=== PATIENT | female | born 1945 | race Caucasian/White ===

== ENCOUNTER 2023-03-11 16:11 | Emergency (ER) | payer MEDICARE, SELFPAY ==
[2023-03-11] VITALS (8 sets, daily range): BP systolic 127–145; BP diastolic 70–81; PULSE 91–94; RESP 14–18; TEMP 36.2; O2SAT 95–100
--- NOTE | ~2023-03-11 | CT_ITS ---
EXAMINATION: CT abdomen pelvis w con DATE: 03/11/2023 19:16 INDICATION: constipation X6d, lower abd pain TECHNIQUE: Computed tomography (CT) of the abdomen and pelvis was performed with 100 mL Omnipaque-350 intravenous contrast. Automated exposure control and iterative reconstruction technique were employe d. The dose-length product was 332.65 mGy-cm. COMPARISON: None. FINDINGS: Lower thorax: Small focus of tree-in-bud opacities in the right middle lobe, at the superior margin o f the study. Aortic valve and coronary artery calcifications. Small hiatal hernia. Liver: Normal. Biliary/Gallbladder: Cholelithiasis. No inflammatory change. No bile duct dilation. Pancreas: No mass or duct dilation. Spleen: Normal. Adrenals:No mass. Kidneys: No suspicious mass, obstructing stone, or hydronephrosis. GI tract: Mild distal esophageal and gastric wall edema. Prior gastric surgery Multiple small bowel d iverticuli. Short segment wall thickening and surrounding inflammatory change involving a loop of mid abdominal small bowel, with inflammation of an adjacent diverticulum. No small or large bowel dilati on. Appendix not confidently visualized. Mesentery/Peritoneum: No ascites, mass, or free air. Retroperitoneum: No mass. Atherosclerotic abdominal aortic and/or arterial calcifications. Pelvis: Pelvic organs are within normal limits. Soft Tissues: Small uncomplicated bilateral fat-containing inguinal hernias. Subcutaneous stranding w ith minimal dermal thickening over the right upper quadrant. Bones: No acute osseous finding. IMPRESSION: Small focus of tree-in-bud opacities in the right middle lobe, may represent chronic/atypical infecti on. Mild esophagitis/gastritis. Mid abdominal small bowel diverticulitis. Skin thickening and subcutaneous stranding over the right upper quadrant, may represent contusion or a dermal vascular lesion. Reviewed, dictated and finalized at location [facility] IMPRESSION: Small focus of tree-in-bud opacities in the right middle lobe, may represent ch ronic/atypical infection. Mild esophagitis/gastritis. Mid abdominal small bowel diverticulitis. Skin thickening and subcutaneous stranding over the right upper quadrant, may r epresent contusion or a dermal vascular lesion.
--- NOTE | 2023-03-11 18:18 | ED.ABDPAIN ---
HPI - Abdominal Pain General Chief Complaint: Abdominal Pain <BETSEY Rust Last Filed: 03/11/23 18:25> Stated Complaint: sent by PCP for possible SBO <BETSYE Rust Last Filed: 03/11/23 18:25> Time Seen by Provider: 03/11/23 19:50 <BETSEY Rust Last Filed: 03/11/23 18:25> Source: patient <BETSEY Rust Last Filed: 03/11/23 18:25> Mode of arrival: ambulatory <BETSEY Rust Last Filed: 03/11/23 18:25> Limitations: no limitations <BETSEY Rust Last Filed: 03/11/23 18:25> History of Present Illness HPI narrative: Patient is a 77-year-old female, with past medical history of bariatric surgery 9 years ago, who presents to the ED with report of constipation. Patient reports she has not had a bowel movement in the last 6 days. She notes that she is not typically regular, typically has bowel movement every 3 days. She has tried several different suppositories and mag critrate yesterday but was only able to pass brown water. She has had some pain across her lower abdomen. She contacted her primary care doctor was referred to the ED for further evaluation. Patient denies previous history of bowel obstruction. Denies history of diverticulitis. Denies nausea, vomiting, dysuria, hematuria, fevers. <BETSEY Rust Last Filed: 03/11/23 18:25> Related Data Home Medications: Home Medications Medication Instructions Recorded Confirmed aspirin 81 mg tablet,delayed 81 mg PO DAILY 05/24/22 02/26/23 release (Adult Aspirin Regimen) cyanocobalamin (vitamin B-12) 1,000 mcg IM MONTHLY 05/24/22 02/26/23 1,000 mcg/mL injection solution ([employer]) zinc acetate 50 mg (zinc) capsule 50 mg PO DAILY 05/24/22 02/26/23 <BETSEY Rust Last Filed: 03/11/23 18:25> Allergies/Adverse Reactions: Allergies Allergy/AdvReac Type Severity Reaction Status Date / Time No Known Allergies Allergy Verified 03/11/23 16:12 <Bianca Fuller PA-C - Last Filed: 03/11/23 18:25> Review of Systems Review of Systems: CONSTITUTIONAL: Denies fever, chills, or sweats. GASTROINTESTINAL: See HPI. GENITOURINARY: Denies dysuria or hematuria. <Bianca Fuller PA-C - Last Filed: 03/11/23 18:25> All systems reviewed & are unremarkable except as noted in HPI and below <Bianca Fuller PA-C - Last Filed: 03/11/23 18:25> PMFSH Family History Family History: Family History Father Hypertension Heart disease Mother Diabetes mellitus Heart disease Depression Hypertension Thyroid disease Sibling Diabetes mellitus Grandparent Diabetes mellitus Hypertension Depression Heart disease Thyroid disease <Bianca Fuller PA-C - Last Filed: 03/11/23 18:25> Social History Social History: Social History Smoking status: Former smoker Substance use: never Substance use type: does not use Lack of Transportation: No Lack of Food: Never True Current Housing: I Have Housing Concerned About Future Housing: No Difficulty Paying Gas/Electric Bills: No Difficulty Paying for Meds: No Currently Unemployed: No Education: High School Diploma/GED Difficulty w/ Childcare or Family Care: No Living arrangements: with family Occupation/Education: retired Gender identity (if verbalized by the patient): Female Sexual Orientation (if Verbalized by the Patient): Straight or Heterosexual Agree to blood products: Yes <BETSEY Rust Last Filed: 03/11/23 18:25> Exam Narrative: GENERAL: Well appearing, well-nourished, non-toxic, in no acute distress. HEAD: Normocephalic, atraumatic. RESPIRATORY: Airway patent, respirations nonlabored. Clear to auscultation bilaterally, no rales, rhonchi, wheezing. CA
[2023-03-11 18:44] LABS: Basophils Percent Auto 0.3 % (0.2-1.2); Eosinophils Absolute Auto 0.1 K/mm3 (0-0.3); Eosinophils Percent Auto 1.1 % (0-4.4); Hematocrit 41.6 % (37.0-47.0); Immature Granulocyte Absolute 0.04 K/mm3 (0.00-0.031); Immature Granulocyte Percent A 0.4 % (0-0.5); Lymphocytes Absolute Auto 1.79 K/mm3 (0.9-3.2); Lymphocytes Percent Auto 17.8 % (18.3-44.2); Mean Corpuscular HGB Conc 33.7 g/dl (32-36); Mean Corpuscular Volume 92.2 fl (80-100); Mean Platelet Volume 10.1 fl (7.4-10.4); Monocytes Absolute Auto 0.8 K/mm3 (0.1-0.6); Neutrophils Absolute Auto 7.3 K/mm3 (1.3-6.7); Neutrophils Percent Auto 72.4 % (45.5-73.1); Platelet Count Result 344 k/mm3 (150-375); Red Blood Count 4.51 M/mm3 (4.2-5.4)
[2023-03-11 18:51] LABS: Alanine Aminotransferase 13 U/L (6-35); Alkaline Phosphatase 94 U/L (38-126); Anion Gap 9 mmol/L (8-16); Aspartate Amino Transferase 21 U/L (14-36); Bilirubin,Total 0.7 mg/dL (0.2-1.3); Blood Urea Nitrogen 18 mg/dL (7-17); Calcium 9.3 mg/dL (8.4-10.2); Carbon Dioxide 30 mmol/L (22-30); Chloride 97 mmol/L (98-107); Estimated CRCL calculation 60 ml/min; Estimated Glomerular Filt Rate > 60; Glucose 119 mg/dL (65-110); Potassium 3.8 mmol/L (3.4-5.0); Sodium 136 mmol/L (137-145)
[2023-03-11 19:43] LABS: Add Urine Microscopic? YES
[2023-03-11 19:44] LABS: Appearance Urine Cloudy (Clear); Color Urine Yellow (Yellow); pH Urine 5.5 (5.0-9.0)
[2023-03-11 19:45] LABS: Bilirubin Urine Negative (Negative); Blood Urine Negative (Negative); Glucose Urine UA 2+ mg/dL (Negative); Ketones Urine 1+ mg/dL (Negative); Leukocyte Esterase Ur Trace LEU/UL (Negative); Nitrate Urine Negative (Negative); Protein Urine Negative (Negative); RBC Urine 0-2 /hpf (0-2); Squamous Epithelial Cell Urine Moderate /hpf (Few); Urobilinogen Urine 0.2 mg/dL (<2.0); WBC Clumps Urine Present /hpf
[2023-03-11 19:46] LABS: Bacteria Urine Trace /hpf
[2023-03-11] MEDS: CIPROFLOXACIN 500 MG TAB PO (20:57)
[2023-03-11] MEDS: metroNIDAZOLE 500 MG TABLET PO (20:57)
== END 2023-03-11 21:46 | disposition home or self-care (01) ==
PROVIDERS: Physician Assistant; Emergency Provider Emergency Medicine; PCP Family Medicine
DX: K57.92 Diverticulitis of intestine, part unspecified, without perforation or abscess without bleeding (principal); N39.0 Urinary tract infection, site not specified; Z98.84 Bariatric surgery status
CPT/HCPCS: 36415; 74177; 80053; 81001; 85025; 87086; 87088; 99284; A9270; Q9967

== ENCOUNTER → 2023-05-02 11:06 | Outpatient (CLI) | payer MEDICARE, SELFPAY ==
--- NOTE | ~2023-05-02 | US_ITS ---
EXAMINATION: US thyroid DATE: 05/02/2023 11:20 INDICATION: Left thyroid nodule. TECHNIQUE: Multiple ultrasound images of the thyroid were obtained. COMPARISON: None. FINDINGS: The right thyroid lobe measures 3.2 x 1.3 x 1.5 cm. The left thyroid lobe measures 4.0 x 2.5 x 2.4 c m. The thyroid demonstrates heterogeneous echogenicity and increased vascularity. In the right thyro id lobe, there is a 13 mm solid, hypoechoic, wider than tall nodule with lobulated margin without ech ogenic foci (TI-RADS TR4). In the right thyroid lobe, there is a 10 mm solid, isoechoic, wider than t all nodule with ill-defined margin without echogenic foci (TR3). In the left thyroid lobe, there is a 2.7 cm solid, isoechoic, wider than tall nodule with smooth margin without echogenic foci (TR3). IMPRESSION: 1. Multinodular goiter. Ultrasound-guided aspiration of the 2.7 cm left thyroid nodule is recommended . 2. Heterogeneous, hypervascular thyroid, likely chronic lymphocytic (Ramandeep) thyroiditis. Reviewed, dictated and finalized at location A. LIFE ECOLOGIST IMPRESSION: 1. Multinodular goiter. Ultrasound-guided aspiration of the 2.7 cm left thyroid nodule is recommended. 2. Heterogeneous, hypervascular thyroid, likely chronic lymphocytic (Ramandeep) thyroiditis.
== END ==
PROVIDERS: PCP Family Medicine; Visit Provider Family Medicine
DX: E04.2 Nontoxic multinodular goiter (principal)
CPT/HCPCS: 76536

== ENCOUNTER 2024-04-13 12:05 | Emergency (ER) | payer MEDICARE, SELFPAY ==
[2024-04-13] VITALS (35 sets, daily range): BP systolic 111–179; BP diastolic 54–101; PULSE 85–102; RESP 12–22; TEMP 36.4; O2SAT 96–100
--- NOTE | ~2024-04-13 | CT_ITS ---
EXAMINATION: CT abdomen pelvis w con DATE: 04/13/2024 14:49 INDICATION: Abdominal pain. Jaundice. TECHNIQUE: Computed tomography (CT) of the abdomen and pelvis was performed with 100 mL Omnipaque 350 intravenous contrast. Automated exposure control and iterative reconstruction technique were employe d. The dose-length product was 239.82 mGy-cm. COMPARISON: CT abdomen and pelvis 03/11/23 FINDINGS: The visualized portions of lung bases demonstrate minimal atelectasis. No pleural effusion. The heart size is normal. No pericardial effusion. 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 Th ere is severe intrahepatic biliary duct dilatation. There is a stricture of the common duct. The panc reatic duct is dilated to 7 mm. There is a stricture of the pancreatic duct in the head of the pancre as. There is an ill-defined hypodense mass in the head of the pancreas measuring 1.9 cm. There are ga llstones in the gallbladder, which is normal in size. There is gas in the gallbladder lumen. The sple en, adrenal glands, and right kidney are normal. There is focal cortical volume loss of left kidney. The left periuterine and ovarian veins are enlarged, consistent with pelvic venous insufficiency. The re are no dilated loops of bowel. There are diverticula of the proximal duodenum. The appendix is not visualized. There is no free intraperitoneal fluid. There is a calcified fibroid in the uterus. Ther e is mild periportal lymphadenopathy. There are a few scattered benign bone islands. There is mild th oracic and lumbar spondylosis. IMPRESSION: 1. Mass in the head of the pancreas with strictures of the common duct and pancreatic duct, consisten t with primary adenocarcinoma. 2. Mild periportal lymphadenopathy, which is indeterminate for metastatic disease. Reviewed, dictated and finalized at location A. AND BEVERAGE LEAD IMPRESSION: 1. Mass in the head of the pancreas with strictures of the common duct and panc reatic duct, consistent with primary adenocarcinoma. 2. Mild periportal lymphadenopathy, which is indeterminate for metastatic disea se.
--- NOTE | 2024-04-13 12:30 | ECG_ITS ---
Test Date: 2024-04-13 12:48:31 Measurements Intervals [place] Rate: 91 P: 0 ND: 0 QRS: 41 QRSD: 89 T: 48 QT: 359 QTc: 444 Interpretive Statements SINUS RHYTHM ATRIAL COUPLET AND ATRIAL AND VENTRICULAR PREMATURE COMPLEXES ANTEROSEPTAL INFARCT, AGE INDETERMINATE BASELINE ARTIFACT- I, II, III, AVR, AVL, AVF, V1-V6 ABNORMAL ECG No previous ECG available for comparison Electronically Signed On 04-13-2024 12:53:34 SALES ESTIMATOR by Leonel Alberto D.O.
[2024-04-13 13:04] LABS: Basophils Absolute Auto 0.1 K/mm3 (0.0-0.1); Basophils Percent Auto 0.7 % (0.2-1.2); Eosinophils Absolute Auto 0.1 K/mm3 (0-0.3); Eosinophils Percent Auto 1.7 % (0-4.4); Hematocrit 40.3 % (37.0-47.0); Hemoglobin 13.6 g/dL (12.0-15.0); Immature Granulocyte Absolute 0.03 K/mm3 (0.00-0.031); Immature Granulocyte Percent A 0.4 % (0-0.5); Lymphocytes Absolute Auto 1.05 K/mm3 (0.9-3.2); Lymphocytes Percent Auto 14.8 % (18.3-44.2); Mean Corpuscular HGB Conc 33.7 g/dl (32-36); Mean Corpuscular Hemoglobin 30.5 pg (26-34); Mean Corpuscular Volume 90.4 fl (80-100); Mean Platelet Volume 11.2 fl (7.4-10.4); Monocytes Absolute Auto 0.5 K/mm3 (0.1-0.6); Monocytes Percent Auto 6.3 % (2.6-8.5); Neutrophils Absolute Auto 5.4 K/mm3 (1.3-6.7); Neutrophils Percent Auto 76.1 % (45.5-73.1); Platelet Count Result 339 k/mm3 (150-375); Red Blood Count 4.46 M/mm3 (4.2-5.4); Red Cell Distribution Width 15.6 % (11.5-14.5); White Blood Count 7.1 K/mm3 (4.5-10.0)
--- OUTSIDE RECORDS SUMMARY | 2024-04-13 13:10 | XMS_ITS | Referral Summary ---
Author Organization [facility] Address [facility] [place] [address] Care Team Providers Care Database Designer Name Role Phone Unavailable Primary Care Provider Unavailabl e Source Comments [facility],non-owned Affiliates and Associated Physician Practices is amultiple site organization consisting of ambulatory clinics and hospital sitesin [place], [place], [place] and [place]. This disclosure is being madepursuant to the Care Everywhere program and may not contain all information available regarding this patient. Last updated 17.[facility] Social History Tobacco Use Types Packs/Day Years Used Date Smoking Tobacco: Never Assessed Sex and Gender Information Value Date Recorded Sex Assigned at Not on file Gender Identity Not on file Sexual Orientation Not on file Plan of Treatment Not on file
--- OUTSIDE RECORDS SUMMARY | 2024-04-13 13:10 | XMS_ITS | Patient Health Summary ---
Author Organization [facility] Address [address] [place] [address] Care Team Providers Care Entry Level Marketing Representative Name Role Phone Unavailable Primary Care Provider Unavailabl e Note from [facility],non-owned Affiliates and Associated Physician Practices is amultiple site organization consisting of ambulatory clinics and hospital sitesin [place], [place], [place] and [place]. This disclosure is being madepursuant to the Care Everywhere program and may not contain all information available regarding this patient. Last updated 17.[facility] Social History Tobacco Use Types Packs/Day Years Used Date Smoking Tobacco: Never Assessed Sex and Gender Information Value Date Recorded Sex Assigned at Not on file Gender Identity Not on file Sexual Orientation Not on file Procedures * CULTURE EAR+GRAM STAIN(Performed 08/06/2017) Performed for Chronic otitis externa of left ear, unspecified type Results * (ABNORMAL) CULTURE EAR+GRAM STAIN (08/06/2017 11:00 AM CDT) Culture Heavy normal skin roverto ANA PAULA 08/12/2017 10:38 AM T [facility] Culture Light Staphylococcus aureus(A) ANA PAULA 08/12/2017 10:38 AM T [facility] Culture Heavy Abbey albicans(A) ANA PAULA 08/12/2017 10:38 AM T [facility] Gram Stain Light Gram-positive cocci 08/12/2017 10:38 AM CDT [facility] Gram Stain Rare Gram-variable bacilli 08/12/2017 10:38 AM CDT [facility] Gram Stain Rare Yeast 08/12/2017 10:38 AM T [facility] Microbiology EAR PART / Unknown Collection / Unknown 08/06/2017 11:00 AM CDT 08/06/2017 8:39 PM CDT Narrative Organism Antibiotic Method Susceptibility Staphylococcus aureus Ciprofloxacin ANA PAULA <=0.5 ug/mL: Susceptible Staphylococcus aureus Clindamycin ANA PAULA 0.25 ug/mL: Resistant Staphylococcus aureus Doxycycline ANA PAULA <=0.5 ug/mL: Susceptible Staphylococcus aureus Erythromycin ANA PAULA 1 ug/mL: Resistant Staphylococcus aureus Gentamicin ANA PAULA <=0.5 ug/mL: Susceptible Staphylococcus aureus Inducible Clindamy jose Resistance ANA PAULA POS ug/mL: Pos Staphylococcus aureus Levofloxacin ANA PAULA 0.25 ug/mL: Susceptible Staphylococcus aureus Linezolid ANA PAULA 2 ug/mL: Susceptible Staphylococcus aureus Oxacillin ANA PAULA 0.5 ug/mL: Susceptible Staphylococcus aureus Tetracycline ANA PAULA <=1 ug/mL: Susceptible Staphylococcus aureus Trimethoprim-sulfa methoxa zole ANA PAULA <=10 ug/mL: Susceptible Staphylococcus aureus Vancomycin ANA PAULA 2 ug/mL: Susceptible Comment: Methicillin-susceptible Staphylococci are susceptible to oxacillin, nafcillin, cloxacillin,dicloxacillin, beta lactam/betalactamase inhibitor combinations, cephalosporins including cefazolin and carbapenems. This isolate is presumed to be resistant to clindamycin on the basis of detection of inducible clindamycin resistance. Mar Silva MD LAB - MICROBIOLOGY O RDERABLES [facility] [address] [place], [place] [address], [facility] [phone]
--- OUTSIDE RECORDS SUMMARY | 2024-04-13 13:10 | XMS_ITS | Clinical Summary ---
Author Organization [facility] Address [address] [place] [id number] Care Team Providers Care Roll Tester Name Role Phone Unavailable Primary Care Provider Unavailabl e Social History Tobacco Use Types Packs/Day Years Used Date Smoking Tobacco: Never Assessed Comments Unknown Sex and Gender Information Value Date Recorded Sex Assigned at Not on file Legal Sex Female 7:32 AM CDT Gender Identity Not on file Sexual Orientation Not on file Plan of Treatment Health Maintenance Due Date Last Done Comments Hepatitis C 1963 DTaP, Tdap and Td Vaccines ( 1 - Tdap) 1965 Zoster Vaccines (1 of 2) 1996 Dexa Scan (General) 10/19/2011 Pneumococcal Vaccine: 65+ Ye ars (1 of 1 - PCV) 10/19/2011 RSV Immunization or 60+ Years (1 - 1-dose 75+ series) 2021 COVID-19 Vaccine (2023-2 5 season) 2023 Influenza Adult (#1) 2023 Meningococcal B Vaccine Aged Out No l onger eligible based on patient's age to complete this topic Meningococcal Vaccine Aged Out No adela nayeli eligible based on patient's age to complete this topic RSV Immunizations Under 20 Months Aged Out No longer eligible based on patient's age to complete this topic
--- OUTSIDE RECORDS SUMMARY | 2024-04-13 13:10 | XMS_ITS | Clinical Summary ---
Author Organization [facility] [employer] Address [address] [place] [address] Care Team Providers Care Wood Cutter Name Role Phone Unavailable Primary Care Provider Unavailabl e Source Comments [facility],non-owned Affiliates and Associated Physician Practices is amultiple site organization consisting of ambulatory clinics and hospital sitesin [place], [place], [place] and [place]. This disclosure is being madepursuant to the Care Everywhere program and may not contain all information available regarding this patient. Last updated 17.[facility] [employer] Social History Tobacco Use Types Packs/Day Years Used Date Smoking Tobacco: Never Assessed Sex and Gender Information Value Date Recorded Sex Assigned at Not on file Gender Identity Not on file Sexual Orientation Not on file Plan of Treatment Health Maintenance Due Date Last Done Comments BONE DENSITY TESTING 1945 HEPATITIS C SCREENING 10/13/1963 DTAP/TDAP/TD VACCINES (1 - Tdap) 1965 PNEUMOCOCCAL VACCINE 50+ (1 of 1 - PCV) 1996 ZOSTER VACCINE (1 of 2) 1996 Respiratory Syncytial Virus (RSV) Vaccine Pt: or over 60 yrs (1 - 1-dose 75+ series) 2021 COVID-19 VACCINE ( - 2023-2 5 season) 2023 INFLUENZA VACCINE (#1) 2023 DEPRESSION SCREENING 03/03/2024 MEDICARE AWV CALENDAR YEAR 2024 HEPATITIS B VACCINE Aged Out No longe r eligible based on patient's age to complete this topic HIB VACCINE Aged Out No longer eligi ble based on patient's age to complete this topic HPV VACCINE Aged Out No longer eligi ble based on patient's age to complete this topic MENINGOCOCCAL (Group B) VACCINE Aged Out No longer eligible based on patient's age to complete this topic MENINGOCOCCAL VACCINE Aged Out No adela nayeli eligible based on patient's age to complete this topic
[2024-04-13 13:17] LABS: Bacteria Urine None Seen /hpf; Mucus Urine Present /lpf; Squamous Epithelial Cell Urine Moderate /hpf (Few); WBC Urine 0-5 /hpf (0-3); White Blood Cell Casts Urine Present /lpf
[2024-04-13 13:20] LABS: Add Urine Microscopic? YES; Appearance Urine Cloudy (Clear); Bilirubin Urine 3+ (Negative); Blood Urine Negative (Negative); Color Urine Orange (Yellow); Glucose Urine UA Negative (Negative); INR 0.9; Ketones Urine Negative (Negative); Leukocyte Esterase Ur 2+ LEU/UL (Negative); Nitrate Urine Positive (Negative); Protein Urine 1+ mg/dL (Negative); Prothrombin Time 12.9 Seconds (11.1-14.7); Specific Grav Ur 1.037 (1.001-1.035); Urobilinogen Urine 0.2 mg/dL (<2.0)
[2024-04-13 13:21] LABS: Partial Thromboplastin Time 25.8 Seconds (22.3-36.8)
[2024-04-13 13:22] LABS: Lactic Acid Reflex 4.4 mmol/L (0.7-2.0)
[2024-04-13 13:27] LABS: Ammonia 49 umol/L (9-30)
--- NOTE | 2024-04-13 13:44 | ED_ITS ---
HPI - Abdominal Pain General Chief Complaint: Abdominal Pain Stated Complaint: jaundice Time Seen by Provider: 04/13/24 13:09 History of Present Illness HPI narrative: 78-year-old female with a past medical history including hypertension and diabetes. Today patient presents to the emergency depart with yellowing skin and eyes. For last week she has been having some intermittent abdominal pain cramping which has since resolved. She now notices that she is having clear colored stools, dark-colored urine and feeling yellowing around her eyes and hands, trunk. States the other and has progressed rapidly over the last day, noticed her abdominal pain this past week associated with some nausea and diarrhea which also resolved. Presently she is not having any pain or symptoms besides the yellow skin. Denies any history of hepatitis, no history of cancer in herself or her family, does report a 10 lb weight loss this past week. No chest pain, shortness a breath, fever, chills, back pain or abdominal pain present. No present nausea vomiting. Related Data Home Medications ?Medication ?Instructions ?Recorded ?Confirmed ?Last Taken ?Type aspirin 81 mg tablet,delayed 81 mg PO DAILY 05/24/22 03/10/24 Unknown History release (Adult Aspirin Regimen) zinc acetate 50 mg (zinc) capsule 50 mg PO DAILY 05/24/22 03/10/24 Unknown History ferrous sulfate 325 mg (65 mg 325 mg PO DAILY 03/19/23 03/10/24 Unknown History iron) tablet (Feosol) Allergies Allergy/AdvReac Type Severity Reaction Status Date / Time No Known Allergies Allergy Verified 04/13/24 12:13 Review of Systems 2 Review of Systems: As reviewed above in HPI [facility] [place] Family History Family History Father Hypertension Heart disease Mother Diabetes mellitus Heart disease Depression Hypertension Thyroid disease Sibling Diabetes mellitus Grandparent Diabetes mellitus Hypertension Depression Heart disease Thyroid disease Social History Social History Smoking status: Former smoker Substance use: never Substance use type: does not use Lack of Transportation: No Lack of Food: Never True Current Housing: I Have Housing Concerned About Future Housing: No Difficulty Paying Gas/Electric Bills: No Difficulty Paying for Meds: No Currently Unemployed: No Education: High School Diploma/GED Difficulty w/ Childcare or Family Care: No Living arrangements: with family Occupation/Education: retired Gender identity (if verbalized by the patient): Female Sexual Orientation (if Verbalized by the Patient): Straight or Heterosexual Agree to blood products: Yes Exam 2 Narrative: GENERAL: Jaundiced, not in any acute distress, answering all questions appropriate awake alert. HEAD: [Normocephalic, atraumatic.] EYES: Scleral icterus, pupils equal and reactive ENT: Nares clear, no rhinorrhea or epistaxis. Mucous membranes moist. NECK: Supple. CHEST: [Clear to auscultation. No respiratory distress.] HEART: [Regular rate and rhythm]. No murmur heard. [Normal peripheral pulses.] ABDOMEN: [Soft, nondistended], [nontender], [No rigidity or guarding] EXTREMITIES: Normal range of motion. [No edema.] SKIN: Diffuse jaundice in the upper, lower extremities, trunk and abdomen, facial features and eyes, warm and dry extremities otherwise. NEURO: [No focal deficits]. Alert and oriented [x3.] PSYCH: [Normal mood and affect.] Course Vital Signs Vital signs: Vital Signs Temperature 36.4 C L 04/13/24 12:07 Pulse Rate 100 04/13/24 12:07 Respiratory Rate 16 04/13/24 12:07 Blood Pressure 179/75 H 04/13/24 12:07 Pulse Oximetry 99 04/13/24 12:07 Oxygen Delivery Room Air 04/13/24 12:07 Temperature 36.4 C L 04/13/24 12:07 Pulse Rate 85 04/13/24 16:50 Respiratory Rate 20 04/13/24 16:50 Blood Pressure 143/97 H 04/13/24 16:50 Pulse Oximetry 100 04/13/24 16:50 Oxygen Delivery Room Air 04/13/24 12:07 MDM - Abdominal Pain MDM Narrative Medical decision making narrative: 78-year-old female presenting with new onset jaundice. This past week she has had some intermittent abdominal pain which is since resolved. She now has clear colored stools, discolored urine, profound jaundice and scleral icterus. Her vital signs show some stable hypertension but no tachycardia, fever, hypoxia. She is saturating well on room air. She has a soft nontender nondistended abdomen without any palpable masses. Reports a 10 lb unintentional weight loss this past week. No symptoms such as nausea vomiting diarrhea abdominal pain today. Considerations presently are hepatitis, pancreatic mass or lesion, obstructive process, blood disorders pain to over production and destruction of hemoglobin, cholangitis or other abdominal process. Laboratory studies were obtained including CBC, CMP, bilirubin direct and indirect, LFTs and lipase. CT of the abdomen pelvis with contrast obtained to rule out any intra-abdominal process or mass. EKG obtained. Workup reveals no leukocytosis or anemia. Normal platelet count. Normal coags. Electrolytes within normal limits, normal kidney function, glucose slightly elevated to 106. Lactic acid 4.4. Total bilirubin of 13.8, direct bilirubin of 7.2 indirect of 1.6 indicative of obstructive jaundice. Elevated ALT AST and alk-phos in the 8-900 range. Lipase elevated 433. Consistent with obstruction. He urinalysis shows some discoloration and bilirubin without signs of infection. Imaging studies show a mass in the pancreatic head with stricture of the common bile and pancreatic ducts consistent with primary adenocarcinoma as well as periportal lymphadenopathy concerning for metastatic disease. Discussed the case with Interventional Radiology (Dr. Evans), Gastroenterology (Dr. Morin) and Hematology Oncology (Dr. Mondragon) over the phone. Recommendations are to transfer to a higher level of care facility that can conduct ERCP and obtain biopsy. Patient has no preference on transfer. I contacted the [facility] transfer line and spoke to [facility] and patient was accepted as admission to the medical-surgical floor for pancreatic mass with obstructive jaundice under the hospitalist Dr. Srivastava with GI on consult. Patient comfortable with the plan of care and will remain in the emergency department until transfer can be completed in bed available. Patient remains hemodynamically stable, diet orders were placed as well as repeat laboratory studies. Medical Records Attestation: I reviewed the patient's medical records. Lab Data Attestation: I reviewed the patient's lab results. 04/13/24 12:45 04/13/24 12:45 Labs: Lab Results 04/13/24 04/13/24 04/13/24 Range/Units 12:45 14:32 17:00 WBC 7.1 (4.5-10.0) K/mm3 RBC 4.46 (4.2-5.4) M/mm3 Hgb 13.6 (12.0-15.0) g/dL Hct 40.3 (37.0-47.0) % MCV 90.4 (80-100) fl MCH 30.5 (26-34) pg MCHC 33.7 (32-36) g/dl RDW 15.6 H (11.5-14.5) % Plt Count 339 (150-375) k/mm3 MPV 11.2 H (7.4-10.4) fl Immature Gran % (Auto) 0.4 (0-0.5) % Neut % (Auto) 76.1 H (45.5-73.1) % Lymph % (Auto) 14.8 L (18.3-44.2) % [place] % (Auto) 6.3 (2.6-8.5) % Eos % (Auto) 1.7 (0-4.4) % Baso % (Auto) 0.7 (0.2-1.2) % Lymph # (Auto) 1.05 (0.9-3.2) K/mm3 [place] # (Auto) 0.5 (0.1-0.6) K/mm3 Eos # (Auto) 0.1 (0-0.3) K/mm3 Baso # (Auto) 0.1 (0.0-0.1) K/mm3 Abs Immat Gran (auto) 0.03 (0.00-0.031) K/mm3 Absolute Neuts (auto) 5.4 (1.3-6.7) K/mm3 Absolute Nucleated RBC 0.000 (0.0-0.012) K/mm3 Nucleated RBC % 0.0 (0.0-0.2) % PT 12.9 (11.1-14.7) Seconds INR 0.9 APTT 25.8 (22.3-36.8) Seconds Sodium 137 (137-145) mmol/L Potassium 3.9 (3.4-5.0) mmol/L Chloride 95 L (98-107) mmol/L Carbon Dioxide 26 (22-30) mmol/L Anion Gap 16 H (4-12) mmol/L BUN 13 D (7-17) mg/dL Creatinine 0.34 L (0.7-1.0) mg/dL Estim Creat Clear Calc 83 ml/min Estimated GFR > 60 (59 - ) Glucose 206 H (65-110) mg/dL Lactic Acid 4.4 H* Pending (0.7-2.0) mmol/L Calcium 10.1 (8.4-10.2) mg/dL Total Bilirubin 13.8 H (0.2-1.3) mg/dL Direct Bilirubin 7.7 H 7.2 H (0-0.3) mg/dL Indirect Bilirubin 1.7 H 1.6 H (0-1.1) mg/dL AST 906 H (14-36) U/L ALT 819 H (6-35) U/L Alkaline Phosphatase 978 H (38-126) U/L Ammonia 49 H (9-30) umol/L Total Protein 7.0 (6.3-8.2) g/dL Albumin 4.0 (3.5-5.1) g/dL Lipase 433 H (23-300) U/L Urine Color [place] H (Yellow) Urine Appearance Cloudy H (Clear) Urine pH 5.0 (5.0-9.0) Ur Specific [place] 1.037 H (1.001-1.035) Urine Protein 1+ H (Negative) mg/dL Urine Glucose (UA) Negative (Negative) mg/dL Urine Ketones Negative (Negative) mg/dL Ur Blood (Man) Negative (Negative) Urine Nitrate Positive H (Negative) Urine Bilirubin 3+ H (Negative) Urine Urobilinogen 0.2 (<2.0) mg/dL Leukocyte Esterase Rfl 2+ H (Negative) JACQUE/UL Urine RBC 11-20 H (0-2) /hpf Urine WBC 0-5 (0-3) /hpf Ur Squamous Epith Cells Moderate (Few) /hpf Urine Bacteria None seen /hpf Urine Casts 3-5 WBC Casts Present H (None) /lpf Urine Mucus Present /lpf Imaging Data Attestation: I personally reviewed and interpreted this imaging study as follows: My impression: Impressions Abdomen/Pelvis CT 04/13/24 14:57 IMPRESSION: 1. Mass in the head of the pancreas with strictures of the common duct and pancreatic duct, consistent with primary adenocarcinoma. 2. Mild periportal lymphadenopathy, which is indeterminate for metastatic disease. Radiologist's impression: ITS Impressions Abdomen/Pelvis CT 04/13/24 14:57 IMPRESSION: 1. Mass in the head of the pancreas with strictures of the common duct and pancreatic duct, consistent with primary adenocarcinoma. 2. Mild periportal lymphadenopathy, which is indeterminate for metastatic disease. Discharge Plan Discharge Clinical Impression: Malignant obstructive jaundice, Mass of head of pancreas, Elevated LFTs, Total bilirubin, elevated Patient Disposition: Acute Care Hospital Condition: Stable Instructions: Antibiotic Form Patient Language: Scottish Prescriptions: No Action aspirin [Adult Aspirin Regimen] 81 mg tablet,delayed release (DR/EC) 81 mg PO DAILY zinc acetate 50 mg (zinc) capsule 50 mg PO DAILY (DME) Dexcom G6 Human Resources Operations Coordinator Misc See Rx Instructions .Route Qty: 1 3RF Rx Instructions: As directed (DME) Dexcom G6 Sensor Device See Rx Instructions .Route Qty: 9 11RF Rx Instructions: As directed (DME) Dexcom G6 Transmitter Device See Rx Instructions .Route Qty: 1 3RF Rx Instructions: As directed ferrous sulfate [Feosol] 325 mg (65 mg iron) tablet 325 mg PO DAILY polyethylene glycol 3350 [Miralax] 17 gram/dose powder 17 g PO DAILY Qty: 238 3RF (DME) Monoject Safety Syringes 3 mL 25 gauge x 5/8 syringe See Rx Instructions .Route Qty: 500 0RF Rx Instructions: As directed nystatin 100,000 unit/gram cream 1 applic topical BID Qty: 30 1RF atorvastatin 20 mg tablet 20 mg PO QHS Qty: 90 1RF ergocalciferol (vitamin D2) 1,250 mcg (50,000 unit) capsule 1,250 mcg PO WEEKLY Qty: 12 1RF hydrochlorothiazide 25 mg tablet 25 mg PO DAILY Qty: 90 1RF cyanocobalamin (vitamin B-12) [Dodex] 1,000 mcg/mL solution 1,000 mcg IM MONTHLY Qty: 3 1RF enalapril maleate 10 mg tablet 10 mg PO DAILY Qty: 90 1RF duloxetine 60 mg capsule,delayed release(DR/EC) See Rx Instructions .ROUTE .COMPLEX Qty: 90 1RF Dose Instruction: TAKE 1 CAPSULE DAILY Rx Instructions: TAKE 1 CAPSULE DAILY Mounjaro 12.5 mg/0.5 mL pen injector 12.5 mg subcut WEEKLY Qty: 6 0RF (DME) OneTouch Verio test strips Strip See Rx Instructions .Route Qty: 100 1RF Rx Instructions: As directed (DME) lancets 33 gauge misc See Rx Instructions .Route Qty: 100 1RF Rx Instructions: As directed metformin 500 mg tablet extended release 24 hr 500 mg PO .COMPLEX Qty: 180 1RF Rx Instructions: Please take one tablet in the morning and two tablets in the evening. Follow-up/Referrals: Brittni Guardado DO [Primary Care Provider] - Time of Disposition: 17:20
--- OUTSIDE RECORDS SUMMARY | 2024-04-13 14:00 | XMS_ITS | Referral Summary ---
Author Organization [facility] Address [facility] [place] [address] Care Team Providers Care [place] Fishing Boat Crewman Name Role Phone Unavailable Primary Care Provider Unavailabl e Source Comments [facility],non-owned Affiliates and Associated Physician Practices is amultiple site organization consisting of ambulatory clinics and hospital sitesin [place], [place], [place] and [place]. This disclosure is being madepursuant to the Care Everywhere program and may not contain all information available regarding this patient. Last updated 17.[facility] Social History Tobacco Use Types Packs/Day Years Used Date Smoking Tobacco: Never Assessed Sex and Gender Information Value Date Recorded Sex Assigned at Not on file Gender Identity Not on file Sexual Orientation Not on file Plan of Treatment Not on file
--- OUTSIDE RECORDS SUMMARY | 2024-04-13 14:00 | XMS_ITS | Clinical Summary ---
Author Organization [facility] Address [address] [place] [id number] Care Team Providers Care Data Communications Software Consultant Name Role Phone Unavailable Primary Care Provider [...]
--- OUTSIDE RECORDS SUMMARY | 2024-04-13 14:00 | XMS_ITS | Clinical Summary ---
Author Organization [facility] [employer] Address [address] [place] [address] Care Team Providers Care City Designer Name Role Phone Unavailable Primary Care Provider Unavailabl e Source Comments [facility],non-owned Affiliates and Associated Physician Practices is amultiple site organization consisting of ambulatory clinics and hospital sitesin [place], [place], [place] and [place]. This disclosure is being madepursuant to the Care Everywhere program and may not contain all information available regarding this patient. Last updated 17.[facility] [employer] Social History Tobacco Use Types Packs/Day Years [...]
--- OUTSIDE RECORDS SUMMARY | 2024-04-13 14:00 | XMS_ITS | Patient Health Summary ---
Author Organization [facility] [employer] Address [address] [place] [address] Care Team Providers Care Transport Specialist Name Role Phone Unavailable Primary Care Provider Unavailabl e Note from [facility],non-owned Affiliates and Associated Physician Practices is amultiple site organization consisting of ambulatory clinics and hospital sitesin [place] and [place]. This disclosure is being madepursuant to the Care Everywhere program and may not contain all information available regarding this patient. Last updated 17.[facility] [employer] Social History Tobacco Use Types Packs/Day Years [...] roverto ANA PAULA 08/12/2017 10:38 AM T [facility] MICROBIOLOGY Culture Light Staphylococcus aureus(A) ANA PAULA 08/12/2017 10:38 AM T [facility]CRO[facility] Culture Heavy Abbey albicans(A) ANA PAULA 08/12/2017 10:38 AM T [facility]CRO[facility] Gram Stain Light Gram-positive cocci 08/12/2017 10:38 AM CDT [facility]CRO[facility] Gram Stain Rare Gram-variable bacilli 08/12/2017 10:38 AM CDT [facility]CRO[facility] Gram Stain Rare Yeast 08/12/2017 10:38 AM T [facility] MICROBIOLOGY Microbiology EAR PART / Unknown [...] Silva MD LAB - MICROBIOLOGY O RDERABLES [facility] [address] [place], [place] [address], [facility] [phone]
[2024-04-13 14:17] LABS: Alanine Aminotransferase 819 U/L (6-35); Aspartate Amino Transferase 906 U/L (14-36)
[2024-04-13 14:18] LABS: Alkaline Phosphatase 978 U/L (38-126); Anion Gap 16 mmol/L (4-12); Bilirubin Direct 7.7 mg/dL (0-0.3); Bilirubin Indirect 1.7 mg/dL (0-1.1); Bilirubin,Total 13.8 mg/dL (0.2-1.3); Blood Urea Nitrogen 13 mg/dL (7-17); Calcium 10.1 mg/dL (8.4-10.2); Carbon Dioxide 26 mmol/L (22-30); Chloride 95 mmol/L (98-107); Estimated CRCL calculation 83 ml/min; Estimated Glomerular Filt Rate > 60; Glucose 206 mg/dL (65-110); Lipase 433 U/L (23-300); Potassium 3.9 mmol/L (3.4-5.0); Sodium 137 mmol/L (137-145)
[2024-04-13 14:53] LABS: Bilirubin Direct 7.2 mg/dL (0-0.3); Bilirubin Indirect 1.6 mg/dL (0-1.1)
[2024-04-13 15:54] LABS: Reflex Lactic Acid Yes or No Add Lactic
[2024-04-13 17:22] LABS: Lactic Acid 2.2 mmol/L (0.7-2.0)
[2024-04-14] VITALS (37 sets, daily range): BP systolic 115–162; BP diastolic 64–93; PULSE 72–90; RESP 12–25; TEMP 36.8; O2SAT 94–100
[2024-04-14 04:57] LABS: Basophils Absolute Auto 0.1 K/mm3 (0.0-0.1); Eosinophils Absolute Auto 0.3 K/mm3 (0-0.3); Hematocrit 33.6 % (37.0-47.0); Hemoglobin 12.1 g/dL (12.0-15.0); Immature Granulocyte Absolute 0.01 K/mm3 (0.00-0.031); Immature Granulocyte Percent A 0.2 % (0-0.5); Lymphocytes Absolute Auto 1.17 K/mm3 (0.9-3.2); Lymphocytes Percent Auto 18.6 % (18.3-44.2); Mean Corpuscular Hemoglobin 31.4 pg (26-34); Mean Corpuscular Volume 87.3 fl (80-100); Mean Platelet Volume 10.8 fl (7.4-10.4); Monocytes Absolute Auto 0.6 K/mm3 (0.1-0.6); Neutrophils Absolute Auto 4.2 K/mm3 (1.3-6.7); Neutrophils Percent Auto 66.2 % (45.5-73.1); Platelet Count Result 296 k/mm3 (150-375); Red Blood Count 3.85 M/mm3 (4.2-5.4); Red Cell Distribution Width 15.2 % (11.5-14.5); White Blood Count 6.3 K/mm3 (4.5-10.0)
--- NOTE | 2024-04-14 05:01 | PC.NURSE ---
Patient was offered a hospital bed for comfort, but stated she was very comfortable in the bed she was already in.
[2024-04-14 05:39] LABS: Albumin Level 3.4 g/dL (3.5-5.1); Alkaline Phosphatase 877 U/L (38-126); Anion Gap 10 mmol/L (4-12); Bilirubin,Total 12.9 mg/dL (0.2-1.3); Blood Urea Nitrogen 9 mg/dL (7-17); Calcium 9.2 mg/dL (8.4-10.2); Carbon Dioxide 28 mmol/L (22-30); Chloride 99 mmol/L (98-107); Estimated CRCL calculation 95 ml/min; Estimated Glomerular Filt Rate > 60; Glucose 214 mg/dL (65-110); Potassium 3.2 mmol/L (3.4-5.0); Sodium 137 mmol/L (137-145)
[2024-04-14 05:40] LABS: Aspartate Amino Transferase 787 U/L (14-36)
[2024-04-14 05:43] LABS: Alanine Aminotransferase 735 U/L (6-35)
--- NOTE | 2024-04-14 09:33 | PC.NURSE ---
Breakfast tray ordered.
--- NOTE | 2024-04-14 12:22 | PC.NURSE ---
lunch tray ordered
--- NOTE | 2024-04-14 13:45 | PC.NURSE ---
UPDATE GIVEN TO [facility]. STILL AWAITING BED PLACEMENT. WILL CONTINUE TO MONITOR
--- NOTE | 2024-04-14 15:20 | PC.NURSE ---
NANCY FREEMAN FROM [facility] CALLED FOR INFO REGARDING PT
--- NOTE | 2024-04-14 19:51 | PC.NURSE ---
Spoke with Tigist WITT with [facility] with an updated set of vital signs at this time.
[2024-04-14 20:22] LABS: Glucose Point of Care 206 mg/dl (65-105)
--- NOTE | 2024-04-14 20:39 | PC.NURSE ---
[facility] arrives for patient
== END 2024-04-14 20:43 | disposition short-term general hospital (02) ==
PROVIDERS: Emergency Medicine; Emergency Provider Student in an Organized Health Care Education/Training Program; PCP Family Medicine
DX: K83.1 Obstruction of bile duct (principal); K86.9 Disease of pancreas, unspecified; R79.89 Other specified abnormal findings of blood chemistry; I10 Essential (primary) hypertension; E11.9 Type 2 diabetes mellitus without complications; R94.31 Abnormal electrocardiogram [ECG] [EKG]
CPT/HCPCS: 36415; 74177; 80053; 81001; 82140; 82248; 82948; 83605; 83690; 85025; 85610; 85730; 93005; 96374; 99285; Q9967

== ENCOUNTER 2024-07-14 17:08 | Emergency (ER) | payer MEDICARE, SELFPAY ==
--- OUTSIDE RECORDS SUMMARY | 2024-07-14 17:10 | XMS_ITS ---
Author Organization [facility] Address [address] [place] [address] Care Team Providers Care Refrigerating Oiler Name Role Phone Unknown, Notinfile Primary Care Provider Unavail able Mohan Heller MD Unavailable Kourtney Park Unavailable [phone] No, Physician Unavailable Abimael Radford MD Unavailable [phone] Active Problems Problem Noted Date Diagnosed Date Pancreatic adenocarcinoma 04/29/2024 Pancreatic mass 04/15/2024 Severe protein-calorie malnutrition 04/15/2024 Current Treatment and Therapy Plans Gemcitabine / Albumin-bound PACLItaxel (Abraxane) 28 Day Cycles - Pancreas* Plan Start Date:05/10/2024 Plan Provider:Abimael Radford MD Linked Problems Pancreatic adenocarcinoma (H CC) Treatment Medications Current Day (Day 1 , Cycle 1 - Planned for 05/11/2024) Next Day (Day 15, Cycle 1 - Planned for 05/25/2024) albumin-bound PACLItaxel (ABRAXANE)albumin-bound PACLItaxel (ABRAXANE) 5 mg/mLdexAMETHasone (DECADRON)gemcitabine (GEMZAR)gemcitabine (GEMZAR) IVPB in 250 mL (using 38 mg/mL gemCITabine) (J9201) albumin-bound PACLItaxel (ABRAXANE) 5 mg/mL IVPB in empty container 195 mgdexAMETHasone (DECADRON) preservative free solution 10 mggemcitabine (GEMZAR - J9201) 1,550 mg in sodium chloride 0.9% 250 mL IVPB albumin-bound PACLItaxel (ABRAXANE) 5 mg/mL IVPB in empty container 195 mgdexAMETHasone (DECADRON) preservative free solution 10 mggemcitabine (GEMZAR - J9201) 1,550 mg in sodium chloride 0.9% 250 mL IVPB Past Treatment and Therapy Plans No past plan information found. Lifetime Dose Tracking * Chemical Lifetime Dose Automatic Entry Manual Entr y Fluoro Time 4.5 minutes 4.5 minutes 0 minutes Air kerma at the reference point (Ka,r) 84 mGy 8 4 mGy 0 mGy
--- OUTSIDE RECORDS SUMMARY | 2024-07-14 17:10 | XMS_ITS | Encounter Summary ---
Author Organization [facility] Address [address] [place] [address] Care Team Providers Care Save All Operator Name Role Phone Unknown, Notinfile Primary Care Provider Unavail able Mohan Heller MD Unavailable Kourtney Park Unavailable [phone] No, Physician Unavailable Abimael Radford MD Unavailable [phone] Encounter Details Date Type Department Care Team (Late st Contact Info) Description 07/14/2024 Telephone [facility] [address] [place] [address] Liya Woody, RN Social History Tobacco Use Types Packs/Day Years Used Date Smoking Tobacco: Former Cigarettes Q uit: 1975 Smokeless Tobacco: Never AUDIT-C Answer Date Recorded Q1: How often do you have a drink containing alcohol? Never 04/16/2024 Q2: How many drinks containi ng alcohol do you have on a typical day when you are drinking? Patient does not drink Q3: How often do you have si x or more drinks on one occasion? Never 04/16/2024 Personal Safety Answer Date Recorded Have you ever been in or are you currently in a harmful physical or emotional relationship or is someone making you feel afraid or unsafe? Denies 04/15/2024 Comments Unknown Sex and Gender Information Value Date Recorded Sex Assigned at Not on file Legal Sex Female 9:44 PM DISPLAY TRIMMER Gender Identity Not on file Sexual Orientation Not on file documented as of this encounter Miscellaneous Notes * Telephone Encounter - Liya Woody RN - 07/14/2024 1:39 PM CDT Patient called and reports she has been having black, gooey stools for about 4-5 days. She deniesbeing dizzy or light headed. She states she is taking natural treatment for my cancer . Still taking ivermectin and fenbendazole per her retired MD friend. I recommended she reach out to her PCP or discuss with prescriber of medication for recommendations. If she starts to feel weak or dizzy - sheshould go to an emergency room. Zac voiced understanding. documented in this encounter Plan of Treatment Not on file documented as of this encounter Visit Diagnoses Not on filedocumented in this encounter Care Teams Save All Operator Relationship Specialty Start Date End Date Unknown, Notinfile PCP - General 04/16/24 Mohan Heller MD [address] [place] [address] Endocrinology Diabetes & Metabolism 04/21/24 Kourtney Park PA [id number] [place] [address] Physician Lead Retail Sales Associate Hepatobiliary Surgery 04/21/24 No, Physician 04/21/24 Abimael Radford MD [address] [facility] [place] [address] Consulting Physician Hematology 04/21/24 documented as of this encounter
--- OUTSIDE RECORDS SUMMARY | 2024-07-14 17:10 | XMS_ITS | Referral Summary ---
Author Organization 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 Surgery [address] [facility] [address] [place] [address] Ana Lilia Aguilera, MIRYAM 06/29/[address] [facility] Surgery [address] [facility] Floor 5 [place] [address] Misty Chaney MD Medical Question/Miscellaneous 05/20/2024 Telephone [facility] [place] [address] Liya Woody, RN 05/10/2024 Telephone [facility] Radiation Oncology [address] [place] [address] Advanced [place] [address] No, Physician 05/10/2024 Telephone [facility] Radiation Oncology [address] [facility] [place] [address] No, Physician 05/07/2024 Telephone [facility] Cancer Genetics Department [address] [place] [phone] Shahla Edmond 05/07/2024 Telephone [facility] Cancer Genetics Department [address] [place] [phone] Shahla Edmond 05/06/2024 8:47 AM CUTTER GRINDER OPERATOR - 05/06/2024 11:59 PM CUTTER GRINDER OPERATOR Hospital Encounter [facility] - Imaging [address] [place] [phone] [facility] Pet Pancreatic adenocarcinoma (HCC) Discharge Disposition: Discharge to home or self care 04/30/2024 Telephone [facility] Radiation Oncology [facility] [place] [address] Ray Billy MD PhD 04/30/2024 Orders Only [facility] Center [address] [place] [phone] Abimael Radford MD Pancreatic adenocarcinoma (HCC) (Primary Dx) 04/29/2024 1:30 PM CUTTER GRINDER OPERATOR Office Visit [facility] [address] [place] [phone] Abimael Radford MD Pancreatic adenocarcinoma (HCC) (Primary Dx) 04/22/2024 Orders Only [facility] Surgery [address] [place] [address] [address] [place] [phone] Kourtney Park PA Pancreatic adenocarcinoma (HCC) (Primary Dx) 04/22/2024 Orders Only [facility] Surgery [address] [place] [address] [address] [place] [address] Kourtney Park PA Pancreatic adenocarcinoma (HCC) (Primary Dx) 04/22/2024 Results Follow-Up [facility] Gastroenterolog y [address] [facility] Office [address], [address] [place] [address] Naima Knight RN 04/14/2024 9:41 PM CUTTER GRINDER OPERATOR - 04/21/2024 1:31 PM CUTTER GRINDER OPERATOR Hospital Encounter [address] [phone] Thao Mcdowell MD Shimotani, Keyon Gonzalez, Marquis Dias MD Baig, Sophia, MD Pancreatic mass (Primary Dx); Diagnosis unknown Discharge Disposition: Discharge to home or self care 04/16/2024 2:00 PM CUTTER GRINDER OPERATOR Anesthesia Event [facility] GI Center [address] [place] [phone] Brittni Sherwood MD Waldeck, Pauline Rose, CRNA 04/16/2024 2:30 PM CUTTER GRINDER OPERATOR - 04/16/2024 3:15 PM CUTTER GRINDER OPERATOR Surgery [facility] [address] [place] [phone] Chente Decker MD ESOPHAGOGASTRODUODENOSCOPY CONTROL BLEED from Last 3 Months Allergies No known active allergies Medications atorvastatin (LIPITOR) 20 mg tablet Take 1 tablet (20 mg total) by mouth nightly at bedtime. [address] (CYMBALTA) 60 mg capsule Take 1 capsule (60 mg total) by mouth daily 4 Active aspirin 81 mg enteric coated tablet Take 1 tablet (81 mg total) by mouth daily Active zinc acetate 25 mg (zinc) capsule Take 50 mg by mouth daily Active ferrous sulfate 325 mg (65 mg of elemental iron) tablet Take 1 tablet (65 mg of elemental iron total) by mouth 2 (two) times a day Active enalapriL-hydro chlorothiazide (VASERETIC) 10-25 mg per tablet Take 1 tablet by mouth daily Active cholecalciferol (VITAMIN D-3) 50,000 unit capsule Take 1 capsule (50,000 Units total) by mouth once a week Active insulin lispro (ADMELOG) 100 unit/mL pen for injection Inject 4 Units under the skin 3 (three) times a day with meals (plus blood glucose mg/dL 150-199: 1 unit, 200-249: 2 units, 250-299: 3 units, 300-349: 4 units, 350 or greater: 5 units. Notify provider for blood glucose greater than 299 mg/dL. Max daily dose ) Refer to After Visit Summary for Sliding Scale Insulin Instructions. 15 mL 1 5 Active pen needle, diabetic 32 gauge x 5/32 needle Use as directed 3 times a day. 100 each 5 Active glucagon 1 mg kit Inject 1 mg into the muscle once as directed by provider for low blood sugar. 1 kit 5 Active blood-glucose meter kit Use as directed. 1 kit 5 Active blood glucose diagnostic (glucose blood) strip Use as directed up to four times a day. 100 each 1 5 Active lancets misc Use as directed up to 4 times a day. 100 each 1 5 Active alcohol swabs (Alcohol Wipes) pads, medicated Use as directed. 100 each 5 Active insulin glargine (LANTUS) 100 unit/mL (3 mL) pen for injection Inject 10 Units under the skin daily 15 mL 1 5 Active pen needle, diabetic (Pen Needle) 32 gauge x 5/32 needle Use as directed once a day. 100 each 5 Active Active Problems Problem Noted Date Diagnosed Date Pancreatic adenocarcinoma 04/29/2024 Pancreatic mass 04/15/2024 Severe protein-calorie malnutrition 04/15/2024 Social History Tobacco Use Types Packs/Day Years Used Date Smoking Tobacco: Former Cigarettes Q uit: 1975 Smokeless Tobacco: Never Tobacco Cessation:Counseling Given: Not Answered AUDIT-C Answer Date Recorded Q1: How often [...] on file Legal Sex Female 9:44 PM CUTTER GRINDER OPERATOR Gender Identity Not on file Sexual Orientation Not on file Last Filed Vital Signs Vital Sign Reading Time Taken Comments Blood Pressure 124/72 04/29/2024 1:28 PM CUTTER GRINDER OPERATOR Pulse 74 04/29/2024 1:28 PM CUTTER GRINDER OPERATOR Temperature 36.6 C (97.9 F) 04/29/2024 1:28 PM CUTTER GRINDER OPERATOR Respiratory Rate 18 04/29/2024 1:28 PM CUTTER GRINDER OPERATOR Oxygen Saturation 100% 04/29/2024 1:28 PM CUTTER GRINDER OPERATOR Inhaled Oxygen Concentration - - Weight 55.6 kg (122 lb 9.6 oz) 04/29/2024 1:28 P M CUTTER GRINDER OPERATOR Height 155.5 cm (5' 1.22 ) 04/29/2024 1:28 PM CS T Body Mass Index 23 04/29/2024 1:28 PM CUTTER GRINDER OPERATOR Plan of Treatment Not on file Medical Devices Implanted Type Area Electric Detector Operator Device Identifier Shelf Expiration Date Model / Serial / Lot Conmed Holley Stent Biliary Rapid Exchange Self Expanding Viabil [id number] Nitinol [id number] - [id number] - [id number] Implanted:Qty: 1 on 04/15/2024 by Chente Decker MD at [facility] Stent N/A: Bile Duct Conmed Holley 07/21/2026 [id number] / [id number] / Procedures Procedure Name Priority Date/Time Associated Diagnosis Comments PET/CT FDG SKULL TO THIGH Schedule Routine, Read Routine (OP Routine) 05/06/2024 10:59 AM CUTTER GRINDER OPERATOR Pancreatic adenocarcinoma (HCC) POCT GLUCOSE DEVICE Routine 05/06/2024 9:21 AM CUTTER GRINDER OPERATOR POCT GLUCOSE DEVICE Routine 04/21/2024 11:25 AM CUTTER GRINDER OPERATOR POCT GLUCOSE DEVICE Routine 04/21/2024 7:24 AM CUTTER GRINDER OPERATOR POCT GLUCOSE DEVICE Routine 04/20/2024 8:14 PM CUTTER GRINDER OPERATOR POCT GLUCOSE DEVICE Routine 04/20/2024 4:30 PM CUTTER GRINDER OPERATOR POCT GLUCOSE DEVICE Routine 04/20/2024 11:41 AM CUTTER GRINDER OPERATOR POCT GLUCOSE DEVICE Routine 04/20/2024 7:18 AM CUTTER GRINDER OPERATOR POCT GLUCOSE DEVICE Routine 04/20/2024 5:13 AM CUTTER GRINDER OPERATOR EGFR Routine 04/20/2024 4:55 AM CUTTER GRINDER OPERATOR DIFFERENTIAL AUTO Routine 04/20/2024 4:55 AM CUTTER GRINDER OPERATOR PHOSPHORUS Routine 04/20/2024 4:55 AM CUTTER GRINDER OPERATOR MAGNESIUM Routine 04/20/2024 4:55 AM CUTTER GRINDER OPERATOR CBC WITH AUTO DIFFERENTIAL Routine 04/20 4:55 AM CUTTER GRINDER OPERATOR BASIC METABOLIC PANEL Routine 04/20/2024 4:55 AM CUTTER GRINDER OPERATOR POCT GLUCOSE DEVICE Routine 04/20/2024 12:10 AM CUTTER GRINDER OPERATOR POCT GLUCOSE DEVICE Routine 04/19/2024 8:04 PM CUTTER GRINDER OPERATOR POCT GLUCOSE DEVICE Routine 04/19/2024 5:52 PM CUTTER GRINDER OPERATOR MRI ABDOMEN MRCP W WO CONTRAST IP Routine 0 04/19/2024 5:07 PM CUTTER GRINDER OPERATOR POCT GLUCOSE DEVICE Routine 04/19/2024 11:37 AM CUTTER GRINDER OPERATOR ADD ON LAB TEST Add-On 04/19/2024 9:57 AM CUTTER GRINDER OPERATOR POCT GLUCOSE DEVICE Routine 04/19/2024 7:37 AM CUTTER GRINDER OPERATOR HEPATIC FUNCTION PANEL Routine 02/17/202 5 5:01 AM CUTTER GRINDER OPERATOR EGFR Routine 04/19/2024 5:01 AM CUTTER GRINDER OPERATOR DIFFERENTIAL AUTO Routine 04/19/2024 5:01 AM CUTTER GRINDER OPERATOR PHOSPHORUS Routine 04/19/2024 5:01 AM CUTTER GRINDER OPERATOR MAGNESIUM Routine 04/19/2024 5:01 AM CUTTER GRINDER OPERATOR CBC WITH AUTO DIFFERENTIAL Routine 04/19 5:01 AM CUTTER GRINDER OPERATOR BASIC METABOLIC PANEL Routine 04/19/2024 5:01 AM CUTTER GRINDER OPERATOR POCT GLUCOSE DEVICE Routine 04/19/2024 4:53 AM CUTTER GRINDER OPERATOR POCT GLUCOSE DEVICE Routine 04/18/2024 11:50 PM CUTTER GRINDER OPERATOR POCT GLUCOSE DEVICE Routine 04/18/2024 8:11 PM CUTTER GRINDER OPERATOR POCT GLUCOSE DEVICE Routine 04/18/2024 3:22 PM CUTTER GRINDER OPERATOR POCT GLUCOSE DEVICE Routine 04/18/2024 11:42 AM CUTTER GRINDER OPERATOR POCT GLUCOSE DEVICE Routine 04/18/2024 11:40 AM CUTTER GRINDER OPERATOR POCT GLUCOSE DEVICE Routine 04/18/2024 7:43 AM CUTTER GRINDER OPERATOR EGFR Routine 04/18/2024 6:54 AM CUTTER GRINDER OPERATOR DIFFERENTIAL AUTO Routine 04/18/2024 6:54 AM CUTTER GRINDER OPERATOR PHOSPHORUS Routine 04/18/2024 6:54 AM CUTTER GRINDER OPERATOR MAGNESIUM Routine 04/18/2024 6:54 AM CUTTER GRINDER OPERATOR CBC WITH AUTO DIFFERENTIAL Routine 04/18 6:54 AM CUTTER GRINDER OPERATOR BASIC METABOLIC PANEL Routine 04/18/2024 6:54 AM CUTTER GRINDER OPERATOR POCT GLUCOSE DEVICE Routine 04/18/2024 5:20 AM CUTTER GRINDER OPERATOR POCT GLUCOSE DEVICE Routine 04/17/2024 11:31 PM CUTTER GRINDER OPERATOR POCT GLUCOSE DEVICE Routine 04/17/2024 8:58 PM CUTTER GRINDER OPERATOR POCT GLUCOSE DEVICE Routine 04/17/2024 3:24 PM CUTTER GRINDER OPERATOR POCT GLUCOSE DEVICE Routine 04/17/2024 11:12 AM CUTTER GRINDER OPERATOR CT CHEST W CONTRAST IP Routine 04/17/2024 9:55 AM CUTTER GRINDER OPERATOR POCT GLUCOSE DEVICE Routine 04/17/2024 7:36 AM CUTTER GRINDER OPERATOR MANUAL DIFFERENTIAL Routine 04/17/2024 7:02 AM CUTTER GRINDER OPERATOR EGFR Routine 04/17/2024 7:02 AM CUTTER GRINDER OPERATOR PHOSPHORUS Routine 04/17/2024 7:02 AM CUTTER GRINDER OPERATOR MAGNESIUM Routine 04/17/2024 7:02 AM CUTTER GRINDER OPERATOR CBC WITH AUTO DIFFERENTIAL Routine 04/17 7:02 AM CUTTER GRINDER OPERATOR BASIC METABOLIC PANEL Routine 04/17/2024 7:02 AM CUTTER GRINDER OPERATOR HEPATIC FUNCTION PANEL Routine 7:02 AM CUTTER GRINDER OPERATOR POCT GLUCOSE DEVICE Routine 04/17/2024 3:52 AM CUTTER GRINDER OPERATOR POCT GLUCOSE DEVICE Routine 04/16/2024 11:45 PM CUTTER GRINDER OPERATOR POCT GLUCOSE DEVICE Routine 04/16/2024 8:28 PM CUTTER GRINDER OPERATOR POCT GLUCOSE DEVICE Routine 04/16/2024 4:40 PM CUTTER GRINDER OPERATOR TRANSFUSE RED BLOOD CELLS Timed 2024 3:30 PM CUTTER GRINDER OPERATOR POCT GLUCOSE DEVICE Routine 04/16/2024 3:18 PM CUTTER GRINDER OPERATOR POCT GLUCOSE DEVICE Routine 04/16/2024 3:12 PM CUTTER GRINDER OPERATOR ERCP IP Routine 04/16/2024 2:38 PM CUTTER GRINDER OPERATOR Pancreatic mass ERCP IP Routine 04/16/2024 2:31 PM CUTTER GRINDER OPERATOR RI AN PROCEDURE PLACEHOLDER Routine 04/03 2:15 PM CUTTER GRINDER OPERATOR RI AN ELECTIVE ENDOTRACHEAL AIRWAY Routine 04/16/2024 2:15 PM CUTTER GRINDER OPERATOR ESOPHAGOGASTRODUODENOSCOPY CONTROL BLEED 04/16/2024 2:00 PM CUTTER GRINDER OPERATOR Pancreatic mass ECG 12-LEAD Routine 04/16/2024 1:43 PM CUTTER GRINDER OPERATOR ERCP 04/16/2024 1:43 PM CUTTER GRINDER OPERATOR TRANSFUSE RED BLOOD CELLS Timed 2024 12:32 PM CUTTER GRINDER OPERATOR DIFFERENTIAL AUTO STAT 04/16/2024 11:22 AM CUTTER GRINDER OPERATOR CBC WITH AUTO DIFFERENTIAL STAT 04/16 11:22 AM CUTTER GRINDER OPERATOR TYPE AND SCREEN Routine 04/16/2024 11:10 AM CUTTER GRINDER OPERATOR PREPARE RBC STAT 04/16/2024 10:50 AM CUTTER GRINDER OPERATOR B CHECK SAMPLE STAT 04/16/2024 5:58 AM CUTTER GRINDER OPERATOR EGFR Routine 04/16/2024 5:58 AM CUTTER GRINDER OPERATOR DIFFERENTIAL AUTO Routine 04/16/2024 5:58 AM CUTTER GRINDER OPERATOR HEMOGLOBIN A1C Routine 04/16/2024 5:58 AM CUTTER GRINDER OPERATOR PHOSPHORUS Routine 04/16/2024 5:58 AM CUTTER GRINDER OPERATOR MAGNESIUM Routine 04/16/2024 5:58 AM CUTTER GRINDER OPERATOR CBC WITH AUTO DIFFERENTIAL Routine 04/16 5:58 AM CUTTER GRINDER OPERATOR COMPREHENSIVE METABOLIC PANEL Routine 5:58 AM CUTTER GRINDER OPERATOR CANCER ANTIGEN 19-9 Routine 04/16/2024 5:58 AM CUTTER GRINDER OPERATOR from Last 3 Months Results * PET/CT FDG Skull to Thigh (05/06/2024 10:59 AM CUTTER GRINDER OPERATOR) Anatomical Region Laterality Modality N/A Positron Emissio n Tomography (PET) 05/06/2024 2:56 PM CUTTER GRINDER OPERATOR Impressions 05/06/2024 4:58 PM CUTTER GRINDER OPERATOR 1. Faint uptake in the region of pancreatic head mass, corresponding to enhancing region better characterized on chest CT scan dated 04/17/2024, consistent with known adenocarcinoma. 2. No PET/CT evidence of hypermetabolic jose or distant metastases. 3. Unchanged extraluminal gas adjacent to the common bile duct stent. Dictated by: Sandra Rock M.D. The radiology attending physician has personally reviewed this study, and had reviewed and/or edited this written report and agrees with it. Electronically signed by: DO Jaimie Neal 05/06/2024 4:58 PM CUTTER GRINDER OPERATOR EXAMINATION: TUMOR FDG-PET/CT IMAGING DATE OF STUDY: 05/06/2024 SCANNER: [facility] RADIOPHARMACEUTICAL: 16.02 mCi F-18 Fluorodeoxyglucose (FDG) i.v. Injection site: Right antecubital vein HISTORY: 78-year-old woman with newly diagnosed pancreatic cancer via bile duct mass biopsy on 04/21/2024. The study is requested for initial staging. Initial treatment strategy. TECHNIQUE: The patient's fasting blood glucose level, measured by glucometer before injection of FDG, was 164 mg/dL. After intravenous administration of FDG, noncontrast CT images were obtained for attenuation correction and for fusion with emission PET images to allow for anatomical localization of PET findings. Emission PET images were then obtained. The study was interpreted on the [employer] workstation. The mean liver SUV (reported for quality coordinator purposes) is 2.2. The total scanned area was skull base to proximal thighs. Images of the body were obtained starting All reported SUVs are maximum SUVs, unless otherwise specified. COMPARISON: Abdominal MRCP on 04/19/2024, chest CT scan on 04/17/2024 DESCRIPTORS OF LESION FDG AVIDITY: Minimal: <= blood pool Mild: > blood pool and <= liver Moderate: > liver and <= 2x SUVmax liver Moderate to marked: >2x SUVmax liver and <= 3x SUVmax liver Marked: > 3x SUVmax liver FINDINGS: There is faint FDG uptake in the region of pancreatic head corresponding to hypoenhancing pancreatic head mass better characterized on chest CT scan dated 04/17/2024. There is expected activity along the common bile duct stent. There is mildly FDG avid anterior abdominal subcutaneous injection sites. No hypermetabolic lymph nodes above and below the diaphragm identified. Low-attenuation left thyroid nodule with faint FDG uptake, likely multinodular goiter. Healing fractures of left 5-[address] findings: Mild age-related brain parenchymal volume loss. Bilateral lens replacement. Calcified atheromatous plaque along nondilated aortic arch, descending/abdominal aorta and its branches. Mild coronary artery calcifications. Postsurgical changes of gastric sleeve surgery. Common bile duct stent. Unchanged upstream dilation of the pancreatic duct. Diffuse pneumobilia. Cholelithiasis without cholecystitis. Calcified uterine fibroid. Surgical clip in the cecum. Fat-containing periumbilical hernia. Duodenal diverticulum. Redemonstration of extraluminal gas on image #250. Left lung old granulomatous disease. Cori fissural lymph node along the right minor fissure on image #166. Few tree-in-bud nodules in the right middle lobe, unchanged compared to 04/17/2024. Bilateral dependent atelectasis. Multilevel spinal spondylosis Procedure Note Branden Hicks DO - 05/06/2024 EXAMINATION: TUMOR FDG-PET/CT IMAGING DATE OF STUDY: 05/06/2024 SCANNER: [facility] RADIOPHARMACEUTICAL: 16.02 mCi F-18 Fluorodeoxyglucose (FDG) i.v. Injection site: Right antecubital vein HISTORY: 78-year-old woman with newly diagnosed pancreatic cancer via bile duct mass biopsy on 04/21/2024. The study is requested for initial staging. Initial treatment strategy. TECHNIQUE: The patient's fasting blood glucose level, measured by glucometer before injection of FDG, was 164 mg/dL. After intravenous administration of FDG, noncontrast CT images were obtained for attenuation correction and for fusion with emission PET images to allow for anatomical localization of PET findings. Emission PET images were then obtained. The study was interpreted on the [employer] workstation. The mean liver SUV (reported for quality coordinator purposes) is 2.2. The total scanned area was skull base to proximal thighs. Images of the body were obtained starting All reported SUVs are maximum SUVs, unless otherwise specified. COMPARISON: Abdominal MRCP on 04/19/2024, chest CT scan on 04/17/2024 DESCRIPTORS OF LESION FDG AVIDITY: Minimal: <= blood pool Mild: > blood pool and <= liver Moderate: > liver and <= 2x SUVmax liver Moderate to marked: >2x SUVmax liver and <= 3x SUVmax liver Marked: > 3x SUVmax liver FINDINGS: There is faint FDG uptake in the region of pancreatic head corresponding to hypoenhancing pancreatic head mass better characterized on chest CT scan dated 04/17/2024. There is expected activity along the common bile duct stent. There is mildly FDG avid anterior abdominal subcutaneous injection sites. No hypermetabolic lymph nodes above and below the diaphragm identified. Low-attenuation left thyroid nodule with faint FDG uptake, likely multinodular goiter. Healing fractures of left 5-[address] findings: Mild age-related brain parenchymal volume loss. Bilateral lens replacement. Calcified atheromatous plaque along nondilated aortic arch, descending/abdominal aorta and its branches. Mild coronary artery calcifications. Postsurgical changes of gastric sleeve surgery. Common bile duct stent. Unchanged upstream dilation of the pancreatic duct. Diffuse pneumobilia. Cholelithiasis without cholecystitis. Calcified uterine fibroid. Surgical clip in the cecum. Fat-containing periumbilical hernia. Duodenal diverticulum. Redemonstration of extraluminal gas on image #250. Left lung old granulomatous disease. Cori fissural lymph node along the right minor fissure on image #166. Few tree-in-bud nodules in the right middle lobe, unchanged compared to 04/17/2024. Bilateral dependent atelectasis. Multilevel spinal spondylosis IMPRESSION: 1. Faint uptake in the region of pancreatic head mass, corresponding to enhancing region better characterized on chest CT scan dated 04/17/2024, consistent with known adenocarcinoma. 2. No PET/CT evidence of hypermetabolic jose or distant metastases. 3. Unchanged extraluminal gas adjacent to the common bile duct stent. Dictated by: Sandra Rock M.D. The radiology attending physician has personally reviewed this study, and had reviewed and/or edited this written report and agrees with it. Electronically signed by: Branden Hicks DO Result [facility] Abimael Radford MD IMG PET PROCEDURES Final Result * POCT glucose (05/06/2024 9:21 AM CUTTER GRINDER OPERATOR) Glucose, POC 164 70 - 199 mg/dL Comment: For Glucose values <35 mg/dl when Hematocrit is >60 mg/dl,the test may not accurately detect significant hypoglycemia,and testing in the Laboratory should be considered if clinically indicated. Blood 05/06/2024 9:21 AM CUTTER GRINDER OPERATOR 05/06/2024 9:21 AM CUTTER GRINDER OPERATOR Result [facility] Abimael Radford MD LAB POCT ORDERABLES - DEVICE Fi nal Result [facility] [address] Department of Laboratories [place], [place] [id number] * (ABNORMAL) POCT glucose (04/21/2024 11:25 AM CUTTER GRINDER OPERATOR) Glucose, POC 226(H) 70 - 199 mg/dL Comment: For Glucose values <35 mg/dl when Hematocrit is >60 mg/dl,the test may not accurately detect significant hypoglycemia,and testing in the Laboratory should be considered if clinically indicated. Blood 04/21/2024 11:2 5 AM CUTTER GRINDER OPERATOR 04/21/2024 11:25 AM CUTTER GRINDER OPERATOR Result [facility] Kristina Pro MD LAB POCT ORDERABLES - DEVICE Fin al Result Performing Organization Address [facility] de Phone Number [facility] [address] [facility] [place] [address] * POCT glucose (04/21/2024 7:24 AM CUTTER GRINDER OPERATOR) Glucose, POC 143 70 - 199 mg/dL Comment: For Glucose values <35 mg/dl when Hematocrit is >60 mg/dl,the test may not accurately detect significant hypoglycemia,and testing in the Laboratory should be considered if clinically indicated. Blood 04/21/2024 7:24 AM CUTTER GRINDER OPERATOR 04/21/2024 7:24 AM CUTTER GRINDER OPERATOR Kristina Pro MD LAB POCT ORDERABLES - DEVICE Fin al Result Performing Organization Address [facility] de Phone Number [facility] [address] [facility] [place] [address] * POCT glucose (04/20/2024 8:14 PM CUTTER GRINDER OPERATOR) Glucose, POC 100 70 - 199 mg/dL Comment: For Glucose values <35 mg/dl when Hematocrit is >60 mg/dl,the test may not accurately detect significant hypoglycemia,and testing in the Laboratory should be considered if clinically indicated. Blood 04/20/2024 8:14 PM CUTTER GRINDER OPERATOR 04/20/2024 8:14 PM CUTTER GRINDER OPERATOR Kristina Pro MD LAB POCT ORDERABLES - DEVICE Fin al Result Performing Organization Address [facility] de Phone Number [facility] [address] [facility] [place] [address] * (ABNORMAL) POCT glucose (04/20/2024 4:30 PM CUTTER GRINDER OPERATOR) Glucose, POC 210(H) 70 - 199 mg/dL Comment: For Glucose values <35 mg/dl when Hematocrit is >60 mg/dl,the test may not accurately detect significant hypoglycemia,and testing in the Laboratory should be considered if clinically indicated. Blood 04/20/2024 4:30 PM CUTTER GRINDER OPERATOR 04/20/2024 4:30 PM CUTTER GRINDER OPERATOR Result [facility] Kristina Pro MD LAB POCT ORDERABLES - DEVICE Fin al Result Performing Organization Address [facility] de Phone Number [facility] [address] Department [place] [address] * (ABNORMAL) POCT glucose (04/20/2024 11:41 AM CUTTER GRINDER OPERATOR) Glucose, POC 256(H) 70 - 199 mg/dL Comment: For Glucose values <35 mg/dl when Hematocrit is >60 mg/dl,the test may not accurately detect significant hypoglycemia,and testing in the Laboratory should be considered if clinically indicated. Blood 04/20/2024 11:4 1 AM CUTTER GRINDER OPERATOR 04/20/2024 11:41 AM CUTTER GRINDER OPERATOR Result [facility] Kristina Pro MD LAB POCT ORDERABLES - DEVICE Fin al Result Performing Organization Address [facility] de Phone Number [facility] [address] Department [place] [address] * POCT glucose (04/20/2024 7:18 AM CUTTER GRINDER OPERATOR) Glucose, POC 159 70 - 199 mg/dL Comment: For Glucose values <35 mg/dl when Hematocrit is >60 mg/dl,the test may not accurately detect significant hypoglycemia,and testing in the Laboratory should be considered if clinically indicated. Blood 04/20/2024 7:18 AM CUTTER GRINDER OPERATOR 04/20/2024 7:18 AM CUTTER GRINDER OPERATOR Result [facility] Kristina Pro MD LAB POCT ORDERABLES - DEVICE Fin al Result Performing Organization Address [facility] Co de Phone Number [facility] [address] [place] [address] * POCT glucose (04/20/2024 5:13 AM CUTTER GRINDER OPERATOR) Glucose, POC 136 70 - 199 mg/dL Comment: For Glucose values <35 mg/dl when Hematocrit is >60 mg/dl,the test may not accurately detect significant hypoglycemia,and testing in the Laboratory should be considered if clinically indicated. Blood 04/20/2024 5:13 AM CUTTER GRINDER OPERATOR 04/20/2024 5:13 AM CUTTER GRINDER OPERATOR us Marquis Orellana MD LAB POCT ORDERABLES - DEVICE Fin al Result [facility] [address] Department [place] [address] * eGFR (04/20/2024 4:55 AM CUTTER GRINDER OPERATOR) eGFR >90 >=60 mL/min/1. 73 m2 Comment: Interpretive Data Reference Interval Normal >/= 90 mL/min/1.73m2 Mildly decreased* 60 - 89 mL/min/1.73m2 Mildly to moderately decreased 45 - 59 mL/min/1.73m2 Moderately to severely decreased 30 - 44 mL/min/1.73m2 Severely decreased 15 - 29 mL/min/1.73m2 Kidney Failure < 15 mL/min/1.73m2 *Relative to young adult level Estimated glomerular filtration rate is determined by the 2020 CKD-EPI equation recommended by the National Kidney Foundation (A Unifying Approach to GFR Estimation: Recommendations of the NKF-ASK Task Force on Reassessing t [id number]|2024-07-14 17:10:00|2024-07-14 17:10:00|XMS_ITS|BKG DARUPALION|External Medical Summaries|[id number]|" Encounter Summary Created on: July 14, 2024 Zac Chambers : 1945 Sex: Female Author Organization [facility] Address [address] [place] [address] Phone Care Team Providers Care Water Plant Pump Operator Supervisor Name Role Phone Unknown, Notinfile Primary Care Provider Unavail able Mohan Heller MD Unavailable [phone] K[address] Park Unavailable No, Physician Unavailable Abimael Radford MD Unavailable [phone] Reason for Visit * Reason Onset Date Comments Medical Question/Miscellaneous 06/29/2024 Encounter Details Date Type Department Care Team (Late st Contact Info) Description 06/29/[address] 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 no Reason for call?: Patient is enquiring if they are on alternative medication, should they still come to their appt? (Read message back to caller and ask them if there is anything else they'd like to add to the message) Who is the caller: Zac Chambers What is the best number for them to contact for a call back: [phone] Last office visit: Visit date not found Date of Surgery: 04/16/2024 documented in this encounter Plan of Treatment Not on file documented as of this encounter Visit Diagnoses Not on filedocumented in this encounter Care Teams Water Plant Pump Operator Supervisor Relationship Specialty Start Date End Date Unknown, Notinfile PCP - General 04/16/24 Mohan Heller MD [address] [facility] [address] [place] [address] Endocrinology Diabetes & Metabolism 04/21/24 Kourtney Park PA [address] [facility] [address]05 [place] [address] Physician Customer Operations Specialist Hepatobiliary Surgery 04/21/24 No, Physician 04/21/24 Abimael Radford MD [address] [facility] [address] Consulting Physician Hematology 04/21/24 documented as of this encounter "
--- OUTSIDE RECORDS SUMMARY | 2024-07-14 17:11 | XMS_ITS | Clinical Summary ---
Author Organization [facility] Address [address] [place] [address] Care Team Providers Care Wax Pattern Coater Name Role Phone Unknown, Notinfile Primary Care Provider Unavail able Mohan Heller MD Unavailable Kourtney Park Unavailable No, Physician Unavailable Abimael Radford MD Unavailable [phone] Allergies No known active allergies Medications atorvastatin [...] Pancreatic mass 04/15/2024 Severe protein-calorie malnutrition 04/15/2024 Encounters Date Type Department Care Team Description 07/14/2024 Telephone [facility] [place] [address] Liya Woody RN 06/29/2024 Telephone [facility] Surgery [address] [facility] [address] [place] [address] Ana Lilia Aguilera, MIRYAM 06/29/2024 Telephone [facility] Surgery [facility] Floor 5 [place] [address] Misty Chaney MD Medical Question/Miscellaneous 05/20/2024 Telephone [facility] [address] [place] [phone] Liya Woody, RN 05/10/2024 Telephone [facility] Radiation Oncology [address] [facility] [place] [address] No, Physician 05/10/2024 Telephone [facility] Radiation Oncology [address] [facility] [place] [address] No, Physician 05/07/2024 Telephone [facility] Cancer Genetics Department [address] [place] [phone] Shahla Edmond 05/07/2024 Telephone [facility] Cancer Genetics Department [address] [place] [phone] Shahla Edmond 05/06/2024 8:47 AM HOP SORTER - 05/06/2024 11:59 PM HOP SORTER Hospital Encounter [facility] - Imaging [address] [place] [phone] [facility] Pet Pancreatic adenocarcinoma (HCC) Discharge Disposition: Discharge to home or self care 04/30/2024 Telephone [facility] Advanced Medicine Radiation Oncology [address] [place] [phone] Ray Billy MD PhD 04/30/2024 Orders Only [facility] [address] [place] [phone] Abimael Radford MD Pancreatic adenocarcinoma (HCC) (Primary Dx) 04/29/2024 1:30 PM HOP SORTER Office Visit [facility] [address] [place] [phone] Abimael Radford MD Pancreatic adenocarcinoma (HCC) (Primary Dx) 04/22/2024 Orders Only [facility] Surgery [address] [facility] [address] [place] [phone] Kourtney Park PA Pancreatic adenocarcinoma (HCC) (Primary Dx) 04/22/2024 Orders Only [facility] Surgery [address] [facility] [address] [place] [address] Kourtney Park PA Pancreatic adenocarcinoma (HCC) (Primary Dx) 04/22/2024 Results Follow-Up [facility] Gastroenterolog y [address] [facility] [address] [place] [address] Naima Knight RN 04/16/2024 2:30 PM HOP SORTER - 04/16/2024 3:15 PM HOP SORTER Surgery [facility] [address] [place] [phone] Chente Decker MD ESOPHAGOGASTRODUODENOSCOPY CONTROL BLEED 04/16/2024 2:00 PM HOP SORTER Anesthesia Event [facility] [address] [place] [phone] Brittni Sherwood MD [place], Pauline Rose, JENNIFER 04/14/2024 9:41 PM HOP SORTER - 04/21/2024 1:31 PM HOP SORTER Hospital Encounter [address] [address] Thao Mcdowell MD Shimotani, DO Reyna Mckeon Saad, MD Baig, Sophia, MD Pancreatic mass (Primary Dx); Diagnosis unknown Discharge Disposition: Discharge to home or self care from Last 3 Months Social History Tobacco Use Types Packs/Day Years [...] on file Legal Sex Female 9:44 PM HOP SORTER Gender Identity Not on file Sexual Orientation Not on file Obstetrics History Last Filed Vital Signs Vital Sign Reading Time Taken Comments Blood Pressure 124/72 04/29/2024 1:28 PM HOP SORTER Pulse 74 04/29/2024 1:28 PM HOP SORTER Temperature 36.6 C (97.9 F) 04/29/2024 1:28 PM HOP SORTER Respiratory Rate 18 04/29/2024 1:28 PM HOP SORTER Oxygen Saturation 100% 04/29/2024 1:28 PM HOP SORTER Inhaled Oxygen Concentration - - Weight 55.6 kg (122 lb 9.6 oz) 04/29/2024 1:28 P M HOP SORTER Height 155.5 cm (5' 1.22 ) 04/29/2024 1:28 PM CS T Body Mass Index 23 04/29/2024 1:28 PM HOP SORTER Plan of Treatment Health Maintenance Due Date Last Done Comments Depression Screening 1945 Hepatitis C Screening 1945 Osteoporosis Screening-Bone Density Scan 1945 Hepatitis B Screening 1963 Well Visit 65+ 10/19/2011 Pneumococcal vaccine 65+ (2 of 2 - PCV) 10/22/2014 10/22/2013, 12/20/2012 DTaP/Tdap/Td Vaccine (2 - Tdap) 03/19/2020 1 Influenza Vaccine (Season Ended) 2024 12/18/2018, 11/16/2017, 12/11/2016, Additional history exists Fall Risk Assessment 04/21/2025 04/21/2024 Zoster Vaccine Completed 12/17/2018, 0810/2018, 02/02/2013, Additional history exists Medical Devices Implanted Type Area Duty Manager Device Identifier Shelf Expiration Date Model / Serial / Lot Monitor Backlinks Holley Stent Biliary Rapid Exchange Self Expanding Viabil [id number] Nitinol [id number] - [id number] - [id number] Implanted:Qty: 1 on 04/15/2024 by Chente Decker MD at [facility] Stent N/A: Bile Duct Conmed Holley 07/21/2026 [id number] / [id number] / Procedures Procedure Name Priority Date/Time Associated Diagnosis Comments PET/CT FDG SKULL TO THIGH Schedule Routine, Read Routine (OP Routine) 05/06/2024 10:59 AM HOP SORTER Pancreatic adenocarcinoma (HCC) POCT GLUCOSE DEVICE Routine 05/06/2024 9:21 AM HOP SORTER POCT GLUCOSE DEVICE Routine 04/21/2024 11:25 AM HOP SORTER POCT GLUCOSE DEVICE Routine 04/21/2024 7:24 AM HOP SORTER POCT GLUCOSE DEVICE Routine 04/20/2024 8:14 PM HOP SORTER POCT GLUCOSE DEVICE Routine 04/20/2024 4:30 PM HOP SORTER POCT GLUCOSE DEVICE Routine 04/20/2024 11:41 AM HOP SORTER POCT GLUCOSE DEVICE Routine 04/20/2024 7:18 AM HOP SORTER POCT GLUCOSE DEVICE Routine 04/20/2024 5:13 AM HOP SORTER EGFR Routine 04/20/2024 4:55 AM HOP SORTER DIFFERENTIAL AUTO Routine 04/20/2024 4:55 AM HOP SORTER PHOSPHORUS Routine 04/20/2024 4:55 AM HOP SORTER MAGNESIUM Routine 04/20/2024 4:55 AM HOP SORTER CBC WITH AUTO DIFFERENTIAL Routine 04/20 4:55 AM HOP SORTER BASIC METABOLIC PANEL Routine 04/20/2024 4:55 AM HOP SORTER POCT GLUCOSE DEVICE Routine 04/20/2024 12:10 AM HOP SORTER POCT GLUCOSE DEVICE Routine 04/19/2024 8:04 PM HOP SORTER POCT GLUCOSE DEVICE Routine 04/19/2024 5:52 PM HOP SORTER MRI ABDOMEN MRCP W WO CONTRAST IP Routine 0 04/19/2024 5:07 PM HOP SORTER POCT GLUCOSE DEVICE Routine 04/19/2024 11:37 AM HOP SORTER ADD ON LAB TEST Add-On 04/19/2024 9:57 AM HOP SORTER POCT GLUCOSE DEVICE Routine 04/19/2024 7:37 AM HOP SORTER HEPATIC FUNCTION PANEL Routine 5:01 AM HOP SORTER EGFR Routine 04/19/2024 5:01 AM HOP SORTER DIFFERENTIAL AUTO Routine 04/19/2024 5:01 AM HOP SORTER PHOSPHORUS Routine 04/19/2024 5:01 AM HOP SORTER MAGNESIUM Routine 04/19/2024 5:01 AM HOP SORTER CBC WITH AUTO DIFFERENTIAL Routine 04/19 5:01 AM HOP SORTER BASIC METABOLIC PANEL Routine 04/19/2024 5:01 AM HOP SORTER POCT GLUCOSE DEVICE Routine 04/19/2024 4:53 AM HOP SORTER POCT GLUCOSE DEVICE Routine 04/18/2024 11:50 PM HOP SORTER POCT GLUCOSE DEVICE Routine 04/18/2024 8:11 PM HOP SORTER POCT GLUCOSE DEVICE Routine 04/18/2024 3:22 PM HOP SORTER POCT GLUCOSE DEVICE Routine 04/18/2024 11:42 AM HOP SORTER POCT GLUCOSE DEVICE Routine 04/18/2024 11:40 AM HOP SORTER POCT GLUCOSE DEVICE Routine 04/18/2024 7:43 AM HOP SORTER EGFR Routine 04/18/2024 6:54 AM HOP SORTER DIFFERENTIAL AUTO Routine 04/18/2024 6:54 AM HOP SORTER PHOSPHORUS Routine 04/18/2024 6:54 AM HOP SORTER MAGNESIUM Routine 04/18/2024 6:54 AM HOP SORTER CBC WITH AUTO DIFFERENTIAL Routine 04/18 6:54 AM HOP SORTER BASIC METABOLIC PANEL Routine 04/18/2024 6:54 AM HOP SORTER POCT GLUCOSE DEVICE Routine 04/18/2024 5:20 AM HOP SORTER POCT GLUCOSE DEVICE Routine 04/17/2024 11:31 PM HOP SORTER POCT GLUCOSE DEVICE Routine 04/17/2024 8:58 PM HOP SORTER POCT GLUCOSE DEVICE Routine 04/17/2024 3:24 PM HOP SORTER POCT GLUCOSE DEVICE Routine 04/17/2024 11:[address] CHEST W CONTRAST IP Routine 04/17/2024 9:55 AM HOP SORTER POCT GLUCOSE DEVICE Routine 04/17/2024 7:36 AM HOP SORTER MANUAL DIFFERENTIAL Routine 04/17/2024 7:02 AM HOP SORTER EGFR Routine 04/17/2024 7:02 AM HOP SORTER PHOSPHORUS Routine 04/17/2024 7:02 AM HOP SORTER MAGNESIUM Routine 04/17/2024 7:02 AM HOP SORTER CBC WITH AUTO DIFFERENTIAL Routine 04/17 7:02 AM HOP SORTER BASIC METABOLIC PANEL Routine 04/17/2024 7:02 AM HOP SORTER HEPATIC FUNCTION PANEL Routine 7:02 AM HOP SORTER POCT GLUCOSE DEVICE Routine 04/17/2024 3:52 AM HOP SORTER POCT GLUCOSE DEVICE Routine 04/16/2024 11:45 PM HOP SORTER POCT GLUCOSE DEVICE Routine 04/16/2024 8:28 PM HOP SORTER POCT GLUCOSE DEVICE Routine 04/16/2024 4:40 PM HOP SORTER TRANSFUSE RED BLOOD CELLS Timed 2024 3:30 PM HOP SORTER POCT GLUCOSE DEVICE Routine 04/16/2024 3:18 PM HOP SORTER POCT GLUCOSE DEVICE Routine 04/16/2024 3:12 PM HOP SORTER ERCP IP Routine 04/16/2024 2:38 PM HOP SORTER Pancreatic mass ERCP IP Routine 04/16/2024 2:31 PM HOP SORTER AR AN PROCEDURE PLACEHOLDER Routine 04/03 2:15 PM HOP SORTER AR AN ELECTIVE ENDOTRACHEAL AIRWAY Routine 04/16/2024 2:15 PM HOP SORTER ESOPHAGOGASTRODUODENOSCOPY CONTROL BLEED 04/16/2024 2:00 PM HOP SORTER Pancreatic mass ECG 12-LEAD Routine 04/16/2024 1:43 PM HOP SORTER ERCP 04/16/2024 1:43 PM HOP SORTER TRANSFUSE RED BLOOD CELLS Timed 2024 12:32 PM HOP SORTER DIFFERENTIAL AUTO STAT 04/16/2024 11:22 AM HOP SORTER CBC WITH AUTO DIFFERENTIAL STAT 04/16 11:22 AM HOP SORTER TYPE AND SCREEN Routine 04/16/2024 11:10 AM HOP SORTER PREPARE RBC STAT 04/16/2024 10:50 AM HOP SORTER B CHECK SAMPLE STAT 04/16/2024 5:58 AM HOP SORTER EGFR Routine 04/16/2024 5:58 AM HOP SORTER DIFFERENTIAL AUTO Routine 04/16/2024 5:58 AM HOP SORTER HEMOGLOBIN A1C Routine 04/16/2024 5:58 AM HOP SORTER PHOSPHORUS Routine 04/16/2024 5:58 AM HOP SORTER MAGNESIUM Routine 04/16/2024 5:58 AM HOP SORTER CBC WITH AUTO DIFFERENTIAL Routine 04/16 5:58 AM HOP SORTER COMPREHENSIVE METABOLIC PANEL Routine 5:58 AM HOP SORTER CANCER ANTIGEN 19-9 Routine 04/16/2024 5:58 AM HOP SORTER from Last 3 Months Results * PET/CT FDG Skull to Thigh (05/06/2024 10:59 AM HOP SORTER) Anatomical Region Laterality Modality N/A Positron Emissio n Tomography (PET) 05/06/2024 2:56 PM HOP SORTER Impressions 05/06/2024 4:58 PM HOP SORTER 1. Faint uptake in the region of [...] by: DO Jaimie Neal 05/06/2024 4:58 PM HOP SORTER EXAMINATION: TUMOR FDG-PET/CT IMAGING DATE OF STUDY: 05/06/2024 SCANNER: [facility] RADIOPHARMACEUTICAL: 16.02 mCi F-18 Fluorodeoxyglucose (FDG) i.v. [...] obtained. The study was interpreted on the [employer] workstation. The mean liver SUV (reported for quality improvement manager purposes) is 2.2. The total scanned area [...] FDG-PET/CT IMAGING DATE OF STUDY: 05/06/2024 SCANNER: [facility] RADIOPHARMACEUTICAL: 16.02 mCi F-18 Fluorodeoxyglucose (FDG) i.v. [...] obtained. The study was interpreted on the [employer] workstation. The mean liver SUV (reported for quality improvement manager purposes) is 2.2. The total scanned area [...] it. Electronically signed by: Branden Hicks DO Abimael Radford MD IMG PET PROCEDURES Final Result * POCT glucose (05/06/2024 9:21 AM HOP SORTER) Glucose, POC 164 70 - 199 mg/dL Comment: For Glucose values <35 mg/dl when Hematocrit is >60 mg/dl,the test may not accurately detect significant hypoglycemia,and testing in the Laboratory should be considered if clinically indicated. Blood 05/06/2024 9:21 AM HOP SORTER 05/06/2024 9:21 AM HOP SORTER Abimael Radford MD LAB POCT ORDERABLES - DEVICE Fi nal Result [facility] [address] [place] [address] * (ABNORMAL) POCT glucose (04/21/2024 11:25 AM HOP SORTER) Glucose, POC 226(H) 70 - 199 mg/dL Comment: For Glucose values <35 mg/dl when Hematocrit is >60 mg/dl,the test may not accurately detect significant hypoglycemia,and testing in the Laboratory should be considered if clinically indicated. Blood 04/21/2024 11:2 5 AM HOP SORTER 04/21/2024 11:25 AM HOP SORTER Kristina Pro MD LAB POCT ORDERABLES - DEVICE Fin al Result Performing Organization Address [facility] Co de Phone Number [facility] [address] [facility] [place] [address] * POCT glucose (04/21/2024 7:24 AM HOP SORTER) Glucose, POC 143 70 - 199 mg/dL Comment: For Glucose values <35 mg/dl when Hematocrit is >60 mg/dl,the test may not accurately detect significant hypoglycemia,and testing in the Laboratory should be considered if clinically indicated. Blood 04/21/2024 7:24 AM HOP SORTER 04/21/2024 7:24 AM HOP SORTER Kristina Pro MD LAB POCT ORDERABLES - DEVICE Fin al Result Performing Organization Address [facility] Co de Phone Number [facility] [address] [place] [address] * POCT glucose (04/20/2024 8:14 PM HOP SORTER) Glucose, POC 100 70 - 199 mg/dL Comment: For Glucose values <35 mg/dl when Hematocrit is >60 mg/dl,the test may not accurately detect significant hypoglycemia,and testing in the Laboratory should be considered if clinically indicated. Blood 04/20/2024 8:14 PM HOP SORTER 04/20/2024 8:14 PM HOP SORTER Kristina Pro MD LAB POCT ORDERABLES - DEVICE Fin al Result Performing Organization Address [facility] Co de Phone Number [facility] [address] [place] [address] * (ABNORMAL) POCT glucose (04/20/2024 4:30 PM HOP SORTER) Glucose, POC 210(H) 70 - 199 mg/dL Comment: For Glucose values <35 mg/dl when Hematocrit is >60 mg/dl,the test may not accurately detect significant hypoglycemia,and testing in the Laboratory should be considered if clinically indicated. Blood 04/20/2024 4:30 PM HOP SORTER 04/20/2024 4:30 PM HOP SORTER Kristina Pro MD LAB POCT ORDERABLES - DEVICE Fin al Result Performing Organization Address [facility] de Phone Number [facility] [address] [facility] [place] [address] * (ABNORMAL) POCT glucose (04/20/2024 11:41 AM HOP SORTER) Glucose, POC 256(H) 70 - 199 mg/dL Comment: For Glucose values <35 mg/dl when Hematocrit is >60 mg/dl,the test may not accurately detect significant hypoglycemia,and testing in the Laboratory should be considered if clinically indicated. Blood 04/20/2024 11:4 1 AM HOP SORTER 04/20/2024 11:41 AM HOP SORTER Kristina Pro MD LAB POCT ORDERABLES - DEVICE Fin al Result Performing Organization Address [facility] Co de Phone Number [facility] [address] [facility] [place] [address] * POCT glucose (04/20/2024 7:18 AM HOP SORTER) Glucose, POC 159 70 - 199 mg/dL Comment: For Glucose values <35 mg/dl when Hematocrit is >60 mg/dl,the test may not accurately detect significant hypoglycemia,and testing in the Laboratory should be considered if clinically indicated. Blood 04/20/2024 7:18 AM HOP SORTER 04/20/2024 7:18 AM HOP SORTER us Kristina Pro MD LAB POCT ORDERABLES - DEVICE Fin al Result Performing Organization Address [facility] Co de Phone Number [facility] [address] Department [place] [address] * POCT glucose (04/20/2024 5:13 AM HOP SORTER) Glucose, POC 136 70 - 199 mg/dL Comment: For Glucose values <35 mg/dl when Hematocrit is >60 mg/dl,the test may not accurately detect significant hypoglycemia,and testing in the Laboratory should be considered if clinically indicated. Blood 04/20/2024 5:13 AM HOP SORTER 04/20/2024 5:13 AM HOP SORTER us Marquis Orellana MD LAB POCT ORDERABLES - DEVICE Fin al Result Performing Organization Address [facility] Co de Phone Number [facility] [address] Department [place] [address] * eGFR (04/20/2024 4:55 AM HOP SORTER) eGFR >90 >=60 [id number]|2024-07-14 17:11:00|2024-07-14 17:10:00|XMS_ITS|BKG DAEMON|External Medical Summaries|[id number]|" Clinical Summary Created on: July 14, 2024 Zac Chambers : 1945 Sex: Female Author Organization [facility] Address [address] [place] [address] Care Team Providers Care Wax Pattern Coater Name Role Phone Unavailable Primary Care Provider [...] Td Vaccines ( 1 - Tdap) 1965 Pneumococcal Vaccine: 50+ Ye ars (1 of 1 - PCV) 1996 Zoster Vaccines (1 of 2) 1996 Dexa Scan (General) 10/19/2011 RSV Immunization or 60+ Years (1 - 1-dose 75+ series) 2021 COVID-19 Vaccine (2023-2 5 season) 2023 Meningococcal B Vaccine Aged Out No l onger eligible based on patient's age to complete this topic Meningococcal Vaccine Aged Out No adela nayeli eligible based on patient's age to complete this topic RSV Immunizations Under 20 Months Aged Out No longer eligible based on patient's age to complete this topic "
--- OUTSIDE RECORDS SUMMARY | 2024-07-14 17:11 | XMS_ITS | Clinical Summary ---
Author Organization [facility] Address [address] [place] [address] Care Team Providers Care Mining Speculator Name Role Phone Unavailable Primary Care Provider Unavailabl e Source Comments [facility],non-owned Affiliates and Associated Physician Practices is amultiple site organization consisting of ambulatory clinics and hospital sitesin [place], [place], [place] and [place]. This disclosure is being madepursuant to the Care Everywhere program and may not contain all information available regarding this patient. Last updated 17.[facility] Active Problems Problem Noted Date Diagnosed Date Obstructive jaundice 04/13/2024 Pancreatic mass 04/13/2024 Social History Tobacco Use Types Packs/Day Years Used Date Smoking Tobacco: Never Assessed Comments Unknown Sex and Gender Information Value Date Recorded Sex Assigned at Not on file Legal Sex Female 7:30 PM CDT Gender Identity Not on file Sexual [...] VACCINE ( - 2023-2 5 season) 2023 DEPRESSION SCREENING 03/03/2024 MEDICARE AWV CALENDAR YEAR 2024 INFLUENZA VACCINE (Season Ended) 2024 HEPATITIS B VACCINE Aged Out No longe r eligible based on patient's age to complete this topic HIB VACCINE Aged Out No longer eligi ble based on patient's age to complete this topic HPV VACCINE Aged Out No longer eligi ble based on patient's age to complete this topic MENINGOCOCCAL (Group B) VACC INE SHARED DECISION-MAKING Aged Out No longer eligibl e based on patient's age to complete this topic MENINGOCOCCAL GROUPS A/C/Y/W VACCINE Aged Out No longer eligible b ased on patient's age to complete this topic Insurance MANAGED MEDICARE ADV
[2024-07-14 17:19] VITALS: BP 133/101; PULSE 91; RESP 20; TEMP 36.6; O2SAT 99
--- NOTE | 2024-07-14 17:49 | ED_ITS ---
HPI - GI Bleed General Chief complaint: GI Bleed Stated complaint: blood in stool, pancreatic hx Time Seen by Provider: 07/14/24 17:25 History of Present Illness HPI Narrative: Pt presetns with dark stools. Pt has pancreatic cancer and had stent placed. Pt said they nicked something and she had bleeding which stabilized. Pt was told if she got chemo it might give her and extra 2 months so she elected to do alternative treatments and is on several unusual supplements and cbd oil. Pt says here jaundice resolved and she is gaining weight. Pt just wants to make sure it's not a GI bleed. Related Data Home Medications Medication Instructions Recorded Confirmed Last Taken Type aspirin 81 mg tablet,delayed 81 mg PO DAILY 05/24/22 05/04/24 04/12/24 History release (Adult Aspirin Regimen) zinc acetate 50 mg (zinc) capsule 50 mg PO DAILY 05/24/22 05/04/24 04/14/24 History ferrous sulfate 325 mg (65 mg 325 mg PO DAILY 03/19/23 05/04/24 04/14/24 History iron) tablet (Feosol) insulin glargine 100 unit/mL (3 10 unit subcut DAILY 05/04/24 05/04/24 Unknown History mL) subcutaneous pen (Lantus Solostar U-100 Insulin) insulin lispro 100 unit/mL 1 sliding scale dose subcut 05/04/24 05/04/24 Unknown History subcutaneous cartridge (Humalog USEASDIRECTD U-100 Insulin) Allergies Allergy/AdvReac Type Severity Reaction Status Date / Time No Known Allergies Allergy Verified 07/14/24 17:09 Review of Systems 2 Review of Systems: All systems reviewed & are unremarkable except as noted in HPI and below PMFSH Past Medical History Medical History (Updated 07/14/24 @ 18:29 by Mahamed Aldrich III, DO) Pancreatic cancer (~05/2024) Family History Family History Father Hypertension Heart disease Mother Diabetes mellitus Heart disease Depression Hypertension Thyroid disease Sibling Diabetes mellitus Grandparent Diabetes mellitus Hypertension Depression Heart disease Thyroid disease Social History Social History Smoking status: Former smoker Substance use: never Substance use type: does not use Lack of Transportation: No Lack of Food: Never True Current Housing: I Have Housing Concerned About Future Housing: No Difficulty Paying Gas/Electric Bills: No Difficulty Paying for Meds: No Currently Unemployed: No Education: High School Diploma/GED Difficulty w/ Childcare or Family Care: No Living arrangements: with family Occupation/Education: retired Gender identity (if verbalized by the patient): Female Sexual Orientation (if Verbalized by the Patient): Straight or Heterosexual Agree to blood products: Yes Exam 2 Const: General: no acute distress Nutritional Appearance: well nourished Orientation/consciousness: patient oriented x3 Limitations: no limitations Eyes: Conjunctivae: conjunctivae normal EOM: EOMs intact bilaterally Resp: Effort & Inspection: normal respiratory effort Auscultation: clear to auscultation bilaterally Cardio: Rate: regular rate Rhythm: regular rhythm GI: GI Palp: Yes Soft to palpation and Yes Tenderness to palpation present (GI) (epigastric region) Auscultation: normal bowel sounds Rectal Exam: n ormal sphincter tone and Abnormal stool present Other: heme neg dark stool Skin: General skin exam: normal color Rashes: no rashes Wounds: no wounds Neuro: General: patient oriented x3, moves all extremities, no meningeal signs, no focal motor deficits and CN's II-XI intact bilaterally Cranial nerves: Yes Nystagmus not present Speech: normal speech Extrem: General: normal to inspection Psych: Mental Status: mental status grossly normal Affect: normal affect Attitude: cooperative Course Vital Signs Vital signs: Vital Signs Temperature 97.9 F 07/14/24 17:19 Pulse Rate 91 07/14/24 17:19 Respiratory Rate 07/14/24 17:19 Blood Pressure 133/101 H 07/14/24 17:19 Pulse Oximetry 99 07/14/24 17:19 Oxygen Delivery Room Air 07/14/24 17:19 Temperature 97.9 F 07/14/24 17:19 Pulse Rate 91 07/14/24 17:19 Respiratory Rate 20 07/14/24 17:19 Blood Pressure 133/101 H 07/14/24 17:19 Pulse Oximetry 99 07/14/24 17:19 Oxygen Delivery Room Air 07/14/24 17:19 MDM - GI Bleed MDM Narrative Medical decision making narrative: Pt has pancreatic cancer electing to not due chemo and taking alternative treatments, noted dark stool and was concerned for GI bleed. stool dark but heme neg so not GI bleed. will check labs to assess how she is doing as far as the cancer goes. labs look very good. pt heme neg. ok to go home and continue what she is doing. Lab Data 07/14/24 17:57 07/14/24 17:57 Labs: Lab Results 07/14/24 Range/Units 17:57 WBC 5.5 (4.5-10.0) K/mm3 RBC 3.84 L (4.2-5.4) M/mm3 Hgb 11.3 L (12.0-15.0) g/dL Hct 35.9 L (37.0-47.0) % MCV 93.5 (80-100) fl MCH 29.4 (26-34) pg MCHC 31.5 L (32-36) g/dl RDW 13.0 (11.5-14.5) % Plt Count 145 L D (150-375) k/mm3 MPV 10.6 H (7.4-10.4) fl Immature Gran % (Auto) 0.2 (0-0.5) % Neut % (Auto) 72.4 (45.5-73.1) % Lymph % (Auto) 17.7 L (18.3-44.2) % [place] % (Auto) 7.3 (2.6-8.5) % Eos % (Auto) 2.0 (0-4.4) % Baso % (Auto) 0.4 (0.2-1.2) % Lymph # (Auto) 0.97 (0.9-3.2) K/mm3 [place] # (Auto) 0.4 (0.1-0.6) K/mm3 Eos # (Auto) 0.1 (0-0.3) K/mm3 Baso # (Auto) 0.0 (0.0-0.1) K/mm3 Abs Immat Gran (auto) 0.01 (0.00-0.031) K/mm3 Absolute Neuts (auto) 4.0 (1.3-6.7) K/mm3 Absolute Nucleated RBC 0.000 (0.0-0.012) K/mm3 Nucleated RBC % 0.0 (0.0-0.2) % PT 13.5 (11.1-14.7) Seconds INR 1.0 APTT 23.1 (22.3-36.8) Seconds Sodium 138 (137-145) mmol/L Potassium 3.6 (3.4-5.0) mmol/L Chloride 104 (98-107) mmol/L Carbon Dioxide 27 (22-30) mmol/L Anion Gap 7 (4-12) mmol/L BUN 14 D (7-17) mg/dL Creatinine 0.47 L (0.7-1.0) mg/dL Estim Creat Clear Calc 72 ml/min Estimated GFR > 60 (59 - ) Glucose 216 H (65-110) mg/dL Calcium 9.1 (8.4-10.2) mg/dL Magnesium 2.1 (1.6-2.3) mg/dL Total Bilirubin 0.5 (0.2-1.3) mg/dL AST 33 (14-36) U/L ALT 24 (6-35) U/L Alkaline Phosphatase 121 (38-126) U/L Total Protein 7.0 (6.3-8.2) g/dL Albumin 3.7 (3.5-5.1) g/dL Lipase 238 (23-300) U/L Blood Type Pending Antibody Screen Pending Discharge Plan Discharge Clinical Impression: Pancreatic cancer Patient Disposition: Home Condition: Stable Instructions: Antibiotic Form, Gastrointestinal Bleeding (ED), Pancreatic Cancer (DC) Patient Language: [place] Citizen Prescriptions: No Action aspirin [Adult Aspirin Regimen] 81 mg tablet,delayed release (DR/EC) 81 mg PO DAILY zinc acetate 50 mg (zinc) capsule 50 mg PO DAILY (DME) Dexcom G6 Palliative Care Nurse Practitioner Misc See Rx Instructions .Route Qty: 1 3RF Rx Instructions: As directed (DME) Dexcom G6 Sensor Device See Rx Instructions .Route Qty: 9 11RF Rx Instructions: As directed (DME) Dexcom G6 Transmitter Device See Rx Instructions .Route Qty: 1 3RF Rx Instructions: As directed ferrous sulfate [Feosol] 325 mg (65 mg iron) tablet 325 mg PO DAILY polyethylene glycol 3350 [Miralax] 17 gram/dose powder 17 g PO DAILY Qty: 238 3RF insulin glargine [Lantus Solostar U-100 Insulin] 100 unit/mL (3 mL) insulin pen 10 unit subcut DAILY Humalog U-100 Insulin 100 unit/mL cartridge 1 sliding scale dose subcut USEASDIRECTD Patient Comments: Take 4 units with each meal (only if you are eating breakfast, lunch, and dinner) Sliding scale: to correct high blood sugar: Below 150: take 0 units 150-199: take 1 unit 200-249: take 2 units 250-299: take 3 units 300-349: take 4 units Over 350: take 5 units and call the doctor (DME) Monoject Safety Syringes 3 mL 25 gauge x 5/8 syringe See Rx Instructions .Route Qty: 500 0RF Rx Instructions: As directed nystatin 100,000 unit/gram cream 1 applic topical BID Qty: 30 1RF hydrochlorothiazide 25 mg tablet 25 mg PO DAILY Qty: 90 1RF cyanocobalamin (vitamin B-12) [Dodex] 1,000 mcg/mL solution 1,000 mcg IM MONTHLY Qty: 3 1RF enalapril maleate 10 mg tablet 10 mg PO DAILY Qty: 90 1RF duloxetine 60 mg capsule,delayed release(DR/EC) See Rx Instructions .ROUTE .COMPLEX Qty: 90 1RF Dose Instruction: TAKE 1 CAPSULE DAILY Rx Instructions: TAKE 1 CAPSULE DAILY (DME) OneTouch Verio test strips Strip See Rx Instructions .Route Qty: 100 1RF Rx Instructions: As directed (DME) lancets 33 gauge misc See Rx Instructions .Route Qty: 100 1RF Rx Instructions: As directed atorvastatin 20 mg tablet 20 mg PO QHS Qty: 90 1RF ergocalciferol (vitamin D2) 1,250 mcg (50,000 unit) capsule See Rx Instructions .ROUTE .COMPLEX Qty: 12 1RF Dose Instruction: TAKE 1 CAPSULE BY MOUTH WEEKLY Rx Instructions: TAKE 1 CAPSULE BY MOUTH WEEKLY Follow-up/Referrals: Brittni Guardado DO [Primary Care Provider] -
--- OUTSIDE RECORDS SUMMARY | 2024-07-14 17:58 | XMS_ITS | Encounter Summary ---
Author Organization [facility] Healthcare Address [address] [place] [address] Care Team Providers Care Metalworking Specialist Name Role Phone Unknown, Notinfile Primary Care Provider Unavail able Mohan Heller MD Unavailable [phone] [place] Unavailable [phone] No, Physician Unavailable Abimael Radford MD Unavailable [phone] Encounter Details Date Type Department Care Team (Late st Contact Info) Description 07/14/2024 Telephone [facility] [address] [place] [address] Liya Woody, RN Social History [...] on file 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 [place] [address] Endocrinology Diabetes & Metabolism 04/21/24 Kourtney Park PA [id number] [place] [address] Physician Inspector Welded Parts Hepatobiliary Surgery 04/21/24 No, Physician 04/21/24 Abimael Radford MD [address] [place] [address] Consulting Physician Hematology 04/21/24 documented as of this encounter
--- OUTSIDE RECORDS SUMMARY | 2024-07-14 17:58 | XMS_ITS | Referral Summary ---
Author Organization [facility] Address [address] [place] [address] Care Team Providers Care Sales Activity Manager Name Role Phone Unknown, Notinfile Primary Care Provider Unavail able Mohan Heller MD Unavailable [phone] [place] Unavailable No, Physician Unavailable Abimael Radford MD Unavailable [phone] Encounters Date Type Department Care Team Description 07/14/[address] [facility] [place] [address] Liya Woody, RN 06/29/2024 Telephone [facility] [address] [facility] [address] [place] [address] Ana Lilia Aguilera, MIRYAM 06/29/2024 Telephone [facility] [address] [facility] [facility] Floor 5 [place] [address] Misty Chaney MD Medical Question/Miscellaneous 05/20/[address] [facility] [place] [address] Liya Woody, RN 05/10/2024 Telephone [facility] Radiation Oncology [address] [place] [address] [place] [address] No, Physician 05/10/2024 Telephone [facility] Radiation Oncology [address] [facility] [place] [address] No, Physician 05/07/[address] [facility] Cancer Genetics Department [address] [place] [phone] Shahla Edmond 05/07/[address] [facility] Genetics Department [address] [place] [phone] Shahla Edmond 05/06/2024 8:47 AM CRIMINOLOGY PROFESSOR - 05/06/2024 11:59 PM CRIMINOLOGY PROFESSOR Hospital Encounter [facility] [address] [place] [phone] [facility] Pancreatic adenocarcinoma (HCC) Discharge Disposition: Discharge to home or self care 04/30/2024 Telephone [facility] Radiation Oncology [facility] [place] [address] Ray Billy MD PhD 04/30/[address] [facility] [address] [place] [phone] Abimael Radford MD Pancreatic adenocarcinoma (HCC) (Primary Dx) 04/29/2024 1:30 PM CRIMINOLOGY PROFESSOR Office Visit [facility] [address] [place] [phone] Abimael Radford MD Pancreatic adenocarcinoma (HCC) (Primary Dx) 04/22/2024 Orders Only [facility] [address] [place] [address] [address] [place] [phone] Kourtney Park PA Pancreatic adenocarcinoma (HCC) (Primary Dx) 04/22/2024 Orders Only [facility] [address] [place] [address] [address] [place] [address] Kourtney Park PA Pancreatic adenocarcinoma (HCC) (Primary Dx) 04/22/2024 Results Follow-Up [facility] Gastroenterolog y [address] [facility] Medical Office Building [address], [address] [place] [address] Naima Knight RN 04/14/2024 9:41 PM CRIMINOLOGY PROFESSOR - 04/21/2024 1:31 PM CRIMINOLOGY PROFESSOR Hospital Encounter [address] [phone] Thao Mcdowell MD Shimotani, Keyon Gonzalez, Marquis Dias MD Baig, Sophia, MD Pancreatic mass (Primary Dx); Diagnosis unknown Discharge Disposition: Discharge to home or self care 04/16/2024 2:00 PM CRIMINOLOGY PROFESSOR Anesthesia Event [facility] [address] [place] [phone] Brittni Sherwood MD Waldeck, Pauline Rose, CRNA 04/16/2024 2:30 PM CRIMINOLOGY PROFESSOR - 04/16/2024 3:15 PM CRIMINOLOGY PROFESSOR Surgery [facility] [address] [place] [phone] Chente Decker MD ESOPHAGOGASTRODUODENOSCOPY CONTROL BLEED [...] on file Legal Sex Female 9:44 PM CRIMINOLOGY PROFESSOR Gender Identity Not on file Sexual Orientation Not on file Last Filed Vital Signs Vital Sign Reading Time Taken Comments Blood Pressure 124/72 04/29/2024 1:28 PM CRIMINOLOGY PROFESSOR Pulse 74 04/29/2024 1:28 PM CRIMINOLOGY PROFESSOR Temperature 36.6 C (97.9 F) 04/29/2024 1:28 PM CRIMINOLOGY PROFESSOR Respiratory Rate 18 04/29/2024 1:28 PM CRIMINOLOGY PROFESSOR Oxygen Saturation 100% 04/29/2024 1:28 PM CRIMINOLOGY PROFESSOR Inhaled Oxygen Concentration - - Weight 55.6 kg (122 lb 9.6 oz) 04/29/2024 1:28 P M CRIMINOLOGY PROFESSOR Height 155.5 cm (5' 1.22 ) 04/29/2024 1:28 PM CS T Body Mass Index 23 04/29/2024 1:28 PM CRIMINOLOGY PROFESSOR Plan of Treatment Not on file Medical Devices Implanted Type Area Grain Cleaner And Transfer Operator Device Identifier Shelf Expiration Date Model / Serial / Lot Conmed Holley Stent Biliary Rapid Exchange Self Expanding Viabil [id number] Nitinol [id number] - [id number] - [id number] Implanted:Qty: 1 on 04/15/2024 by Chente Decker MD at [facility] Stent N/A: Bile Duct Conmed Holley 07/21/2026 [id number] / [id number] / Procedures Procedure Name Priority Date/Time Associated Diagnosis Comments PET/CT FDG SKULL TO THIGH Schedule Routine, Read Routine (OP Routine) 05/06/2024 10:59 AM CRIMINOLOGY PROFESSOR Pancreatic adenocarcinoma (HCC) POCT GLUCOSE DEVICE Routine 05/06/2024 9:21 AM CRIMINOLOGY PROFESSOR POCT GLUCOSE DEVICE Routine 04/21/2024 11:25 AM CRIMINOLOGY PROFESSOR POCT GLUCOSE DEVICE Routine 04/21/2024 7:24 AM CRIMINOLOGY PROFESSOR POCT GLUCOSE DEVICE Routine 04/20/2024 8:14 PM CRIMINOLOGY PROFESSOR POCT GLUCOSE DEVICE Routine 04/20/2024 4:30 PM CRIMINOLOGY PROFESSOR POCT GLUCOSE DEVICE Routine 04/20/2024 11:41 AM CRIMINOLOGY PROFESSOR POCT GLUCOSE DEVICE Routine 04/20/2024 7:18 AM CRIMINOLOGY PROFESSOR POCT GLUCOSE DEVICE Routine 04/20/2024 5:13 AM CRIMINOLOGY PROFESSOR EGFR Routine 04/20/2024 4:55 AM CRIMINOLOGY PROFESSOR DIFFERENTIAL AUTO Routine 04/20/2024 4:55 AM CRIMINOLOGY PROFESSOR PHOSPHORUS Routine 04/20/2024 4:55 AM CRIMINOLOGY PROFESSOR MAGNESIUM Routine 04/20/2024 4:55 AM CRIMINOLOGY PROFESSOR CBC WITH AUTO DIFFERENTIAL Routine 04/20 4:55 AM CRIMINOLOGY PROFESSOR BASIC METABOLIC PANEL Routine 04/20/2024 4:55 AM CRIMINOLOGY PROFESSOR POCT GLUCOSE DEVICE Routine 04/20/2024 12:10 AM CRIMINOLOGY PROFESSOR POCT GLUCOSE DEVICE Routine 04/19/2024 8:04 PM CRIMINOLOGY PROFESSOR POCT GLUCOSE DEVICE Routine 04/19/2024 5:52 PM CRIMINOLOGY PROFESSOR MRI ABDOMEN MRCP W WO CONTRAST IP Routine 0 04/19/2024 5:07 PM CRIMINOLOGY PROFESSOR POCT GLUCOSE DEVICE Routine 04/19/2024 11:37 AM CRIMINOLOGY PROFESSOR ADD ON LAB TEST Add-On 04/19/2024 9:57 AM CRIMINOLOGY PROFESSOR POCT GLUCOSE DEVICE Routine 04/19/2024 7:37 AM CRIMINOLOGY PROFESSOR HEPATIC FUNCTION PANEL Routine 02/17/202 5 5:01 AM CRIMINOLOGY PROFESSOR EGFR Routine 04/19/2024 5:01 AM CRIMINOLOGY PROFESSOR DIFFERENTIAL AUTO Routine 04/19/2024 5:01 AM CRIMINOLOGY PROFESSOR PHOSPHORUS Routine 04/19/2024 5:01 AM CRIMINOLOGY PROFESSOR MAGNESIUM Routine 04/19/2024 5:01 AM CRIMINOLOGY PROFESSOR CBC WITH AUTO DIFFERENTIAL Routine 04/19 5:01 AM CRIMINOLOGY PROFESSOR BASIC METABOLIC PANEL Routine 04/19/2024 5:01 AM CRIMINOLOGY PROFESSOR POCT GLUCOSE DEVICE Routine 04/19/2024 4:53 AM CRIMINOLOGY PROFESSOR POCT GLUCOSE DEVICE Routine 04/18/2024 11:50 PM CRIMINOLOGY PROFESSOR POCT GLUCOSE DEVICE Routine 04/18/2024 8:11 PM CRIMINOLOGY PROFESSOR POCT GLUCOSE DEVICE Routine 04/18/2024 3:22 PM CRIMINOLOGY PROFESSOR POCT GLUCOSE DEVICE Routine 04/18/2024 11:42 AM CRIMINOLOGY PROFESSOR POCT GLUCOSE DEVICE Routine 04/18/2024 11:40 AM CRIMINOLOGY PROFESSOR POCT GLUCOSE DEVICE Routine 04/18/2024 7:43 AM CRIMINOLOGY PROFESSOR EGFR Routine 04/18/2024 6:54 AM CRIMINOLOGY PROFESSOR DIFFERENTIAL AUTO Routine 04/18/2024 6:54 AM CRIMINOLOGY PROFESSOR PHOSPHORUS Routine 04/18/2024 6:54 AM CRIMINOLOGY PROFESSOR MAGNESIUM Routine 04/18/2024 6:54 AM CRIMINOLOGY PROFESSOR CBC WITH AUTO DIFFERENTIAL Routine 04/18 6:54 AM CRIMINOLOGY PROFESSOR BASIC METABOLIC PANEL Routine 04/18/2024 6:54 AM CRIMINOLOGY PROFESSOR POCT GLUCOSE DEVICE Routine 04/18/2024 5:20 AM CRIMINOLOGY PROFESSOR POCT GLUCOSE DEVICE Routine 04/17/2024 11:31 PM CRIMINOLOGY PROFESSOR POCT GLUCOSE DEVICE Routine 04/17/2024 8:58 PM CRIMINOLOGY PROFESSOR POCT GLUCOSE DEVICE Routine 04/17/2024 3:24 PM CRIMINOLOGY PROFESSOR POCT GLUCOSE DEVICE Routine 04/17/2024 11:[address] CHEST W CONTRAST IP Routine 04/17/2024 9:55 AM CRIMINOLOGY PROFESSOR POCT GLUCOSE DEVICE Routine 04/17/2024 7:36 AM CRIMINOLOGY PROFESSOR MANUAL DIFFERENTIAL Routine 04/17/2024 7:02 AM CRIMINOLOGY PROFESSOR EGFR Routine 04/17/2024 7:02 AM CRIMINOLOGY PROFESSOR PHOSPHORUS Routine 04/17/2024 7:02 AM CRIMINOLOGY PROFESSOR MAGNESIUM Routine 04/17/2024 7:02 AM CRIMINOLOGY PROFESSOR CBC WITH AUTO DIFFERENTIAL Routine 04/17 7:02 AM CRIMINOLOGY PROFESSOR BASIC METABOLIC PANEL Routine 04/17/2024 7:02 AM CRIMINOLOGY PROFESSOR HEPATIC FUNCTION PANEL Routine 7:02 AM CRIMINOLOGY PROFESSOR POCT GLUCOSE DEVICE Routine 04/17/2024 3:52 AM CRIMINOLOGY PROFESSOR POCT GLUCOSE DEVICE Routine 04/16/2024 11:45 PM CRIMINOLOGY PROFESSOR POCT GLUCOSE DEVICE Routine 04/16/2024 8:28 PM CRIMINOLOGY PROFESSOR POCT GLUCOSE DEVICE Routine 04/16/2024 4:40 PM CRIMINOLOGY PROFESSOR TRANSFUSE RED BLOOD CELLS Timed 2024 3:30 PM CRIMINOLOGY PROFESSOR POCT GLUCOSE DEVICE Routine 04/16/2024 3:18 PM CRIMINOLOGY PROFESSOR POCT GLUCOSE DEVICE Routine 04/16/2024 3:12 PM CRIMINOLOGY PROFESSOR ERCP IP Routine 04/16/2024 2:38 PM CRIMINOLOGY PROFESSOR Pancreatic mass ERCP IP Routine 04/16/2024 2:31 PM CRIMINOLOGY PROFESSOR ME AN PROCEDURE PLACEHOLDER Routine 04/03 2:15 PM CRIMINOLOGY PROFESSOR ME AN ELECTIVE ENDOTRACHEAL AIRWAY Routine 04/16/2024 2:15 PM CRIMINOLOGY PROFESSOR ESOPHAGOGASTRODUODENOSCOPY CONTROL BLEED 04/16/2024 2:00 PM CRIMINOLOGY PROFESSOR Pancreatic mass ECG 12-LEAD Routine 04/16/2024 1:43 PM CRIMINOLOGY PROFESSOR ERCP 04/16/2024 1:43 PM CRIMINOLOGY PROFESSOR TRANSFUSE RED BLOOD CELLS Timed 2024 12:32 PM CRIMINOLOGY PROFESSOR DIFFERENTIAL AUTO STAT 04/16/2024 11:22 AM CRIMINOLOGY PROFESSOR CBC WITH AUTO DIFFERENTIAL STAT 04/16 11:22 AM CRIMINOLOGY PROFESSOR TYPE AND SCREEN Routine 04/16/2024 11:10 AM CRIMINOLOGY PROFESSOR PREPARE RBC STAT 04/16/2024 10:50 AM CRIMINOLOGY PROFESSOR B CHECK SAMPLE STAT 04/16/2024 5:58 AM CRIMINOLOGY PROFESSOR EGFR Routine 04/16/2024 5:58 AM CRIMINOLOGY PROFESSOR DIFFERENTIAL AUTO Routine 04/16/2024 5:58 AM CRIMINOLOGY PROFESSOR HEMOGLOBIN A1C Routine 04/16/2024 5:58 AM CRIMINOLOGY PROFESSOR PHOSPHORUS Routine 04/16/2024 5:58 AM CRIMINOLOGY PROFESSOR MAGNESIUM Routine 04/16/2024 5:58 AM CRIMINOLOGY PROFESSOR CBC WITH AUTO DIFFERENTIAL Routine 04/16 5:58 AM CRIMINOLOGY PROFESSOR COMPREHENSIVE METABOLIC PANEL Routine 5:58 AM CRIMINOLOGY PROFESSOR CANCER ANTIGEN 19-9 Routine 04/16/2024 5:58 AM CRIMINOLOGY PROFESSOR from Last 3 Months Results * PET/CT FDG Skull to Thigh (05/06/2024 10:59 AM CRIMINOLOGY PROFESSOR) Anatomical Region Laterality Modality N/A Positron Emissio n Tomography (PET) 05/06/2024 2:56 PM CRIMINOLOGY PROFESSOR Impressions 05/06/2024 4:58 PM CRIMINOLOGY PROFESSOR 1. Faint uptake in the region of [...] by: DO Jaimie Neal 05/06/2024 4:58 PM CRIMINOLOGY PROFESSOR EXAMINATION: TUMOR FDG-PET/CT IMAGING DATE OF STUDY: 05/06/2024 SCANNER: [facility] RADIOPHARMACEUTICAL: 16.02 mCi F-18 Fluorodeoxyglucose (FDG) [...] obtained. The study was interpreted on the [employer] workstation. The mean liver SUV (reported for quality assurance monitor chassis purposes) is 2.2. The total scanned area [...] FDG-PET/CT IMAGING DATE OF STUDY: 05/06/2024 SCANNER: [facility] RADIOPHARMACEUTICAL: 16.02 mCi F-18 Fluorodeoxyglucose (FDG) [...] obtained. The study was interpreted on the [employer] workstation. The mean liver SUV (reported for quality assurance monitor chassis purposes) is 2.2. The total scanned area [...] Electronically signed by: Branden Hicks DO Result [facility] Abimael Radford MD IMG PET PROCEDURES Final Result * POCT glucose (05/06/2024 9:21 AM CRIMINOLOGY PROFESSOR) Glucose, POC 164 70 - 199 mg/dL Comment: For Glucose values <35 mg/dl when Hematocrit is >60 mg/dl,the test may not accurately detect significant hypoglycemia,and testing in the Laboratory should be considered if clinically indicated. Blood 05/06/2024 9:21 AM CRIMINOLOGY PROFESSOR 05/06/2024 9:21 AM CRIMINOLOGY PROFESSOR Result [facility] Abimael Radford MD LAB POCT ORDERABLES - DEVICE Fi nal Result [facility] [address] Department of Laboratories [place], [place] [id number] * (ABNORMAL) POCT glucose (04/21/2024 11:25 AM CRIMINOLOGY PROFESSOR) Glucose, POC 226(H) 70 - 199 mg/dL Comment: For Glucose values <35 mg/dl when Hematocrit is >60 mg/dl,the test may not accurately detect significant hypoglycemia,and testing in the Laboratory should be considered if clinically indicated. Blood 04/21/2024 11:2 5 AM CRIMINOLOGY PROFESSOR 04/21/2024 11:25 AM CRIMINOLOGY PROFESSOR Result [facility] Kristina Pro MD LAB POCT ORDERABLES - DEVICE Fin al Result Performing Organization Address [facility] de Phone Number [facility] [address] [facility] [place] [address] * POCT glucose (04/21/2024 7:24 AM CRIMINOLOGY PROFESSOR) Glucose, POC 143 70 - 199 mg/dL Comment: For Glucose values <35 mg/dl when Hematocrit is >60 mg/dl,the test may not accurately detect significant hypoglycemia,and testing in the Laboratory should be considered if clinically indicated. Blood 04/21/2024 7:24 AM CRIMINOLOGY PROFESSOR 04/21/2024 7:24 AM CRIMINOLOGY PROFESSOR Kristnia Pro MD LAB POCT ORDERABLES - DEVICE Fin al Result Performing Organization Address [facility] de Phone Number [facility] [address] [facility] [place] [address] * POCT glucose (04/20/2024 8:14 PM CRIMINOLOGY PROFESSOR) Glucose, POC 100 70 - 199 mg/dL Comment: For Glucose values <35 mg/dl when Hematocrit is >60 mg/dl,the test may not accurately detect significant hypoglycemia,and testing in the Laboratory should be considered if clinically indicated. Blood 04/20/2024 8:14 PM CRIMINOLOGY PROFESSOR 04/20/2024 8:14 PM CRIMINOLOGY PROFESSOR Kristina Pro MD LAB POCT ORDERABLES - DEVICE Fin al Result Performing Organization Address [facility] de Phone Number [facility] [address] [facility] [place] [address] * (ABNORMAL) POCT glucose (04/20/2024 4:30 PM CRIMINOLOGY PROFESSOR) Glucose, POC 210(H) 70 - 199 mg/dL Comment: For Glucose values <35 mg/dl when Hematocrit is >60 mg/dl,the test may not accurately detect significant hypoglycemia,and testing in the Laboratory should be considered if clinically indicated. Blood 04/20/2024 4:30 PM CRIMINOLOGY PROFESSOR 04/20/2024 4:30 PM CRIMINOLOGY PROFESSOR Result [facility] Kristina Pro MD LAB POCT ORDERABLES - DEVICE Fin al Result Performing Organization Address [facility] de Phone Number [facility] [address] [place] [address] * (ABNORMAL) POCT glucose (04/20/2024 11:41 AM CRIMINOLOGY PROFESSOR) Glucose, POC 256(H) 70 - 199 mg/dL Comment: For Glucose values <35 mg/dl when Hematocrit is >60 mg/dl,the test may not accurately detect significant hypoglycemia,and testing in the Laboratory should be considered if clinically indicated. Blood 04/20/2024 11:4 1 AM CRIMINOLOGY PROFESSOR 04/20/2024 11:41 AM CRIMINOLOGY PROFESSOR Result [facility] Kristina Pro MD LAB POCT ORDERABLES - DEVICE Fin al Result Performing Organization Address [facility] de Phone Number [facility] [address] [place] [address] * POCT glucose (04/20/2024 7:18 AM CRIMINOLOGY PROFESSOR) Glucose, POC 159 70 - 199 mg/dL Comment: For Glucose values <35 mg/dl when Hematocrit is >60 mg/dl,the test may not accurately detect significant hypoglycemia,and testing in the Laboratory should be considered if clinically indicated. Blood 04/20/2024 7:18 AM CRIMINOLOGY PROFESSOR 04/20/2024 7:18 AM CRIMINOLOGY PROFESSOR Result [facility] Kristina Pro MD LAB POCT ORDERABLES - DEVICE Fin al Result Performing Organization Address [facility] de Phone Number [facility] [address] [place] [address] * POCT glucose (04/20/2024 5:13 AM CRIMINOLOGY PROFESSOR) Glucose, POC 136 70 - 199 mg/dL Comment: For Glucose values <35 mg/dl when Hematocrit is >60 mg/dl,the test may not accurately detect significant hypoglycemia,and testing in the Laboratory should be considered if clinically indicated. Blood 04/20/2024 5:13 AM CRIMINOLOGY PROFESSOR 04/20/2024 5:13 AM CRIMINOLOGY PROFESSOR us Marquis Orellana MD LAB POCT ORDERABLES - DEVICE Fin al Result [facility] [address] Department [place] [address] * eGFR (04/20/2024 4:55 AM CRIMINOLOGY PROFESSOR) eGFR >90 >=60 mL/min/1. 73 m2 Comment: [...] the [employer]-ASK Task Force on Reassessing t [id number]|2024-07-14 17:58:00|2024-07-14 17:58:00|XMS_ITS|BKG DAEMON|External Medical Summaries|[id number]|" Encounter Summary Created on: July 14, 2024 Zac Chambers : 1945 Sex: Female Author Organization [facility] Address [address] [place] [address] Phone Care Team Providers Care Sales Activity Manager Name Role Phone Unknown, Notinfile Primary Care Provider Unavail able Mohan Heller MD Unavailable [place] Unavailable No, Physician Unavailable Abimael Radford MD Unavailable [phone] Reason for Visit * Reason Onset Date Comments Medical Question/Miscellaneous 06/29/2024 Encounter Details Date Type Department Care Team (Late st Contact Info) Description 06/29/2024 Telephone [facility] [address] [facility] [address] [place] [address] Misty Chaney MD [address] [facility] [address] [place] [address] Medical Question/Miscellaneous Social History Tobacco Use Types [...] on file Legal Sex Female 9:44 PM CRIMINOLOGY PROFESSOR Gender Identity Not on file Sexual Orientation [...] them to contact for a call back: [phone] Last office visit: Visit date not found Date of Surgery: 04/16/2024 documented in this encounter Plan of Treatment Not on file documented as of this encounter Visit Diagnoses Not on filedocumented in this encounter Care Teams Sales Activity Manager Relationship Specialty Start Date End Date Unknown, Notinfile PCP - General 04/16/24 Mohan Heller MD [address] [facility] [address] [place] [address] Endocrinology Diabetes & Metabolism 04/21/24 Kourtney Park PA [address] [facility] [address] [place] [address] Physician Morgue Technician Hepatobiliary Surgery 04/21/24 No, Physician 04/21/24 Abimael Radford MD [address] [place] [address] Consulting Physician Hematology 04/21/24 documented as of this encounter "
--- OUTSIDE RECORDS SUMMARY | 2024-07-14 17:58 | XMS_ITS | Clinical Summary ---
Author Organization [facility] Address [address] [place] [address] Care Team Providers Care Rack Maker Name Role Phone Unknown, Notinfile Primary Care Provider Unavail able Mohan Heller MD Unavailable [phone] Kourtney Park Unavailable [phone] No, Physician Unavailable Abimael Radford MD Unavailable [phone] Allergies No known active allergies Medications [...] Type Department Care Team Description 07/14/2024 Telephone [facility] [place] [address] Liya Woody RN 06/29/2024 Telephone [facility] Surgery [address] [facility] [address] [place] [address] Ana Lilia Aguilera, MIRYAM 06/29/2024 Telephone [facility] Surgery [facility] Floor 5 [place] [address] Misty Chaney MD Medical Question/Miscellaneous 05/20/2024 Telephone [facility] [address] [place] [phone] Liya Woody, RN 05/10/2024 Telephone [facility] Radiation Oncology [address] [facility] [place] [address] No, Physician 05/10/2024 Telephone [facility] Radiation Oncology [address] [facility] [place] [address] No, Physician 05/07/2024 Telephone [facility] Genetics Department [address] [place] [phone] Shahla Edmond 05/07/2024 Telephone [facility] Genetics Department [address] [place] [phone] Shahla Edmond 05/06/2024 8:47 AM STEAMFITTER APPRENTICE - 05/06/2024 11:59 PM STEAMFITTER APPRENTICE Hospital Encounter [facility] - Imaging [address] [place] [phone] [facility] Pet Pancreatic adenocarcinoma (HCC) Discharge Disposition: Discharge to home or self care 04/30/2024 Telephone [facility] Radiation Oncology [address] [place] [phone] Ray Billy MD PhD 04/30/2024 Orders Only [facility] [address] [place] [phone] Abimael Radford MD Pancreatic adenocarcinoma (HCC) (Primary Dx) 04/29/2024 1:30 PM STEAMFITTER APPRENTICE Office Visit [facility] [address] [place] [phone] Abimael Radford MD Pancreatic adenocarcinoma (HCC) (Primary Dx) 04/22/2024 Orders Only [facility] Surgery [address] [facility] [address] [place] [phone] Kourtney Park PA Pancreatic adenocarcinoma (HCC) (Primary Dx) 04/22/2024 Orders Only [facility] Surgery [address] [facility] [address] [place] [address] Kourtney Park PA Pancreatic adenocarcinoma (HCC) (Primary Dx) 04/22/2024 Results Follow-Up [facility] Gastroenterolog y [address] [facility] [address], [address] [place] [address] Naima Knight RN 04/16/2024 2:30 PM STEAMFITTER APPRENTICE - 04/16/2024 3:15 PM STEAMFITTER APPRENTICE Surgery [facility] [address] [place] [phone] Chente Decker MD ESOPHAGOGASTRODUODENOSCOPY CONTROL BLEED 04/16/2024 2:00 PM STEAMFITTER APPRENTICE Anesthesia Event [facility] [address] [place] [phone] Brittni Sherwood MD [place]deck, Pauline Rose, JENNIFER 04/14/2024 9:41 PM STEAMFITTER APPRENTICE - 04/21/2024 1:31 PM STEAMFITTER APPRENTICE Hospital Encounter [address] [phone] Thao Mcdowell MD Shimotani, DO [...] on file Legal Sex Female 9:44 PM STEAMFITTER APPRENTICE Gender Identity Not on file Sexual Orientation Not on file Obstetrics History Last Filed Vital Signs Vital Sign Reading Time Taken Comments Blood Pressure 124/72 04/29/2024 1:28 PM STEAMFITTER APPRENTICE Pulse 74 04/29/2024 1:28 PM STEAMFITTER APPRENTICE Temperature 36.6 C (97.9 F) 04/29/2024 1:28 PM STEAMFITTER APPRENTICE Respiratory Rate 18 04/29/2024 1:28 PM STEAMFITTER APPRENTICE Oxygen Saturation 100% 04/29/2024 1:28 PM STEAMFITTER APPRENTICE Inhaled Oxygen Concentration - - Weight 55.6 kg (122 lb 9.6 oz) 04/29/2024 1:28 P M STEAMFITTER APPRENTICE Height 155.5 cm (5' 1.22 ) 04/29/2024 1:28 PM CS T Body Mass Index 23 04/29/2024 1:28 PM STEAMFITTER APPRENTICE Plan of Treatment Health Maintenance Due Date [...] history exists Medical Devices Implanted Type Area Automation Controls Expert Device Identifier Shelf Expiration Date Model / Serial / Lot Firetide Holley Stent Biliary Rapid Exchange Self Expanding Viabil [id number] Nitinol [id number] - [id number] - [id number] Implanted:Qty: 1 on 04/15/2024 by Chente Decker MD at [facility] Stent N/A: Bile Duct Conmed Holley 07/21/2026 [id number] / [id number] / Procedures Procedure Name Priority Date/Time Associated Diagnosis Comments PET/CT FDG SKULL TO THIGH Schedule Routine, Read Routine (OP Routine) 05/06/2024 10:59 AM STEAMFITTER APPRENTICE Pancreatic adenocarcinoma (HCC) POCT GLUCOSE DEVICE Routine 05/06/2024 9:21 AM STEAMFITTER APPRENTICE POCT GLUCOSE DEVICE Routine 04/21/2024 11:25 AM STEAMFITTER APPRENTICE POCT GLUCOSE DEVICE Routine 04/21/2024 7:24 AM STEAMFITTER APPRENTICE POCT GLUCOSE DEVICE Routine 04/20/2024 8:14 PM STEAMFITTER APPRENTICE POCT GLUCOSE DEVICE Routine 04/20/2024 4:30 PM STEAMFITTER APPRENTICE POCT GLUCOSE DEVICE Routine 04/20/2024 11:41 AM STEAMFITTER APPRENTICE POCT GLUCOSE DEVICE Routine 04/20/2024 7:18 AM STEAMFITTER APPRENTICE POCT GLUCOSE DEVICE Routine 04/20/2024 5:13 AM STEAMFITTER APPRENTICE EGFR Routine 04/20/2024 4:55 AM STEAMFITTER APPRENTICE DIFFERENTIAL AUTO Routine 04/20/2024 4:55 AM STEAMFITTER APPRENTICE PHOSPHORUS Routine 04/20/2024 4:55 AM STEAMFITTER APPRENTICE MAGNESIUM Routine 04/20/2024 4:55 AM STEAMFITTER APPRENTICE CBC WITH AUTO DIFFERENTIAL Routine 04/20 4:55 AM STEAMFITTER APPRENTICE BASIC METABOLIC PANEL Routine 04/20/2024 4:55 AM STEAMFITTER APPRENTICE POCT GLUCOSE DEVICE Routine 04/20/2024 12:10 AM STEAMFITTER APPRENTICE POCT GLUCOSE DEVICE Routine 04/19/2024 8:04 PM STEAMFITTER APPRENTICE POCT GLUCOSE DEVICE Routine 04/19/2024 5:52 PM STEAMFITTER APPRENTICE MRI ABDOMEN MRCP W WO CONTRAST IP Routine 0 04/19/2024 5:07 PM STEAMFITTER APPRENTICE POCT GLUCOSE DEVICE Routine 04/19/2024 11:37 AM STEAMFITTER APPRENTICE ADD ON LAB TEST Add-On 04/19/2024 9:57 AM STEAMFITTER APPRENTICE POCT GLUCOSE DEVICE Routine 04/19/2024 7:37 AM STEAMFITTER APPRENTICE HEPATIC FUNCTION PANEL Routine 5:01 AM STEAMFITTER APPRENTICE EGFR Routine 04/19/2024 5:01 AM STEAMFITTER APPRENTICE DIFFERENTIAL AUTO Routine 04/19/2024 5:01 AM STEAMFITTER APPRENTICE PHOSPHORUS Routine 04/19/2024 5:01 AM STEAMFITTER APPRENTICE MAGNESIUM Routine 04/19/2024 5:01 AM STEAMFITTER APPRENTICE CBC WITH AUTO DIFFERENTIAL Routine 04/19 5:01 AM STEAMFITTER APPRENTICE BASIC METABOLIC PANEL Routine 04/19/2024 5:01 AM STEAMFITTER APPRENTICE POCT GLUCOSE DEVICE Routine 04/19/2024 4:53 AM STEAMFITTER APPRENTICE POCT GLUCOSE DEVICE Routine 04/18/2024 11:50 PM STEAMFITTER APPRENTICE POCT GLUCOSE DEVICE Routine 04/18/2024 8:11 PM STEAMFITTER APPRENTICE POCT GLUCOSE DEVICE Routine 04/18/2024 3:22 PM STEAMFITTER APPRENTICE POCT GLUCOSE DEVICE Routine 04/18/2024 11:42 AM STEAMFITTER APPRENTICE POCT GLUCOSE DEVICE Routine 04/18/2024 11:40 AM STEAMFITTER APPRENTICE POCT GLUCOSE DEVICE Routine 04/18/2024 7:43 AM STEAMFITTER APPRENTICE EGFR Routine 04/18/2024 6:54 AM STEAMFITTER APPRENTICE DIFFERENTIAL AUTO Routine 04/18/2024 6:54 AM STEAMFITTER APPRENTICE PHOSPHORUS Routine 04/18/2024 6:54 AM STEAMFITTER APPRENTICE MAGNESIUM Routine 04/18/2024 6:54 AM STEAMFITTER APPRENTICE CBC WITH AUTO DIFFERENTIAL Routine 04/18 6:54 AM STEAMFITTER APPRENTICE BASIC METABOLIC PANEL Routine 04/18/2024 6:54 AM STEAMFITTER APPRENTICE POCT GLUCOSE DEVICE Routine 04/18/2024 5:20 AM STEAMFITTER APPRENTICE POCT GLUCOSE DEVICE Routine 04/17/2024 11:31 PM STEAMFITTER APPRENTICE POCT GLUCOSE DEVICE Routine 04/17/2024 8:58 PM STEAMFITTER APPRENTICE POCT GLUCOSE DEVICE Routine 04/17/2024 3:24 PM STEAMFITTER APPRENTICE POCT GLUCOSE DEVICE Routine 04/17/2024 11:[address] CHEST W CONTRAST IP Routine 04/17/2024 9:55 AM STEAMFITTER APPRENTICE POCT GLUCOSE DEVICE Routine 04/17/2024 7:36 AM STEAMFITTER APPRENTICE MANUAL DIFFERENTIAL Routine 04/17/2024 7:02 AM STEAMFITTER APPRENTICE EGFR Routine 04/17/2024 7:02 AM STEAMFITTER APPRENTICE PHOSPHORUS Routine 04/17/2024 7:02 AM STEAMFITTER APPRENTICE MAGNESIUM Routine 04/17/2024 7:02 AM STEAMFITTER APPRENTICE CBC WITH AUTO DIFFERENTIAL Routine 04/17 7:02 AM STEAMFITTER APPRENTICE BASIC METABOLIC PANEL Routine 04/17/2024 7:02 AM STEAMFITTER APPRENTICE HEPATIC FUNCTION PANEL Routine 7:02 AM STEAMFITTER APPRENTICE POCT GLUCOSE DEVICE Routine 04/17/2024 3:52 AM STEAMFITTER APPRENTICE POCT GLUCOSE DEVICE Routine 04/16/2024 11:45 PM STEAMFITTER APPRENTICE POCT GLUCOSE DEVICE Routine 04/16/2024 8:28 PM STEAMFITTER APPRENTICE POCT GLUCOSE DEVICE Routine 04/16/2024 4:40 PM STEAMFITTER APPRENTICE TRANSFUSE RED BLOOD CELLS Timed 2024 3:30 PM STEAMFITTER APPRENTICE POCT GLUCOSE DEVICE Routine 04/16/2024 3:18 PM STEAMFITTER APPRENTICE POCT GLUCOSE DEVICE Routine 04/16/2024 3:12 PM STEAMFITTER APPRENTICE ERCP IP Routine 04/16/2024 2:38 PM STEAMFITTER APPRENTICE Pancreatic mass ERCP IP Routine 04/16/2024 2:31 PM STEAMFITTER APPRENTICE OR AN PROCEDURE PLACEHOLDER Routine 04/03 2:15 PM STEAMFITTER APPRENTICE OR AN ELECTIVE ENDOTRACHEAL AIRWAY Routine 04/16/2024 2:15 PM STEAMFITTER APPRENTICE ESOPHAGOGASTRODUODENOSCOPY CONTROL BLEED 04/16/2024 2:00 PM STEAMFITTER APPRENTICE Pancreatic mass ECG 12-LEAD Routine 04/16/2024 1:43 PM STEAMFITTER APPRENTICE ERCP 04/16/2024 1:43 PM STEAMFITTER APPRENTICE TRANSFUSE RED BLOOD CELLS Timed 2024 12:32 PM STEAMFITTER APPRENTICE DIFFERENTIAL AUTO STAT 04/16/2024 11:22 AM STEAMFITTER APPRENTICE CBC WITH AUTO DIFFERENTIAL STAT 04/16 11:22 AM STEAMFITTER APPRENTICE TYPE AND SCREEN Routine 04/16/2024 11:10 AM STEAMFITTER APPRENTICE PREPARE RBC STAT 04/16/2024 10:50 AM STEAMFITTER APPRENTICE B CHECK SAMPLE STAT 04/16/2024 5:58 AM STEAMFITTER APPRENTICE EGFR Routine 04/16/2024 5:58 AM STEAMFITTER APPRENTICE DIFFERENTIAL AUTO Routine 04/16/2024 5:58 AM STEAMFITTER APPRENTICE HEMOGLOBIN A1C Routine 04/16/2024 5:58 AM STEAMFITTER APPRENTICE PHOSPHORUS Routine 04/16/2024 5:58 AM STEAMFITTER APPRENTICE MAGNESIUM Routine 04/16/2024 5:58 AM STEAMFITTER APPRENTICE CBC WITH AUTO DIFFERENTIAL Routine 04/16 5:58 AM STEAMFITTER APPRENTICE COMPREHENSIVE METABOLIC PANEL Routine 5:58 AM STEAMFITTER APPRENTICE CANCER ANTIGEN 19-9 Routine 04/16/2024 5:58 AM STEAMFITTER APPRENTICE from Last 3 Months Results * PET/CT FDG Skull to Thigh (05/06/2024 10:59 AM STEAMFITTER APPRENTICE) Anatomical Region Laterality Modality N/A Positron Emissio n Tomography (PET) 05/06/2024 2:56 PM STEAMFITTER APPRENTICE Impressions 05/06/2024 4:58 PM STEAMFITTER APPRENTICE 1. Faint uptake in the region of [...] by: DO Jaimie Neal 05/06/2024 4:58 PM STEAMFITTER APPRENTICE EXAMINATION: TUMOR FDG-PET/CT IMAGING DATE OF STUDY: 05/06/2024 SCANNER: [facility] RADIOPHARMACEUTICAL: 16.02 mCi F-18 Fluorodeoxyglucose (FDG) [...] obtained. The study was interpreted on the [employer] workstation. The mean liver SUV (reported for business quality assurance analyst purposes) is 2.2. The total scanned area [...] FDG-PET/CT IMAGING DATE OF STUDY: 05/06/2024 SCANNER: [facility] RADIOPHARMACEUTICAL: 16.02 mCi F-18 Fluorodeoxyglucose (FDG) [...] obtained. The study was interpreted on the [employer] workstation. The mean liver SUV (reported for business quality assurance analyst purposes) is 2.2. The total scanned area [...] Result * POCT glucose (05/06/2024 9:21 AM STEAMFITTER APPRENTICE) Glucose, POC 164 70 - 199 mg/dL Comment: For Glucose values <35 mg/dl when Hematocrit is >60 mg/dl,the test may not accurately detect significant hypoglycemia,and testing in the Laboratory should be considered if clinically indicated. Blood 05/06/2024 9:21 AM STEAMFITTER APPRENTICE 05/06/2024 9:21 AM STEAMFITTER APPRENTICE Abimael Radford MD LAB POCT ORDERABLES - DEVICE Fi nal Result [facility] [address] [place] [address] * (ABNORMAL) POCT glucose (04/21/2024 11:25 AM STEAMFITTER APPRENTICE) Glucose, POC 226(H) 70 - 199 mg/dL Comment: For Glucose values <35 mg/dl when Hematocrit is >60 mg/dl,the test may not accurately detect significant hypoglycemia,and testing in the Laboratory should be considered if clinically indicated. Blood 04/21/2024 11:2 5 AM STEAMFITTER APPRENTICE 04/21/2024 11:25 AM STEAMFITTER APPRENTICE Kristina Pro MD LAB POCT ORDERABLES - DEVICE Fin al Result Performing Organization Address [facility] Co de Phone Number [facility] [address] [facility] [place] [address] * POCT glucose (04/21/2024 7:24 AM STEAMFITTER APPRENTICE) Glucose, POC 143 70 - 199 mg/dL Comment: For Glucose values <35 mg/dl when Hematocrit is >60 mg/dl,the test may not accurately detect significant hypoglycemia,and testing in the Laboratory should be considered if clinically indicated. Blood 04/21/2024 7:24 AM STEAMFITTER APPRENTICE 04/21/2024 7:24 AM STEAMFITTER APPRENTICE Kristina Pro MD LAB POCT ORDERABLES - DEVICE Fin al Result Performing Organization Address [facility] Co de Phone Number [facility] [address] [place] [address] * POCT glucose (04/20/2024 8:14 PM STEAMFITTER APPRENTICE) Glucose, POC 100 70 - 199 mg/dL Comment: For Glucose values <35 mg/dl when Hematocrit is >60 mg/dl,the test may not accurately detect significant hypoglycemia,and testing in the Laboratory should be considered if clinically indicated. Blood 04/20/2024 8:14 PM STEAMFITTER APPRENTICE 04/20/2024 8:14 PM STEAMFITTER APPRENTICE Kristina Pro MD LAB POCT ORDERABLES - DEVICE Fin al Result Performing Organization Address [facility] Co de Phone Number [facility] [address] [place] [address] * (ABNORMAL) POCT glucose (04/20/2024 4:30 PM STEAMFITTER APPRENTICE) Glucose, POC 210(H) 70 - 199 mg/dL Comment: For Glucose values <35 mg/dl when Hematocrit is >60 mg/dl,the test may not accurately detect significant hypoglycemia,and testing in the Laboratory should be considered if clinically indicated. Blood 04/20/2024 4:30 PM STEAMFITTER APPRENTICE 04/20/2024 4:30 PM STEAMFITTER APPRENTICE Kristina Pro MD LAB POCT ORDERABLES - DEVICE Fin al Result Performing Organization Address [facility] de Phone Number [facility] [address] [facility] [place] [address] * (ABNORMAL) POCT glucose (04/20/2024 11:41 AM STEAMFITTER APPRENTICE) Glucose, POC 256(H) 70 - 199 mg/dL Comment: For Glucose values <35 mg/dl when Hematocrit is >60 mg/dl,the test may not accurately detect significant hypoglycemia,and testing in the Laboratory should be considered if clinically indicated. Blood 04/20/2024 11:4 1 AM STEAMFITTER APPRENTICE 04/20/2024 11:41 AM STEAMFITTER APPRENTICE Kristina Pro MD LAB POCT ORDERABLES - DEVICE Fin al Result Performing Organization Address [facility] Co de Phone Number [facility] [address] [facility] [place] [address] * POCT glucose (04/20/2024 7:18 AM STEAMFITTER APPRENTICE) Glucose, POC 159 70 - 199 mg/dL Comment: For Glucose values <35 mg/dl when Hematocrit is >60 mg/dl,the test may not accurately detect significant hypoglycemia,and testing in the Laboratory should be considered if clinically indicated. Blood 04/20/2024 7:18 AM STEAMFITTER APPRENTICE 04/20/2024 7:18 AM STEAMFITTER APPRENTICE us Kristina Pro MD LAB POCT ORDERABLES - DEVICE Fin al Result Performing Organization Address [facility] Co de Phone Number [facility] [address] [place] [address] * POCT glucose (04/20/2024 5:13 AM STEAMFITTER APPRENTICE) Glucose, POC 136 70 - 199 mg/dL Comment: For Glucose values <35 mg/dl when Hematocrit is >60 mg/dl,the test may not accurately detect significant hypoglycemia,and testing in the Laboratory should be considered if clinically indicated. Blood 04/20/2024 5:13 AM STEAMFITTER APPRENTICE 04/20/2024 5:13 AM STEAMFITTER APPRENTICE us Marquis Orellana MD LAB POCT ORDERABLES - DEVICE Fin al Result Performing Organization Address [facility] Co de Phone Number [facility] [address] [place] [address] * eGFR (04/20/2024 4:55 AM STEAMFITTER APPRENTICE) eGFR >90 >=60 [id number]|2024-07-14 17:58:00|2024-07-14 17:58:00|XMS_ITS|BKG DAEMON|External Medical Summaries|[id number]|" Clinical Summary Created on: July 14, 2024 Zac Chambers : 1945 Sex: Female Author Organization [facility] Address [address] [place] [address] Care Team Providers Care Rack Maker Name Role Phone Unavailable Primary Care Provider [...]
--- OUTSIDE RECORDS SUMMARY | 2024-07-14 17:58 | XMS_ITS ---
Author Organization [facility] Address [address] [place] [address] Care Team Providers Care Tree Fruit And Nut Farming Supervisor Name Role Phone Unknown, Notinfile Primary Care Provider Unavail able Mohan Heller MD Unavailable Kourtney Park Unavailable No, Physician Unavailable Abimael Radford MD Unavailable [phone] Active Problems Problem Noted Date Diagnosed [...]
--- OUTSIDE RECORDS SUMMARY | 2024-07-14 17:58 | XMS_ITS | Clinical Summary ---
Author Organization [facility] [employer] Address [address] [place] [address] Care Team Providers Care Intellectual Property Counsel Name Role Phone Unavailable Primary Care Provider Unavailabl e Source Comments [facility],non-owned Affiliates and Associated Physician Practices is amultiple site organization consisting of ambulatory clinics and hospital sitesin [place], [place], [place] and [place]. This disclosure is being madepursuant to the Care Everywhere program and may not contain all information available regarding this patient. Last updated 17.[facility] [employer] Active Problems Problem Noted Date Diagnosed Date [...]
[2024-07-14 18:04] LABS: Basophils Percent Auto 0.4 % (0.2-1.2); Eosinophils Absolute Auto 0.1 K/mm3 (0-0.3); Hematocrit 35.9 % (37.0-47.0); Hemoglobin 11.3 g/dL (12.0-15.0); Immature Granulocyte Absolute 0.01 K/mm3 (0.00-0.031); Immature Granulocyte Percent A 0.2 % (0-0.5); Lymphocytes Absolute Auto 0.97 K/mm3 (0.9-3.2); Lymphocytes Percent Auto 17.7 % (18.3-44.2); Mean Corpuscular HGB Conc 31.5 g/dl (32-36); Mean Corpuscular Hemoglobin 29.4 pg (26-34); Mean Corpuscular Volume 93.5 fl (80-100); Mean Platelet Volume 10.6 fl (7.4-10.4); Monocytes Absolute Auto 0.4 K/mm3 (0.1-0.6); Monocytes Percent Auto 7.3 % (2.6-8.5); Neutrophils Percent Auto 72.4 % (45.5-73.1); Platelet Count Result 145 k/mm3 (150-375); Red Blood Count 3.84 M/mm3 (4.2-5.4); White Blood Count 5.5 K/mm3 (4.5-10.0)
[2024-07-14 18:17] LABS: Alanine Aminotransferase 24 U/L (6-35); Albumin Level 3.7 g/dL (3.5-5.1); Alkaline Phosphatase 121 U/L (38-126); Anion Gap 7 mmol/L (4-12); Aspartate Amino Transferase 33 U/L (14-36); Bilirubin,Total 0.5 mg/dL (0.2-1.3); Blood Urea Nitrogen 14 mg/dL (7-17); Calcium 9.1 mg/dL (8.4-10.2); Carbon Dioxide 27 mmol/L (22-30); Chloride 104 mmol/L (98-107); Estimated CRCL calculation 72 ml/min; Estimated Glomerular Filt Rate > 60; Glucose 216 mg/dL (65-110); Lipase 238 U/L (23-300); Magnesium 2.1 mg/dL (1.6-2.3); Potassium 3.6 mmol/L (3.4-5.0); Sodium 138 mmol/L (137-145)
[2024-07-14 18:22] LABS: Partial Thromboplastin Time 23.1 Seconds (22.3-36.8); Prothrombin Time 13.5 Seconds (11.1-14.7)
[2024-07-14 18:28] LABS: Glucose Point of Care 233 mg/dl (65-105)
[2024-07-14 18:31] VITALS: BP 121/68; PULSE 87; RESP 20; O2SAT 97
== END 2024-07-14 18:39 | disposition home or self-care (01) ==
PROVIDERS: Emergency Provider Emergency Medicine; PCP Family Medicine
DX: C25.9 Malignant neoplasm of pancreas, unspecified (principal); Z87.891 Personal history of nicotine dependence; Z79.4 Long term (current) use of insulin; Z79.82 Long term (current) use of aspirin; Z79.899 Other long term (current) drug therapy
CPT/HCPCS: 36415; 80053; 82948; 83690; 83735; 85025; 85610; 85730; 86850; 86900; 86901; 99283

== ENCOUNTER 2024-07-22 14:41 | Emergency (ER) | payer MEDICARE, SELFPAY ==
[2024-07-22] VITALS (32 sets, daily range): BP systolic 90–154; BP diastolic 57–95; PULSE 73–99; RESP 14–29; TEMP 36.6–37.7; O2SAT 94–100
--- NOTE | ~2024-07-22 | CT_ITS ---
CLINICAL INDICATION: 78-year-old woman with a personal history of pancreatic cancer with a common osmin e duct stent presents with transaminitis and confusion, with abnormal right upper quadrant ultrasound . COMPARISON: 04/13/2024. Reference is also made to an ultrasound examination performed less than one ho ur earlier TECHNIQUE: Multiple contiguous axial images of the abdomen and pelvis were performed following the ad ministration of with 100 mL Omnipaque-350 intravenous contrast The dose-length product (DLP) was 333.12 mGy-cm. Automated exposure control and iterative reconstruction technique were employed. FINDINGS/OBSERVATIONS: Visualized lower thorax: The bilateral lung bases are clear. The heart is of normal size, without pericardial effusion. Liver: Redemonstration of significant intrahepatic biliary ductal dilatation is identified consistent with goldie arriola's recent ultrasound examination, as well as CT examination dated 04/13/2024. Small caliber stent identified within the common bile duct. Gallbladder and biliary system: The gallbladder demonstrates multiple stones and pericholecystic fluid, likely secondary to outflow o bstruction. Pancreas: Redemonstration of patient's known mass within the head of the pancreas, with significant pancreatic ductal dilatation (now measuring 9 mm compared to 7 mm on the previous study) and infiltration of the surrounding tissue planes, now encircling both the celiac axis and superior mesenteric artery. The portal vein is markedly attenuated at its confluence with the superior mesenteric vein. The mass within the head of the pancreas now measures 3.9cm compared to 1.8 cm in maximal dimension o n previous study. Spleen: The spleen enhances homogeneously and is not enlarged. Kidneys: The bilateral kidneys enhance symmetrically without hydronephrosis or renal calculi. Adrenal glands: Unremarkable. Gastrointestinal tract: Fecal stasis within the distal colon. Appendix: The appendix is not definitively visualized. However, no pericecal inflammatory change is identified suggest the presence of acute appendicitis. Vasculature: The mass in the head of the pancreas demonstrates infiltration of the surrounding tissue planes, now encircling both the celiac axis and superior mesenteric artery. The portal vein is markedly attenuated at its confluence with the superior mesenteric vein with dilat ation and patency of the intrahepatic portal vein. Lymph nodes: No pathologically enlarged or morphologically suspicious lymph nodes within the retroperitoneum or at the root of the mesentery. Pelvic structures: The bladder is decompressed, limiting its evaluation. The uterus is anteverted and anteflexed, appropriately atrophic for a patient of this age and contain ing multiple calcifications suggesting prior fibroid disease. Body wall and musculoskeletal: Bilateral fat-containing inguinal hernias Age-appropriate degenerative disease within the lower thoracic and lumbosacral spines. IMPRESSION: Interval progression of patient's known pancreatic cancer, nearly doubling in size and causing intrah epatic biliary ductal dilatation, for which the small caliber common bile duct stent is suspected to be occluded. Reviewed, dictated and finalized at location A. IMPRESSION: Interval progression of patient's known pancreatic cancer, nearly doubling in s ize and causing intrahepatic biliary ductal dilatation, for which the small pedro iber common bile duct stent is suspected to be occluded.
--- NOTE | ~2024-07-22 | XR_ITS ---
XR chest 2V Ordering provider: Bianca Fuller History: 78 years Female with . sepsis w/u, WEAKNESS . Comparison: None. FINDINGS: MEDIASTINUM: The cardiac silhouette is not enlarged. LUNGS: No infiltrates, effusions or pneumothorax. OTHER: No free air under the diaphragm. Degenerative changes of the spine. IMPRESSION: No acute cardiopulmonary pathology. Reviewed, dictated and finalized at location A.
--- NOTE | ~2024-07-22 | US_ITS ---
EXAM: ABDOMEN ULTRASOUND HISTORY: transaminitis including hyperbili; COMPARISON: Reference is made to a CT examination of the abdomen and pelvis dated 04/13/2024 FINDINGS: LIVER: Intrahepatic biliary ductal dilatation is identified. The portal vein is patent, demonstrating hepatopedal flow. GALLBLADDER: The gallbladder is contracted, limiting its evaluation. BILE DUCTS: Common bile duct stent is identified. PANCREAS: Limited evaluation of the pancreas secondary to overlying bowel gas IMPRESSION: Diffuse intrahepatic biliary ductal dilatation. Reviewed, dictated and finalized at location A.
--- NOTE | ~2024-07-22 | CT_ITS ---
CT brain wo con Ordering provider: Bianca Fuller PA-C History: 78 years Female with . ams . Comparison: None. Technique: CT of the head without contrast. Radiation reduction technique utilized. The dose-length p roduct was 605.33 mGy-cm. FINDINGS: BRAIN PARENCHYMA AND CSF SPACES: Mild leukoaraiosis and diffuse cortical atrophy. Mild atheromatous d isease. No midline shift, mass effect or hemorrhage. The brain parenchyma and CSF spaces are otherwi se normal. VISUALIZED PARANASAL SINUSES: Left sphenoid sinus disease. Well aerated. MASTOIDS: Well aerated. BONES: The bones appear intact. SOFT TISSUES: Visualized nasopharynx is normal. Superficial soft tissues are normal. IMPRESSION: No acute intracranial findings. Reviewed, dictated and finalized at location A.
--- OUTSIDE RECORDS SUMMARY | 2024-07-22 14:45 | XMS_ITS | Encounter Summary ---
Author Organization [facility] Address [address] [facility] [address] [place] [address] Phone Care Team Providers Care General Farm Manager Name Role Phone Unknown, Notinfile Primary Care Provider Unavail able Mohan Heller MD Unavailable Kourtney Park Unavailable No, Physician Unavailable Abimael Radford MD Unavailable [phone] Reason for Visit * Reason Onset Date Comments Medical Question/Miscellaneous 06/29/2024 Encounter Details Date Type Department Care Team (Late st Contact Info) Description 06/29/2024 Telephone [facility] Surgery [address] [place] [address] Misty Chaney MD [address] [facility] [address]07[address]05 [place] [address] Medical Question/Miscellaneous Social History Tobacco Use Types [...] on file Legal Sex Female 9:44 PM RESIDENTIAL BUILDER Gender Identity Not on file Sexual Orientation Not on file documented as of this encounter Miscellaneous Notes * Telephone Encounter - Asha Schuster - 06/29/2024 9:42 AM CDT Patient Query: Was [...] them to contact for a call back: [phone] Last office visit: Visit date not found Date of Surgery: 04/16/2024 documented in this encounter Plan of Treatment Not on file documented as of this encounter Visit Diagnoses Not on filedocumented in this encounter Care Teams General Farm Manager Relationship Specialty Start Date End Date Unknown, Notinfile PCP - General 04/16/24 Mohan Heller MD [address] [place] [address] Endocrinology Diabetes & Metabolism 04/21/24 Kourtney Park PA [address] [facility] 8108-07-05 [place] [address] Physician Accident Examiner Hepatobiliary Surgery 04/21/24 No, Physician 04/21/24 Abimael Radford MD [address] [facility] [place] [address] Consulting Physician Hematology 04/21/24 documented as of this encounter
--- OUTSIDE RECORDS SUMMARY | 2024-07-22 14:45 | XMS_ITS | Referral Summary ---
Author Organization [facility] Address [address] [place] [address] Care Team Providers Care Career Representative Name Role Phone Unknown, Notinfile Primary Care Provider Unavail able Mohan Heller MD Unavailable Kourtney Park Unavailable No, Physician Unavailable Abimael Radford MD Unavailable [phone] Encounters Date Type Department Care Team Description 07/14/2024 Telephone [facility] [place] [address] Liya Woody, RN 06/29/2024 Telephone [facility] Surgery [address] [facility] [address] [place] [address] Ana Lilia Aguilera, MIRYAM 06/29/2024 Telephone [facility] Surgery [address] [facility] Floor 5 [place] [address] Misty Chaney MD Medical Question/Miscellaneou s 05/20/2024 Telephone [facility] [place] [address] Liya Woody, RN 05/10/2024 Telephone [facility] Radiation Oncology [address] [place] [address] Advanced [place] [address] [phone] No, Physician 05/10/2024 Telephone [facility] Radiation Oncology [address] [facility] [place] [address] No, Physician 05/07/2024 Telephone [facility] Cancer Genetics Department [address] [place] [phone] Shahla Edmond 05/07/2024 Telephone [facility] Cancer Genetics Department [address] [place] [phone] Shahla Edmond 05/06/2024 8:47 AM MERCHANDISE APPRAISER - 05/06/2024 11:59 PM MERCHANDISE APPRAISER Hospital Encounter [facility] - Imaging [address] [place] [phone] Formerly [facility] Pet Pancreatic adenocarcinoma (HCC) Discharge Disposition: Discharge to home or self care 04/30/2024 Telephone [facility] Radiation Oncology [facility] [place] [address] Ray Billy MD PhD 04/30/2024 Orders Only [facility] [address] [place] [phone] Abimael Radford MD Pancreatic adenocarcinoma (HCC) (Primary Dx) 04/29/2024 1:30 PM MERCHANDISE APPRAISER Office Visit [facility] [address] [place] [phone] Abimael Radford MD Pancreatic adenocarcinoma (HCC) (Primary Dx) from Last 3 Months Allergies No known [...] Date Smoking Tobacco: Former Cigarettes Q uit: 1974 Smokeless Tobacco: Never Tobacco Cessation:Counseling Given: Not [...] on file Legal Sex Female 9:44 PM MERCHANDISE APPRAISER Gender Identity Not on file Sexual Orientation Not on file Last Filed Vital Signs Vital Sign Reading Time Taken Comments Blood Pressure 124/72 04/29/2024 1:28 PM MERCHANDISE APPRAISER Pulse 74 04/29/2024 1:28 PM MERCHANDISE APPRAISER Temperature 36.6 C (97.9 F) 04/29/2024 1:28 PM MERCHANDISE APPRAISER Respiratory Rate 18 04/29/2024 1:28 PM MERCHANDISE APPRAISER Oxygen Saturation 100% 04/29/2024 1:28 PM MERCHANDISE APPRAISER Inhaled Oxygen Concentration - - Weight 55.6 kg (122 lb 9.6 oz) 04/29/2024 1:28 P M MERCHANDISE APPRAISER Height 155.5 cm (5' 1.22 ) 04/29/2024 1:28 PM CS T Body Mass Index 23 04/29/2024 1:28 PM MERCHANDISE APPRAISER Plan of Treatment Not on file Medical Devices Implanted Type Area Washhouse Hand Device Identifier Shelf Expiration Date Model / Serial / Lot Conmed Holley Stent Biliary Rapid Exchange Self Expanding Viabil [id number] Nitinol [id number] - [id number] - [id number] Implanted:Qty: 1 on 04/15/2024 by Chente Decker MD at [facility] Stent N/A: Bile Duct Conmed Holley 07/21/2026 [id number] / [id number] / Procedures Procedure Name Priority Date/Time Associated Diagnosis Comments PET/CT FDG SKULL TO THIGH Schedule Routine, Read Routine (OP Routine) 05/06/2024 10:59 AM MERCHANDISE APPRAISER Pancreatic adenocarcinoma (HCC) POCT GLUCOSE DEVICE Routine 05/06/2024 9:21 AM MERCHANDISE APPRAISER from Last 3 Months Results * PET/CT FDG Skull to Thigh (05/06/2024 10:59 AM MERCHANDISE APPRAISER) Anatomical Region Laterality Modality N/A Positron Emissio n Tomography (PET) 05/06/2024 2:56 PM MERCHANDISE APPRAISER Impressions 05/06/2024 4:58 PM MERCHANDISE APPRAISER 1. Faint uptake in the region of [...] by: DO Jaimie Neal 05/06/2024 4:58 PM MERCHANDISE APPRAISER EXAMINATION: TUMOR FDG-PET/CT IMAGING DATE OF STUDY: 05/06/2024 SCANNER: [facility] RADIOPHARMACEUTICAL: 16.02 mCi F-18 Fluorodeoxyglucose (FDG) [...] obtained. The study was interpreted on the [employer] workstation. The mean liver SUV (reported for senior supplier quality engineer purposes) is 2.2. The total scanned area [...] FDG-PET/CT IMAGING DATE OF STUDY: 05/06/2024 SCANNER: [facility] RADIOPHARMACEUTICAL: 16.02 mCi F-18 Fluorodeoxyglucose (FDG) [...] obtained. The study was interpreted on the [employer] workstation. The mean liver SUV (reported for senior supplier quality engineer purposes) is 2.2. The total scanned area [...] Result * POCT glucose (05/06/2024 9:21 AM MERCHANDISE APPRAISER) Glucose, POC 164 70 - 199 mg/dL Comment: For Glucose values <35 mg/dl when Hematocrit is >60 mg/dl,the test may not accurately detect significant hypoglycemia,and testing in the Laboratory should be considered if clinically indicated. Blood 05/06/2024 9:21 AM MERCHANDISE APPRAISER 05/06/2024 9:21 AM MERCHANDISE APPRAISER Abimael Radford MD LAB POCT ORDERABLES - DEVICE Fi nal Result Performing Organization Address City/State/[facility] Co de Phone Number [facility] [address] Department [place] [address] from Last 3 Months Insurance T MEDICARE [employer] MEDICARE Advance Directives For more information, please contact: [phone] * Full Code (Latest Code Status on File) Date Activated Date Inactivated Comments 04/14/2024 9:44 PM 04/21/2024 5:36 PM Care Teams Career Representative Relationship Specialty Start Date End Date Unknown, Notinfile PCP - General 04/16/24 Mohan Heller MD [address] [place] [address] Endocrinology Diabetes & Metabolism 04/21/24 Kourtney Park PA [address] [place] [address] Physician Commissions Manager Hepatobiliary Surgery 04/21/24 No, Physician 04/21/24 Abimael Radford MD [address] [facility] [place] [address] Consulting Physician Hematology 04/21/24
--- OUTSIDE RECORDS SUMMARY | 2024-07-22 14:45 | XMS_ITS | Clinical Summary ---
Author Organization [facility] Address [address] [place] [address] Care Team Providers Care Web Portal Developer Name Role Phone Unavailable Primary Care Provider Unavailabl e Source Comments [facility],non-owned Affiliates and Associated Physician Practices is amultiple site organization consisting of ambulatory clinics and hospital sitesin [place], [place], [place] and [place]. This disclosure is being madepursuant to the Care Everywhere program and may not contain all information available regarding this patient. Last updated 17.[facility] Active Problems Problem Noted Date Diagnosed Date [...]
--- OUTSIDE RECORDS SUMMARY | 2024-07-22 14:45 | XMS_ITS | Clinical Summary ---
Author Organization [facility] Address [address] [place] [address] Care Team Providers Care Office Employee Name Role Phone Unknown, Notinfile Primary Care Provider Unavail able Mohan Heller MD Unavailable Kourtney Park Unavailable No, Physician Unavailable Abimael Radford MD Unavailable [phone] Allergies No known active allergies Medications [...] Type Department Care Team Description 07/14/2024 Telephone [facility] [address] [place] [address] Liya Woody RN 06/29/2024 Telephone [facility] Surgery [address] [facility] [address] [place] [address] Ana Lilia Aguilera, MIRYAM 06/29/2024 Telephone [facility] Surgery [address] [facility] Floor 5 [place] [address] Misty Chaney MD Medical Question/Miscellaneou s 05/20/2024 Telephone [facility] [address] [place] [phone] Liya Woody RN 05/10/2024 Telephone [facility] Radiation Oncology [facility] [place] [address] No, Physician 05/10/2024 Telephone [facility] Radiation Oncology [address] [facility] [place] [address] No, Physician 05/07/2024 Telephone [facility] Cancer Genetics Department [address] [place] [phone] Shahla Edmond 05/07/2024 Telephone [facility] Cancer Genetics Department [address] [place] [phone] Shahla Edmond 05/06/2024 8:47 AM DAIRY SPECIALIST - 05/06/2024 11:59 PM DAIRY SPECIALIST Hospital Encounter [facility] [address] [place] [phone] [facility]ly [facility] Pet Pancreatic adenocarcinoma (HCC) Discharge Disposition: Discharge to home or self care 04/30/2024 Telephone [facility] Advanced Medicine Radiation Oncology [address] [place] [address] Ray Billy MD PhD 04/30/2024 Orders Only [facility] [address] [place] [phone] Abimael Radford MD Pancreatic adenocarcinoma (HCC) (Primary Dx) 04/29/2024 1:30 PM DAIRY SPECIALIST Office Visit [facility] [address] [place] [phone] Abimael Radford MD Pancreatic adenocarcinoma (HCC) (Primary Dx) from Last 3 Months Social History Tobacco [...] on file Legal Sex Female 9:44 PM DAIRY SPECIALIST Gender Identity Not on file Sexual Orientation Not on file Obstetrics History Last Filed Vital Signs Vital Sign Reading Time Taken Comments Blood Pressure 124/72 04/29/2024 1:28 PM DAIRY SPECIALIST Pulse 74 04/29/2024 1:28 PM DAIRY SPECIALIST Temperature 36.6 C (97.9 F) 04/29/2024 1:28 PM DAIRY SPECIALIST Respiratory Rate 18 04/29/2024 1:28 PM DAIRY SPECIALIST Oxygen Saturation 100% 04/29/2024 1:28 PM DAIRY SPECIALIST Inhaled Oxygen Concentration - - Weight 55.6 kg (122 lb 9.6 oz) 04/29/2024 1:28 P M DAIRY SPECIALIST Height 155.5 cm (5' 1.22 ) 04/29/2024 1:28 PM CS T Body Mass Index 23 04/29/2024 1:28 PM DAIRY SPECIALIST Plan of Treatment Health Maintenance Due Date [...] Assessment 04/21/2025 04/21/2024 Zoster Vaccine Completed 12/17/2018, 10/2018, 02/02/2013, Additional history exists Medical Devices Implanted Type Area Vulnerability Assessment Analyst Device Identifier Shelf Expiration Date Model / Serial / Lot Conmed Holley Stent Biliary Rapid Exchange Self Expanding Viabil [id number] Nitinol [id number] - [id number] - [id number] Implanted:Qty: 1 on 04/15/2024 by Chente Decker MD at [facility] Stent N/A: Bile Duct Conmed Holley 07/21/2026 [id number] / [id number] / Procedures Procedure Name Priority Date/Time Associated Diagnosis Comments PET/CT FDG SKULL TO THIGH Schedule Routine, Read Routine (OP Routine) 05/06/2024 10:59 AM DAIRY SPECIALIST Pancreatic adenocarcinoma (HCC) POCT GLUCOSE DEVICE Routine 05/06/2024 9:21 AM DAIRY SPECIALIST from Last 3 Months Results * PET/CT FDG Skull to Thigh (05/06/2024 10:59 AM DAIRY SPECIALIST) Anatomical Region Laterality Modality N/A Positron Emissio n Tomography (PET) 05/06/2024 2:56 PM DAIRY SPECIALIST Impressions 05/06/2024 4:58 PM DAIRY SPECIALIST 1. Faint uptake in the region of [...] by: DO Jaimie Neal 05/06/2024 4:58 PM DAIRY SPECIALIST EXAMINATION: TUMOR FDG-PET/CT IMAGING DATE OF STUDY: 05/06/2024 SCANNER: [facility] RADIOPHARMACEUTICAL: 16.02 mCi F-18 Fluorodeoxyglucose [...] obtained. The study was interpreted on the [employer] workstation. The mean liver SUV (reported for quality control tech raw materials purposes) is 2.2. The total scanned area [...] dependent atelectasis. Multilevel spinal spondylosis Procedure Note Swingle, Christopher Franklyn, DO - 05/06/2024 EXAMINATION: TUMOR FDG-PET/CT IMAGING DATE OF STUDY: 05/06/2024 SCANNER: [facility] RADIOPHARMACEUTICAL: 16.02 mCi F-18 Fluorodeoxyglucose [...] obtained. The study was interpreted on the [employer] workstation. The mean liver SUV (reported for quality control tech raw materials purposes) is 2.2. The total scanned area [...] Result * POCT glucose (05/06/2024 9:21 AM DAIRY SPECIALIST) [facility] Signature Glucose, POC 164 70 - 199 mg/dL Comment: For Glucose values <35 mg/dl when Hematocrit is >60 mg/dl,the test may not accurately detect significant hypoglycemia,and testing in the Laboratory should be considered if clinically indicated. Blood 05/06/2024 9:21 AM DAIRY SPECIALIST 05/06/2024 9:21 AM DAIRY SPECIALIST Abimael Radford MD LAB POCT ORDERABLES - DEVICE Fi nal Result [facility] [address] [place] [address] from Last 3 Months Insurance [employer] MEDICARE FOR[facility]LY [facility], 1928–1983 MEDICARE Advance Directives For more information, please contact: [phone] * Full Code (Latest Code Status on File) Date Activated Date Inactivated Comments 04/14/2024 9:44 PM 04/21/2024 5:36 PM Care Teams Office Employee Relationship Specialty Start Date End Date Unknown, Notinfile PCP - General 04/16/24 Mohan Heller MD [address] [facility] [address] [place] [address] Endocrinology Diabetes & Metabolism 04/21/24 Kourtney Park PA [address] [facility] [address] [place] [address] Physician Hand Compositor Hepatobiliary Surgery 04/21/24 No, Physician 04/21/24 Abimael Radford MD [address] [facility] [place] [address] Consulting Physician Hematology 04/21/24
--- OUTSIDE RECORDS SUMMARY | 2024-07-22 14:45 | XMS_ITS ---
Author Organization [facility] Address [address] [place] [address] Care Team Providers Care Psychiatry Teacher Name Role Phone Unknown, Notinfile Primary Care Provider Unavail able Mohan Heller MD Unavailable [phone] Kourtney Park Unavailable No, Physician Unavailable Abimael Radford MD Unavailable [phone] Active Problems Problem Noted Date Diagnosed [...]
--- NOTE | 2024-07-22 16:18 | ED.AMS ---
HPI - Altered Mental Status General Chief Complaint: Altered Mental Status <BETSEY Rust Last Filed: 07/22/24 16:36> Stated Complaint: Confusion, dizzy, BGL 242, poss UTI <BETSEY Rust Last Filed: 07/22/24 16:36> Time Seen by Provider: 07/22/24 16:18 <BETSEY Rust Last Filed: 07/22/24 16:36> Focused HPI: Patient is a 78 y/o female, with PMH of IDDM, who presents to the ED via EMS with c/o AMS. Friend at bedside business services assistant providing information. Patient was reportedly very shaky last night and today. Was complaining of lower abdominal pain. Was confused last night, was found in her 's car and she stated she was trying to go to [facility] to get blood work done. BG was also reportedly low into the 60s last night. Family is concerned for a UTI. Family did note a small amount of hematuria in her depends today. Patient has Hx of pancreatitis CA. She is not currently undergoing chemotherapy tx for this. Receives care through her friend who is a physician. Patient is undergoing alternative treatment with fenbendazole and ivermectin. GENERAL: Elderly, thin, mildly ill appearing, and in no acute distress. HEAD: Normocephalic, atraumatic. CHEST: Clear to auscultation. ?No respiratory distress. HEART: Regular rate and irregular rhythm.? ABD: No appreciable tenderness. NEURO: ?Alert and oriented x3. No focal deficits. Strength 5 of 5 in upper and lower extremities bilaterally. Equal contracts law professor strength. Patient screened in triage and initial orders placed.? ?Additional care and disposition to be based upon?diagnostic testing and treatment. <BETSEY Rust Last Filed: 07/22/24 16:36> Source: patient and family <BETSEY Rust Filed: 07/22/24 16:36> Mode of arrival: ambulatory <BETSEY Rust Last Filed: 07/22/24 16:36> Limitations: no limitations <BETSEY Rust Filed: 07/22/24 16:36> History of Present Illness HPI narrative: Concur with the above with the following additions/corrections: For notes her blood glucose was initially 69 but she drank some juice and has been better throughout the day. Friend was less confused about the dizziness and more so for the confusion which she states has been lingering. Patient lives with her also has dementia. Patient denies history of cholecystectomy. <Radha Sweet MD - Last Filed: 07/23/24 17:07> Related Data Home Medications: Home Medications ?Medication ?Instructions ?Recorded ?Confirmed ?Last Taken ?Type aspirin 81 mg tablet,delayed 81 mg PO DAILY 05/24/22 05/04/24 04/12/24 History release (Adult Aspirin Regimen) zinc acetate 50 mg (zinc) capsule 50 mg PO DAILY 05/24/22 05/04/24 04/14/24 History ferrous sulfate 325 mg (65 mg 325 mg PO DAILY 03/19/23 05/04/24 04/14/24 History iron) tablet (Feosol) insulin glargine 100 unit/mL (3 10 unit subcut DAILY 05/04/24 05/04/24 Unknown History mL) subcutaneous pen (Lantus Solostar U-100 Insulin) insulin lispro 100 unit/mL 1 sliding scale dose subcut 05/04/24 05/04/24 Unknown History subcutaneous cartridge (Humalog USEASDIRECTD U-100 Insulin) <Bianca Fuller PA-C - Last Filed: 07/22/24 16:36> Allergies/Adverse Reactions: Allergies Allergy/AdvReac Type Severity Reaction Status Date / Time No Known Allergies Allergy Verified 07/14/24 17:09 <Bianca Fuller PA-C - Last Filed: 07/22/24 16:36> [facility] Past Medical History Medical History: Medical History (Updated 07/23/24 @ 00:52 by Radha Sweet MD) T2DM (type 2 diabetes mellitus) Pancreatic cancer (~05/2024) <Bianca Fuller PA-C - Last Filed: 07/22/24 16:36> Family History Family History: Family History Father Hypertension Heart disease Mother Diabetes mellitus Heart disease Depression Hypertension Thyroid disease Sibling Diabetes mellitus Grandparent Diabetes mellitus Hypertension Depression Heart disease Thyroid disease <Bianca Fuller PA-C - Last Filed: 07/22/24 16:36> Social History Social History: Social History Social History: , has dementia Smoking status: Former smoker Substance use: never Substance use type: does not use Lack of Transportation: No Lack of Food: Never True Current Housing: I Have Housing Concerned About Future Housing: No Difficulty Paying Gas/Electric Bills: No Difficulty Paying for Meds: No Currently Unemployed: No Education: High School Diploma/GED Difficulty w/ Childcare or Family Care: No Living arrangements: with family Occupation/Education: retired Gender identity (if verbalized by the patient): Female Sexual Orientation (if Verbalized by the Patient): Straight or Heterosexual Agree to blood products: Yes <Bianca Fuller PA-C - Last Filed: 07/22/24 16:36> Exam Narrative: GENERAL: well-nourished, and in no acute distress. HEAD: Normocephalic, atraumatic. EYES: Non injected, but icteric ENT: Nares clear, no rhinorrhea or epistaxis. Gross auditory acuity intact. NECK: Supple. No meningismus. CHEST: Speaking in full sentences. No respiratory distress. HEART: Regular rate and rhythm. ABDOMEN: Soft, nondistended. No rigidity or guarding. Not peritoneal. EXTREMITIES: Normal range of motion. No lower extremity edema. SKIN: Warm, dry, no rash. NEURO: No focal deficits. Answering questions though unclear if correct answers; Intermittently confused per friend. Following commands. Normal speech without aphasia or dysarthria. PSYCH: Normal mood and affect. <Radha Sweet MD - Last Filed: 07/23/24 17:07> Course Vital Signs Vital signs: Vital Signs Temperature 99.8 F H 07/22/24 14:45 Pulse Rate 99 07/22/24 14:45 Respiratory Rate 16 07/22/24 14:45 Blood Pressure 154/63 H 07/22/24 14:45 Pulse Oximetry 100 07/22/24 14:45 Temperature 98.6 F 07/23/24 03:31 Pulse Rate 91 07/23/24 03:31 Respiratory Rate 16 07/23/24 03:31 Blood Pressure 121/61 07/23/24 03:31 Pulse Oximetry 99 07/23/24 03:31 Oxygen Delivery Room Air 07/22/24 18:42 <Bianca Fuller PA-C - Last Filed: 07/22/24 16:36> Vital Signs Temperature 99.8 F H 07/22/24 14:45 Pulse Rate 99 07/22/24 14:45 Respiratory Rate 16 07/22/24 14:45 Blood Pressure 154/63 H 07/22/24 14:45 Pulse Oximetry 100 07/22/24 14:45 Temperature 98.6 F 07/23/24 03:31 Pulse Rate 91 07/23/24 03:31 Respiratory Rate 16 07/23/24 03:31 Blood Pressure 121/61 07/23/24 03:31 Pulse Oximetry 99 07/23/24 03:31 Oxygen Delivery Room Air 07/22/24 18:42 <Radha Sweet MD - Last Filed: 07/23/24 17:07> MDM - Altered Mental Status MDM Narrative Medical decision making narrative: MSE by KRISTI in triage. <Bianca Fuller PA-C - Last Filed: 07/22/24 16:36> MSE by KRISIT in triage. Patient presents with confusion. She has a history of type 2 diabetes mellitus as well as pancreatic cancer. In the emergency department she is afebrile with acceptable vital signs, mild hypertension. Patient has transaminitis. She has had elevations like this before but then with resolutions in the interim. Mild hypokalemia. Oral repletion ordered and magnesium lab. Hyperglycemia with no anion gap acidosis. Hyponatremia mildly corrects in the setting of hyperglycemia although not completely. Normocytic anemia and mild thrombocytopenia, both stable from previous. Lactic acid normal. No leukocytosis. Patient denies a history of rony. This is likely compressive and related to her history of pancreatic cancer however will obtain right upper quadrant ultrasound in addition to CT abdomen. Urine does not appear infected. Ultrasound shows intraductal dilation but there is a stent in place. This stent appears occluded per CT. Patient and sister informed of this as well as the doubling of size of cancer as that was their inquiry. Discussed with [facility] transfer center at approximately 22:22 Spoke with [facility] hospitalist Dr Richter at 00:50 who accepts patient to oncology floor, pending bed. Bed assigned overnight and transportation arranged. Patient stable throughout. Blankets provided. <Radha Sweet MD - Last Filed: 07/23/24 17:07> Differential Diagnosis Differential diagnosis: Likely altered mental status, delirium, hypoglycemia, hyponatremia, subarachnoid hemorrhage, sepsis and other (Infection such as urinary tract infection, pneumonia. Mets. Spectrum of biliary pathology. ) <Radha Sweet MD - Last Filed: 07/23/24 17:07> Lab Data Attestation: I reviewed the patient's lab results. <Radha Sweet MD - Last Filed: 07/23/24 17:07> Result diagrams: 07/22/24 17:28 07/22/24 17:28 <Bianca Fuller PA-C - Last Filed: 07/22/24 16:36> Labs: Lab Results 07/22/24 07/22/24 07/22/24 Range/Units 17:28 18:52 19:31 WBC 8.1 (4.5-10.0) K/mm3 RBC 4.02 L (4.2-5.4) M/mm3 Hgb 11.8 L (12.0-15.0) g/dL Hct 36.1 L (37.0-47.0) % MCV 89.8 (80-100) fl MCH 29.4 (26-34) pg MCHC 32.7 (32-36) g/dl RDW 13.9 (11.5-14.5) % Plt Count 141 L (150-375) k/mm3 MPV 10.8 H (7.4-10.4) fl Immature Gran % (Auto) 0.5 (0-0.5) % Neut % (Auto) 88.5 H (45.5-73.1) % Lymph % (Auto) 4.6 L (18.3-44.2) % [place] % (Auto) 6.2 (2.6-8.5) % Eos % (Auto) 0.0 (0-4.4) % Baso % (Auto) 0.2 (0.2-1.2) % Lymph # (Auto) 0.37 L (0.9-3.2) K/mm3 Edmunds # (Auto) 0.5 (0.1-0.6) K/mm3 Eos # (Auto) 0.0 (0-0.3) K/mm3 Baso # (Auto) 0.0 (0.0-0.1) K/mm3 Abs Immat Gran (auto) 0.04 H (0.00-0.031) K/mm3 Absolute Neuts (auto) 7.2 H (1.3-6.7) K/mm3 Absolute Nucleated RBC 0.000 (0.0-0.012) K/mm3 Nucleated RBC % 0.0 (0.0-0.2) % % Immature Plt Fraction 4.2 (0.9-11.2) % PT 16.3 H (11.1-14.7) Seconds INR 1.3 APTT 27.6 (22.3-36.8) Seconds Sodium 132 L (137-145) mmol/L Potassium 3.3 L (3.4-5.0) mmol/L Chloride 101 (98-107) mmol/L Carbon Dioxide 24 (22-30) mmol/L Anion Gap 7 (4-12) mmol/L BUN 12 (7-17) mg/dL Creatinine 0.52 L (0.7-1.0) mg/dL Estim Creat Clear Calc 57 ml/min Estimated GFR > 60 (59 - ) Glucose 178 H (65-110) mg/dL Lactic Acid 1.1 (0.7-2.0) mmol/L Calcium 8.6 (8.4-10.2) mg/dL Magnesium 1.9 (1.6-2.3) mg/dL Total Bilirubin 6.2 H (0.2-1.3) mg/dL Direct Bilirubin 3.0 H (0-0.3) mg/dL Indirect Bilirubin 1.7 H (0-1.1) mg/dL AST 451 H (14-36) U/L ALT 345 H (6-35) U/L Alkaline Phosphatase 319 H (38-126) U/L Total Protein 7.0 (6.3-8.2) g/dL Albumin 3.6 (3.5-5.1) g/dL Urine Color Dark yellow (Yellow) Urine Appearance Clear (Clear) Urine pH 5.5 (5.0-9.0) Ur Specific [place] 1.020 (1.001-1.035) Urine Protein Trace (Negative) mg/dL Urine Glucose (UA) Negative (Negative) mg/dL Urine Ketones Trace H (Negative) mg/dL Ur Blood (Man) 1+ H (Negative) Urine Nitrate Negative (Negative) Urine Bilirubin 3+ H (Negative) Urine Urobilinogen 1.0 (<2.0) mg/dL Leukocyte Esterase Rfl Trace H (Negative) JACQUE/UL Urine RBC 3-5 H (0-2) /hpf Urine WBC 0-5 (0-3) /hpf Ur Squamous Epith Cells None seen (Few) /hpf Urine Bacteria None seen /hpf Urine Casts 0-2 Influenza A (RT-PCR) Negative (Negative) Influenza B (RT-PCR) Negative (Negative) RSV (RT-PCR) Negative (Negative) SARS-CoV-2 RNA (RT-PCR) Negative (Negative) <Bianca Fuller PA-C - Last Filed: 07/22/24 16:36> Lab Results 07/22/24 07/22/24 07/22/24 Range/Units 17:28 18:52 19:31 WBC 8.1 (4.5-10.0) K/mm3 RBC 4.02 L (4.2-5.4) M/mm3 Hgb 11.8 L (12.0-15.0) g/dL Hct 36.1 L (37.0-47.0) % MCV 89.8 (80-100) fl MCH 29.4 (26-34) pg MCHC 32.7 (32-36) g/dl RDW 13.9 (11.5-14.5) % Plt Count 141 L (150-375) k/mm3 MPV 10.8 H (7.4-10.4) fl Immature Gran % (Auto) 0.5 (0-0.5) % Neut % (Auto) 88.5 H (45.5-73.1) % Lymph % (Auto) 4.6 L (18.3-44.2) % Edmunds % (Auto) 6.2 (2.6-8.5) % Eos % (Auto) 0.0 (0-4.4) % Baso % (Auto) 0.2 (0.2-1.2) % Lymph # (Auto) 0.37 L (0.9-3.2) K/mm3 Edmunds # (Auto) 0.5 (0.1-0.6) K/mm3 Eos # (Auto) 0.0 (0-0.3) K/mm3 Baso # (Auto) 0.0 (0.0-0.1) K/mm3 Abs Immat Gran (auto) 0.04 H (0.00-0.031) K/mm3 Absolute Neuts (auto) 7.2 H (1.3-6.7) K/mm3 Absolute Nucleated RBC 0.000 (0.0-0.012) K/mm3 Nucleated RBC % 0.0 (0.0-0.2) % % Immature Plt Fraction 4.2 (0.9-11.2) % PT 16.3 H (11.1-14.7) Seconds INR 1.3 APTT 27.6 (22.3-36.8) Seconds Sodium 132 L (137-145) mmol/L Potassium 3.3 L (3.4-5.0) mmol/L Chloride 101 (98-107) mmol/L Carbon Dioxide 24 (22-30) mmol/L Anion Gap 7 (4-12) mmol/L BUN 12 (7-17) mg/dL Creatinine 0.52 L (0.7-1.0) mg/dL Estim Creat Clear Calc 57 ml/min Estimated GFR > 60 (59 - ) Glucose 178 H (65-110) mg/dL Lactic Acid 1.1 (0.7-2.0) mmol/L Calcium 8.6 (8.4-10.2) mg/dL Magnesium 1.9 (1.6-2.3) mg/dL Total Bilirubin 6.2 H (0.2-1.3) mg/dL Direct Bilirubin 3.0 H (0-0.3) mg/dL Indirect Bilirubin 1.7 H (0-1.1) mg/dL AST 451 H (14-36) U/L ALT 345 H (6-35) U/L Alkaline Phosphatase 319 H (38-126) U/L Total Protein 7.0 (6.3-8.2) g/dL Albumin 3.6 (3.5-5.1) g/dL Urine Color Dark yellow (Yellow) Urine Appearance Clear (Clear) Urine pH 5.5 (5.0-9.0) Ur Specific [place] 1.020 (1.001-1.035) Urine Protein Trace (Negative) mg/dL Urine Glucose (UA) Negative (Negative) mg/dL Urine Ketones Trace H (Negative) mg/dL Ur Blood (Man) 1+ H (Negative) Urine Nitrate Negative (Negative) Urine Bilirubin 3+ H (Negative) Urine Urobilinogen 1.0 (<2.0) mg/dL Leukocyte Esterase Rfl Trace H (Negative) JACQUE/UL Urine RBC 3-5 H (0-2) /hpf Urine WBC 0-5 (0-3) /hpf Ur Squamous Epith Cells None seen (Few) /hpf Urine Bacteria None seen /hpf Urine Casts 0-2 Influenza A (RT-PCR) Negative (Negative) Influenza B (RT-PCR) Negative (Negative) RSV (RT-PCR) Negative (Negative) SARS-CoV-2 RNA (RT-PCR) Negative (Negative) <Radha Sweet MD - Last Filed: 07/23/24 17:07> Imaging Data Radiologist's impression: Impressions Head CT 07/22/24 16:54 IMPRESSION: No acute intracranial findings. Chest X-Ray 07/22/24 17:07 IMPRESSION: No acute cardiopulmonary pathology. Abdomen Ultrasound 07/22/24 20:32 IMPRESSION: Diffuse intrahepatic biliary ductal dilatation. Abdomen/Pelvis CT 07/22/24 20:59 IMPRESSION: Interval progression of patient's known pancreatic cancer, nearly doubling in size and causing intrahepatic biliary ductal dilatation, for which the small caliber common bile duct stent is suspected to be occluded. <Radha Sweet MD - Last Filed: 07/23/24 17:07> ECG Data EKG #1: Attestation: I personally reviewed and interpreted this ECG as follows: <Radha Sweet MD - Last Filed: 07/23/24 17:07> ECG completion date: 07/22/24 <Radha Sweet MD - Last Filed: 07/23/24 17:07> ECG completion time: 17:34 <Radha Sweet MD - Last Filed: 07/23/24 17:07> Interpretation: Normal sinus rhythm at a rate of 93 beats per minute. There occasional premature complex. MA interval 152. QRS 98. QT/QTC 302/353. Good R-wave progression across the precordial leads. No T-wave inversions. <Radha Sweet MD - Last Filed: 07/23/24 17:07> Discharge Plan Discharge Clinical Impression: Confusion, Transaminitis, Hypokalemia, Hyperglycemia due to diabetes mellitus, Hyponatremia, Normocytic anemia, Thrombocytopenia, Intrahepatic bile duct dilation Pancreatic cancer Qualifiers: Pancreatic malignancy location: unspecified Qualified Code(s): C25.9 - Malignant neoplasm of pancreas, unspecified <Bianca Fuller PA-C - Last Filed: 07/22/24 16:36> Patient Disposition: Acute Care Hospital <Bianca Fuller PA-C - Last Filed: 07/22/24 16:36> Condition: Stable <Bianca Fuller PA-C - Last Filed: 07/22/24 16:36> Patient Language: Luxembourger <Bianca Fuller PA-C - Last Filed: 07/22/24 16:36> Prescriptions: No Action aspirin [Adult Aspirin Regimen] 81 mg tablet,delayed release (DR/EC) 81 mg PO DAILY zinc acetate 50 mg (zinc) capsule 50 mg PO DAILY (DME) Dexcom G6 Boiler Fitter Misc See Rx Instructions .Route Qty: 1 3RF Rx Instructions: As directed (DME) Dexcom G6 Sensor Device See Rx Instructions .Route Qty: 9 11RF Rx Instructions: As directed (DME) Dexcom G6 Transmitter Device See Rx Instructions .Route Qty: 1 3RF Rx Instructions: As directed ferrous sulfate [Feosol] 325 mg (65 mg iron) tablet 325 mg PO DAILY polyethylene glycol 3350 [Miralax] 17 gram/dose powder 17 g PO DAILY Qty: 238 3RF insulin glargine [Lantus Solostar U-100 Insulin] 100 unit/mL (3 mL) insulin pen 10 unit subcut DAILY Humalog U-100 Insulin 100 unit/mL cartridge 1 sliding scale dose subcut USEASDIRECTD Patient Comments: Take 4 units with each meal (only if you are eating breakfast, lunch, and dinner) Sliding scale: to correct high blood sugar: Below 150: take 0 units 150-199: take 1 unit 200-249: take 2 units 250-299: take 3 units 300-349: take 4 units Over 350: take 5 units and call the doctor (DME) Monoject Safety Syringes 3 mL 25 gauge x 5/8 syringe See Rx Instructions .Route Qty: 500 0RF Rx Instructions: As directed nystatin 100,000 unit/gram cream 1 applic topical BID Qty: 30 1RF hydrochlorothiazide 25 mg tablet 25 mg PO DAILY Qty: 90 1RF cyanocobalamin (vitamin B-12) [Dodex] 1,000 mcg/mL solution 1,000 mcg IM MONTHLY Qty: 3 1RF enalapril maleate 10 mg tablet 10 mg PO DAILY Qty: 90 1RF (DME) OneTouch Verio test strips Strip See Rx Instructions .Route Qty: 100 1RF Rx Instructions: As directed (DME) lancets 33 gauge misc See Rx Instructions .Route Qty: 100 1RF Rx Instructions: As directed atorvastatin 20 mg tablet 20 mg PO QHS Qty: 90 1RF ergocalciferol (vitamin D2) 1,250 mcg (50,000 unit) capsule See Rx Instructions .ROUTE .COMPLEX Qty: 12 1RF Dose Instruction: TAKE 1 CAPSULE BY MOUTH WEEKLY Rx Instructions: TAKE 1 CAPSULE BY MOUTH WEEKLY duloxetine 60 mg capsule,delayed release(DR/EC) See Rx Instructions .ROUTE .COMPLEX Qty: 90 1RF Dose Instruction: TAKE 1 CAPSULE DAILY Rx Instructions: TAKE 1 CAPSULE DAILY <Bianca Fuller PA-C - Last Filed: 07/22/24 16:36> Follow-up/Referrals: Brittni Guardado DO [Primary Care Provider] - <Bianca Fuller PA-C - Last Filed: 07/22/24 16:36> Time of Disposition: 00:52 <Bianca Fuller PA-C - Last Filed: 07/22/24 16:36> 00:52 <Radha Sweet MD - Last Filed: 07/23/24 17:07>
--- NOTE | 2024-07-22 16:23 | ECG_ITS ---
Test Date: 2024-07-22 17:34:59 Measurements Intervals [place] Rate: 93 P: 87 TN: 152 QRS: 4 QRSD: 98 T: 37 QT: 302 QTc: 376 Interpretive Statements SINUS RHYTHM WITH FREQUENT SUPRAVENTRICULAR PREMATURE COMPLEXES LOW QRS VOLTAGE IN PRECORDIAL LEADS [QRS DEFLECTION < 1.0 mV IN CHEST LEADS] SEPTAL MYOCARDIAL INFARCTION , PROBABLY OLD [40+ ms Q WAVE IN V1/V2] Compared to ECG 04/13/2024 12:48:31 Low QRS voltage now present NO SIGNIFICANT CHANGES Electronically Signed On 07-23-2024 12:39:39 CDT by Med Christina M.D.
[2024-07-22] MEDS: ACETAMINOPHEN 500 MG TABLET 1000 MG PO (17:32)
[2024-07-22 17:42] LABS: Basophils Percent Auto 0.2 % (0.2-1.2); Hematocrit 36.1 % (37.0-47.0); Hemoglobin 11.8 g/dL (12.0-15.0); Immature Granulocyte Absolute 0.04 K/mm3 (0.00-0.031); Immature Granulocyte Percent A 0.5 % (0-0.5); Immature Platelet Fraction Pct 4.2 % (0.9-11.2); Lymphocytes Absolute Auto 0.37 K/mm3 (0.9-3.2); Lymphocytes Percent Auto 4.6 % (18.3-44.2); Mean Corpuscular HGB Conc 32.7 g/dl (32-36); Mean Corpuscular Hemoglobin 29.4 pg (26-34); Mean Corpuscular Volume 89.8 fl (80-100); Mean Platelet Volume 10.8 fl (7.4-10.4); Monocytes Absolute Auto 0.5 K/mm3 (0.1-0.6); Monocytes Percent Auto 6.2 % (2.6-8.5); Neutrophils Absolute Auto 7.2 K/mm3 (1.3-6.7); Neutrophils Percent Auto 88.5 % (45.5-73.1); Platelet Count Result 141 k/mm3 (150-375); Red Blood Count 4.02 M/mm3 (4.2-5.4); Red Cell Distribution Width 13.9 % (11.5-14.5); White Blood Count 8.1 K/mm3 (4.5-10.0)
[2024-07-22 17:49] LABS: Lactic Acid Reflex 1.1 mmol/L (0.7-2.0)
[2024-07-22 17:50] LABS: Alanine Aminotransferase 345 U/L (6-35); Albumin Level 3.6 g/dL (3.5-5.1); Alkaline Phosphatase 319 U/L (38-126); Anion Gap 7 mmol/L (4-12); Aspartate Amino Transferase 451 U/L (14-36); Bilirubin,Total 6.2 mg/dL (0.2-1.3); Blood Urea Nitrogen 12 mg/dL (7-17); Calcium 8.6 mg/dL (8.4-10.2); Carbon Dioxide 24 mmol/L (22-30); Chloride 101 mmol/L (98-107); Estimated CRCL calculation 57 ml/min; Estimated Glomerular Filt Rate > 60; Glucose 178 mg/dL (65-110); Potassium 3.3 mmol/L (3.4-5.0); Sodium 132 mmol/L (137-145)
[2024-07-22 17:54] LABS: INR 1.3; Partial Thromboplastin Time 27.6 Seconds (22.3-36.8); Prothrombin Time 16.3 Seconds (11.1-14.7)
[2024-07-22 19:06] LABS: Add Urine Microscopic? YES; Appearance Urine Clear (Clear); Bacteria Urine None Seen /hpf; Bilirubin Urine 3+ (Negative); Blood Urine 1+ (Negative); Color Urine Dark Yellow (Yellow); Glucose Urine UA Negative (Negative); Ketones Urine Trace mg/dL (Negative); Leukocyte Esterase Ur Trace LEU/UL (Negative); Nitrate Urine Negative (Negative); Non Pathogenic Casts 0-2; Protein Urine Trace mg/dL (Negative); Squamous Epithelial Cell Urine None Seen /hpf (Few); WBC Urine 0-5 /hpf (0-3); pH Urine 5.5 (5.0-9.0)
--- OUTSIDE RECORDS SUMMARY | 2024-07-22 19:23 | XMS_ITS ---
Author Organization [facility] Address [address] [place] [address] Care Team Providers Care Insurance Claims Examiner Name Role Phone Unknown, Notinfile Primary Care Provider Unavail able Mohan Heller MD Unavailable Kourtney Park Unavailable No, Physician Unavailable Abimael Radford MD Unavailable [phone] Active Problems Problem Noted Date Diagnosed [...]
--- OUTSIDE RECORDS SUMMARY | 2024-07-22 19:23 | XMS_ITS | Encounter Summary ---
Author Organization [facility] Address [address] [facility] [address] [place] [address] Phone Care Team Providers Care Reject Opener Name Role Phone Unknown, Notinfile Primary Care Provider Unavail able Mohan Heller MD Unavailable Kourtney Park Unavailable No, Physician Unavailable Abimael Radford MD Unavailable [phone] Reason for Visit * Reason Onset Date Comments Medical Question/Miscellaneous 06/29/2024 Encounter Details Date Type Department Care Team (Late st Contact Info) Description 06/29/2024 Telephone [facility] Surgery [address] [facility] [address] [place] [address] Misty Chaney MD [address] [facility] [id number] [place] [address] Medical Question/Miscellaneous Social History Tobacco Use Types [...] on file Legal 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 Gender Identity Not on file Sexual [...] them to contact for a call back: [phone] Last office visit: Visit date not found Date of Surgery: 04/16/2024 documented in this encounter Plan of Treatment Not on file documented as of this encounter Visit Diagnoses Not on filedocumented in this encounter Care Teams Reject Opener Relationship Specialty Start Date End Date Unknown, Notinfile PCP - General 04/16/24 Mohan Heller MD [address] [place] [address] Endocrinology Diabetes & Metabolism 04/21/24 Kourtney Park PA [address] [facility] [id number] [place] [address] Physician Digital Circuit Designer Hepatobiliary Surgery 04/21/24 No, Physician 04/21/24 Abimael Radford MD [address] [facility] [place] [address] Consulting Physician Hematology 04/21/24 documented as of this encounter
--- OUTSIDE RECORDS SUMMARY | 2024-07-22 19:23 | XMS_ITS | Clinical Summary ---
Author Organization [facility] Address [address] [place] [address] Care Team Providers Care Asbestos Cloth Inspector Name Role Phone Unknown, Notinfile Primary Care Provider Unavail able Mohan Heller MD Unavailable Kourtney Park Unavailable [phone] No, Physician Unavailable Abimael Radford MD Unavailable [phone] Allergies No known active allergies Medications [...] Type Department Care Team Description 07/14/2024 Telephone [facility] [address] [place] [address] Liya Woody RN 06/29/2024 Telephone [facility] Surgery [address] [facility] [address] [place] [address] Ana Lilia Aguilera, MIRYAM 06/29/2024 Telephone [facility] Surgery [address] [facility] Floor 5 [place] [address] Misty Chaney MD Medical Question/Miscellaneou s 05/20/2024 Telephone [facility] [address] [place] [phone] Liya Woody RN 05/10/[address] [facility] Radiation Oncology [facility] [place] [address] No, Physician 05/10/[address] [facility] Radiation Oncology [address] [facility] [place] [address] No, Physician 05/07/2024 Telephone [facility] Cancer Genetics Department [address] [place] [phone] Shahla Edmond 05/07/2024 Telephone [facility] Cancer Genetics Department [address] [place] [phone] Shahla Edmond 05/06/2024 8:47 AM SALES AND SERVICE TECHNICIAN - 05/06/2024 11:59 PM SALES AND SERVICE TECHNICIAN Hospital Encounter [facility] - Imaging [address] [place] [phone] [facility] Pet Pancreatic adenocarcinoma (HCC) Discharge Disposition: Discharge to home or self care 04/30/2024 Telephone [facility] Radiation Oncology [address] [place] [address] Ray Billy MD PhD 04/30/2024 Orders Only [facility] [address] [place] [phone] Abimael Radford MD Pancreatic adenocarcinoma (HCC) (Primary Dx) 04/29/2024 1:30 PM SALES AND SERVICE TECHNICIAN Office Visit [facility] [address] [place] [phone] Abimael Radford MD Pancreatic adenocarcinoma (HCC) (Primary [...] on file Legal Sex Female 9:44 PM SALES AND SERVICE TECHNICIAN Gender Identity Not on file Sexual Orientation Not on file Obstetrics History Last Filed Vital Signs Vital Sign Reading Time Taken Comments Blood Pressure 124/72 04/29/2024 1:28 PM SALES AND SERVICE TECHNICIAN Pulse 74 04/29/2024 1:28 PM SALES AND SERVICE TECHNICIAN Temperature 36.6 C (97.9 F) 04/29/2024 1:28 PM SALES AND SERVICE TECHNICIAN Respiratory Rate 18 04/29/2024 1:28 PM SALES AND SERVICE TECHNICIAN Oxygen Saturation 100% 04/29/2024 1:28 PM SALES AND SERVICE TECHNICIAN Inhaled Oxygen Concentration - - Weight 55.6 kg (122 lb 9.6 oz) 04/29/2024 1:28 P M SALES AND SERVICE TECHNICIAN Height 155.5 cm (5' 1.22 ) 04/29/2024 1:28 PM CS T Body Mass Index 23 04/29/2024 1:28 PM SALES AND SERVICE TECHNICIAN Plan of Treatment Health Maintenance Due Date [...] history exists Medical Devices Implanted Type Area Electronics Technology Department Chair Device Identifier Shelf Expiration Date Model / Serial / Lot Conmed Holley Stent Biliary Rapid Exchange Self Expanding Viabil [id number] Nitinol [id number] - [id number] - [id number] Implanted:Qty: 1 on 04/15/2024 by Chente Decker MD at [facility] Stent N/A: Bile Duct Conmed Holley 07/21/2026 [id number] / [id number] / Procedures Procedure Name Priority Date/Time Associated Diagnosis Comments PET/CT FDG SKULL TO THIGH Schedule Routine, Read Routine (OP Routine) 05/06/2024 10:59 AM SALES AND SERVICE TECHNICIAN Pancreatic adenocarcinoma (HCC) POCT GLUCOSE DEVICE Routine 05/06/2024 9:21 AM SALES AND SERVICE TECHNICIAN from Last 3 Months Results * PET/CT FDG Skull to Thigh (05/06/2024 10:59 AM SALES AND SERVICE TECHNICIAN) Anatomical Region Laterality Modality N/A Positron Emissio n Tomography (PET) 05/06/2024 2:56 PM SALES AND SERVICE TECHNICIAN Impressions 05/06/2024 4:58 PM SALES AND SERVICE TECHNICIAN 1. Faint uptake in the region of [...] by: DO Jaimie Neal 05/06/2024 4:58 PM SALES AND SERVICE TECHNICIAN EXAMINATION: TUMOR FDG-PET/CT IMAGING DATE OF STUDY: 05/06/2024 SCANNER: [facility] RADIOPHARMACEUTICAL: 16.02 mCi F-18 [...] obtained. The study was interpreted on the [employer] workstation. The mean liver SUV (reported for quality improvement coordinator purposes) is 2.2. The total scanned [...] FDG-PET/CT IMAGING DATE OF STUDY: 05/06/2024 SCANNER: [facility] RADIOPHARMACEUTICAL: 16.02 mCi F-18 [...] obtained. The study was interpreted on the [employer] workstation. The mean liver SUV (reported for quality improvement coordinator purposes) is 2.2. The total scanned [...] Result * POCT glucose (05/06/2024 9:21 AM SALES AND SERVICE TECHNICIAN) [facility] Signature Glucose, POC 164 70 - 199 mg/dL Comment: For Glucose values <35 mg/dl when Hematocrit is >60 mg/dl,the test may not accurately detect significant hypoglycemia,and testing in the Laboratory should be considered if clinically indicated. Blood 05/06/2024 9:21 AM SALES AND SERVICE TECHNICIAN 05/06/2024 9:21 AM SALES AND SERVICE TECHNICIAN Abimael Radford MD LAB POCT ORDERABLES - DEVICE Fi nal Result [facility] [address] Department [place] [address] from Last 3 Months Insurance [employer] MEDICARE [facility] MEDICARE Advance Directives For more information, please contact: [phone] * Full Code (Latest Code Status on File) Date Activated Date Inactivated Comments 04/14/2024 9:44 PM 04/21/2024 5:36 PM Care Teams Asbestos Cloth Inspector Relationship Specialty Start Date End Date Unknown, Notinfile PCP - General 04/16/24 Mohan Heller MD [address] [facility] [address] [place] [address] Endocrinology Diabetes & Metabolism 04/21/24 Kourtney Park PA [address] [facility] [address] [place] [address] Physician Pancake Professional Hepatobiliary Surgery 04/21/24 No, Physician 04/21/24 Abimael Radford MD [address] [facility] [place] [address] Consulting Physician Hematology 04/21/24
--- OUTSIDE RECORDS SUMMARY | 2024-07-22 19:23 | XMS_ITS | Clinical Summary ---
Author Organization [facility] Address [address] [place] [address] Care Team Providers Care Portfolio Strategist Name Role Phone Unavailable Primary Care Provider Unavailabl e Source Comments [facility],non-owned Affiliates and Associated Physician Practices is amultiple site organization consisting of ambulatory clinics and hospital sitesin [place], [place], [place] and [place]. This disclosure is being madepursuant to the Care Everywhere program and may not contain all information available regarding this patient. Last updated 17.[facility] Active Problems Problem Noted Date Diagnosed Date [...] complete this topic Insurance [place] [id number]
--- OUTSIDE RECORDS SUMMARY | 2024-07-22 19:23 | XMS_ITS | Referral Summary ---
Author Organization [facility] Address [address] [place] [address] Care Team Providers Care Horse Trader Name Role Phone Unknown, Notinfile Primary Care Provider Unavail able Mohan Heller MD Unavailable Kourtney Park Unavailable [phone] No, Physician Unavailable Abimael Radford MD Unavailable [phone] Encounters Date Type Department Care Team Description 07/14/2024 Telephone [facility] [place] [address] Liya Woody, RN 06/29/2024 Telephone [facility] Surgery [address] [facility] [address] [place] [address] Ana Lilia Aguilera, MIRYAM 06/29/2024 Telephone [facility] Surgery [address] [facility] Floor 5 [place] [address] Misty Chaney MD Medical Question/Miscellaneou s 05/20/2024 Telephone [facility] Center [facility] [place] [address] Liya Woody, RN 05/10/2024 Telephone [facility] Radiation Oncology [address] [place] [address] Advanced [place] [address] [phone] No, Physician 05/10/2024 Telephone [facility] Radiation Oncology [address] [facility] [place] [address] No, Physician 05/07/2024 Telephone [facility] Cancer Genetics Department [address] [place] [phone] Shahla Edmond 05/07/2024 Telephone [facility] Cancer Genetics Department [address] [place] [phone] Shahla Edmond 05/06/2024 8:[address] ENGINEERING TEACHER - 05/06/2024 11:[address] ENGINEERING TEACHER Hospital Encounter [facility] - Imaging [address] [place] [phone] [facility] Pet Pancreatic adenocarcinoma (HCC) Discharge Disposition: Discharge to home or self care 04/30/2024 Telephone [facility] Radiation Oncology [facility] [place] [address] Ray Billy MD PhD 04/30/2024 Orders Only [facility] [address] [place] [phone] Abimael Radford MD Pancreatic adenocarcinoma (HCC) (Primary Dx) 04/29/2024 1:[address] ENGINEERING TEACHER Office Visit [facility] [address] [place] [phone] Abimael Radford MD Pancreatic adenocarcinoma (HCC) (Primary [...] on file Legal Sex Female 9:[address] ENGINEERING TEACHER Gender Identity Not on file Sexual Orientation Not on file Last Filed Vital Signs Vital Sign Reading Time Taken Comments Blood Pressure 124/72 04/29/2024 1:[address] ENGINEERING TEACHER Pulse 74 04/29/2024 1:[address] ENGINEERING TEACHER Temperature 36.6 C (97.9 F) 04/29/2024 1:[address] ENGINEERING TEACHER Respiratory Rate 18 04/29/2024 1:[address] ENGINEERING TEACHER Oxygen Saturation 100% 04/29/2024 1:[address] ENGINEERING TEACHER Inhaled Oxygen Concentration - - Weight 55.6 kg (122 lb 9.6 oz) 04/29/2024 1:[address] ENGINEERING TEACHER Height 155.5 cm (5' 1.22 ) 04/29/2024 1:28 PM CS T Body Mass Index 23 04/29/2024 1:[address] ENGINEERING TEACHER Plan of Treatment Not on file Medical Devices Implanted Type Area Immunologist Device Identifier Shelf Expiration Date Model / Serial / Lot Conmed Holley Stent Biliary Rapid Exchange Self Expanding Viabil [id number] Nitinol [id number] - [id number] - [id number] Implanted:Qty: 1 on 04/15/2024 by Chente Decker MD at [facility] Stent N/A: Bile Duct Conmed Holley 07/21/2026 [id number] / [id number] / Procedures Procedure Name Priority Date/Time Associated Diagnosis Comments PET/CT FDG SKULL TO THIGH Schedule Routine, Read Routine (OP Routine) 05/06/2024 10:[address] ENGINEERING TEACHER Pancreatic adenocarcinoma (HCC) POCT GLUCOSE DEVICE Routine 05/06/2024 9:[address] ENGINEERING TEACHER from Last 3 Months Results * PET/CT FDG Skull to Thigh (05/06/2024 10:[address] ENGINEERING TEACHER) Anatomical Region Laterality Modality N/A Positron Emissio n Tomography (PET) 05/06/2024 2:[address] ENGINEERING TEACHER Impressions 05/06/2024 4:[address] ENGINEERING TEACHER 1. Faint uptake in the region of [...] by: DO Jaimie Neal 05/06/2024 4:[address] ENGINEERING TEACHER EXAMINATION: TUMOR FDG-PET/CT IMAGING DATE OF STUDY: 05/06/2024 SCANNER: [facility] RADIOPHARMACEUTICAL: 16.02 mCi F-18 Fluorodeoxyglucose (FDG) [...] obtained. The study was interpreted on the [employer] workstation. The mean liver SUV (reported for quality control industrial engineer purposes) is 2.2. The total scanned [...] FDG-PET/CT IMAGING DATE OF STUDY: 05/06/2024 SCANNER: [facility] RADIOPHARMACEUTICAL: 16.02 mCi F-18 Fluorodeoxyglucose (FDG) [...] obtained. The study was interpreted on the [employer] Search workstation. The mean liver SUV (reported for quality control industrial engineer purposes) is 2.2. The total scanned [...] Result * POCT glucose (05/06/2024 9:[address] ENGINEERING TEACHER) Glucose, POC 164 70 - 199 mg/dL Comment: For Glucose values <35 mg/dl when Hematocrit is >60 mg/dl,the test may not accurately detect significant hypoglycemia,and testing in the Laboratory should be considered if clinically indicated. Blood 05/06/2024 9:[address] ENGINEERING TEACHER 05/06/2024 9:[address] ENGINEERING TEACHER Abimael Radford MD LAB POCT ORDERABLES - DEVICE Fi nal Result Performing Organization Address City/State/[facility] Co de Phone Number [facility] [address] Department [place] [address] from Last 3 Months Insurance T MEDICARE [employer] MEDICARE Advance Directives For more information, please contact: [phone] * Full Code (Latest Code Status on File) Date Activated Date Inactivated Comments 04/14/2024 9:44 PM 04/21/2024 5:36 PM Care Teams Horse Trader Relationship Specialty Start Date End Date Unknown, Notinfile PCP - General 04/16/24 Mohan Heller MD [address] [facility] [address] [place] [address] Endocrinology Diabetes & Metabolism 04/21/24 Kourtney Park PA [address] [facility] [address] [place] [address] Physician Nuclear Criticality Safety Engineer Hepatobiliary Surgery 04/21/24 No, Physician 04/21/24 Abimael Radford MD [address] [facility] [address] Consulting Physician Hematology 04/21/24
[2024-07-22] MEDS: POTASSIUM BICARBONATE 25 MEQ TABEF PO (19:33)
--- NOTE | 2024-07-22 19:34 | PC.NURSE ---
Received report from MIRYAM Diggs for cont. of care. Pt lying on stretcher respirations even and unlabored. Pt updated on plan of care, appears in NAD. Refer to MAR for medication administration.
[2024-07-22 19:36] LABS: Magnesium 1.9 mg/dL (1.6-2.3)
[2024-07-22 20:12] LABS: Influenza A QL RT-PCR Negative (Negative); Influenza B QL RT-PCR Negative (Negative); RSV RNA, RT-PCR Negative (Negative); SARS-CoV-2 RNA PCR Negative (Negative)
[2024-07-22 20:35] LABS: Bilirubin Indirect 1.7 mg/dL (0-1.1)
[2024-07-22] MEDS: SODIUM CHLORIDE 0.9% IV 1,000 ML 999 ML IV CONT (22:22)
[2024-07-23] VITALS (22 sets, daily range): BP systolic 115–146; BP diastolic 61–82; PULSE 82–99; RESP 16–27; TEMP 36.7–37; O2SAT 98–100
== END 2024-07-23 03:40 | disposition short-term general hospital (02) ==
PROVIDERS: Physician Assistant; Emergency Provider Student in an Organized Health Care Education/Training Program; PCP Family Medicine
DX: C25.9 Malignant neoplasm of pancreas, unspecified (principal); E11.65 Type 2 diabetes mellitus with hyperglycemia; D64.9 Anemia, unspecified; E87.1 Hypo-osmolality and hyponatremia; D69.6 Thrombocytopenia, unspecified; E87.6 Hypokalemia; R74.01 Elevation of levels of liver transaminase levels; R41.0 Disorientation, unspecified; Z20.822 Contact with and (suspected) exposure to COVID-19; Z87.891 Personal history of nicotine dependence; Z79.82 Long term (current) use of aspirin; Z79.4 Long term (current) use of insulin; Z79.85 Long-term (current) use of injectable non-insulin antidiabetic drugs; Z79.899 Other long term (current) drug therapy; I49.1 Atrial premature depolarization; R94.31 Abnormal electrocardiogram [ECG] [EKG]
CPT/HCPCS: 36415; 70450; 71046; 74177; 76705; 80053; 81001; 82248; 83605; 83735; 85025; 85055; 85610; 85730; 87040; 87637; 93005; 96360; 99285; A9270; J7030; Q9967

== ENCOUNTER 2024-07-28 10:28 | Outpatient (CLI) | payer MEDICARE, SELFPAY ==
--- OUTSIDE RECORDS SUMMARY | 2024-07-28 10:35 | XMS_ITS | Encounter Summary ---
Author Organization [facility] Address [address] [facility] [address] [place] [address] Phone Care Team Providers Care Service Director Name Role Phone Unknown, Notinfile Primary Care Provider Unavail able Mohan Heller MD Unavailable [phone] Kourtney Park Unavailable No, Physician Unavailable Abimael Radford MD Unavailable [phone] Brittni Guardado DO Primary Care Provider [phone] Reason for Visit * Reason Onset Date Comments Medical Question/Miscellaneous 06/29/2024 Encounter Details Date Type Department Care Team (Late st Contact Info) Description 06/29/2024 Telephone [facility] Surgery [facility] Floor 5 [place] [address] Misty Chaney MD [address] [facility] [address]07[address]05 [place] [address] Medical Question/Miscellaneous Social History Tobacco Use Types Packs/Day Years Used Date Smoking Tobacco: Former Cigarettes Q uit: 1974 Smokeless Tobacco: Never AUDIT-C Answer Date Recorded [...] on file Legal Sex Female 9:44 PM ELECTRON BEAM WELDER Gender Identity Not on file Sexual Orientation [...] them to contact for a call back: [phone] Last office visit: Visit date not found Date of Surgery: 04/16/2024 documented in this encounter Plan of Treatment Not on file documented as of this encounter Visit Diagnoses Not on filedocumented in this encounter Additional Health Concerns Infection Onset Date Last Indicated Resolved Time MDR gram neg/ESBL 07/23/2024 07/23/2024 documented as of this encounter Care Teams Service Director Relationship Specialty Start Date End Date Unknown, Notinfile PCP - General 04/16/24 07/22/24 Brittni Guardado DO [facility] [facility] [address] [place] [address] PCP - General Family Medicine 07/23/24 Mohan Heller MD [address] [facility] [address] [place] [address] Endocrinology Diabetes & Metabolism 04/21/24 Kourtney Park PA [address] [facility] [address] [place] [address] Physician Projector Booth Operator Hepatobiliary Surgery 04/21/24 No, Physician 04/21/24 Abimael Radford MD [address] [facility] [place] [address] Consulting Physician Hematology 04/21/24 documented as of this encounter
--- OUTSIDE RECORDS SUMMARY | 2024-07-28 10:35 | XMS_ITS ---
Author Organization [facility] Address [address] [place] [address] Care Team Providers Care Remote Sensing Specialist Name Role Phone Mohan Heller MD Unavailable [phone] Kourtney Park Unavailable [phone] No, Physician Unavailable Abimael Radford MD Unavailable [phone] Brittni Guardado DO Primary Care Provider [phone] Active Problems Problem Noted Date Diagnosed Date Pancreatic cancer 07/23/2024 Type 2 diabetes mellitus wit hout complication, with long-term current use of insulin 07/23/2024 Sepsis with encephalopathy without septic shock 07/23/2024 Metabolic encephalopathy 07/23/2024 Cholangitis 07/23/2024 Pancreatic adenocarcinoma 04/29/2024 Pancreatic mass 04/15/2024 Moderate protein-calorie malnutrition 04/15/2024 Current Treatment and Therapy [...] Automatic Entry Manual Entr y Fluoro Time 19.3 minutes 19.3 minutes 0 minutes Air kerma at the reference point (Ka,r) 433 mGy 4 33 mGy 0 mGy
--- OUTSIDE RECORDS SUMMARY | 2024-07-28 10:35 | XMS_ITS | Encounter Summary ---
Author Organization [facility] Healthcare Address [address] [place] [address] Care Team Providers Care Mercantile Agent Name Role Phone Mohan Heller MD Unavailable Kourtney Park Unavailable No, Physician Unavailable Abimael Radford MD Unavailable [phone] Brittni Guardado DO Primary Care Provider [phone] Reason for Visit * Auth/Cert Specialty Diagnoses / Procedures Referred By Da t Referred To Contact Diagnoses Pancreatic cancer (HCC) AMS PANCREATIC CA Procedures n Referral ID Status Reason Start Date Expiration Date Visits Re quested Visits Authorized [id number] 1 1 Encounter Details Date Type Department Care Team (Latest Contact Info) Description 07/23/2024 4:39 AM CDT - 07/27/2024 4:22 PM CDT Hospital Encounter [id number] [place] [id number] Yoana Tatum MD [address] [place], [place] [id number] Emmanuel Martinez DO [address] [facility] [place] [address] Wojciech Carrasco MD [address] [facility] [facility] [place] [address] Cholangitis (HCC) (Primary Dx); Malignant neoplasm of head of pancreas (HCC) Discharge Disposition: Discharge to home or self care Social History Tobacco Use Types Packs/Day Years Used Date Smoking Tobacco: Former Cigarettes Q uit: 1974 Smokeless Tobacco: Never [facility] Utilities Answer Date Recorded In the past 12 months has e electric, gas, oil, or water company threatened to shut off services in your home? No 07/23/2024 Social Connection and Isolat ion Panel [NHANES] Answer Date Recorded In a typical week, how many times do you talk on the phone with family, friends, or neighbors? More than three times a week 07/23/2024 How often do you get togethe r with friends or relatives? More than three times a week 07/23/2024 How often do you attend chur ch or roman catholic services? More than 4 times per year 07/23/2024 Do you belong to any clubs o r organizations such as jew groups, unions, fraternal or athletic groups, or school groups? No 07/23/2024 How often do you attend meet ings of the clubs or organizations you belong to? Never 07/23/2024 Are you , , di vorced, , never , or living with a partner? 07/23/2024 AUDIT-C Answer Date Recorded Q1: How often do you have a drink containing alcohol? Never 07/23/2024 Q2: How many drinks containi ng alcohol do you have on a typical day when you are drinking? Patient does not drink Q3: How often do you have si x or more drinks on one occasion? Never 07/23/2024 Overall Financial Resource Strain (CARDIA) Answe r Date Recorded How hard is it for you to pa y for the very basics like food, housing, medical care, and heating? Not very hard 07/23/2024 Hunger Vital Sign Answer Date Recorded Within the past 12 months, y ou worried that your food would run out before you got the money to buy more. Never true 07/24/19 25 Within the past 12 months, t he food you bought just didn't last and you didn't have money to get more. Never true 07/23/2024 PRAPARE - Transportation Answer Date Re corded In the past 12 months, has l ack of transportation kept you from medical appointments or from getting medications? No 07/02 In the past 12 months, has l ack of transportation kept you from meetings, work, or from getting things needed for daily living? No 07/23/2024 Housing Stability Vital Sign Answer Marcel e Recorded In the last 12 months, was t here a time when you were not able to pay the mortgage or rent on time? No 07/23/2024 In the past 12 months, how m any times have you moved where you were living? 0 07/23/2024 At any time in the past 12 m [facility], were you homeless or living in a fpc (including now)? No 07/23/2024 Personal Safety Answer Date Recorded Have you ever been in or are you currently in a harmful physical or emotional relationship or is someone making you feel afraid or unsafe? Denies 07/23/2024 Comments Unknown Sex and Gender Information Value Date Recorded Sex Assigned at Not on file Legal Sex Female 9:44 PM [employer] Gender Identity Not on file Sexual Orientation Not on file documented as of this encounter Last Filed Vital Signs Vital Sign Reading Time Taken Comments Blood Pressure 124/61 07/27/2024 11:40 AM CDT Pulse 74 07/27/2024 11:40 AM CDT Temperature 36.8 C (98.2 F) 07/27/2024 11:40 AM CDT Respiratory Rate 20 07/27/2024 11:40 AM CDT Oxygen Saturation 99% 07/27/2024 11:40 AM CDT Inhaled Oxygen Concentration - - Weight 59 kg (130 lb) 07/23/2024 3:27 PM CDT Height 154.9 cm (5' 1) 07/23/2024 3:27 PM CDT Body Mass Index 24.56 07/23/2024 3:27 PM CDT documented in this encounter Functional Status * Audit-C Score Answer Date of Assessment Author 0 07/23/2024 3:25 PM CDT Carey Coates RN * Question Answer Date of Assessment Author Q1: How often do you have a drink containing alcohol? Never 07/23/2024 3:25 PM CDT Ignacia Coates RN Q2: How many drinks containing alcohol do you have on a typical day when you are drinking? Patient does not drink 07/23/2024 3:25 PM CDT Ignacia Coates RN Q3: How often do you have six or more drinks on one occasion? Never 07/23/2024 3:25 PM CDT Ignacia Coates RN documented as of this encounter Discharge Summaries * Wojciech Carrasco MD - 07/27/2024 9:21 AM CDT Inpatient Discharge Summary Patient Name - Zac Olsen Patient Age - 78 yrs Patient - [id number] [facility] - [id number] Document Creation Date: 07/27/2024 Admitting Provider, : Emmanuel Martinez DO Discharge Provider, MD: Wojciech Carrasco MD Primary Care Physician at Discharge: Brittni Guardado DO [phone] Admission Date: 07/23/2024 Discharge Date/time: 07/27/2024 Admission Location: [facility] LOS - LOS: 4 days DETAILS OF HOSPITAL STAY Hospital Problems/Diagnoses Principal Problem: Pancreatic adenocarcinoma (HCC) Active Problems: Moderate protein-calorie malnutrition Pancreatic cancer (HCC) Type 2 diabetes mellitus without complication, with long-term current use of insulin (HCC) Sepsis with encephalopathy without septic shock (HCC) Metabolic encephalopathy Cholangitis (HCC) Reason for Hospitalization: Sepsis from cholangitis Pancreatic adenocarcinoma Hospital Course: Pt is a 78 yo CF with hx including pancreatic adenoCA. She had prior EUS/ERCP in Apr showing bile duct strictures and stents placed. She had seen Dr. Radford and eatobiliary Surgery, but did not want to pursue chemo, radiation, or surgery. Instead, she has been taking ivermectin and fenbendazole (anti-worm medications) obtained from veterinary sources in [place]. She also neglected to follow with Biliary for stent exchange. Around 07/20 she developed shaking chills and confusion. She went to [facility], where labs showed hypoglycemia, Tbili 6.2, AST/ALT 451/345. RUQ US showed hepatic ductal dilation, and CT showed progression of pancreatic mass. She was then transferred to [facility]. After arrival she was seen by Biliary and underwent ERCP with stent exchange on 07/23. Blood cultures showed klebsiella sensitive to fluoroquinolones. She had received vanc/cefipime/Flagyl and can finish treatment with 3 more days of PO Cipro BID (which she was willing to take). From my conversation with her, she still seems uninterested in chemo, radiation, or standard treatments for cancer. Nevertheless, she already has appointment with Dr. Radford on 07/29 and can keep this appoint to discuss further, if she chooses. She had no other problems and is planned for discharge home on 07/27. Discharge Details Physical Exam at Discharge: Discharge Condition: good Pulse: 84 Resp: 18 BP: 131/60 Temp: 36.8 ??C (98.3 ??F) Weight: 59 kg (130 lb) Pertinent Exam Findings at Discharge: General Appearance: Comfortable, cooperative Head: Normocephalic, atraumatic Eyes: EOMI, sclera clear Nose: Normal appearance Throat: Normal oropharynx Neck: Supple, symmetrical Lungs: Normal respiratory effort Cardiovascular: Regular rate Abdomen: Soft, nontender Extremities: No edema in legs Otherwise normal appearance Skin: No obvious rashes, lesions or bruising Neurologic: Alert, oriented Cranial nerves grossly intact, face symmetric Psychosocial: Normal affect and mood Discharge Disposition: Discharge to home or self care Code Status at Discharge: Full Code Active Issues & Recommended Plan for Follow-up: With Dr. Radford as scheduled if interested in cancer treatment. With Biliary in 6-8 weeks for stent exchange or removal. Allergies: Patient has no known allergies. Discharge Medications: Your medication list START taking these medications Instructions Last Dose Given Next Dose Due ciprofloxacin 500 mg tablet Commonly known as: CIPRO 500 mg, oral, 2 times daily CONTINUE taking these medications Instructions Last Dose Given Next Dose Due aspirin 81 mg enteric coated tablet 81 mg, Daily atorvastatin 20 mg tablet Commonly known as: LIPITOR 20 mg, oral, Nightly, at bedtime. DULoxetine DR 60 mg capsule Commonly known as: CYMBALTA 60 mg, Daily enalapril 10 mg tablet Commonly known as: VASOTEC 10 mg, oral, Daily ergocalciferol 50,000 unit capsule Commonly known as: VITAMIN D 50,000 Units, oral, Weekly, Friday eszopiclone 1 mg tablet Commonly known as: LUNESTA 1 mg, oral, Nightly, Take immediately before bedtime ferrous sulfate 325 mg (65 mg of elemental iron) tablet 65 mg of elemental iron, 2 times daily glucagon 1 mg injection Generic drug: glucagon Inject 1 mg into the muscle once as directed by provider for low blood sugar. hydroCHLOROthiazide 12.5 mg capsule Commonly known as: MICROZIDE 12.5 mg, oral, Daily insulin glargine 100 unit/mL vial for injection Commonly known as: LANTUS, SEMGLEE 12-22 Units, subcutaneous, 2 times daily, BS Less than or equal to 150 takes 12 units BS 151-200 takes 14 units BS 201-250 takes 16 units BS 251-300 takes 18 units BS 301-350 takes 20 units BS 351 orhigher takes 22 units and call provider insulin lispro 100 unit/mL vial for injection Commonly known as: HumaLOG, ADMELOG subcutaneous, 3 times daily before meals, 4 Units, subcutaneous, 3 times daily with meals, (plus blood glucose mg/dL 150-199: 1 unit, 200-249: 2 units, 250- 299: 3 units, 300-349: 4 units, 350 or greater: 5 units. Notify provider for blood glucose greater than 299 mg/dL. Max daily dose ) Refer to After Visit Summary for Sliding Scale Insulin Instructions. zinc acetate 25 mg (zinc) capsule 50 mg, Daily Where to Get Your Medications These medications were sent to [facility] - [address] [address] ciprofloxacin 500 mg tablet Time Spent in Discharge Process: I have spent 35 minutes on discharge planning activities. Time spent was on Coordination of care and Counselling with patient/family Test Results Pending at Discharge (If Blank, None Found): Pending Labs Order Current Status CRP (acute phase) In process Procalcitonin In process Blood culture Blood Preliminary result Blood culture Blood Preliminary result Operative Procedures Performed (If Blank, None Found): Procedure(s): ENDO ENDOSCOPIC RETROGRADE CHOLANGIOPANCREATOGRAPHY WITH STENT PLACEMENT ENDO ADD ON ENDOSCOPIC RETROGRADE CHOLANGIOPANCREATOGRAPHY REMOVAL STONES ENDO ADD ON ENDOSCOPIC RETROGRADE CHOLANGIOPANCREATOGRAPHY / BALLOON DILATION Outpatient Follow-Up: Future Appointments Date Time Provider Department Center 07/27/2024 10:30 AM [facility] [place] [facility] Main 07/29/2024 10:15 AM [facility] CANCER CENTER LAB [facility] CCLab [facility] Main 07/29/2024 10:30 AM Abimael Radford MD [facility] [place] PHY [facility] Main Please schedule an appointment with the following provider(s): No follow-up provider specified. ANCILLARY INFORMATION Other Procedures & Diagnostic Tests: FL ERCP Biliary Duct Result Date: 07/23/2024 The images from this study are not interpreted by Radiology. Please refer to the physician's procedure / OR operative note. Recent Labs: Recent Labs Lab Units 07/27/24 0709 07/26/24 0601 07/25/24 0707 WBC K/cumm 4.12 3.65* 3.51* HEMOGLOBIN g/dL 8.9* 9.7* 10.3* HEMATOCRIT % 27.5* 29.3* 30.5* PLATELETS K/cumm 121* 118* 111* Recent Labs Lab Units 07/27/24 0709 07/26/24 0601 07/25/24 0707 WBC K/cumm 4.12 3.65* 3.51* HEMOGLOBIN g/dL 8.9* 9.7* 10.3* HEMATOCRIT % 27.5* 29.3* 30.5* PLATELETS K/cumm 121* 118* 111* NEUTROS PCT % 60.3 62.3 69.2 LYMPHS PCT % 23.3 21.9 15.7 MONOS PCT % 10.4 10.1 9.4 EOS PCT % 5.1 4.9 4.8 Recent Labs Lab Units 07/27/24 0718 07/27/24 0709 07/26/24 0724 07/26/24 0601 07/25/24 0752 07/25/24 0707 07/23/24 0757 07/23/24 0612 SODIUM mmol/L -- 143 -- 142 -- 142 < > 135 POTASSIUM PLASMA mmol/L -- 3.0* -- 3.2* -- 3.2* < > 3.8 CHLORIDE mmol/L -- 121* -- 106 -- 108 < > 101 CO2 mmol/L -- 21* -- 21* -- 20* < > 20* BUN SERUM mg/dL -- 5* -- 6 -- 7 < > 10 CREATININE mg/dL -- 0.30* -- 0.34* -- 0.38* < > 0.44* [id number] mL/min/1.73 m2 -- >90 -- >90 -- >90 < > >90 GLUCOSE mg/dL -- 132 -- 198 -- 213* < > 226* POC GLUCOSE MONITOR mg/dL 144 -- < > -- < > -- < > -- CALCIUM mg/dL -- 7.4* -- 8.6 -- 8.6 < > 8.9 ALBUMIN g/dL -- 2.3* -- 2.8* -- 2.7* < > 3.1* PHOSPHORUS PLASMA mg/dL -- -- -- -- -- -- -- 2.0* < > = values in this interval not displayed. Recent Labs Lab Units 07/27/24 0707/27/2470807/26/24213207/26/2472307/26/24 0607/25/2475107/25/24 0707 SODIUM mmol/L -- 143 -- -- 142 -- 142 POTASSIUM PLASMA mmol/L -- 3.0* -- -- 3.2* -- 3.2* CHLORIDE mmol/L -- 121* -- -- 106 -- 108 CO2 mmol/L -- 21* -- -- 21* -- 20* ANIONGAP mmol/L -- 1* -- -- 15 -- 14 GLUCOSE mg/dL -- 132 -- -- 198 -- 213* POC GLUCOSE MONITOR mg/dL 144 -- 204* < > -- < > -- BUN SERUM mg/dL -- 5* -- -- 6 -- 7 CREATININE mg/dL -- 0.30* -- -- 0.34* -- 0.38* CALCIUM mg/dL -- 7.4* -- -- 8.6 -- 8.6 ALBUMIN g/dL -- 2.3* -- -- 2.8* -- 2.7* ALK PHOS Units/L -- 177* -- -- 232* -- 253* ALT Units/L -- 59* -- -- 86* -- 112* AST Units/L -- 26 -- -- 29 -- 45 BILIRUBIN TOTAL mg/dL -- 1.3* -- -- 2.1* -- 2.7* < > = values in this interval not displayed. Recent Labs Lab Units 07/27/2470807/26/24 0601 07/25/24 0707 ALK PHOS Units/L 177* 232* 253* BILIRUBIN TOTAL mg/dL 1.3* 2.1* 2.7* TOTAL PROTEIN g/dL 5.5* 5.6* 5.7* ALT Units/L 59* 86* 112* AST Units/L 26 29 45 Recent Labs Lab Units 07/23/24 0612 MAGNESIUM mg/dL 1.8 Lab Results Component Value Date GLUCOSE 144 07/27/2024 GLUCOSE 132 07/27/2024 GLUCOSE 204 (H) 07/26/2024 Implant: Implants Stent Conmed Evan Stent Biliary Rapid Exchange Self Expanding Viabil [id number] Nitinol [id number] - [id number] - [id number] - Implanted Bile Duct Inventory item: CONMED EVAN Stent Biliary Rapid Exchange Self Expanding Viabil [id number] Nitinol [id number] Model/Cat number: [id number] Serial number: [id number] Pivot End Polisher: Conmed Evan As of 04/15/2024 Status: Implanted Type Not Specified [employer] [place] [employer] Evan 10cm 3.3mm Double Pigtail Stent [id number] - [id number] - Implanted Bile Duct Inventory item: [employer] EVAN 10CM 3.3MM DOUBLE PIGTAIL STENT [id number] Model/Cat number: [id number] Pivot End Polisher: [place] [employer] Evan Lot number: [id number] As of 07/23/2024 Status: Implanted General Precautions (If Blank, None Found): Isolation Status: Contact Nutritional Status and in-house recommendations: Dietary Orders (From admission, onward) Start Ordered 07/25/24 2100 Bedtime snack At bedtime Comments: If bedtime BG is less than 100mg/dl, give patient a 15 gram carbohydrate snack. 07/24/24 2158 07/24/24 1023 Adult Diet Restricted; Consistent Carbohydrate, 60 G/Meal Diet effective now Question Answer Comment ([facility]) Diet type Restricted Diabetic: Consistent Carbohydrate, 60 G/Meal 07/24/24 1022 07/23/24 1054 Oral Nutrition Supplements ([facility]) Select Supplement: Ensure Enlive - Chocolate All Meals Question: ([facility]) Select Supplement: Answer: Ensure Enlive - Chocolate 07/23/24 1053 Anticoagulation Indication: INR: No results found for requested labs within last 30 days. Warfarin Administrations (last 168 hours) None Oxygen Status: O2 Therapy for the past 12 hrs: O2 Therapy 07/27/24 0805 None (Room air) 07/27/24 0507 None (Room air) Wound Care Instructions Other Instructions Special Instructions Take ciprofloxacin for 3 days to complete treatment of bile duct infection. Follow with GI for stent exchange in 6-8 weeks, and with Dr. Radford on 07/29 if interested in cancer treatment. Resume your other home medications without changes. Active LDAs (If Blank, None Found): Peripheral IV 07/24/24 20 G Posterior;Right Forearm (Active) Placement Date/Time: 07/24/24 1304 Size (Gauge): 20 G Location Orientation: Posterior;Right Location: Forearm Patient Emergency Contact: Primary Emergency Contact: nayeli olsen Immunization Status at Discharge There is no immunization history on file for this patient. Wojciech Carrasco MD documented in this encounter Medications at Time of Discharge aspirin 81 mg enteric coated tablet Take 1 tablet (81 mg total) by mouth daily atorvastatin (LIPITOR) 20 mg tablet Take 1 tablet (20 mg total) by mouth nightly at bedtime. 02/17/2024 ciprofloxacin (CIPRO) 500 mg tabletIndication s:Abdominal/Pelv ic Infection Take 1 tablet (500 mg total) by mouth 2 (two) times a day for 6 doses 6 tablet 07/27/[address] (CYMBALTA) 60 mg capsule Take 1 capsule (60 mg total) by mouth daily 01/31/2024 enalapril (VASOTEC) 10 mg tablet Take 1 tablet (10 mg total) by mouth daily ergocalciferol (VITAMIN D) 50,000 unit capsule Take 1 capsule (50,000 Units total) by mouth once a week Friday eszopiclone (LUNESTA) 1 mg tabletIndication s:Insomnia Take 1 tablet (1 mg total) by mouth nightly Take immediately before bedtime ferrous sulfate 325 mg (65 mg of elemental iron) tablet Take 1 tablet (65 mg of elemental iron total) by mouth 2 (two) times a day glucagon 1 mg kit Inject 1 mg into the muscle once as directed by provider for low blood sugar. 1 kit 04/21/2024 hydroCHLOROthiaz magaly (MICROZIDE) 12.5 mg capsule Take 1 capsule (12.5 mg total) by mouth daily insulin glargine 100 unit/mL vial for injection Inject 12-22 Units under the skin 2 (two) times a day BS Less than or equal to 150 takes 12 units BS 151-200 takes 14 units BS 201-250 takes 16 units BS 251-300 takes 18 units BS 301-350 takes 20 units BS 351 or higher takes 22 units and call provider insulin lispro (HumaLOG, ADMELOG) 100 unit/mL vial for injection Inject under the skin 3 (three) times a day before meals 4 Units, subcutaneous, 3 times daily with meals, (plus blood glucose mg/dL 150-199: 1 unit, 200-249: 2 units, 250-299: 3 units, 300-349: 4 units, 350 or greater: 5 units. Notify provider for blood glucose greater than 299 mg/dL. Max daily dose ) Refer to After Visit Summary for Sliding Scale Insulin Instructions. zinc acetate 25 mg (zinc) capsule Take 50 mg by mouth daily documented as of this encounter Ordered Prescriptions Prescription Sig Dispense Quantity Refills Last Filled Start Date End Date ciprofloxacin (CIPRO) 500 mg tabletIndications: Abdominal/Pelvic Infection Take 1 tablet (500 mg total) by mouth 2 (two) times a day for 6 doses 6 tablet 07/27/2024 07/30/2024 documented in this encounter Discharge Disposition Disposition Code Departure Means Destination Comment s Discharge to home or self care documented in this encounter Progress Notes * Lorie Leal PA - 07/27/2024 7:32 AM CDT Gastroenterology Daily Progress SUBJECTIVE Chief complaint: confusion Interval History: 07/23 ERCP Describes food having a metal taste from her cancer. No abd pain, n/v, dysphagia OBJECTIVE Vitals: Most Recent : Vitals: 07/27/24 0507 BP: 142/78 Pulse: 75 Resp: 20 Temp: 36.7 ??C (98.1 ??F) SpO2: 97% Physical Exam: General: a/a Abdomen: soft, NTND, +BS Lab/Radiology/Diagnostic Review: Recent Labs Lab Units 07/26/24 0601 07/25/24 0707 07/24/24 1506 WBC K/cumm 3.65* 3.51* 4.94 HEMOGLOBIN g/dL 9.7* 10.3* 10.0* HEMATOCRIT % 29.3* 30.5* 30.4* PLATELETS K/cumm 118* 111* 119* Recent Labs Lab Units 07/27/24 0718 07/26/24 2133 07/26/24 1623 07/26/24 0724 07/26/24 0601 07/25/24 0752 07/25/24 0707 07/24/24 1644 07/24/24 1506 SODIUM mmol/L -- -- -- -- 142 -- 142 -- 137 POTASSIUM PLASMA mmol/L -- -- -- -- 3.2* -- 3.2* -- 3.2* CHLORIDE mmol/L -- -- -- -- 106 -- 108 -- 105 CO2 mmol/L -- -- -- -- 21* -- 20* -- 18* ANIONGAP mmol/L -- -- -- -- 15 -- 14 -- 14 GLUCOSE mg/dL -- -- -- -- 198 -- 213* -- 196 POC GLUCOSE MONITOR mg/dL 144 204* 250* < > -- < > -- < > -- BUN SERUM mg/dL -- -- -- -- 6 -- 7 -- 12 CREATININE mg/dL -- -- -- -- 0.34* -- 0.38* -- 0.41* CALCIUM mg/dL -- -- -- -- 8.6 -- 8.6 -- 8.4* ALBUMIN g/dL -- -- -- -- 2.8* -- 2.7* -- 2.8* ALK PHOS Units/L -- -- -- -- 232* -- 253* -- 264* ALT Units/L -- -- -- -- 86* -- 112* -- 141* AST Units/L -- -- -- -- 29 -- 45 -- 68* BILIRUBIN TOTAL mg/dL -- -- -- -- 2.1* -- 2.7* -- 3.3* < > = values in this interval not displayed. Lab Results Component Value Date LIPASE 07/23/2024 DIAGNOSTIC STUDIES: 07/23 ERCP - Technically very challenging ERCP due to severe, malignant appearing stricture noted in the duodenal bulb that could not be readily traversed initially with a duodenoscope. - Succcessful dilation of the duodenal stricture from 12mm to 15mm over a wire with endoscopic/fluoroscopic guidance. - Unsuccessful attempts at ERCP with therapeutic gastroscope. Ultimately, successful passage of the duodenoscope through the strictured duodenum as noted. - Completely occluded, previously placed fully covered metal biliary stent. - Limited cholangiography was performed due to active, severe cholangitis. Limited cholangiogram after clearance of the biliary stent, demonstrate no obvious tissue/tumor ingrowth and moderate intrahepatic dilation of the visualized R anterior and L hepatic ducts. - Successful clearance of occluded biliary stent of sludge, stone debris, and large volume of pus. - Successful placement of a 10Fr x 10cm plastic double pigtail stent, coaxially through the indwelling biliary stent into the L intrahepatic duct. ASSESSMENT/PLAN: 1. Confusion Known pancreatic adenoca, declined oncology tx, taking Ivermectin/fenbendazole Elevated LFTs OSH imaging--biliary dilatation ?occluded stent, increased tumor burden, ?cholangitis 07/23 ERCP--severe duodenal stricture, occluded stent/cholangitis, cleared/new stent placed into existing stent -LFTs today pending--improving yesterday -CBC today pending, afebrile -07/23 BC x 2 Klebsiella, 07/24 BC x 2 NG -tolerating diet, watch for dev of GOO -remains on Vanc/flagyl/cefepime -recommend d/c ivermectin/fenbendazole -hospice following -repeat ERCP prn GI/biliary will sign off, please call for questions/concerns LEYDI Anderson 07/27/2024 Cosigned by Debora Verduzco MD at 07/27/2024 8:11 AM CDT * Emmanuel Martinez DO - 07/26/2024 10:15 AM CDT Internal Medicine Daily Progress Note Zac Olsen is a 78 y.o. woman who was recently diagnosed with pancreatic adenocarcinoma in April of this year. She underwent EUS/ERCP on 04/15 revealing extrahepatic bile duct strictures that were stented. She was evaluated by oncology (Dr. Radford) and by hepatobiliary surgery, but she did not wish to pursue surgical options, and she canceled her appointment with Dr. Radford. She did not want to pursue chemotherapy or radiation. Instead, she has been taking Ivermectin and Fenbendazole (a veterinary antihelminthic not approved for use in humans) at the recommendation of a friend who is aretired physician. He apparently obtained these veterinary medications from [place]. Three days ago, she began feeling shaky and confused. She presented to [facility] ED, where she was found to be hypoglycemic. Significant lab findings included T Bili 6.2, Alk Phos 319, AST 451, and ALT 345. On US, her stent appeared in place but there was intraductal dilation. On CT, the stent was occluded and her pancreatic mass had doubled in size. She was transferred to [facility] for further management. Shortly after she arrived on the floor, an VEGETABLE VENDOR was called due to rigors and altered mental status. She was A&Ox2. She was started on Vancomycin and Cefepime for presumed sepsis. On 07/23, she underwent ERCP with significant procedural difficulty but with successful stent exchange and sweep of significant purulent material. She has since improved significantly and remains A&Ox4. 07/26/24: Multiple family members are visiting today. We discussed possible discharge home tomorrow once Klebsiella sensitivities return. I checked with microbiology and they anticipate results tomorrow. Objective Vitals: 24hr Min/Max: Temp Min: 36.4 ??C (97.5 ??F) Max: 36.8 ??C (98.2 ??F) Pulse Min: 73 Max: 79 BP Min: 114/57 Max: 141/65 Resp Min: 17 Max: 20 SpO2 Min: 97 % Max: 100 % Most Recent : Vitals: 07/26/24 0835 BP: 124/56 Pulse: 79 Resp: 18 Temp: 36.6 ??C (97.9 ??F) SpO2: 98% I/O last 2 completed shifts: In: - Out: 100 [Urine:100] I/O this shift: In: 500 [P.O.:500] Out: 500 [Urine:500] Physical Exam: General: Patient in no acute distress, alert and oriented x 3 HEENT: Normocephalic, atraumatic, sclera non-icteric Lungs: Normal respiratory effort Abd: soft, non-tender, non-distended Skin: No rash Extremities: No edema Neuro: No focal motor sensory deficits Lab/Radiology/Diagnostic Review: Recent Labs Lab Units 07/26/24 0724 07/25/24 2249 07/25/24 1701 07/25/24 0752 07/25/24 0707 07/24/24 1644 07/24/24 1506 07/23/24 0757 07/23/24 0612 SODIUM mmol/L -- -- -- -- 142 -- 137 -- 135 POTASSIUM PLASMA mmol/L -- -- -- -- 3.2* -- 3.2* -- 3.8 CHLORIDE mmol/L -- -- -- -- 108 -- 105 -- 101 CO2 mmol/L -- -- -- -- 20* -- 18* -- 20* ANIONGAP mmol/L -- -- -- -- 14 -- 14 -- 14 GLUCOSE mg/dL -- -- -- -- 213* -- 196 -- 226* POC GLUCOSE MONITOR mg/dL 204* 170 245* < > -- < > -- < > -- BUN SERUM mg/dL -- -- -- -- 7 -- 12 -- 10 CREATININE mg/dL -- -- -- -- 0.38* -- 0.41* -- 0.44* CALCIUM mg/dL -- -- -- -- 8.6 -- 8.4* -- 8.9 ALBUMIN g/dL -- -- -- -- 2.7* -- 2.8* -- 3.1* ALK PHOS Units/L -- -- -- -- 253* -- 264* -- 301* ALT Units/L -- -- -- -- 112* -- 141* -- 248* AST Units/L -- -- -- -- 45 -- 68* -- 221* BILIRUBIN TOTAL mg/dL -- -- -- -- 2.7* -- 3.3* -- 7.0* < > = values in this interval not displayed. Recent Labs Lab Units 07/26/24 0601 07/25/24 0707 07/24/24 1506 WBC K/cumm 3.65* 3.51* 4.94 HEMOGLOBIN g/dL 9.7* 10.3* 10.0* HEMATOCRIT % 29.3* 30.5* 30.4* PLATELETS K/cumm 118* 111* 119* Assessment: Principal Problem: Pancreatic adenocarcinoma (HCC) Active Problems: Moderate protein-calorie malnutrition Pancreatic cancer (HCC) Type 2 diabetes mellitus without complication, with long-term current use of insulin (HCC) Sepsis with encephalopathy without septic shock (HCC) Metabolic encephalopathy Cholangitis (HCC) Plan: Pancreatic Adenocarcinoma Painless Jaundice Biliary Obstruction Established with Dr. Radford in April but lost to follow up when she declined chemotherapy and radiation Evaluated by hepatobiliary surgery but declined intervention Underwent ERCP with metal stent 04/15- Pancreatic mass has doubled in size per OSH CT report ERCP 07/23 with difficult but successful stent exchange Consulted and discussed with hospice but would hold off until is available Acute Metabolic Encephalopathy Resolved with treatment of underlying sepsis Sepsis 2/2 Cholangitis ESBL Klebsiella Bacteremia Continue Vancomycin, Cefepime, and Flagyl until sensitivities return Blood culture 07/23 (+) for ESBL Klebsiella Blood culture 07/24 negative Daily CMP added to monitor for both nephro- and hepatotoxicity I am told sensitivities will be available tomorrow DM2 HbA1c 6.7 Continue SSI Anxiety Depression Cymbalta 60mg daily Lunesta QHS HTN HCTZ 12.5mg daily Enalapri 10mg daily HLD Hold Atorvastatin 2/2 elevated LFTs VTE PPx: Heparin Code Status: Full Code MDM: Moderate Disposition: Possible discharge home tomorrow on PO antibiotic Emmanuel Martinez DO, MS, FACP, FACOI For patients or family members viewing this note through [employer] access: This note was written as a communication tool between healthcare providers and may contain technical language, terminology, and abbreviations that are difficult to interpret without advanced medical training. If you have questions or concerns regarding what is written in this note, please contact our office at . * Marita Kam [facility] - 07/26/2024 9:53 AM CDT Pharmacy Vancomycin Monitoring: Day 4 Current Regimen: 1000 mg every 24 hours Estimated Creatinine Clearance: 44.4 mL/min (A) (by C-G 65 yr and older- minimum SCr 0.8 based on SCr of 0.38 mg/dL (L)). Plan: Patient only received 2 doses of vanomycin - first dose on 07/23/24 was stopped due to loss ofperipheral access per MAR. Level back today is subtherapeutic at less than 4. Will increase patient to 750 mg every 12 hours to start now - discussed with patient's RN as she has not hung today's dose yet. Will plan to check level before the 4th dose and monitor closely. Pharmacy will continue to follow the patient???s regimen and clinical progress daily. * Emmanuel Martinez DO - 07/25/2024 7:37 AM CDT Internal Medicine Daily Progress Note Zac Olsen is a 78 y.o. woman who was recently diagnosed with pancreatic adenocarcinoma in April of this year. She underwent EUS/ERCP on 04/15 revealing extrahepatic bile duct strictures that were stented. She was evaluated by oncology (Dr. Radford) and by hepatobiliary surgery, but she did not wish to pursue surgical options, and she canceled her appointment with Dr. Radford. She did not want to pursue chemotherapy or radiation. Instead, she has been taking Ivermectin and Fenbendazole (a veterinary antihelminthic not approved for use in humans) at the recommendation of a friend who is aretired physician. He apparently obtained these veterinary medications from [place]. Three days ago, she began feeling shaky and confused. She presented to [facility] ED, where she was found to be hypoglycemic. Significant lab findings included T Bili 6.2, Alk Phos 319, AST 451, and ALT 345. On US, her stent appeared in place but there was intraductal dilation. On CT, the stent was occluded and her pancreatic mass had doubled in size. She was transferred to [facility] for further management. Shortly after she arrived on the floor, an VEGETABLE VENDOR was called due to rigors and altered mental status. She was A&Ox2. She was started on Vancomycin and Cefepime for presumed sepsis. On my exam this morning, she is alert and oriented x3 but repeatedly falls asleep mid-sentence and notes significant fatigue. 07/24/24: Zac underwent ERCP yesterday with significant procedural difficulty but with successful stent exchange and sweep of significant purulent material. This morning she is A&Ox4 and much more alert. Her , unfortunately, broke his back and will be unable to visit again until Friday. 07/25/24: Zac is doing well this morning. She remains A&Ox4. She is scheduled for outpatient CT and labswith Dr. Radford later this week. We talked about likely delaying those diagnostics, as she essentially got them done here. Objective Vitals: 24hr Min/Max: Temp Min: 36.6 ??C (97.8 ??F) Max: 36.8 ??C (98.2 ??F) Pulse Min: 72 Max: 89 BP Min: 91/67 Max: 121/80 Resp Min: 16 Max: 18 SpO2 Min: 95 % Max: 100 % Most Recent : Vitals: 07/25/24 0400 BP: 118/62 Pulse: 74 Resp: 18 Temp: 36.7 ??C (98.1 ??F) SpO2: 95% I/O last 2 completed shifts: In: 240 [P.O.:240] Out: 1100 [Urine:1100] No intake/output data recorded. Physical Exam: General: Patient in no acute distress, alert and oriented x 3 HEENT: Normocephalic, atraumatic, sclera non-icteric Lungs: Normal respiratory effort Abd: soft, non-tender, non-distended Skin: No rash Extremities: No edema Neuro: No focal motor sensory deficits Lab/Radiology/Diagnostic Review: Recent Labs Lab Units 07/25/24 0642 07/24/24 2149 07/24/24 1644 07/24/24 1506 07/23/24 0757 07/23/24 0612 SODIUM mmol/L -- -- -- 137 -- 135 POTASSIUM PLASMA mmol/L -- -- -- 3.2* -- 3.8 CHLORIDE mmol/L -- -- -- 105 -- 101 CO2 mmol/L -- -- -- 18* -- 20* ANIONGAP mmol/L -- -- -- 14 -- 14 GLUCOSE mg/dL -- -- -- 196 -- 226* POC GLUCOSE MONITOR mg/dL 215* 242* 196 -- < > -- BUN SERUM mg/dL -- -- -- 12 -- 10 CREATININE mg/dL -- -- -- 0.41* -- 0.44* CALCIUM mg/dL -- -- -- 8.4* -- 8.9 ALBUMIN g/dL -- -- -- 2.8* -- 3.1* ALK PHOS Units/L -- -- -- 264* -- 301* ALT Units/L -- -- -- 141* -- 248* AST Units/L -- -- -- 68* -- 221* BILIRUBIN TOTAL mg/dL -- -- -- 3.3* -- 7.0* < > = values in this interval not displayed. Recent Labs Lab Units 07/24/24 1506 07/23/24 0635 WBC K/cumm 4.94 4.72 HEMOGLOBIN g/dL 10.0* 11.1* HEMATOCRIT % 30.4* 33.0* PLATELETS K/cumm 119* 115* Assessment: Principal Problem: Pancreatic adenocarcinoma (HCC) Active Problems: Moderate protein-calorie malnutrition Pancreatic cancer (HCC) Type 2 diabetes mellitus without complication, with long-term current use of insulin (HCC) Sepsis with encephalopathy without septic shock (HCC) Metabolic encephalopathy Cholangitis (HCC) Plan: Pancreatic Adenocarcinoma Painless Jaundice Biliary Obstruction Established with Dr. Radford in April but lost to follow up when she declined chemotherapy and radiation Evaluated by hepatobiliary surgery but declined intervention Underwent ERCP with metal stent 04/15- Pancreatic mass has doubled in size per OSH CT report ERCP 07/23 with difficult but successful stent exchange Consulted and discussed with hospice but would hold off until is available Acute Metabolic Encephalopathy Much improved today Discontinue Ivermectin and Fenbendazole and never restart Treat underlying sepsis Mental status will likely take days to improve Sepsis 2/2 Cholangitis ESBL Klebsiella Bacteremia Continue Vancomycin, Cefepime, and Flagyl until sensitivities return Blood culture 07/23 (+) for ESBL Klebsiella Blood culture 07/24 negative thus far Daily CMP added to monitor for both nephro- and hepatotoxicity Black/Dark stools 07/10-07/15 Reports normal colored BMs more recently On Iron PO tablets Continue to monitor Trend Hgb DM2 HbA1c 6.7 Continue SSI Anxiety Depression Cymbalta 60mg daily Lunesta QHS HTN HCTZ 12.5mg daily Enalapri 10mg daily HLD Hold Atorvastatin 2/2 elevated LFTs VTE PPx: Heparin Code Status: Full Code MDM: Moderate Disposition: Inpatient several more days awaiting final cultures Emmanuel Martinez DO, MS, FACP, FACOI For patients or family members viewing this note through [employer] access: This note was written as a communication tool between healthcare providers and may contain technical language, terminology, and abbreviations that are difficult to interpret without advanced medical training. If you have questions or concerns regarding what is written in this note, please contact our office at . * Emmanuel Martinez DO - 07/24/2024 11:46 AM CDT Internal Medicine Daily Progress Note Zac Olsen is a 78 y.o. woman who was recently diagnosed with pancreatic adenocarcinoma in April of this year. She underwent EUS/ERCP on 04/15 revealing extrahepatic bile duct strictures that were stented. She was evaluated by oncology (Dr. Radford) and by hepatobiliary surgery, but she did not wish to pursue surgical options, and she canceled her appointment with Dr. Radford. She did not want to pursue chemotherapy or radiation. Instead, she has been taking Ivermectin and Fenbendazole (a veterinary antihelminthic not approved for use in humans) at the recommendation of a friend who is aretired physician. He apparently obtained these veterinary medications from [place]. Three days ago, she began feeling shaky and confused. She presented to [facility] ED, where she was found to be hypoglycemic. Significant lab findings included T Bili 6.2, Alk Phos 319, AST 451, and ALT 345. On US, her stent appeared in place but there was intraductal dilation. On CT, the stent was occluded and her pancreatic mass had doubled in size. She was transferred to [facility] for further management. Shortly after she arrived on the floor, an VEGETABLE VENDOR was called due to rigors and altered mental status. She was A&Ox2. She was started on Vancomycin and Cefepime for presumed sepsis. On my exam this morning, she is alert and oriented x3 but repeatedly falls asleep mid-sentence and notes significant fatigue. 07/24/24: Zac underwent ERCP yesterday with significant procedural difficulty but with successful stent exchange and sweep of significant purulent material. This morning she is A&Ox4 and much more alert. Her , unfortunately, broke his back and will be unable to visit again until Friday. Objective Vitals: 24hr Min/Max: Temp Min: 36.4 ??C (97.5 ??F) Max: 36.7 ??C (98.1 ??F) Pulse Min: 71 Max: 87 BP Min: 110/57 Max: 141/78 Resp Min: 12 Max: 22 SpO2 Min: 99 % Max: 100 % Most Recent : Vitals: 07/24/24 0900 BP: 115/66 Pulse: 87 Resp: 16 Temp: SpO2: 100% I/O last 2 completed shifts: In: 500 [I.V.:500] Out: 300 [Urine:300] I/O this shift: In: 240 [P.O.:240] Out: - Physical Exam: General: Patient in no acute distress, alert and oriented x 3 HEENT: Normocephalic, atraumatic, sclera non-icteric Lungs: Normal respiratory effort Abd: soft, non-tender, non-distended Skin: No rash Extremities: No edema Neuro: No focal motor sensory deficits Lab/Radiology/Diagnostic Review: Recent Labs Lab Units 07/24/24 0900 07/24/24 0858 07/24/24 0628 07/23/24 0757 07/23/24 0612 SODIUM mmol/L -- -- -- -- 135 POTASSIUM PLASMA mmol/L -- -- -- -- 3.8 CHLORIDE mmol/L -- -- -- -- 101 CO2 mmol/L -- -- -- -- 20* ANIONGAP mmol/L -- -- -- -- 14 GLUCOSE mg/dL -- -- -- -- 226* POC GLUCOSE MONITOR mg/dL 355* 334* 147 < > -- BUN SERUM mg/dL -- -- -- -- 10 CREATININE mg/dL -- -- -- -- 0.44* CALCIUM mg/dL -- -- -- -- 8.9 ALBUMIN g/dL -- -- -- -- 3.1* ALK PHOS Units/L -- -- -- -- 301* ALT Units/L -- -- -- -- 248* AST Units/L -- -- -- -- 221* BILIRUBIN TOTAL mg/dL -- -- -- -- 7.0* < > = values in this interval not displayed. Recent Labs Lab Units 07/23/24 0635 WBC K/cumm 4.72 HEMOGLOBIN g/dL 11.1* HEMATOCRIT % 33.0* PLATELETS K/cumm 115* Assessment: Principal Problem: Pancreatic adenocarcinoma (HCC) Active Problems: Moderate protein-calorie malnutrition Pancreatic cancer (HCC) Type 2 diabetes mellitus without complication, with long-term current use of insulin (HCC) Sepsis with encephalopathy without septic shock (HCC) Metabolic encephalopathy Cholangitis (HCC) Plan: Pancreatic Adenocarcinoma Painless Jaundice Biliary Obstruction Established with Dr. Radford in April but lost to follow up when she declined chemotherapy and radiation Evaluated by hepatobiliary surgery but declined intervention Underwent ERCP with metal stent 04/15- Pancreatic mass has doubled in size per OSH CT report ERCP 07/23 with difficult but successful stent exchange Consulted and discussed with hospice but would hold off until is available Acute Metabolic Encephalopathy Much improved today Discontinue Ivermectin and Fenbendazole and never restart Treat underlying sepsis Mental status will likely take days to improve Sepsis 2/2 Cholangitis Continue Vancomycin, Cefepime, and Flagyl Blood culture 07/23 (+) for ESBL Klebsiella Obtain repeat blood cultures today Daily CMP added to monitor for both nephro- and hepatotoxicity Black/Dark stools 07/10-07/15 Reports normal colored BMs more recently On Iron PO tablets Continue to monitor Trend Hgb DM2 HbA1c 6.7 Continue SSI Anxiety Depression Cymbalta 60mg daily Lunesta QHS HTN HCTZ 12.5mg daily Enalapri 10mg daily HLD Hold Atorvastatin 2/2 elevated LFTs VTE PPx: Heparin Code Status: Full Code MDM: High Disposition: Inpatient at least several more days Emmanuel Martinez, DO, MS, FACP, FACOI For patients or family members viewing this note through [employer] access: This note was written as a communication tool between healthcare providers and may contain technical language, terminology, and abbreviations that are difficult to interpret without advanced medical training. If you have questions or concerns regarding what is written in this note, please contact our office at . * Angeles Guevara, MIRYAM - 07/24/2024 10:06 AM CDT Consult to [facility] received, thank you. Zac Olsen 1945 78 y.o. [id number] Code Status: Full [facility] Insurance Customer Service Specialist spoke with Dr. Martinez acknowledging hospice consult. Dr. Martinez would like for hospice to hold off until is able to partake in conversation with patient. Please contact [facility] with any questions or needs for support at: Angeles CARMICHAEL, RN [facility] Insurance Customer Service Specialist [facility] Office [phone] [facility] 24 Hour Triage Support * Prabha Danielle NP - 07/24/2024 9:14 AM CDT Gastroenterology Daily Progress SUBJECTIVE Chief complaint: 78 year old female with chief complaint of confusion and feeling shaky. Reason for consult: Elevated LFT's and concern for obstructed bile duct stent Interval History: 07/23 ERCP stent exchange. Patient sitting up in bed, awake and alert, getting ready to shower. No complaints of pain, nausea or vomiting. +flatus/BM OBJECTIVE Vitals: Most Recent : Vitals: 07/24/24 0900 BP: 115/66 Pulse: 87 Resp: 16 Temp: SpO2: 100% Physical Exam: General: awake and alert Abdomen: soft, NDNT, +BS Lab/Radiology/Diagnostic Review: Recent Labs Lab Units 07/23/24 0635 WBC K/cumm 4.72 HEMOGLOBIN g/dL 11.1* HEMATOCRIT % 33.0* PLATELETS K/cumm 115* Recent Labs Lab Units 07/24/24 0900 07/24/24 0858 07/24/24 0628 07/23/24 0757 07/23/24 0612 SODIUM mmol/L -- -- -- -- 135 POTASSIUM PLASMA mmol/L -- -- -- -- 3.8 CHLORIDE mmol/L -- -- -- -- 101 CO2 mmol/L -- -- -- -- 20* ANIONGAP mmol/L -- -- -- -- 14 GLUCOSE mg/dL -- -- -- -- 226* POC GLUCOSE MONITOR mg/dL 355* 334* 147 < > -- BUN SERUM mg/dL -- -- -- -- 10 CREATININE mg/dL -- -- -- -- 0.44* CALCIUM mg/dL -- -- -- -- 8.9 ALBUMIN g/dL -- -- -- -- 3.1* ALK PHOS Units/L -- -- -- -- 301* ALT Units/L -- -- -- -- 248* AST Units/L -- -- -- -- 221* BILIRUBIN TOTAL mg/dL -- -- -- -- 7.0* < > = values in this interval not displayed. Lab Results Component Value Date LIPASE 26 07/23/2024 DIAGNOSTIC STUDIES: 07/23 ERCP - Technically very challenging ERCP due to severe, malignant appearing stricture noted in the duodenal bulb that could not be readily traversed initially with a duodenoscope. - Succcessful dilation of the duodenal stricture from 12mm to 15mm over a wire with endoscopic/fluoroscopic guidance. - Unsuccessful attempts at ERCP with therapeutic gastroscope. Ultimately, successful passage of theduodenoscope through the strictured duodenum as noted. - Completely occluded, previously placed fully covered metal biliary stent. - Limited cholangiography was performed due to active, severe cholangitis. Limited cholangiogram after clearance of the biliary stent, demonstrate no obvious tissue/tumor ingrowth and moderate intrahepatic dilation of the visualized R anterior and L hepatic ducts. - Successful clearance of occluded biliary stent of sludge, stone debris, and large volume of pus. - Successful placement of a 10Fr x 10cm plastic double pigtail stent, coaxially through the indwelling biliary stent into the L intrahepatic duct. ASSESSMENT/PLAN: 1. Elevated LFT's, concern for cholangitis 2. Known pancreatic CA 78 year old female dx with pancreatic CA in Apr 2024, presented to OSH with hypoglycemia. Upon workup, patient has elevated LFT's, OSH imaging with intraductal dilatation and possibly occluded stentdue to increased tumor burden concerning for cholangitis. (Imaging disk to radiology and being uploaded per RN) -labs pending today -Lipase normal on admission -initial lactate 3.6, repeat 1.1 -BC x 2 , 1/2 GNB, 2/2 NGTD, ID consult if appropriate -on cefepime, flagyl, and vancomycin -supportive care including IVF's, antiemetics/analgesics prn -diet as tolerated, carefully monitor for development of gastric outlet obstruction -recommended to patient to d/c ivermectin and fenbendazole -recommend palliative care/hospice consult -repeat ERCP as need Prabha Danielle NP 07/24/2024 Cosigned by Alexus Harper MD at 07/25/2024 8:56 AM CDT * Lisa Mccullough, RD - 07/23/2024 11:52 AM CDT NUTRITION ASSESSMENT Nutrition Status: Patient meets criteria for moderate chronic malnutrition, reference AAIM (ASPEN) guidelines. Present on Admission: Yes REASON FOR ASSESSMENT: Screened at Nutrition Risk - Malnutrition Admission dx Encounter Date: 07/23/24 1:48 PM Admission Date: 07/23/2024 LOS: 0 days HPI: Patient is a 78 y.o. 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 Patient arrived at [facility] on 07/22 presented for hypoglycemia and concerning image find ings. Reports no chest pain, shortness of breath, and abdominal pain. Reports recent dark/black stools and limited PO intake. Admits to preferring natural treatments over chemotherapy/surgery, opting for treatment with ivermectin and fenbendazole. Objective No past medical history on file. No past surgical history on file. Social History Tobacco Use Smoking status: Former Current packs/day: 0.00 Types: Cigarettes Quit date: 1974 Years since quittin.4 Smokeless tobacco: Never Substance and Sexual Activity Drug use: Not on file Sexual activity: Not on file Alcohol Use: Not At Risk (04/16/2024) AUDIT-C Frequency of Alcohol Consumption: Never Average Number of Drinks: Patient does not drink Frequency of Binge Drinking: Never MEDICATION/LAB REVIEW: Scheduled Meds: cefepime, 2,000 mg, intravenous, Q12H heparin, 5,000 Units, subcutaneous, Q8H NILAY insulin lispro, 0-10 Units, subcutaneous, Q4H NILAY metroNIDAZOLE, 500 mg, oral, TID pantoprazole, 40 mg, intravenous, Daily sodium chloride 0.9%, 0.5-20 mL, intra-catheter, Q8H NILAY (ALT) [START ON 07/24/2024] vancomycin, 15 mg/kg, intravenous, Q24H Continuous Infusions: PRN Meds: acetaminophen bisacodyl EC OR bisacodyL sodium chloride 0.9% dextrose OR dextrose glucagon morphine ondansetron polyethylene glycol prochlorperazine sodium chloride 0.9% Recent Labs Lab Units 07/23/24 0612 SODIUM mmol/L 135 POTASSIUM PLASMA mmol/L 3.8 CHLORIDE mmol/L 101 CO2 mmol/L 20* BUN SERUM mg/dL 10 CREATININE mg/dL 0.44* [id number] mL/min/1.73 m2 >90 CALCIUM mg/dL 8.9 ALBUMIN g/dL 3.1* PHOSPHORUS PLASMA mg/dL 2.0* MAGNESIUM mg/dL 1.8 Recent Labs Lab Units 07/23/24 1209 07/23/24 0757 07/23/24 0612 07/23/24 0555 07/23/24 0501 GLUCOSE mg/dL -- -- 226* -- -- POC GLUCOSE MONITOR mg/dL 193 238* -- 245* 231* ALT Date Value Ref Range Status 07/23/2024 248 (H) 7 - 45 Units/L Final AST Date Value Ref Range Status 07/23/2024 221 (H) 10 - 45 Units/L Final Alk phos Date Value Ref Range Status 07/23/2024 301 (H) 40 - 130 Units/L Final Lipase Date Value Ref Range Status 07/23/2024 26 10 - 99 Units/L Final Lab Results Component Value Date HGBA1C 6.7 (H) 04/16/2024 NURSING ASSESSMENT: Last BM Date: 07/21/24 (Pt stated 2 days) Bowel Sounds (All Quadrants): Active Demetri Scale Score: 19 Skin Integrity: Blanchable redness Vital Signs BP: 136/55 Temp: 36.4 ??C (97.6 ??F) Pulse: 103 Resp: 18 SpO2: 98 % No intake or output data in the 24 hours ending 07/23/24 1348 Adult Malnutrition Scoring Tool (MST) What diet do you follow at home?: Regular Have You Recently Lost Weight Without Trying?: No Have you been eating poorly because of a decreased appetite?: Yes Malnutrition Screening Tool (MST) Score: 1 Anthropometrics Weight: 63.1 kg (139 lb 3.2 oz) Admission Weight : 63.1 kg Weight Change: 7.52 kg (16.60 lbs) IBW/kg (Calculated) : 47.6 kg Height: 154.9 cm (5' 1) Weight in (lb) to have BMI = 25: 132 BMI (Calculated): 26.3 Wt Readings from Last 10 Encounters: 07/23/24 63.1 kg (139 lb 3.2 oz) 04/29/24 55.6 kg (122 lb 9.6 oz) 04/15/24 52.2 kg (115 lb) ESTIMATED NEEDS: Total Kcal/kg Estimated Needs : 1767.95 Kcal/k. Type of Weight Used for Estimated Kcals: Admission Total Protein Estimated Needs (gm): 94.71 Protein Needs Based on g/k.5 Type of Weight Used for Estimated Protein : Admission Dietary Orders (From admission, onward) Start Ordered 07/23/24 2100 Bedtime snack At bedtime Comments: If bedtime BG is less than 100mg/dl, give patient a 15 gram carbohydrate snack. 07/23/24 0701 07/23/24 1054 Oral Nutrition Supplements ([facility]) Select Supplement: Ensure Enlive - Chocolate All Meals Question: ([facility]) Select Supplement: Answer: Ensure Enlive - Chocolate 07/23/24 1053 07/23/24 0441 NPO Diet Diet effective now 07/23/24 0440 Allergies: Reviewed. IMPRESSION: 07/23: Pt was falling asleep during visit and very difficult to get information from. No family present. Noted VEGETABLE VENDOR last night for AMS. Unable to get history of intake but suspect its inadequate. Her weight is trending up - suspect it is fluid related though no mention of that found in chart. She agreed to NFPE which showed moderate fat and muscle loss. Unsure if or what ONS she uses at home but said she likes chocolate. AAIM ([facility]) MALNUTRITION ASSESSMENT: Date of completion: 07/23/24 ASPEN/AND Malnutrition Screening: Chronic illness or injury mild/moderate Subcutaneous Fat Loss Severity: Mild/Moderate Muscle Mass Loss Severity: Mild/Moderate Patient Meets Criteria for Moderate Malnutrition: Yes NUTRITION FOCUSED PHYSICAL EXAM: Completed, physical findings below. Subcutaneous Fat Loss Orbital Region - Surrounding the Eye: Somewhat hollow look Cheek Region - Buccal Fat: Somewhat sunken appearance Upper Arm Region - Triceps/Biceps: Some depth pinch but not ample Muscle Loss Mandaeism Region - Temporalis Muscle: Slight depression Clavicle Bone Region - Pectoralis Major, Deltoid, Trapezius Muscles: Protruding, prominent bone Clavicle and Acromion Bone Region - Deltoid Muscle: Acromion process may slightly protrude Dorsal Hand - Interosseous Muscle: Depressed area between thumb/forefinger Anterior Thigh and Patellar Region - Quadricep Muscle: Slight depression along thigh Posterior Calf Region - Gastrocnemius Muscle: Not well developed NUTRITION DIAGNOSIS: Nutrition Diagnosis 1: Protein-Calorie Malnutrition - Moderate Related to: Chronic illness/injury, Increased needs Evidenced by: Patient interview, Subcutaneous fat loss, Muscle loss INTERVENTION(S): Summary: Initial assessment, Medical food supplement Chocolate Ensure Enlive when diet advances Follow up to complete assessment and provide nutrition intervention GOAL(S): Oral intake to meet 75% estimated nutritional needs by next assessment MONITORING/EVALUATION: Appetite, Labs, Plan of care, PO intake, Diet advancement * Jackie Cordero [facility] - 07/23/2024 8:03 AM CDT Pharmacokinetic Consult - Vancomycin Dosing Day 1 Zac Olsen is a 78 y.o. female who has been consulted for vancomycin dosing for sepsis. Relevant clinical data and objective history reviewed: Creatinine Date Value Ref Range Status 07/23/2024 0.44 (L) 0.60 - 1.10 mg/dL Final 04/20/2024 0.25 (L) 0.60 - 1.10 mg/dL Final 04/19/2024 0.25 (L) 0.60 - 1.10 mg/dL Final BUN Date Value Ref Range Status 07/23/2024 10 6 - 25 mg/dL Final 04/20/2024 6 6 - 25 mg/dL Final 04/19/2024 6 6 - 25 mg/dL Final Estimated Creatinine Clearance: 44.4 mL/min (A) (by C-G 65 yr and older- minimum SCr 0.8 based on SCr of 0.44 mg/dL (L)). No intake/output data recorded. Lab Results Component Value Date/Time WBC 4.72 07/23/2024 06:35 AM HGB 11.1 (L) 07/23/2024 06:35 AM HCT 33.0 (L) 07/23/2024 06:35 AM MCV 90.7 07/23/2024 06:35 AM LABPLAT 115 (L) 07/23/2024 06:35 AM Temp Readings from Last 3 Encounters: 07/23/24 (!) 40.1 ??C (104.1 ??F) (Axillary) 04/29/24 36.6 ??C (97.9 ??F) (Tympanic) 04/21/24 36.4 ??C (97.5 ??F) (Oral) Baseline culture/source/susceptibility: . Wt Readings from Last 1 Encounters: 07/23/24 63.1 kg (139 lb 3.2 oz) Assessment/Plan The patient will be started on vancomycin utilizing scheduled dosing based on actual body weight. Baseline risks associated with therapy include: pre-existing renal impairment. Will initiate dose at 1000 mg IV every 24 hours. Pharmacy will also follow closely for s/sx of nephrotoxicity. Serum creatinine will be ordered per policy. Plan for trough as patient approaches steady state, prior to the 4th dose. Due to infection severity, will target a trough of 15-20 ug/mL. Pharmacy will continue to follow the patient???s culture results and clinical progress daily. Vancomycin will be dose adjusted based on the following pharmacy dosing guidelines: Vancomycin Dose: Total Body weight Dose < 40 kg 500 mg 41 - 49 kg 750 mg 50 - 74 kg 1000 mg 75 - 89 kg 1250 mg 90 - 109 kg 1500 mg 110 - 119 kg 1750 mg > 120 kg 2000 mg Initial regimen not to exceed 4000 mg/day Vancomycin Interval: CrCl (mL/min) Dosing Interval > 60 Every 12 hours 30 - 59 Every 24 hours 20 - 29 Every 48 hours < 20 Intermittent dosing Hemodialysis Intermittent dosing Peritoneal Dialysis Intermittent dosing CVVHD Every 24 hours Every 8 hour dosing may be considered for patients with CrCl > 90 mL/min Consider periodic trough levels (every 4-7 days) in patients receiving longer courses of therapy (greater than 5 days) to ensure adequate but not excessive concentrations: target between 10-20 mcg/mL Obtaining a SCr at least once weekly is recommended (more often with concomitant nephrotoxins). More frequent monitoring may be warranted. Hemodialysis patients should have serum drug concentrations measured every 3-7 days to determine time of next dose. Daily random drug levels are not warranted. Doses may be adjusted based on laboratory results and the pharmacokinetic and pharmacodynamic principles of the medication and the patient to attain target concentrations. *Consider initiating treatment in intermittent and every 48-hour patients with doses on Day 1 and Day 2. Patients on ECMO: Dose based on renal function. Jackie Cordero RPh 07/23/24 8:00 AM documented in this encounter H&P Notes * Emmanuel Martinez, - 07/23/2024 8:18 AM CDT History and Physical Division of Hospital Medicine Name: Zac Olsen Today's Date: July 23, 2024 Admit Date: 07/23/2024 Bed: [id number] LOS: 0 days Subjective HPI Zac Olsen is a 78 y.o. woman who was recently diagnosed with pancreatic adenocarcinoma in April of this year. She underwent EUS/ERCP on 04/15 revealing extrahepatic bile duct strictures that were stented. She was evaluated by oncology (Dr. Radford) and by hepatobiliary surgery, but she did not wish to pursue surgical options, and she canceled her appointment with Dr. Radford. She did not want to pursue chemotherapy or radiation. Instead, she has been taking Ivermectin and Fenbendazole (a veterinary antihelminthic not approved for use in humans) at the recommendation of a friend who is aretired physician. He apparently obtained these veterinary medications from [facility]. Three days ago, she began feeling shaky and confused. She presented to [facility] ED, where she was found to be hypoglycemic. Significant lab findings included T Bili 6.2, Alk Phos 319, AST 451, and ALT 345. On US, her stent appeared in place but there was intraductal dilation. On CT, the stent was occluded and her pancreatic mass had doubled in size. She was transferred to [facility] for further management. Shortly after she arrived on the floor, an VEGETABLE VENDOR was called due to rigors and altered mental status. She was A&Ox2. She was started on Vancomycin and Cefepime for presumed sepsis. On my exam this morning, she is alert and oriented x3 but repeatedly falls asleep mid-sentence and notes significant fatigue. Objective Past Medical History No past medical history on file. No past surgical history on file. Current Facility-Administered Medications Medication Dose Route Frequency Provider Last Rate Last Admin acetaminophen (TYLENOL) tablet 650 mg 650 mg oral Q6H PRN Ernesto Conrad PA 650 mg at 07/23/24 0601 bisacodyl EC (DULCOLAX EC) tablet 10 mg 10 mg oral Daily PRN Yoana Tatum MD Or bisacodyL (DULCOLAX) suppository 10 mg 10 mg rectal Daily PRN Yoana Tatum MD Carrier Fluids for Secondary Infusion - 0.9% Sodium Chloride 30 mL intravenous PRN Yoana Tatum MD cefepime (MAXIPIME) 2,000 mg in sodium chloride 0.9% 100 mL IVPB 2,000 mg intravenous Q12H Yoana Tatum MD dextrose (GLUTOSE) 40 % gel 15 g 15 g oral Q15 Min PRN Ernesto Conrad PA Or dextrose (D10W) 10% bolus 250 mL 250 mL intravenous Q15 Min PRN Ernesto Conrad PA glucagon injection 1 mg 1 mg intramuscular Q30 Min PRN Ernesto Conrad PA heparin 5,000 unit/mL injection 5,000 Units 5,000 Units subcutaneous Q8H [facility] Yoana Tatum MD 5,000 Units at 07/23/24 0608 insulin lispro (HumaLOG, ADMELOG) 100 unit/mL injection 0-10 Units 0-10 Units subcutaneous Q4H [facility] Ernesto Conrad PA morphine injection 2 mg 2 mg intravenous Q3H PRN Yoana Tatum MD ondansetron (ZOFRAN) injection 4 mg 4 mg intravenous Q6H PRN Yoana Tatum MD pantoprazole (PROTONIX) 40 mg in sodium chloride 0.9% 10 mL IV Syringe 40 mg intravenous Daily Yoana Tatum MD polyethylene glycol (MIRALAX) packet 17 g 17 g oral Daily PRN Yoana Tatum MD prochlorperazine (COMPAZINE) injection 5 mg 5 mg intravenous Q6H PRN Yoana Tatum MD sodium chloride 0.9% flush 0.5-20 mL 0.5-20 mL intra-catheter Q8H [facility] (ALT) Yoana Tatum MD sodium chloride 0.9% flush 0.5-20 mL 0.5-20 mL intra-catheter PRN Yoana Tatum MD [START ON 07/24/2024] vancomycin 1,000 mg/200 mL in dextrose 5% (premix) 1,000 mg 15 mg/kg intravenous Q24H Yoana Tatum MD No Known Allergies Social and Family History Social History Tobacco Use Smoking status: Former Current packs/day: 0.00 Types: Cigarettes Quit date: 1974 Years since quittin.4 Smokeless tobacco: Never Substance and Sexual Activity Drug use: Not on file Sexual activity: Not on file Alcohol Use: Not At Risk (04/16/2024) AUDIT-C Frequency of Alcohol Consumption: Never Average Number of Drinks: Patient does not drink Frequency of Binge Drinking: Never No family history on file. Vitals Most Recent Vitals: T 36.7 ??C (98.1 ??F), HR 103, BP 136/55, RR 18, SpO2 98 %. 24hr Min/Max: Temp Min: 36.7 ??C (98.1 ??F) Max: 40.1 ??C (104.1 ??F) Pulse Min: 87 Max: 107 BP Min: 124/57 Max: 145/59 Resp Min: 14 Max: 18 SpO2 Min: 94 % Max: 100 % No intake or output data in the 24 hours ending 07/23/24 0818 Physical Exam General: Patient in no acute distress, alert and oriented x 3, lethargic HEENT: Normocephalic, atraumatic, sclera non-icteric Lungs: Normal respiratory effort Abd: soft, non-tender, non-distended Skin: No rash Extremities: No edema Lines, Drains, Airways Peripheral IV 04/16/24 20 G Anterior;Distal;Right Forearm (Active) Peripheral IV 07/23/24 18 G Anterior;Left;Proximal Forearm (Active) Peripheral IV 07/22/24 Anterior;Right Forearm (Active) Labs/Diagnostic Review Na 135 Cl 101 BUN 10 K 3.8 CO2 20 Cr 0.44 Mg 1.8, G AST 221 ALT 248 Alk Phos 301 Ca 8.9 TP - Alb 3.1 Total Bili: 7.0 Direct Bili: - \ Hgb 11.1 / WBC 4.72 -------- Plt 115 / MCV 90.7 \ INR - (Labs above are the most recent result obtained in the last 24 hours. For additional labs/trends, see Epic.) I have reviewed the laboratory results. Imaging Review No results found. Assessment/Plan Pancreatic Adenocarcinoma Painless Jaundice Biliary Obstruction Admit to inpatient medicine with oncology and biliary GI consults Established with Dr. Radford in April but lost to follow up when she declined chemotherapy and radiation Evaluated by hepatobiliary surgery but declined intervention Underwent ERCP with metal stent 04/15- Pancreatic mass has doubled in size per OSH CT report ERCP planned this afternoon Acute Metabolic Encephalopathy Unclear etiology: sepsis due to cholangitis vs neurotoxicity from Ivermectin Discontinue Ivermectin and Fenbendazole and never restart Treat underlying sepsis Mental status will likely take days to improve Sepsis 2/2 Cholangitis (+) rigors, chills, tachycardia, fevers, AMS Continue Vancomycin and Cefepime started in VEGETABLE VENDOR Add Flagyl given intra-abdominal source Blood cultures obtained Black/Dark stools 07/10-07/15 Reports normal colored BMs more recently On Iron PO tablets Continue to monitor Trend Hgb DM2 HbA1c 6.7 Continue SSI Anxiety Depression Cymbalta 60mg daily Lunesta QHS HTN HCTZ 12.5mg daily Enalapri 10mg daily HLD Hold Atorvastatin 2/2 elevated LFTs These fluid and electrolyte abnormalities are being treated, evaluated or monitored: Hypophosphatemia--replace and monitor Quality Clinical Documentation: Thrombocytopenia. Monitor platelet count and assess for bleeding. Hypoalbuminemia. Treat underlying etiology. DVT prophylaxis: given. Code status : Full Code Diet : NPO Diet Supplementary Attestation My total encounter time on this service date was 88 minutes which was spent performing a [id number] encounter and personally completing the provider-level activities documented in the note. This includes time spent prior to the visit and after the visit in direct care of the patient. This time does not include time spent in any separately reportable services. 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 Patient has opted for alternative medical therapy and now presents with rapid disease progression on imaging and florid cholangitis/sepsis/shock. Providers: Torey Jiménez M.D. Referring MD: Emmanuel Knight M.D., Abimael Radford M.D. Medicines: Monitored Anesthesia Care; Patient on IV broad spectrum antibiotics. Complications: No immediate complications. Estimated Blood Loss: Estimated blood loss: none. Procedure: Pre-Anesthesia Assessment: - The risks and benefits of the procedure and the sedation options and risks were discussed with the patient. All questions were answered and informed consent was obtained. - Immediately prior to administration of medications, the patient was re-assessed for adequacy to receive sedatives. - The anesthesia plan was to use monitored anesthesia care (MAC). The benefits, risks, and alternatives to the procedure and sedation were discussed and informed consent was obtained. The TJF-Q380 was introduced through the mouth, and used to inject contrast into and used to inject contrast into the bile duct. The Endoscope was introduced through the mouth, and used to inject contrast into and used to locate the major papilla. The Endoscope was introduced through the mouth, and used to inject contrast into and used to cannulate the bile duct. The ERCP was accomplished without difficulty. The patient tolerated the procedure well. Findings: A biliary stent was visible on the retail greeter film. The esophagus was successfully intubated under direct vision. There was a severe, malignant appearing stricture noted in the duodenal bulb that could not be readily traversed initially with a duodenoscope. A GIF gastroscope was advanced to the level of the stricture and was able to traverse the area into third portion of the duodenum. A wire was advanced into the proximal jejunum and under endoscopic and fluoroscopic guidance, over the wire, the duodenal stricture was dilated from 12mm to 15mm with partial response and no evidence of perforation. The gastroscope was removed and the TJF duodenoscope was again attempted to be passed with the patient prone and L lateral without success. The duodenscope was removed and replaced with a 1T therapeutic gastroscope which could traverse the stricture. Attempts were made to do the ERCP with the gastroscope which was challenging due to the intradiverticular position of the papillla/prior stent. A 0.025angled visiglide wire was successfully advanced through the indwelling stent, however it appeared to be completely occluded and the wire could not be deeply advanced into the biliary tree. The 1T gastroscope was removed and the TJF duodenoscope was re-tried and successfully advanced to the ampulla. The previously placed biliary stent was completely occluded with sludge/debris. A 0.025 inch x 450 cm angled Visiglide wire was passed into the biliary tree through the indwelling biliary stent. The 8.5 mm balloon was passed over the guidewire and the bile duct was then deeply cannulated. Contrast was injected. I personally interpreted the bile duct images. There was brisk flow of contrast through the ducts. Image quality was excellent. Contrast extended to the main bile duct. Contrast extended to the hepatic ducts. Limited cholangiography was performed due to active, severe cholangitis. Limited cholangiogram after clearance of the biliary stent, demonstrate no obvious tissue/tumor ingrowth and moderate intrahepatic dilation of the visualized R anterior and L hepatic ducts. To discover objects, the biliary tree was swept with an 8.5 mm balloon starting at the bifurcation. Extensive sludge, stone debris, and pus was swept from the duct. A 10 Fr by 10 cm plastic stent with a full external pigtail and a full internal pigtail was placed coaxially through the indwelling covered biliary stent into the L hepatic duct with drainage of contrast, bile, and pus. The scope was removed from the patient. Impression: - Technically very challenging ERCP due to severe, malignant appearing stricture noted in the duodenal bulb that could not be readily traversed initially with a duodenoscope. - Succcessful dilation of the duodenal stricture from 12mm to 15mm over a wire with endoscopic/fluoroscopic guidance. - Unsuccessful attempts at ERCP with therapeutic gastroscope. Ultimately, successful passage of the duodenoscope through the strictured duodenum as noted. - Completely occluded, previously placed fully covered metal biliary stent. - Limited cholangiography was performed due to active, severe cholangitis. Limited cholangiogram after clearance of the biliary stent, demonstrate no obvious tissue/tumor ingrowth and moderate intrahepatic dilation of the visualized R anterior and L hepatic ducts. - Successful clearance of occluded biliary stent of sludge, stone debris, and large volume of pus. - Successful placement of a 10Fr x 10cm plastic double pigtail stent, coaxially through the indwelling biliary stent into the L intrahepatic duct. Recommendation: - Observe patient's clinical course following today's ERCP with therapeutic intervention. - Watch for pancreatitis, bleeding, perforation, and cholangitis. - Await blood cultures from this morning and consult ID as appropriate if positive. Continue broad antibiotic coverage pending culture and speciation. - Monitor LFTs after todays repeat ERCP. - Monitor closely for potential development of gastric outlet obstruction. Currently there is no dilation of the stomach on CT and no significant symptoms attributable to the stricture on imaging. - Given the patient/family desire to avoid cancer directed therapy (chemo, radiation, surgery) would recommend a palliative care/hospice consultation to provide a framework for the continued disease progression seen on this admission. - Would repeat ERCP on an as needed basis given the significant technical challenges to performing the procedure today/risks associated and patient's overall health care goals. - Return patient to [facility] for ongoing care. - NPO for 2 hours, then advance to clear liquid diet if patient stable and ok with primary team. - Aggressive IV hydration for next 6 hours. - Further recommendations per inpatient GI Consult Service. Attending Participation: I personally performed the entire procedure. Electronically Signed By: Torey Jiménez M.D. Torey Jiménez M.D. 07/23/2024 5:45:28 PM This document was signed electronically. Number of Addenda: 0 Note Initiated On: 07/23/2024 4:05 PM Scope In: Scope Out: * Ernesto Conrad PA - 07/23/2024 6:39 AM CDT Procedures Peripheral IV insertion: RN unable to place IV x2. US guidance was used to place 18G peripheral IV in the L forearm with + draw and flush. Pt tolerated procedure well. documented in this encounter Consult Notes * Prabha Danielle NP - 07/23/2024 9:02 AM CDTAssociated Order(s): IP CONSULT TO GASTROENTEROLOGY Gastroenterology Consult SUBJECTIVE Chief complaint: 78 year old female with chief complaint of confusion and feeling shaky. Reason for consult: Elevated LFT's and concern for obstructed bile duct stent HPI: The patient is a 78 year old female with medical history including HLD, HTN, Diverticulitis, DM, Depression and pancreatic adenocarcinoma dx in April of this year after EUS/ERCP. She had had ERCP on 04/15 that found extrahepatic bile duct strictures which were stented. She had repeat ERCP the following day, 04/16, for post-sphincterotomy bleed that was clipped, stent was patent and expanding well at that time. She was discharged on 04/21 and had follow up with Oncology, Dr. Radford, on 04/29 with recommendation to follow up in 2 weeks to begin chemo. The patient did not feel comfortable with chemo or radiation and cancelled her appointment. She was also seen by [facility] surgery and did not wish to consider surgical options. Per recommendation of a friend who is a retired MD, she started taking ivermectin and fenbendazole in May. Per the patient, her friend has obtained the medications for her from [facility]. About three days ago, she began feeling shaky and began feeling confused. She presented to [facility] ED yesterday because of her ongoing symptoms. She was found to be hypog lycemic. During her ED work up, initial labs included WBC 8.1, Tbili 6.2, Alk phos 319, AST 451 andALT 345. Per ED notes, US showed intraductal dilatation but stent in place. Stent appeared occludedon CT. Per transfer communication, CT also showed panc mass has doubled in size. She was transferred to [facility] for further evaluation and management. She is resting in bed, sleepy but alert and oriented. With prompting, she was able to stay awake during our conversation. She denies abdominal pain up until this morning when she has had some mild intermittent pain. She denies nausea and vomiting but does not some mild abdominal distention. She does have sclera icterus. She has temp of 104 overnight. She reports a15lb weight gain since her last admission in Apr. No Known Allergies Medications Prior to Admission Medication Sig Dispense Refill Last Dose/Taking aspirin 81 mg enteric coated tablet Take 1 tablet (81 mg total) by mouth daily atorvastatin (LIPITOR) 20 mg tablet Take 1 tablet (20 mg total) by mouth nightly at bedtime. DULoxetine DR (CYMBALTA) 60 mg capsule Take 1 capsule (60 mg total) by mouth daily enalapril (VASOTEC) 10 mg tablet Take 1 tablet (10 mg total) by mouth daily ergocalciferol (VITAMIN D) 50,000 unit capsule Take 1 capsule (50,000 Units total) by mouth once a week Friday eszopiclone (LUNESTA) 1 mg tablet Take 1 tablet (1 mg total) by mouth nightly Take immediately before bedtime ferrous sulfate 325 mg (65 mg of elemental iron) tablet Take 1 tablet (65 mg of elemental iron total) by mouth 2 (two) times a day glucagon 1 mg kit Inject 1 mg into the muscle once as directed by provider for low blood sugar. 1 kit 0 hydroCHLOROthiazide (MICROZIDE) 12.5 mg capsule Take 1 capsule (12.5 mg total) by mouth daily insulin glargine 100 unit/mL vial for injection Inject 12-22 Units under the skin 2 (two) times a day BS Less than or equal to 150 takes 12 units BS 151-200 takes 14 units BS 201-250 takes 16 units BS 251-300 takes 18 units BS 301-350 takes 20 units BS 351 or higher takes 22 units and call provider insulin lispro (HumaLOG, ADMELOG) 100 unit/mL vial for injection Inject under the skin 3 (three) times a day before meals 4 Units, subcutaneous, 3 times daily with meals, (plus blood glucose mg/dL 150-199: 1 unit, 200-249: 2 units, 250- 299: 3 units, 300-349: 4 units, 350 or greater: 5 units. Notifyprovider for blood glucose greater than 299 mg/dL. Max daily dose ) Refer to After Visit Summary for Sliding Scale Insulin Instructions. zinc acetate 25 mg (zinc) capsule Take 50 mg by mouth daily PMH: HLD, HTN, Diverticulitis, DM, Depression PSH: gastric sleeve 2014, left IF mass excision Social History: Tobacco: none Etoh: none Family History: Son - pancreatitis, Niece - Liver dx Review of Systems: Constitutional: 15lb weight gain in past 3 months ENT: + icterus, no vision change Skin: no rash, jaundice, or pruritis Cv: no sob, cp, palpitations Pulm: no cough, wheezing, hemoptysis Endo: + DM, no thyroid disease Neuro: no headache, dizziness, syncope, sz MS: no muscle/joint pain, no back pain, no LE edema : no dysuria, frequency, urgency, hematuria Heme: no h/o bleeding or clotting disorders, no blood thinners GI: as noted in HPI OBJECTIVE Vitals: Most Recent : Vitals: 07/23/24 0801 BP: Pulse: Resp: Temp: 36.7 ??C (98.1 ??F) SpO2: Physical Exam: General: awake and alert, sleepy HEENT: face symmetric, +icterus, no noted jaundice Lungs: CTA, bilaterally Cv: RRR, S1 S2 noted Abd: soft, slightly distended, non-tender Extr: no BLE edema Lab/Radiology/Diagnostic Review: Recent Results (from the past 24 hours) POCT glucose Collection Time: 07/23/24 5:01 AM Result Value Ref Range Glucose, POC 231 (H) 70 - 199 mg/dL POC Performer [id number] Sepsis Lactate w/ Reflex Collection Time: 07/23/24 5:54 AM Result Value Ref Range Sepsis Lactate 3.6 (H) 0.7 - 2.0 mmol/L POCT glucose Collection Time: 07/23/24 5:55 AM Result Value Ref Range Glucose, POC 245 (H) 70 - 199 mg/dL POC Performer [id number] Magnesium Collection Time: 07/23/24 6:12 AM Result Value Ref Range Magnesium 1.8 1.4 - 2.5 mg/dL Phosphorus Collection Time: 07/23/24 6:12 AM Result Value Ref Range Phosphorus, pl 2.0 (L) 2.3 - 4.5 mg/dL Lipase Collection Time: 07/23/24 6:12 AM Result Value Ref Range Lipase 26 10 - 99 Units/L Comprehensive metabolic panel Collection Time: 07/23/24 6:12 AM Result Value Ref Range Sodium 135 135 - 145 mmol/L Potassium, pl 3.8 3.3 - 4.9 mmol/L Chloride 101 97 - 110 mmol/L CO2 20 (L) 22 - 32 mmol/L Anion gap 14 2 - 15 mmol/L BUN 10 6 - 25 mg/dL Creatinine 0.44 (L) 0.60 - 1.10 mg/dL Glucose 226 (H) 70 - 199 mg/dL Calcium 8.9 8.5 - 10.3 mg/dL Bilirubin, total 7.0 (H) 0.1 - 1.2 mg/dL Protein, pl 6.2 (L) 6.5 - 8.5 g/dL Albumin 3.1 (L) 3.5 - 5.0 g/dL Alk phos 301 (H) 40 - 130 Units/L ALT 248 (H) 7 - 45 Units/L AST 221 (H) 10 - 45 Units/L eGFR Collection Time: 07/23/24 6:12 AM Result Value Ref Range eGFR >90 >=60 mL/min/1.73 m2 CRP (acute phase) Collection Time: 07/23/24 6:12 AM Result Value Ref Range CRP 92.9 (H) <=10.0 mg/L CBC with auto differential Collection Time: 07/23/24 6:35 AM Result Value Ref Range WBC 4.72 3.80 - 9.90 K/cumm Hgb 11.1 (L) 11.9 - 15.5 g/dL Hct 33.0 (L) 35.6 - 45.5 % Plt 115 (L) 150 - 400 K/cumm MPV 11.1 9.1 - 12.3 fL RBC 3.64 (L) 3.90 - 5.20 M/cumm MCV 90.7 81.3 - 96.4 fL MCH 30.5 27.1 - 33.3 pg MCHC 33.6 32.3 - 35.7 g/dL RDW CV 13.9 11.1 - 14.9 % RDW SD 46.2 35.7 - 48.1 fL NRBC abs 0.00 0.00 - 0.01 K/cumm Differential, auto Collection Time: 07/23/24 6:35 AM Result Value Ref Range Neutrophil abs 4.46 1.50 - 6.50 K/cumm Imm gran abs 0.02 0.00 - 0.10 K/cumm Lymphocyte abs 0.13 (L) 0.80 - 3.30 K/cumm Monocyte abs 0.07 (L) 0.20 - 0.80 K/cumm Eosinophil abs 0.03 0.00 - 0.50 K/cumm Basophil abs 0.01 0.00 - 0.10 K/cumm Neutrophil pct 94.5 % Imm gran pct 0.4 % Lymphocyte pct 2.8 % Monocyte pct 1.5 % Eosinophil pct 0.6 % Basophil pct 0.2 % Procalcitonin - Add on lab test Collection Time: 07/23/24 7:22 AM Result Value Ref Range Acceptable Yes POCT glucose Collection Time: 07/23/24 7:57 AM Result Value Ref Range Glucose, POC 238 (H) 70 - 199 mg/dL POC Performer [id number] Sepsis Lactate w/ Reflex Collection Time: 07/23/24 8:56 AM Result Value Ref Range Sepsis Lactate 1.1 0.7 - 2.0 mmol/L ASSESSMENT/PLAN 1. Elevated LFT's, concern for cholangitis 2. Known pancreatic CA 78 year old female dx with pancreatic CA in Apr 2024, presented to OSH with hypoglycemia. Upon workup, patient has elevated LFT's, OSH imaging with intraductal dilatation and possibly occluded stentdue to increased tumor burden concerning for cholangitis. (Imaging disk to radiology and being uploaded per RN) -WBC normal, Tmax 104.1 -Tbili 7, Alk phos 301, AST 221, ALT 248 -Lipase normal -initial lactate 3.6, repeat 1.1 -BC x 2 pending from 07/23 -on cefepime, flagyl, and vancomycin -supportive care including IVF's, antiemetics/analgesics prn -NPO -recommended to patient to d/c ivermectin and fenbendazole -plan for ERCP for stent exchange today. Reviewed procedure and stent management with patient, answered all questions. Patient agreeable. -recommend palliative care/hospice consult Prabha Danielle NP 07/23/2024 Cosigned by Torey Jiménez MD at 07/23/2024 6:10 PM CDT Associated attestation - Torey Jiménez MD - 07/23/2024 6:10 PM CDT I have seen and examined the patient on 07/23/24 in conjunction with the non- physician provider. History: 78yo F with PMH HL, HTN, Diverticulitis, DM, Depression, Locally advanced pancreatic cancer c/b biliary obstructiona nd biliary stent placement in 04/2024. Patient has opted for CAM care as opposed to chemo/radiation. Presents with choalngitis/sepsis/shock with altered mental status and fever. CT with significant disease progression. Plan for urgent ERCP for management of biliary obstruction Physical Exam: Jaundiced, icteric. Abomen soft. AAOx 4. Lab/Radiology/Diagnostics Review: Reviewed as ntoeda beth with obvious disease progression. No pneumobilia noted despite stent placement. Assessment/Plan Urgent ERCP. Pending this would recommend goals ofc are discussion. documented in this encounter Miscellaneous Notes * Provider Query - Wojciech Carrasco MD - 07/27/2024 4:22 PM CDT THIS IS A VALIDATION QUERY - ADDITIONAL CLINICAL INFORMATION NEEDED Based on the [facility] approved criteria for Encephalopathy (see below), verify if this documented diagnosis is still accurate. ___ Metabolic Encephalopathy ruled out ___ Metabolic Encephalopathy present and treated, document additional clinical indicators in provider response _X__ Other, specify below Additional Provider Response: Septic (not metabolic) encephalopathy Clinical Indicators/Treatments: 78 year old female admitted with sepsis secondary to cholangitis with occluded biliary stent and pancreatic adenocarcinoma 07/23 Rapid Response Team Event Note: - Subjective: VEGETABLE VENDOR was called 2/2 Rigors and AMS. RN reports patient was awake, alert, and speaking clearly. Then after some time, the patient became more confused and started shaking violently. Upon my arrival, patient found lying in hospital bed. Alert and oriented x2. - Physical Exam: Neurological: Mental Status: She is alert. She is confused. Assessment/Plan: Metabolic Encephalopathy - Suspect 2/2 sepsis - Avoid sedating medications - Encourage good day-night routine - Avoid overnight interruptions 07/23 Plan of Care Note: - Pt was initially A&O 4 and fully alert. Shortly after beginning admission process Pt began shaking and began spiking a fever and steadily became more lethargic. notified- see orders entered.Pt continued to become even more lethargic, VEGETABLE VENDOR called. Normal saline bolus and IV abx given per MAY. Temperature was noted to have risen to 104 F during VEGETABLE VENDOR, tylenol given and ice packs placed. Pt returned to being awake and alert and was able to complete admission questions. Treatment: IV fluid bolus, continuous IV fluids, IV antibiotic therapy, observation and exams References: From the ICD-10-CM Official Guidelines for Coding and Reporting, use of terms such as likely, suspected, possible, or probable (associated with a specific diagnosis that is being evaluated, monitored, or treated as if it exists) are acceptable and can be coded in the inpatient setting when documented at the time of discharge. Encephalopathy Encephalopathy The National Mims of Neurologic Disorders and Stroke (NINDS) of the NIH describes encephalopathy as ???any diffuse disease of the brain that alters brain function or structure?? . Encephalopathy may be acute (diffuse alteration in brain function due to systemic underlying cause,reversible and resolves when underlying cause is corrected, and without structural changes) or chronic (with structural changes, irreversible due to permanent brain damage, and may be generalized or focal) It is always regarded as the result of another disease or systemic illness Encephalopathy should only be documented in patients with global cerebral dysfunction. Simple confusion, lethargy, or somnolence is not encephalopathy Types: Metabolic: fever, dehydration, electrolyte imbalance, hypoglycemia, hypoxemia, infection, tumor, cerebral infarction, cerebral ischemia, mitochondrial dysfunction Toxic: due to drugs, poisonings, chemical imbalances, intoxication Toxic-Metabolic: combination of toxic and metabolic factors Septic: manifestation of severe sepsis Hepatic: neurologic impairment in patients with severe end-stage liver disease. Document acuity andpresence or absence of coma Hypoxic or anoxic: permanent chronic brain damage due to sustained hypoxia Hypoxic ischemic: applies to neonates only Hypertensive Traumatic: chronic traumatic encephalopathy Brain tumor, increased intracranial pressure Paraneoplastic Sleep or sensory deprivation Poor nutrition (including vitamin deficiencies such as Wernicke???s encephalopathy) The diagnosis of encephalopathy should warrant treatment of the underlying condition If etiology is not identified or if the patient???s mental status does not improve during hospitalization, encephalopathy is unlikely. If provider believes patient has encephalopathy in the absence of above clinical indicators, pleasedocument rationale and clinical impression in detail Encephalopathy References National Mims of Neurologic Disorders and Stroke. NINDS Encephalopathy Information Guide to Clinical Validation, Documentation and Coding, 2019 Edition, [employer] 360 Neurocritical Care Society Practice Update 2013: Metabolic Encephalopathies and Delirium Steven Keenan MD, FACP, CCS and Lawanda Maria, CCS 2017 CDI Pocket, Guide pages 84-86. Gavin Keenan., & iT Maria (2016). 2017 CDI Pocket Guide 2012 [place], [place]., [address], [address], [place] [address]. [phone]. [employer]. ???Acute Inpatient PPS.?? Centers for Medicare and Medicaid Services. Accessed 04/19/17. https://www.cms.gov/Medicare/Medicare-Fee-for-Service- Payment/AcuteInpatientPPS/index.html <https://www.cms.gov/Medicare/Medicare-Fee-for- Service-Payment/AcuteInpatientPPS/index.html> [employer] [place] [employer]. Diagnostic and statistical manual of mental disorders (5th ed.). [place], [place]: [employer], 2013. ???Details for title: 2017 Final Rule and Correction Notice Tables.?? Centers for Medicare and Medicaid Services Accessed 04/19/17. https://www.cms.gov/Medicare/Medicare-Fee-for-Service- Payment/AcuteInpatientPPS/QO2885-QVUZ-Gbbtg-Xvgo-Zmcm-Ryhf-Aylil/RL3926-FHKF-Xjk al- Rule-Tables.html <https://www.cms.gov/Medicare/Medicare-Fee-for-Service- Payment/AcuteInpatientPPS/JU9191-JSWM-Vzyxs-By> . ???Encephalopathy Information Page.?? National Mims of Neurologic Disorders and Stroke. Accessed on 04/19/17. https://www.ninds.nih.gov/Disorders/All-Disorders/Encephalopathy- Information-Page <https://www.ninds.nih.gov/Disorders/All-Disorders/Encephalopathy- Information-Page> . The ICD-10 Classification of Mental and Behavioural Disorders: Clinical Descriptions and Diagnostic Guidelines. [place]: World Health Organization, 1991. http://apps.who.int/iris/handle/65981/75178. http://apps.who.int/iris/handle/40315/45851. This documentation will become part of the patient's medical record. Sincerely, Lilian Laura RN Clinical Bending Press Operator [email or web address] Plan of Care - Michaela Paulino RN - 07/27/2024 2:11 PM CDT Problem: Lack of Knowledge Goal: Ability to develop a pain control plan will improve Outcome: Adequate for Discharge Problem: Medication Goal: Satisfaction with pain management medication regimen will improve Outcome: Adequate for Discharge Problem: Sensory Goal: Ability to identify factors that increase pain levels will improve while working to decrease the patient's pain levels Outcome: Adequate for Discharge Problem: Coping Goal: Ability to cope will improve Outcome: Adequate for Discharge Problem: Health Behavior Goal: Identification of resources available to assist in meeting health care needs will improve Outcome: Adequate for Discharge Problem: Discharge Planning Goal: Understanding discharge needs will improve Outcome: Adequate for Discharge Problem: Neurosensory Goal: Achieves stable or improved neurological status Outcome: Adequate for Discharge Goal: Achieves maximal functionality and self care Outcome: Adequate for Discharge Problem: Respiratory Goal: Achieves optimal ventilation and oxygenation Outcome: Adequate for Discharge Problem: Cardiovascular Goal: Maintains optimal cardiac output and hemodynamic stability Outcome: Adequate for Discharge Goal: Absence of cardiac dysrhythmias or at baseline Outcome: Adequate for Discharge Problem: Skin/Tissue Integrity Goal: Skin integrity remains intact Outcome: Adequate for Discharge Problem: Musculoskeletal Goal: Return mobility to safest level of function Outcome: Adequate for Discharge Goal: Ability to perform activities at highest level will improve Outcome: Adequate for Discharge Goal: Mobility, ROM and muscle strength will improve Outcome: Adequate for Discharge Problem: Gastrointestinal Goal: Minimal or absence of nausea and vomiting Outcome: Adequate for Discharge Goal: Maintains or returns to baseline bowel function Outcome: Adequate for Discharge Goal: Maintains adequate nutritional intake Outcome: Adequate for Discharge Problem: Genitourinary Goal: Absence of urinary retention Outcome: Adequate for Discharge Problem: Infection Goal: Absence of infection during hospitalization Outcome: Adequate for Discharge Problem: Metabolic/Fluid and Electrolytes Goal: Electrolytes maintained within normal limits Outcome: Adequate for Discharge Goal: Hemodynamic stability and optimal renal function maintained Outcome: Adequate for Discharge Goal: Glucose maintained within prescribed range Outcome: Adequate for Discharge Problem: Hematologic Goal: Maintains hematologic stability Outcome: Adequate for Discharge Problem: Isolation Lack of Knowledge Goal: Knowledge of risk factors and measures for prevention of condition will improve Outcome: Adequate for Discharge Problem: Isolation Physical Regulation Goal: Isolation- Spread of further infection will be prevented Outcome: Adequate for Discharge Goal: Isolation- Complications related to the disease process, condition, or treatment will be avoided or minimized. Outcome: Adequate for Discharge Goals: Clinical Goals for the Shift: Vss, abx, fall precautions, promote rest & safety, bed alarm on [employer] Patient Centered Goal for Treatment: \ Nursing to Nursing Communication DIRK: Expected Discharge Date Expected Discharge Date July 27, 2024 DC Transport barriers: No PT/OT orders: No CM anticipated level of care: Anticipated discharge level of care: Private residence Mobility Barriers (i.e patient refusal, surgical restrictions, safety concerns, etc.): Lines/Drains: Last BM: Last BM Date: 07/26/24 Medical Barriers: Incomplete Orders/Imaging/Consults: Significant events over the last shift: VSS. Denies pain or discomfort. Patient seen by Dr. Carrasco ad approved to d/c. IV d/c. [facility] in the patient's room. Discuss discharge paper work with patient and patient verbalizes understanding. Copy of discharge paper work given to patient. Patient's sister and will take patient home. * Plan of Care - Juan Cevallos, MIRYAM - 07/27/2024 10:45 AM CDT 07/27/24 1045 Discharge Summary Discharge Disposition Private residence Recommended Discharge Level of Care Private residence Actual Discharge Level of Care Private residence Does Actual Level of Care Match Care Team Recommendation? Yes Post Acute Care Plan Post Acute Care Needs Identified No Discharge Additional Assistance Does the patient need discharge transport arranged? No (family) Home with family, family transport. * Plan of Care - Marita Bojorquez RN - 07/27/2024 5:37 AM CDT Problem: Lack of Knowledge Goal: Ability to develop a pain control plan will improve Outcome: Ongoing Problem: Sensory Goal: Ability to identify factors that increase pain levels will improve while working to decrease the patient's pain levels Outcome: Ongoing Problem: Health Behavior Goal: Identification of resources available to assist in meeting health care needs will improve Outcome: Ongoing Problem: Neurosensory Goal: Achieves stable or improved neurological status 07/27/2024535 by Marita Bojorquez RN Outcome: Ongoing 07/27/2024534 by Marita Bojorquez RN Outcome: Progressing Goal: Achieves maximal functionality and self care 07/27/2024535 by Marita Bojorquez RN Outcome: Ongoing 07/27/2024534 by Marita Bojorquez RN Outcome: Progressing Problem: Respiratory Goal: Achieves optimal ventilation and oxygenation Outcome: Ongoing Problem: Cardiovascular Goal: Maintains optimal cardiac output and hemodynamic stability Outcome: Ongoing Goal: Absence of cardiac dysrhythmias or at baseline Outcome: Ongoing Problem: Musculoskeletal Goal: Ability to perform activities at highest level will improve 07/27/2024535 by Marita Bojorquez RN Outcome: Ongoing 07/27/2024534 by Marita Bojorquez RN Outcome: Progressing Goal: Mobility, ROM and muscle strength will improve 07/27/2024535 by Marita Bojorquez RN Outcome: Ongoing 07/27/2024534 by Marita Bojorquez RN Outcome: Progressing Problem: Gastrointestinal Goal: Minimal or absence of nausea and vomiting Outcome: Ongoing Goal: Maintains or returns to baseline bowel function Outcome: Ongoing Goal: Maintains adequate nutritional intake Outcome: Ongoing Problem: Genitourinary Goal: Absence of urinary retention Outcome: Ongoing Problem: Infection Goal: Absence of infection during hospitalization Outcome: Ongoing Problem: Metabolic/Fluid and Electrolytes Goal: Electrolytes maintained within normal limits Outcome: Ongoing Goal: Hemodynamic stability and optimal renal function maintained Outcome: Ongoing Goal: Glucose maintained within prescribed range Outcome: Ongoing Problem: Hematologic Goal: Maintains hematologic stability Outcome: Ongoing Problem: Isolation Lack of Knowledge Goal: Knowledge of risk factors and measures for prevention of condition will improve Outcome: Ongoing Problem: Isolation Physical Regulation Goal: Isolation- Spread of further infection will be prevented Outcome: Ongoing Goal: Isolation- Complications related to the disease process, condition, or treatment will be avoided or minimized. Outcome: Ongoing Problem: Medication Goal: Satisfaction with pain management medication regimen will improve Outcome: Progressing Problem: Coping Goal: Ability to cope will improve 07/27/2024535 by Marita Bojorquez RN Outcome: Progressing 07/27/2024534 by Marita Bojorquez RN Outcome: Progressing Problem: Discharge Planning Goal: Understanding discharge needs will improve Outcome: Progressing Problem: Skin/Tissue Integrity Goal: Skin integrity remains intact 07/27/2024535 by Marita Bojorquez RN Outcome: Progressing 07/27/2024534 by Marita Bojorquez RN Outcome: Progressing Problem: Musculoskeletal Goal: Return mobility to safest level of function 07/27/2024535 by Marita Bojorquez RN Outcome: Progressing 07/27/2024534 by Marita Bojorquez RN Outcome: Progressing Goals: Clinical Goals for the Shift: Vss, abx, fall precautions, promote rest & safety, bed alarm on Custodial Patient Centered Goal for Treatment: \ Summary: Nursing to Nursing Communication DIRK: Expected Discharge Date Expected Discharge Date July 26, 2024 DC Transport barriers: No PT/OT orders: No CM anticipated level of care: Anticipated discharge level of care: Private residence Mobility Barriers (i.e patient refusal, surgical restrictions, safety concerns, etc.): no Lines/Drains: Peripheral IV 07/24/24 20 G Posterior;Right Forearm (Active) Last BM: Last BM Date: 07/26/24 Medical Barriers: IV medications Incomplete Orders/Imaging/Consults: awaiting final results of blood cultures Significant events over the last shift: no * Plan of Care - Michaela Paulino RN - 07/26/2024 3:11 PM CDT Problem: Lack of Knowledge Goal: Ability to develop a pain control plan will improve Outcome: Ongoing Problem: Medication Goal: Satisfaction with pain management medication regimen will improve Outcome: Ongoing Problem: Sensory Goal: Ability to identify factors that increase pain levels will improve while working to decrease the patient's pain levels Outcome: Ongoing Problem: Coping Goal: Ability to cope will improve Outcome: Ongoing Problem: Health Behavior Goal: Identification of resources available to assist in meeting health care needs will improve Outcome: Ongoing Problem: Discharge Planning Goal: Understanding discharge needs will improve Outcome: Ongoing Problem: Respiratory Goal: Achieves optimal ventilation and oxygenation Outcome: Ongoing Problem: Cardiovascular Goal: Maintains optimal cardiac output and hemodynamic stability Outcome: Ongoing Goal: Absence of cardiac dysrhythmias or at baseline Outcome: Ongoing Problem: Skin/Tissue Integrity Goal: Skin integrity remains intact Outcome: Ongoing Problem: Musculoskeletal Goal: Return mobility to safest level of function Outcome: Ongoing Goal: Ability to perform activities at highest level will improve Outcome: Ongoing Goal: Mobility, ROM and muscle strength will improve Outcome: Ongoing Problem: Gastrointestinal Goal: Minimal or absence of nausea and vomiting Outcome: Ongoing Goal: Maintains or returns to baseline bowel function Outcome: Ongoing Goal: Maintains adequate nutritional intake Outcome: Ongoing Problem: Genitourinary Goal: Absence of urinary retention Outcome: Ongoing Problem: Infection Goal: Absence of infection during hospitalization Outcome: Ongoing Problem: Metabolic/Fluid and Electrolytes Goal: Electrolytes maintained within normal limits Outcome: Ongoing Goal: Hemodynamic stability and optimal renal function maintained Outcome: Ongoing Goal: Glucose maintained within prescribed range Outcome: Ongoing Problem: Hematologic Goal: Maintains hematologic stability Outcome: Ongoing Problem: Isolation Lack of Knowledge Goal: Knowledge of risk factors and measures for prevention of condition will improve Outcome: Ongoing Problem: Isolation Physical Regulation Goal: Isolation- Spread of further infection will be prevented Outcome: Ongoing Goal: Isolation- Complications related to the disease process, condition, or treatment will be avoided or minimized. Outcome: Ongoing Goals: Clinical Goals for the Shift: Vss, abx, fall precautions, promote rest & safety, bed alarm on [employer] Patient Centered Goal for Treatment: \ Nursing to Nursing Communication DIRK: Expected Discharge Date Expected Discharge Date July 26, 2024 DC Transport barriers: No PT/OT orders: No CM anticipated level of care: Anticipated discharge level of care: Private residence Mobility Barriers (i.e patient refusal, surgical restrictions, safety concerns, etc.): Lines/Drains: Peripheral IV 07/24/24 20 G Posterior;Right Forearm (Active) Last BM: Last BM Date: 07/24/24 Medical Barriers: IV medications Incomplete Orders/Imaging/Consults: Significant events over the last shift: VSS. Denies pain or discomfort. IV Abx given per MAR. Patient seen by Dr. Martinez, Potassium Level low and replace. Patient comfortably in bed. Bed alarm on and call light in reach. Family visiting at bedside. * Plan of Care - Catrina Donis RN - 07/25/2024 6:22 PM CDT Goals: Clinical Goals for the Shift: vss, abx, fall precaution, comfort, rest [employer] Patient Centered Goal for Treatment: \ Summary: vss. Patient pleasant in room. No c/o pain. On contact precaution. Iv abx. Call light within reach. Problem: Lack of Knowledge Goal: Ability to develop a pain control plan will improve Outcome: Progressing Problem: Medication Goal: Satisfaction with pain management medication regimen will improve Outcome: Progressing Problem: Sensory Goal: Ability to identify factors that increase pain levels will improve while working to decrease the patient's pain levels Outcome: Progressing Problem: Coping Goal: Ability to cope will improve Outcome: Progressing Problem: Health Behavior Goal: Identification of resources available to assist in meeting health care needs will improve Outcome: Progressing * Plan of Care - Jessica Donovan RN - 07/24/2024 6:24 PM CDT Goals: Clinical Goals for the Shift: VSS, IV abx, repeat BC, monitor BG Summary: VSS on RA. IV abx continued. Blood cultures redrawn. Pt up several times to the rest room. Pt advanced diet from clears to consistent carb. Pt has been eating <25% of meals, but states she is feeling well. BG checks continued. Prandial added too. Problem: Lack of Knowledge Goal: Ability to develop a pain control plan will improve 07/24/2024 1824 by Jessica Donovan RN Outcome: Progressing 07/24/2024 1557 by Jessica Donovan RN Outcome: Progressing Problem: Medication Goal: Satisfaction with pain management medication regimen will improve 07/24/20241823 by Jessica Donovan RN Outcome: Progressing 07/24/2024 1557 by Jessica Donovan RN Outcome: Progressing Problem: Sensory Goal: Ability to identify factors that increase pain levels will improve while working to decrease the patient's pain levels 07/24/20241823 by Jessica Donovan RN Outcome: Progressing 07/24/2024 1557 by Jessica Donovan RN Outcome: Progressing Problem: Coping Goal: Ability to cope will improve 07/24/20241823 by Jessica Donovan RN Outcome: Progressing 07/24/20241556 by Jessica Donovan RN Outcome: Progressing * Plan of Jayson - Marita Bojorquez RN - 07/24/2024 4:59 AM CDT Problem: Lack of Knowledge Goal: Ability to develop a pain control plan will improve Outcome: Ongoing Problem: Medication Goal: Satisfaction with pain management medication regimen will improve Outcome: Ongoing Problem: Sensory Goal: Ability to identify factors that increase pain levels will improve while working to decrease the patient's pain levels Outcome: Ongoing Problem: Coping Goal: Ability to cope will improve Outcome: Ongoing Problem: Health Behavior Goal: Identification of resources available to assist in meeting health care needs will improve Outcome: Ongoing Problem: Discharge Planning Goal: Understanding discharge needs will improve Outcome: Ongoing Problem: Neurosensory Goal: Achieves stable or improved neurological status Outcome: Ongoing Goal: Achieves maximal functionality and self care Outcome: Ongoing Problem: Respiratory Goal: Achieves optimal ventilation and oxygenation Outcome: Ongoing Problem: Cardiovascular Goal: Maintains optimal cardiac output and hemodynamic stability Outcome: Ongoing Goal: Absence of cardiac dysrhythmias or at baseline Outcome: Ongoing Problem: Skin/Tissue Integrity Goal: Skin integrity remains intact Outcome: Ongoing Problem: Musculoskeletal Goal: Return mobility to safest level of function Outcome: Ongoing Goal: Ability to perform activities at highest level will improve Outcome: Ongoing Goal: Mobility, ROM and muscle strength will improve Outcome: Ongoing Problem: Gastrointestinal Goal: Minimal or absence of nausea and vomiting Outcome: Ongoing Goal: Maintains or returns to baseline bowel function Outcome: Ongoing Goal: Maintains adequate nutritional intake Outcome: Ongoing Problem: Genitourinary Goal: Absence of urinary retention Outcome: Ongoing Problem: Infection Goal: Absence of infection during hospitalization Outcome: Ongoing Problem: Metabolic/Fluid and Electrolytes Goal: Electrolytes maintained within normal limits Outcome: Ongoing Goal: Hemodynamic stability and optimal renal function maintained Outcome: Ongoing Goal: Glucose maintained within prescribed range Outcome: Ongoing Problem: Hematologic Goal: Maintains hematologic stability Outcome: Ongoing Goals: Clinical Goals for the Shift: Vss, abx, fall precautions, promote rest, comfort, & safety, bed alarm on Summary: Nursing to Nursing Communication DIRK: Expected Discharge Date Expected Discharge Date July 26, 2024 DC Transport barriers: No PT/OT orders: No CM anticipated level of care: Anticipated discharge level of care: Private residence Mobility Barriers (i.e patient refusal, surgical restrictions, safety concerns, etc.): SBA, steady Lines/Drains: Peripheral IV 04/16/24 20 G Anterior;Distal;Right Forearm (Active) Peripheral IV 07/22/24 Anterior;Right Forearm (Active) Last BM: Last BM Date: 07/23/24 Medical Barriers: IV medications Incomplete Orders/Imaging/Consults: no Significant events over the last shift: no * Plan of Care - Ludmila Lowery RN - 07/23/2024 7:50 PM CDT Problem: Infection Goal: Absence of infection during hospitalization Outcome: Ongoing Problem: Lack of Knowledge Goal: Ability to develop a pain control plan will improve Outcome: Progressing Problem: Medication Goal: Satisfaction with pain management medication regimen will improve Outcome: Progressing Problem: Sensory Goal: Ability to identify factors that increase pain levels will improve while working to decrease the patient's pain levels Outcome: Progressing Problem: Coping Goal: Ability to cope will improve Outcome: Progressing Problem: Health Behavior Goal: Identification of resources available to assist in meeting health care needs will improve Outcome: Progressing Problem: Discharge Planning Goal: Understanding discharge needs will improve Outcome: Progressing Problem: Neurosensory Goal: Achieves stable or improved neurological status Outcome: Progressing Goal: Achieves maximal functionality and self care Outcome: Progressing Problem: Respiratory Goal: Achieves optimal ventilation and oxygenation Outcome: Progressing Problem: Cardiovascular Goal: Maintains optimal cardiac output and hemodynamic stability Outcome: Progressing Goal: Absence of cardiac dysrhythmias or at baseline Outcome: Progressing Problem: Skin/Tissue Integrity Goal: Skin integrity remains intact Outcome: Progressing Problem: Musculoskeletal Goal: Return mobility to safest level of function Outcome: Progressing Goal: Ability to perform activities at highest level will improve Outcome: Progressing Goal: Mobility, ROM and muscle strength will improve Outcome: Progressing Problem: Gastrointestinal Goal: Minimal or absence of nausea and vomiting Outcome: Progressing Goal: Maintains or returns to baseline bowel function Outcome: Progressing Goal: Maintains adequate nutritional intake Outcome: Progressing Problem: Genitourinary Goal: Absence of urinary retention Outcome: Progressing Problem: Metabolic/Fluid and Electrolytes Goal: Electrolytes maintained within normal limits Outcome: Progressing Goal: Hemodynamic stability and optimal renal function maintained Outcome: Progressing Goal: Glucose maintained within prescribed range Outcome: Progressing Problem: Hematologic Goal: Maintains hematologic stability Outcome: Progressing Goals: Clinical Goals for the Shift: VSS, NPO, BGs WNL, remain free from falls, promote comfort and rest Nursing to Nursing Communication DIRK: Expected Discharge Date Expected Discharge Date July 26, 2024 DC Transport barriers: No PT/OT orders: No CM anticipated level of care: Anticipated discharge level of care: Private residence Mobility Barriers (i.e patient refusal, surgical restrictions, safety concerns, etc.): N/A Lines/Drains: Peripheral IV 04/16/24 20 G Anterior;Distal;Right Forearm (Active) Peripheral IV 07/22/24 Anterior;Right Forearm (Active) Last BM: Last BM Date: 07/23/24 Medical Barriers: IV medications Incomplete Orders/Imaging/Consults: N/A Significant events over the last shift: ERCP w/ stent replacement Summary: VSS. Remained afebrile today. IV abx given per MAY. ERCP completed today. BGs WNL. Family visiting at bedside throughout the day. * Initial Assessments - Juan Cevallos, RN - 07/23/2024 1:48 PM CDT CM Initial Assessment Interview Note Information Obtained From: Patient (07/23/24 8945) Admission Source: private residence Impression: CM will continue to follow clinical progression and assist as needed with discharge coordination. Plan Includes: The patient plans to return home with spouse, family will provide transportation. Additional Information: CM completed assessment with patient, verified information. Explained role of case coordination. The patient resides in a private residence with her spouse. The patient is independent with ADLs/IADLs. The patient does not use durable medical equipment at home currently. The [facility] not [facility]. Primary Source of Transportation: Does the patient need discharge transport arranged?: No (family member) (07/23/241346) Health Insurance Coverage: [employer] Medicare Prescription Coverage: yes Pharmacy: [facility] - [place], [place] - [address] [facility] [address] [facility] [id number] [id number] [place], [place] - [address] AT [address] [facility] [id number] Primary Care Provider: Brittni Guardado DO Prior to Admission: Functional Status: Independent with ADLs Primary Caregiver: Self Support System: Spouse/Significant Other, Family members Home Care Services: No Durable Medical Equipment: None Living Arrangements: Spouse/significant other Type of Residence: Private residence (07/23/241346) SDOH: Transportation: In the past 12 months, has lack of transportation kept you from medical appointments or from getting medications?: No In the past 12 months, has lack of transportation kept you from meetings, work, or from getting things needed for daily living?: No (07/23/241347) Financial Resource: How hard is it for you to pay for the very basics like food, housing, medical care, and heating?: Not very hard (07/23/241347) Housing: In the last 12 months, was there a time when you were not able to pay the mortgage or rent on time?: No In the past 12 months, how many times have you moved where you were living?: 0 At any time in the past 12 months, were you homeless or living in a fpc (including now)?: No (07/23/241347) Utilities: No, (07/23/241347) Social Connections: In a typical week, how many times do you talk on the phone with family, friends, or neighbors?: More than three times a week How often do you get together with friends or relatives?: More than three times a week How often do you attend jew or roman catholic services?: More than 4 times per year Do you belong to any clubs or organizations such as jew groups, unions, fraternal or athletic groups, or school groups?: No How often do you attend meetings of the clubs or organizations you belong to?: Never Are you , , , , never , or living with a partner?: (07/23/241347) Food Insecurity: Within the past 12 months, you worried that your food would run out before you got the money to buymore.: Never true Within the past 12 months, the food you bought just didn't last and you didn't have money to get more.: Never true (07/23/241347) Behavioral Health Services: Anticipated Level of Care: Anticipated discharge level of care: Private residence Pt/Family agrees with Anticipated Level of Care: Yes (07/23/241346) Patient expects to be Discharged to: Private residence, (07/23/241346) Patient's Identified Problem/Goal Problem: Ensure acute medical needs are met and that patient has a safe discharge plan. Goal: Secure a discharge plan that patient/family are agreeable with and ensure patient has continuum of care. Case management will follow for discharge planning and send referrals as needed. Juan Cevallos RN, CM * Plan of Care - Michael Sy RN - 07/23/2024 7:59 AM CDT Problem: Lack of Knowledge Goal: Ability to develop a pain control plan will improve Outcome: Ongoing Problem: Medication Goal: Satisfaction with pain management medication regimen will improve Outcome: Ongoing Problem: Sensory Goal: Ability to identify factors that increase pain levels will improve while working to decrease the patient's pain levels Outcome: Ongoing Problem: Coping Goal: Ability to cope will improve Outcome: Ongoing Problem: Health Behavior Goal: Identification of resources available to assist in meeting health care needs will improve Outcome: Ongoing Problem: Discharge Planning Goal: Understanding discharge needs will improve Outcome: Ongoing Problem: Neurosensory Goal: Achieves stable or improved neurological status Outcome: Ongoing Goal: Achieves maximal functionality and self care Outcome: Ongoing Problem: Respiratory Goal: Achieves optimal ventilation and oxygenation Outcome: Ongoing Problem: Cardiovascular Goal: Maintains optimal cardiac output and hemodynamic stability Outcome: Ongoing Goal: Absence of cardiac dysrhythmias or at baseline Outcome: Ongoing Problem: Skin/Tissue Integrity Goal: Skin integrity remains intact Outcome: Ongoing Problem: Musculoskeletal Goal: Return mobility to safest level of function Outcome: Ongoing Goal: Ability to perform activities at highest level will improve Outcome: Ongoing Goal: Mobility, ROM and muscle strength will improve Outcome: Ongoing Problem: Gastrointestinal Goal: Minimal or absence of nausea and vomiting Outcome: Ongoing Goal: Maintains or returns to baseline bowel function Outcome: Ongoing Goal: Maintains adequate nutritional intake Outcome: Ongoing Problem: Genitourinary Goal: Absence of urinary retention Outcome: Ongoing Problem: Infection Goal: Absence of infection during hospitalization Outcome: Ongoing Problem: Metabolic/Fluid and Electrolytes Goal: Electrolytes maintained within normal limits Outcome: Ongoing Goal: Hemodynamic stability and optimal renal function maintained Outcome: Ongoing Goal: Glucose maintained within prescribed range Outcome: Ongoing Problem: Hematologic Goal: Maintains hematologic stability Outcome: Ongoing Goals: Clinical Goals for the Shift: Hominy to unit, VSS, labs, comfort, rest, safety Summary: Pt arrived via EMS and was oriented to the unit. Pt was initially A&O 4 and fully alert. Shortly after beginning admission process Pt began shaking and began spiking a fever and steadilybecame more lethargic. MD notified- see orders entered. RN requested help to expedite getting labs and completing orders, Pt continued to become even more lethargic, VEGETABLE VENDOR called. Normal saline bolus and IV abx given per MAR. Temperature was noted to have risen to 104 F during VEGETABLE VENDOR, tylenol given and ice packs placed. Please see flow sheets and MAR for further details. Pt returned to being awake andalert and was able to complete admission questions. Pt resting in bed. Nursing to Nursing Communication DIRK: DC Transport barriers: No PT/OT orders: No CM anticipated level of care: Mobility Barriers (i.e patient refusal, surgical restrictions, safety concerns, etc.): none Lines/Drains: Peripheral IV 04/16/24 20 G Anterior;Distal;Right Forearm (Active) Peripheral IV 07/23/24 18 G Anterior;Left;Proximal Forearm (Active) Peripheral IV 07/22/24 Anterior;Right Forearm (Active) Last BM: Last BM Date: 07/21/24 (Pt stated 2 days) Medical Barriers: IV medications Incomplete Orders/Imaging/Consults: hospitalist/oncology Significant events over the last shift: Admission, VEGETABLE VENDOR * Significant Event - Ernesto Conrad PA - 07/23/2024 6:13 AM CDT Rapid Response Team Event Note Reason for VEGETABLE VENDOR: shivering, AMS Time Called: 0550 Time Arrived: 0558 SUBJECTIVE BRIEF HX: Patient is a 78 y.o. 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 Patient arrived at [facility] on 07/22 presented for hypoglycemia and concerning image find ings. Patient has not been seen by the hospitalist service yet. VEGETABLE VENDOR was called 2/2 Rigors and AMS. RN reports patient was awake, alert, and speaking clearly. Then after some time, the patient became more confused and started shaking violently. BG checked and noted in 200s. Upon my arrival, patient found lying in hospital bed. Alert and oriented x2. Warm to the touch. Reports no chest pain, shortness of breath, and abdominal pain. Reports recent dark/black stools and limited PO intake. Admits to preferring natural treatments over chemotherapy/surgery, opting for treatment with ivermectin and fenbendazole. No past medical history on file. No Known Allergies Objective: VS: Vitals: 07/23/24 0603 BP: Pulse: Resp: Temp: (!) 40.1 ??C (104.1 ??F) SpO2: Physical Exam HENT: Head: Normocephalic. Nose: Nose normal. Mouth/Throat: Mouth: Mucous membranes are moist. Pharynx: Oropharynx is clear. Eyes: General: Scleral icterus present. Extraocular Movements: Extraocular movements intact. Pupils: Pupils are equal, round, and reactive to light. Cardiovascular: Rate and Rhythm: Regular rhythm. Tachycardia present. Pulses: Normal pulses. Heart sounds: Normal heart sounds. Pulmonary: Effort: Pulmonary effort is normal. Breath sounds: Normal breath sounds. Abdominal: General: There is distension. Palpations: Abdomen is soft. Musculoskeletal: General: Normal range of motion. Cervical back: Normal range of motion. Right lower leg: No edema. Left lower leg: No edema. Skin: Coloration: Skin is jaundiced. Neurological: General: No focal deficit present. Mental Status: She is alert. She is confused. Diagnostics: The most recent pertinent labs and imaging for this patient have been reviewed. EKG: Afib (HRs: 90-110's) Assessment/Plan: 78 yo female with history of pancreatic mass presented to OSH for AMS. Possible sepsis, workup initatied at [facility]. VEGETABLE VENDOR called to AMS and rigors. PRN tylenol given, 30cc/kg IVF resuscitation, and labs ordered. Blood cx obtained, abx started. Back to baseline prior to my departure. Mildly tachycardic,BP stable. Neuro: #Anxiety/depression -CARPET YARN WINDER OPERATOR lunesta, cymbalta #Metabolic Encephalopathy -Suspect 2/2 sepsis -Avoid sedating medications -Encourage good day-night routine -Avoid overnight interruptions Cardiac: #Sinus tachycardia -Reflex from sepsis -Getting 2L NS bolus -30cc/kg sepsis fluid resuscitation #HTN -CARPET YARN WINDER OPERATOR HCTZ, enalapril #HLD -CARPET YARN WINDER OPERATOR Lipitor -hold 2/2 transaminitis Pulm: -on Room air -No acute distress GI: #Pancreatic Adenocarcinoma -Followed by Dr. Radford -Declining surgical intervention -Taking Ivermectin, fenbendazole currently -From OSH CT, mass has doubled in size -Recommend repeat CT abd/pelvis or obtaining images for OSH for further investigation -IP consult oncology #Painless jaundice -ERCP and EUS on 04/15- -Metal stent placed in CBD -From OSH CT, reportedly stent is occluded -IP consult GI-Biliary for possible ERCP -Keep NPO #Black/Dark stools -07/10-07/15 -Reports normal colored BMs more recently -On Iron PO tablets -Continue to monitor -Trend Hgb Renal/lytes: -Replete electrolytes as needed -Monitor I/Os -Recommend purewick 2/2 IVF resuscitation Endo: #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 -A1c:6.7 -Start SSI -q4h Acc-checks, currently NPO ID: #Sepsis -Rigors, tachycardia, and fevers -suspect intra-abdominal -Cefepime q8h, vanc q12 D1 -blood culture pending -Markers: CRP elevated: 92.9, Lactate: 3.6 -Trend lactate after IVF resuscitation Heme: -Monitor for signs of anemia MSK/Trauma: -GELACIO Code Status: Full Code F(Feeding):NPO A(Analgesia): PRN tylenol S(Sedation):NA T(Thromboembolic prophylaxis):Heparin q8h 5000U H(Head of Bed Elevation):30 degrees noted U(Stress ulcer prophylaxis):not indicated G(Glycemic control): SSI and q4h accuchecks S(Spontaneous breathing trial): n/a B(Bowel Regimen): PRN miralax I (Indwelling lines/catheter, removal): PIVs D(De-escalation of antibiotics):not indicated Discussed/informed Dr. Martinez. No acute indications for ICU transfer. Critical Care Time: 60 minutes of critical care time went into the care and coordination of this patient separate of any other billable procedures. Transferred to higher level of care: Stable to remain on current floor Time Event Ended: 735 LEYDI Ngo documented in this encounter Plan of Treatment Pending Results Name Type Priority Associated Diagnoses Date/Time CRP (acute phase) Lab Routine 025 6:12 AM CDT FL ERCP Endo Imaging Procedure IP Routine Cholangitis (HCC) Malignant neoplasm of head of pancreas (HCC) 07/23/2024 5:24 PM CDT Procalcitonin Lab Routine 07/23/2024 6:12 AM CDT Blood culture Blood Microbiology Routine 12:17 PM CDT Blood culture Blood Microbiology Routine 3:06 PM CDT Scheduled Orders Name Type Priority Associated Diagnoses Orde r Schedule CRP (acute phase) Lab Routine Once fo r 1 Occurrences starting 07/23/2024 until 07/23/2024 Procalcitonin Lab Routine Once for 1 Occurrences starting 07/23/2024 until 07/23/2024 documented as of this encounter Procedures Procedure Name Priority Date/Time Associated Diagnosis Comments POCT GLUCOSE DEVICE Routine 07/27/2024 1 1:34 AM CDT POCT GLUCOSE DEVICE Routine 07/27/2024 7 :18 AM CDT EGFR Routine 07/27/2024 7:09 AM CDT DIFFERENTIAL AUTO Routine 07/27/2024 7:0 9 AM CDT CBC WITH AUTO DIFFERENTIAL Routine 07/27/2024 7:09 AM CDT COMPREHENSIVE METABOLIC PANEL Routine 07/27/2024 7:09 AM CDT POCT GLUCOSE DEVICE Routine 07/26/2024 9 :33 PM CDT POCT GLUCOSE DEVICE Routine 07/26/2024 4 :23 PM CDT POCT GLUCOSE DEVICE Routine 07/26/2024 1 1:45 AM CDT URINALYSIS AND REFLEX TO MICROSCOPIC AND CULTURE STAT 07/26/2024 7:24 AM CDT POCT GLUCOSE DEVICE Routine 07/26/2024 7 :24 AM CDT EGFR Routine 07/26/2024 6:01 AM CDT DIFFERENTIAL AUTO Routine 07/26/2024 6:0 1 AM CDT CBC WITH AUTO DIFFERENTIAL Routine 07/26/2024 6:01 AM CDT VANCOMYCIN LEVEL TROUGH Timed 07/26/2024 6:01 AM CDT COMPREHENSIVE METABOLIC PANEL Routine 07/26/2024 6:01 AM CDT POCT GLUCOSE DEVICE Routine 07/25/2024 1 0:49 PM CDT POCT GLUCOSE DEVICE Routine 07/25/2024 5 :01 PM CDT POCT GLUCOSE DEVICE Routine 07/25/2024 1 1:54 AM CDT POCT GLUCOSE DEVICE Routine 07/25/2024 7 :52 AM CDT EGFR Routine 07/25/2024 7:07 AM CDT DIFFERENTIAL AUTO Routine 07/25/2024 7:0 7 AM CDT CBC WITH AUTO DIFFERENTIAL Routine 07/25/2024 7:07 AM CDT COMPREHENSIVE METABOLIC PANEL Routine 07/25/2024 7:07 AM CDT POCT GLUCOSE DEVICE Routine 07/25/2024 6 :42 AM CDT POCT GLUCOSE DEVICE Routine 07/24/2024 9 :49 PM CDT POCT GLUCOSE DEVICE Routine 07/24/2024 4 :44 PM CDT EGFR Routine 07/24/2024 3:06 PM CDT DIFFERENTIAL AUTO Routine 07/24/2024 3:0 6 PM CDT CBC WITH AUTO DIFFERENTIAL Routine 07/24/2024 3:06 PM CDT BLOOD CULTURE Routine 07/24/2024 3:06 PM CDT COMPREHENSIVE METABOLIC PANEL Routine 07/24/2024 3:06 PM CDT POCT GLUCOSE DEVICE Routine 07/24/2024 1 2:21 PM CDT BLOOD CULTURE Routine 07/24/2024 12:17 PM CDT POCT GLUCOSE DEVICE Routine 07/24/2024 9 :00 AM CDT POCT GLUCOSE DEVICE Routine 07/24/2024 8 :58 AM CDT POCT GLUCOSE DEVICE Routine 07/24/2024 6 :28 AM CDT POCT GLUCOSE DEVICE Routine 07/24/2024 2 :43 AM CDT POCT GLUCOSE DEVICE Routine 07/23/2024 9 :11 PM CDT POCT GLUCOSE DEVICE Routine 07/23/2024 7 :25 PM CDT POCT GLUCOSE DEVICE Routine 07/23/2024 6 :03 PM CDT ERCP IP Routine 07/23/2024 5:24 PM CDT Cholangitis (HCC) Malignant neoplasm of head of pancreas (HCC) ERCP IP Routine 07/23/2024 5:24 PM CDT Cholangitis (HCC) Malignant neoplasm of head of pancreas (HCC) ERCP IP Routine 07/23/2024 5:24 PM CDT Cholangitis (HCC) Malignant neoplasm of head of pancreas (HCC) FL ERCP BILIARY DUCT IP Routine 07/23/2024 5:21 PM CDT ERCP 07/23/2024 4:05 PM CDT POCT GLUCOSE DEVICE Routine 07/23/2024 3 :32 PM CDT POCT GLUCOSE DEVICE Routine 07/23/2024 1 2:09 PM CDT SEPSIS LACTATE WITH REFLEX Timed 07/23/2024 8:56 AM CDT POCT GLUCOSE DEVICE Routine 07/23/2024 7 :57 AM CDT ADD ON LAB TEST Add-On 07/23/2024 7:22 AM CDT DIFFERENTIAL AUTO STAT 07/23/2024 6:3 5 AM CDT CBC WITH AUTO DIFFERENTIAL STAT 07/23/2024 6:35 AM CDT EGFR STAT 07/23/2024 6:12 AM CDT PROCALCITONIN Routine 07/23/2024 6:12 AM CDT CRP (ACUTE PHASE) Routine 07/23/2024 6:1 2 AM CDT PHOSPHORUS Routine 07/23/2024 6:12 AM CDT MAGNESIUM Routine 07/23/2024 6:12 AM CDT LIPASE Routine 07/23/2024 6:12 AM CDT COMPREHENSIVE METABOLIC PANEL STAT 07/23/2024 6:12 AM CDT POCT GLUCOSE DEVICE Routine 07/23/2024 5 :55 AM CDT SEPSIS LACTATE WITH REFLEX STAT 07/23/2024 5:54 AM CDT BLOOD CULTURE STAT 07/23/2024 5:54 AM CDT BLOOD CULTURE STAT 07/23/2024 5:52 AM CDT POCT GLUCOSE DEVICE Routine 07/23/2024 5 :[address] OUTSIDE REFERENCE Routine 07/22/2024 12:[address] BODY OUTSIDE REFERENCE Routine 07/22/2024 12:00 AM CDT XR TRANSFER OF OUTSIDE FILMS Routine 07/22/2024 12:00 AM CDT US TRANSFER OF OUTSIDE FILMS Routine 07/22/2024 12:00 AM CDT documented in this encounter Results * (ABNORMAL) POCT glucose (07/27/2024 11:34 AM CDT) [facility] Signature Glucose, POC 300(H) 70 - 199 mg/dL Comment: For Glucose values <35 mg/dl when Hematocrit is >60 mg/dl,the test may not accurately detect significant hypoglycemia,and testing in the Laboratory should be considered if clinically indicated. POC Performer [phone] [facility] Glucose comment 1 RN/MD Notified [facility] Blood 07/27/2024 11:3 4 AM CDT 07/27/2024 11:34 AM CDT us Wojciech Carrasco MD LAB POCT ORDERABLES - DEVICE Fin al Result Performing Organization Address [facility] Co de Phone Number [facility] [address] [place] [address] * POCT glucose (07/27/2024 7:18 AM CDT) Glucose, POC 144 70 - 199 mg/dL Comment: For Glucose values <35 mg/dl when Hematocrit is >60 mg/dl,the test may not accurately detect significant hypoglycemia,and testing in the Laboratory should be considered if clinically indicated. POC Performer [phone] [facility] Blood 07/27/2024 7:18 AM CDT 07/27/2024 7:18 AM CDT us Wojciech Carrasco MD LAB POCT ORDERABLES - DEVICE Fin al Result Performing Organization Address [facility] de Phone Number [facility] [address] [place] [address] * eGFR (07/27/2024 7:09 AM CDT) eGFR >90 >=60 mL/min/1. 73 m2 Comment: [...] of the NKF-ASK Task Force on Reassessing the Inclusion of Race in Diagnosing Kidney Disease, JASN 202). The CKD-EPI equation should not be used for patients with unstable renal function and has not been validated in children and those over 70. Current interpretive data was last reviewed 2021. Blood 07/27/2024 7:09 AM CDT 07/27/2024 7:43 AM CDT us Emmanuel Martinez DO LAB BLOOD ORDERABLES Fi nal Result [facility] [address] Department [place] [address] * Differential, auto (07/27/2024 7:09 AM CDT) Neutrophil abs 2.48 1.50 - 6.50 K/cumm Imm gran abs 0.01 0.00 - 0.10 K/cumm [facility] Lymphocyte abs 0.96 0.80 - 3.30 K/cumm [facility] Monocyte abs 0.43 0.20 - 0.80 K/cumm [facility] Eosinophil abs 0.21 0.00 - 0.50 K/cumm [facility] Basophil abs 0.03 0.00 - 0.10 K/cumm [facility] Neutrophil pct 60.3 % [facility] Comment: Interpretive Data Percent cell count reference ranges are not reported, since discordance with absolute values may lead to misinterpretation of CBC data. Current Interpretive Data was last revised on 2017. Imm gran pct 0.2 % [facility] Comment: Interpretive Data Percent cell count reference ranges are not reported, since discordance with absolute values may lead to misinterpretation of CBC data. Current Interpretive Data was last revised on 2017. Lymphocyte pct 23.3 % [facility] Comment: Interpretive Data Percent cell count reference ranges are not reported, since discordance with absolute values may lead to misinterpretation of CBC data. Current Interpretive Data was last revised on 2017. Monocyte pct 10.4 % [facility] Comment: Interpretive Data Percent cell count reference ranges are not reported, since discordance with absolute values may lead to misinterpretation of CBC data. Current Interpretive Data was last revised on 2017. Eosinophil pct 5.1 % [facility] Comment: Interpretive Data Percent cell count reference ranges are not reported, since discordance with absolute values may lead to misinterpretation of CBC data. Current Interpretive Data was last revised on 2017. Basophil pct 0.7 % [facility] Comment: Interpretive Data Percent cell count reference ranges are not reported, since discordance with absolute values may lead to misinterpretation of CBC data. Current Interpretive Data was last revised on 2017. Blood 07/27/2024 7:0 9 AM CDT 07/27/2024 7:43 AM CDT us Emmanuel Martinez DO LAB BLOOD ORDERABLES [facility] Result [facility] [address] Department [place] [address] * (ABNORMAL) Comprehensive metabolic panel (07/27/2024 7:09 AM CDT) Sodium 143 135 - 145 mmol/L Potassium, pl 3.0(L) 3.3 - 4.9 mmol/L [facility] Chloride 121(H) 97 - 110 mmol/L [facility] CO2 21(L) 22 - 32 mmol/L [facility] Anion gap 1(L) 2 - 15 mmol/L [facility] BUN 5(L) 6 - 25 mg/dL [facility] Creatinine 0.30(L) 0.60 - 1.10 mg/dL [facility] Glucose 132 70 - 199 mg/dL [facility] Comment: Interpretive Data Fasting glucose >/= 126 mg/dl is diagnostic for diabetes. Fasting is defined as no caloric intake for at least 8 hours. Fasting glucose between 100 mg/dl to 125 mg/dl is diagnostic of prediabetes. In a patient with classic symptoms of hyperglycemia or hyperglycemic crisis, a random glucose >/= 200 mg/dl is diagnostic for diabetes. In the absence of unequivocal hyperglycemia, results should be confirmed by repeat testing. The classification and Diagnosis of Diabetes Diabetes Care 202; 46: S19-S40. Current interpretive data was last revised 2022. Calcium 7.4(L) 8.5 - 10.3 mg/dL [facility] Bilirubin, total 1.3(H) 0.1 - 1.2 mg/dL [facility] Protein, pl 5.5(L) 6.5 - 8.5 g/dL [facility] Albumin 2.3(L) 3.5 - 5.0 g/dL [facility] Alk phos 177(H) 40 - 130 Units/L [facility] ALT 59(H) 7 - 45 Units/L [facility] AST 26 10 - 45 Units/L [facility] Blood 07/27/2024 7:09 AM CDT 07/27/2024 7:43 AM CDT us Emmanuel Martinez DO LAB BLOOD ORDERABLES Fi nal Result [facility] [address] Department [place] [address] * (ABNORMAL) CBC with auto differential (07/27/2024 7:09 AM CDT) WBC 4.12 3.80 - 9.90 K/cumm Hgb 8.9(L) 11.9 - 15.5 g/dL [facility] Hct 27.5(L) 35.6 - 45.5 % [facility] Plt 121(L) 150 - 400 K/cumm [facility] Comment:Consistent with prev ious result. MPV 11.7 9.1 - 12.3 fL [facility] RBC 3.01(L) 3.90 - 5.20 M/cumm [facility] MCV 91.4 81.3 - 96.4 fL [facility] MCH 29.6 27.1 - 33.3 pg [facility] MCHC 32.4 32.3 - 35.7 g/dL [facility] RDW CV 14.5 11.1 - 14.9 % [facility] RDW SD 48.0 35.7 - 48.1 fL [facility] NRBC abs 0.00 0.00 - 0.01 K/cumm [facility] Blood 07/27/2024 7:09 AM CDT 07/27/2024 7:43 AM CDT us Emmanuel Martinez DO LAB BLOOD ORDERABLES Fi nal Result Performing Organization Address [facility] Co de Phone Number [facility] [address] Department of Laboratories [place], [place] [id number] * (ABNORMAL) POCT glucose (07/26/2024 9:33 PM CDT) Glucose, POC 204(H) 70 - 199 mg/dL Comment: For Glucose values <35 mg/dl when Hematocrit is >60 mg/dl,the test may not accurately detect significant hypoglycemia,and testing in the Laboratory should be considered if clinically indicated. POC Performer [id number] [facility] Blood 07/26/2024 9:33 PM CDT 07/26/2024 9:33 PM CDT us Emmanuel Martinez DO LAB POCT ORDERABLES - D EVICE Final Result Performing Organization Address [facility] de Phone Number [facility] [address] [place] [address] * (ABNORMAL) POCT glucose (07/26/2024 4:23 PM CDT) Glucose, POC 250(H) 70 - 199 mg/dL Comment: For Glucose values <35 mg/dl when Hematocrit is >60 mg/dl,the test may not accurately detect significant hypoglycemia,and testing in the Laboratory should be considered if clinically indicated. POC Performer [id number] [facility] Blood 07/26/2024 4:23 PM CDT 07/26/2024 4:23 PM CDT Emmanuel Martinez DO LAB POCT ORDERABLES - D EVICE Final Result Performing Organization Address [facility] Co de Phone Number [facility] [address] [facility] [employer] [place], [place] [id number] * POCT glucose (07/26/2024 11:45 AM CDT) Glucose, POC 184 70 - 199 mg/dL Comment: For Glucose values <35 mg/dl when Hematocrit is >60 mg/dl,the test may not accurately detect significant hypoglycemia,and testing in the Laboratory should be considered if clinically indicated. POC Performer [phone] [facility] Blood 07/26/2024 11:4 5 AM CDT 07/26/2024 11:45 AM CDT Emmanuel Martinez LAB POCT ORDERABLES - D EVICE Final Result Performing Organization Address [facility] Co de Phone Number [facility] [address] Department [place] [address] * (ABNORMAL) POCT glucose (07/26/2024 7:24 AM CDT) Glucose, POC 204(H) 70 - 199 mg/dL Comment: For Glucose values <35 mg/dl when Hematocrit is >60 mg/dl,the test may not accurately detect significant hypoglycemia,and testing in the Laboratory should be considered if clinically indicated. POC Performer [id number] [facility] Blood 07/26/2024 7:24 AM CDT 07/26/2024 7:24 AM CDT Emmanuel Martinez LAB POCT ORDERABLES - D EVICE Final Result Performing Organization Address [facility] Co de Phone Number [facility] [address] Department [employer] [place], [place] [id number] * Urinalysis reflex to microscopic and culture Urine (07/26/2024 7:24 AM CDT) Color, ur Yellow Yellow Clarity, ur Clear Clear [facility] Specific gravity, ur 1.010 1.003 - 1.030 [facility] pH, urine 6.5 [facility] Comment: Interpretive Data U rine pH is affected by diet, medications, systemic acid-base disturbances, and renal tubular function. pH may affect urinary stone formation. For example, urine pH below 6.0 may help reduce the tendency for calcium phosphate stones and pH greater than 6.0 may reduce the tendency for uric acid stone formation. Source: [facility] Current Interpretive Data was last revised on 2017 Protein, ur ql Negative Negative [facility] Glucose, ur ql Negative Negative [facility] Ketones, ur Negative Negative [facility] Bilirubin, ur Negative Negative [facility] Blood, ur Negative Negative [facility] Urobilinogen, ur <2.0 <2.0 mg/dL [facility] Nitrite, ur Negative Negative [facility] Leukocyte esterase, ur Negative Negative [facility] UA reflex comment Reflex conditions for microscopic UA and culture not met. [facility] Urine 07/26/2024 7:24 AM CDT 07/26/2024 7:31 AM CDT us Torey Jiménez MD LAB MICROBIOLOGY - GENERAL ORDERABLES Final Result [facility] [address] Department [place] [address] * eGFR (07/26/2024 6:01 AM CDT) [facility] eGFR >90 >=60 mL/min/1. 73 m2 Comment: [...] of the NKF-ASK Task Force on Reassessing the Inclusion of Race in Diagnosing Kidney Disease, JASN 202). The CKD-EPI equation should not be used for patients with unstable renal function and has not been validated in children and those over 70. Current interpretive data was last reviewed 2021. Blood 07/26/2024 6:01 AM CDT 07/26/2024 6:39 AM CDT us Emmanuel Martinez DO LAB BLOOD ORDERABLES Fi nal Result [facility] [address] Department [place] [address] * Differential, auto (07/26/2024 6:01 AM CDT) Neutrophil abs 2.27 1.50 - 6.50 K/cumm Imm gran abs 0.01 0.00 - 0.10 K/cumm [facility] Lymphocyte abs 0.80 0.80 - 3.30 K/cumm [facility] Monocyte abs 0.37 0.20 - 0.80 K/cumm [facility] Eosinophil abs 0.18 0.00 - 0.50 K/cumm [facility] Basophil abs 0.02 0.00 - 0.10 K/cumm [facility] Neutrophil pct 62.3 % [facility] Comment: Interpretive Data Percent cell count reference ranges are not reported, since discordance with absolute values may lead to misinterpretation of CBC data. Current Interpretive Data was last revised on 2017. Imm gran pct 0.3 % [facility] Comment: Interpretive Data Percent cell count reference ranges are not reported, since discordance with absolute values may lead to misinterpretation of CBC data. Current Interpretive Data was last revised on 2017. Lymphocyte pct 21.9 % [facility] Comment: Interpretive Data Percent cell count reference ranges are not reported, since discordance with absolute values may lead to misinterpretation of CBC data. Current Interpretive Data was last revised on 2017. Monocyte pct 10.1 % [facility] Comment: Interpretive Data Percent cell count reference ranges are not reported, since discordance with absolute values may lead to misinterpretation of CBC data. Current Interpretive Data was last revised on 2017. Eosinophil pct 4.9 % [facility] Comment: Interpretive Data Percent cell count reference ranges are not reported, since discordance with absolute values may lead to misinterpretation of CBC data. Current Interpretive Data was last revised on 2017. Basophil pct 0.5 % [facility] Comment: Interpretive Data Percent cell count reference ranges are not reported, since discordance with absolute values may lead to misinterpretation of CBC data. Current Interpretive Data was last revised on 2017. Blood 07/26/2024 6:01 AM CDT 07/26/2024 6:41 AM CDT us Emmanuel Martinez DO LAB BLOOD ORDERABLES Fi nal Result [facility] [address] Department [place] [address] * (ABNORMAL) Comprehensive metabolic panel (07/26/2024 6:01 AM CDT) Sodium 142 135 - 145 mmol/L Potassium, pl 3.2(L) 3.3 - 4.9 mmol/L [facility] Chloride 106 97 - 110 mmol/L [facility] CO2 21(L) 22 - 32 mmol/L [facility] Anion gap 15 2 - 15 mmol/L [facility] BUN 6 6 - 25 mg/dL [facility] Creatinine 0.34(L) 0.60 - 1.10 mg/dL [facility] Glucose 198 70 - 199 mg/dL [facility] Comment: Interpretive Data Fasting glucose >/= 126 mg/dl is diagnostic for diabetes. Fasting is defined as no caloric intake for at least 8 hours. Fasting glucose between 100 mg/dl to 125 mg/dl is diagnostic of prediabetes. In a patient with classic symptoms of hyperglycemia or hyperglycemic crisis, a random glucose >/= 200 mg/dl is diagnostic for diabetes. In the absence of unequivocal hyperglycemia, results should be confirmed by repeat testing. The classification and Diagnosis of Diabetes Diabetes Care 202; 46: S19-S40. Current interpretive data was last revised 2022. Calcium 8.6 8.5 - 10.3 mg/dL [facility] Bilirubin, total 2.1(H) 0.1 - 1.2 mg/dL [facility] Protein, pl 5.6(L) 6.5 - 8.5 g/dL [facility] Albumin 2.8(L) 3.5 - 5.0 g/dL [facility] Alk phos 232(H) 40 - 130 Units/L [facility] ALT 86(H) 7 - 45 Units/L [facility] AST 29 10 - 45 Units/L [facility] Blood 07/26/2024 6:01 AM CDT 07/26/2024 6:39 AM CDT us Emmanuel Martinez DO LAB BLOOD ORDERABLES Fi nal Result [facility] [address] Department [place] [address] * (ABNORMAL) CBC with auto differential (07/26/2024 6:01 AM CDT) WBC 3.65(L) 3.80 - 9.90 K/cumm Hgb 9.7(L) 11.9 - 15.5 g/dL [facility] Hct 29.3(L) 35.6 - 45.5 % [facility] Plt 118(L) 150 - 400 K/cumm [facility] Comment:Consistent with prev ious result. MPV 11.7 9.1 - 12.3 fL [facility] RBC 3.27(L) 3.90 - 5.20 M/cumm [facility] MCV 89.6 81.3 - 96.4 fL [facility] MCH 29.7 27.1 - 33.3 pg [facility] MCHC 33.1 32.3 - 35.7 g/dL [facility] RDW CV 14.1 11.1 - 14.9 % [facility] RDW SD 46.0 35.7 - 48.1 fL [facility] NRBC abs 0.00 0.00 - 0.01 K/cumm [facility] Blood 07/26/2024 6:01 AM CDT 07/26/2024 6:41 AM CDT Emmanuel Martinez DO LAB BLOOD ORDERABLES Fi nal Result Performing Organization Address City/[facility]/ZIP Co de Phone Number [facility] [address] Department [employer] [place], [place] [id number] * (ABNORMAL) Vancomycin level trough (07/26/2024 6:01 AM CDT) Vancomycin trough <4.0(L) 10.0 - 20.0 mcg/mL Blood 07/26/2024 6:01 AM CDT 07/26/2024 6:39 AM CDT Yoana Tatum MD LAB BLOOD ORDERABLES Edited R esult - Final Performing Organization Address [facility] Co de Phone Number [facility] [address] [place] [address] * POCT glucose (07/25/2024 10:49 PM CDT) Glucose, POC 170 70 - 199 mg/dL Comment: For Glucose values <35 mg/dl when Hematocrit is >60 mg/dl,the test may not accurately detect significant hypoglycemia,and testing in the Laboratory should be considered if clinically indicated. POC Performer [id number] [facility] Blood 07/25/2024 10:4 9 PM CDT 07/25/2024 10:49 PM CDT Emmanuel Martinez DO LAB POCT ORDERABLES - D EVICE Final Result Performing Organization Address City/[facility]/ZIP Co de Phone Number [facility] [address] Department [employer] [place], [place] [id number] * (ABNORMAL) POCT glucose (07/25/2024 5:01 PM CDT) Glucose, POC 245(H) 70 - 199 mg/dL Comment: For Glucose values <35 mg/dl when Hematocrit is >60 mg/dl,the test may not accurately detect significant hypoglycemia,and testing in the Laboratory should be considered if clinically indicated. POC Performer [id number] [facility] Blood 07/25/2024 5:01 PM CDT 07/25/2024 5:01 PM CDT Emmanuel Martinez DO LAB POCT ORDERABLES - D EVICE Final Result Performing Organization Address [facility] Co de Phone Number [facility] [address] [facility] [place] [address] * POCT glucose (07/25/2024 11:54 AM CDT) Glucose, POC 164 70 - 199 mg/dL Comment: For Glucose values <35 mg/dl when Hematocrit is >60 mg/dl,the test may not accurately detect significant hypoglycemia,and testing in the Laboratory should be considered if clinically indicated. POC Performer [id number] [facility] Blood 07/25/2024 11:5 4 AM CDT 07/25/2024 11:54 AM CDT Emmanuel Martinez DO LAB POCT ORDERABLES - D EVICE Final Result Performing Organization Address [facility] Co de Phone Number [facility] [address] [facility] [employer] [place], [place] [id number] * (ABNORMAL) POCT glucose (07/25/2024 7:52 AM CDT) Glucose, POC 228(H) 70 - 199 mg/dL Comment: For Glucose values <35 mg/dl when Hematocrit is >60 mg/dl,the test may not accurately detect significant hypoglycemia,and testing in the Laboratory should be considered if clinically indicated. POC Performer [id number] [facility] Blood 07/25/2024 7:52 AM CDT 07/25/2024 7:52 AM CDT Emmanuel Martinez DO LAB POCT ORDERABLES - D EVICE Final Result Performing Organization Address [facility] Co de Phone Number [facility] [address] Department of [employer] [place], [place] [id number] * eGFR (07/25/2024 7:07 AM CDT) eGFR >90 >=60 mL/min/1. 73 m2 Comment: [...] of the NKF-ASK Task Force on Reassessing the Inclusion of Race in Diagnosing Kidney Disease, JASN 2020). The CKD-EPI equation should not be used for patients with unstable renal function and has not been validated in children and those over 70. Current interpretive data was last reviewed 2021. Blood 07/25/2024 7:07 AM CDT 07/25/2024 7:32 AM CDT Emmanuel Martinez DO LAB BLOOD ORDERABLES Fi nal Result Performing Organization Address [facility]/ZIP Co de Phone Number [facility] [address] [place] [address] * (ABNORMAL) Differential, auto (07/25/2024 7:07 AM CDT) Pathologist [facility] Neutrophil abs 2.43 1.50 - 6.50 K/cumm Imm gran abs 0.01 0.00 - 0.10 K/cumm [facility] Lymphocyte abs 0.55(L) 0.80 - 3.30 K/cumm [facility] Monocyte abs 0.33 0.20 - 0.80 K/cumm [facility] Eosinophil abs 0.17 0.00 - 0.50 K/cumm [facility] Basophil abs 0.02 0.00 - 0.10 K/cumm [facility] Neutrophil pct 69.2 % [facility] Comment: Interpretive Data Percent cell count reference ranges are not reported, since discordance with absolute values may lead to misinterpretation of CBC data. Current Interpretive Data was last revised on 2017. Imm gran pct 0.3 % [facility] Comment: Interpretive Data Percent cell count reference ranges are not reported, since discordance with absolute values may lead to misinterpretation of CBC data. Current Interpretive Data was last revised on 2017. Lymphocyte pct 15.7 % [facility] Comment: Interpretive Data Percent cell count reference ranges are not reported, since discordance with absolute values may lead to misinterpretation of CBC data. Current Interpretive Data was last revised on 2017. Monocyte pct 9.4 % [facility] Comment: Interpretive Data Percent cell count reference ranges are not reported, since discordance with absolute values may lead to misinterpretation of CBC data. Current Interpretive Data was last revised on 2017. Eosinophil pct 4.8 % [facility] Comment: Interpretive Data Percent cell count reference ranges are not reported, since discordance with absolute values may lead to misinterpretation of CBC data. Current Interpretive Data was last revised on 2017. Basophil pct 0.6 % [facility] Comment: Interpretive Data Percent cell count reference ranges are not reported, since discordance with absolute values may lead to misinterpretation of CBC data. Current Interpretive Data was last revised on 2017. Blood 07/25/2024 7:07 AM CDT 07/25/2024 7:32 AM CDT us Emmanuel Martinez DO LAB BLOOD ORDERABLES Fi nal Result [facility] [address] [place] [address] * (ABNORMAL) Comprehensive metabolic panel (07/25/2024 7:07 AM CDT) Sodium 142 135 - 145 mmol/L Potassium, pl 3.2(L) 3.3 - 4.9 mmol/L [facility] Chloride 108 97 - 110 mmol/L [facility] CO2 20(L) 22 - 32 mmol/L [facility] Anion gap 14 2 - 15 mmol/L [facility] BUN 7 6 - 25 mg/dL [facility] Creatinine 0.38(L) 0.60 - 1.10 mg/dL [facility] Glucose 213(H) 70 - 199 mg/dL [facility] Comment: Interpretive Data Fasting glucose >/= 126 mg/dl is diagnostic for diabetes. Fasting is defined as no caloric intake for at least 8 hours. Fasting glucose between 100 mg/dl to 125 mg/dl is diagnostic of prediabetes. In a patient with classic symptoms of hyperglycemia or hyperglycemic crisis, a random glucose >/= 200 mg/dl is diagnostic for diabetes. In the absence of unequivocal hyperglycemia, results should be confirmed by repeat testing. The classification and Diagnosis of Diabetes Diabetes Care 2021; 46: S19-S40. Current interpretive data was last revised 2022. Calcium 8.6 8.5 - 10.3 mg/dL [facility] Bilirubin, total 2.7(H) 0.1 - 1.2 mg/dL [facility] Protein, pl 5.7(L) 6.5 - 8.5 g/dL [facility] Albumin 2.7(L) 3.5 - 5.0 g/dL [facility] Alk phos 253(H) 40 - 130 Units/L [facility] ALT 112(H) 7 - 45 Units/L [facility] AST 45 10 - 45 Units/L [facility] Blood 07/25/2024 7:07 AM CDT 07/25/2024 7:32 AM CDT us Emmanuel Martinez DO LAB BLOOD ORDERABLES Fi nal Result [facility] [address] Department [place] [address] * (ABNORMAL) CBC with auto differential (07/25/2024 7:07 AM CDT) [facility] WBC 3.51(L) 3.80 - 9.90 K/cumm Hgb 10.3(L) 11.9 - 15.5 g/dL [facility] Hct 30.5(L) 35.6 - 45.5 % [facility] Plt 111(L) 150 - 400 K/cumm [facility] MPV 11.9 9.1 - 12.3 fL [facility] RBC 3.41(L) 3.90 - 5.20 M/cumm [facility] MCV 89.4 81.3 - 96.4 fL [facility] MCH 30.2 27.1 - 33.3 pg [facility] MCHC 33.8 32.3 - 35.7 g/dL [facility] RDW CV 14.2 11.1 - 14.9 % [facility] RDW SD 45.7 35.7 - 48.1 fL [facility] NRBC abs 0.00 0.00 - 0.01 K/cumm [facility] Blood 07/25/2024 7:07 AM CDT 07/25/2024 7:32 AM CDT Emmanuel Martinez DO LAB BLOOD ORDERABLES Fi nal Result [facility] [address] Department [place] [address] * (ABNORMAL) POCT glucose (07/25/2024 6:42 AM CDT) [facility] Glucose, POC 215(H) 70 - 199 mg/dL Comment: For Glucose values <35 mg/dl when Hematocrit is >60 mg/dl,the test may not accurately detect significant hypoglycemia,and testing in the Laboratory should be considered if clinically indicated. POC Performer [id number] [facility] Blood 07/25/2024 6:42 AM CDT 07/25/2024 6:42 AM CDT Emmanuel Martinez DO LAB POCT ORDERABLES - D EVICE Final Result Performing Organization Address City/[facility]/ZIP Co de Phone Number [facility] [address] [place] [address] * (ABNORMAL) POCT glucose (07/24/2024 9:49 PM CDT) Glucose, POC 242(H) 70 - 199 mg/dL Comment: For Glucose values <35 mg/dl when Hematocrit is >60 mg/dl,the test may not accurately detect significant hypoglycemia,and testing in the Laboratory should be considered if clinically indicated. POC Performer [id number] [facility] Blood 07/24/2024 9:49 PM CDT 07/24/2024 9:49 PM CDT Emmanuel Martinez DO LAB POCT ORDERABLES - D EVICE Final Result Performing Organization Address [facility] Co de Phone Number [facility] [address] [facility] [place] [address] * POCT glucose (07/24/2024 4:44 PM CDT) Glucose, POC 196 70 - 199 mg/dL Comment: For Glucose values <35 mg/dl when Hematocrit is >60 mg/dl,the test may not accurately detect significant hypoglycemia,and testing in the Laboratory should be considered if clinically indicated. POC Performer [phone] [facility] Blood 07/24/2024 4:44 PM CDT 07/24/2024 4:44 PM CDT Emmanuel Martinez DO LAB POCT ORDERABLES - D EVICE Final Result Performing Organization Address City/[facility]/ZIP Co de Phone Number [facility] [address] Department [employer] [place], [place] [id number] * eGFR (07/24/2024 3:06 PM CDT) [facility] eGFR >90 >=60 mL/min/1. 73 m2 Comment: [...] of the [employer] Task Force on Reassessing the Inclusion of Race in Diagnosing Kidney Disease, JASN 2020). The CKD-EPI equation should not be used for patients with unstable renal function and has not been validated in children and those over 70. Current interpretive data was last reviewed 2021. Blood 07/24/2024 3:06 PM CDT 07/24/2024 3:12 PM CDT us Emmanuel Martinez DO LAB BLOOD ORDERABLES Fi nal Result [facility] [address] Department [place] [address] * (ABNORMAL) Differential, auto (07/24/2024 3:06 PM CDT) [facility] Neutrophil abs 3.85 1.50 - 6.50 K/cumm Imm gran abs 0.01 0.00 - 0.10 K/cumm [facility] Lymphocyte abs 0.51(L) 0.80 - 3.30 K/cumm [facility] Monocyte abs 0.37 0.20 - 0.80 K/cumm [facility] Eosinophil abs 0.18 0.00 - 0.50 K/cumm [facility] Basophil abs 0.02 0.00 - 0.10 K/cumm [facility] Neutrophil pct 78.0 % [facility] Comment: Interpretive Data Percent cell count reference ranges are not reported, since discordance with absolute values may lead to misinterpretation of CBC data. Current Interpretive Data was last revised on 2017. Imm gran pct 0.2 % [facility] Comment: Interpretive Data Percent cell count reference ranges are not reported, since discordance with absolute values may lead to misinterpretation of CBC data. Current Interpretive Data was last revised on 2017. Lymphocyte pct 10.3 % [facility] Comment: Interpretive Data Percent cell count reference ranges are not reported, since discordance with absolute values may lead to misinterpretation of CBC data. Current Interpretive Data was last revised on 2017. Monocyte pct 7.5 % [facility] Comment: Interpretive Data Percent cell count reference ranges are not reported, since discordance with absolute values may lead to misinterpretation of CBC data. Current Interpretive Data was last revised on 2017. Eosinophil pct 3.6 % [facility] Comment: Interpretive Data Percent cell count reference ranges are not reported, since discordance with absolute values may lead to misinterpretation of CBC data. Current Interpretive Data was last revised on 2017. Basophil pct 0.4 % [facility] Comment: Interpretive Data Percent cell count reference ranges are not reported, since discordance with absolute values may lead to misinterpretation of CBC data. Current Interpretive Data was last revised on 2017. Blood 07/24/2024 3:06 PM CDT 07/24/2024 3:12 PM CDT Emmanuel Martinez DO LAB BLOOD ORDERABLES Fi nal Result [facility] [address] Department [place] [address] * (ABNORMAL) Comprehensive metabolic panel (07/24/2024 3:06 PM CDT) Sodium 137 135 - 145 mmol/L Potassium, pl 3.2(L) 3.3 - 4.9 mmol/L [facility] Chloride 105 97 - 110 mmol/L [facility] CO2 18(L) 22 - 32 mmol/L [facility] Anion gap 14 2 - 15 mmol/L [facility] BUN 12 6 - 25 mg/dL [facility] Creatinine 0.41(L) 0.60 - 1.10 mg/dL [facility] Glucose 196 70 - 199 mg/dL [facility] Comment: Interpretive Data Fasting glucose >/= 126 mg/dl is diagnostic for diabetes. Fasting is defined as no caloric intake for at least 8 hours. Fasting glucose between 100 mg/dl to 125 mg/dl is diagnostic of prediabetes. In a patient with classic symptoms of hyperglycemia or hyperglycemic crisis, a random glucose >/= 200 mg/dl is diagnostic for diabetes. In the absence of unequivocal hyperglycemia, results should be confirmed by repeat testing. The classification and Diagnosis of Diabetes Diabetes Care 2021; 46: S19-S40. Current interpretive data was last revised 2022. Calcium 8.4(L) 8.5 - 10.3 mg/dL [facility] Bilirubin, total 3.3(H) 0.1 - 1.2 mg/dL [facility] Protein, pl 5.8(L) 6.5 - 8.5 g/dL [facility] Albumin 2.8(L) 3.5 - 5.0 g/dL [facility] Alk phos 264(H) 40 - 130 Units/L [facility] ALT 141(H) 7 - 45 Units/L [facility] AST 68(H) 10 - 45 Units/L [facility] Blood 07/24/2024 3:06 PM CDT 07/24/2024 3:12 PM CDT Emmanuel Martinez DO LAB BLOOD ORDERABLES Fi nal Result [facility] [address] [place] [address] * (ABNORMAL) CBC with auto differential (07/24/2024 3:06 PM CDT) WBC 4.94 3.80 - 9.90 K/cumm Hgb 10.0(L) 11.9 - 15.5 g/dL [facility] Hct 30.4(L) 35.6 - 45.5 % [facility] Plt 119(L) 150 - 400 K/cumm [facility] MPV 11.4 9.1 - 12.3 fL [facility] RBC 3.39(L) 3.90 - 5.20 M/cumm [facility] MCV 89.7 81.3 - 96.4 fL [facility] MCH 29.5 27.1 - 33.3 pg [facility] MCHC 32.9 32.3 - 35.7 g/dL [facility] RDW CV 13.9 11.1 - 14.9 % [facility] RDW SD 45.9 35.7 - 48.1 fL [facility] NRBC abs 0.00 0.00 - 0.01 K/cumm [facility] Blood 07/24/2024 3:06 PM CDT 07/24/2024 3:12 PM CDT Emmanuel Martinez DO LAB BLOOD ORDERABLES Fi nal Result Performing Organization Address [facility] Co de Phone Number [facility] [address] [employer] [place], [place] [id number] * (ABNORMAL) POCT glucose (07/24/2024 12:21 PM CDT) [facility] Glucose, POC 277(H) 70 - 199 mg/dL Comment: For Glucose values <35 mg/dl when Hematocrit is >60 mg/dl,the test may not accurately detect significant hypoglycemia,and testing in the Laboratory should be considered if clinically indicated. POC Performer [id number] [facility] Blood 07/24/2024 12:2 1 PM CDT 07/24/2024 12:21 PM CDT Emmanuel Martinez DO LAB POCT ORDERABLES - D EVICE Final Result Performing Organization Address [facility]/ZIP Co de Phone Number [facility] [address] [place] [address] * (ABNORMAL) POCT glucose (07/24/2024 9:00 AM CDT) Glucose, POC 355(H) 70 - 199 mg/dL Comment: For Glucose values <35 mg/dl when Hematocrit is >60 mg/dl,the test may not accurately detect significant hypoglycemia,and testing in the Laboratory should be considered if clinically indicated. POC Performer [phone] [facility] Blood 07/24/2024 9:00 AM CDT 07/24/2024 9:00 AM CDT Emmanuel Martinez DO LAB POCT ORDERABLES - D EVICE Final Result Performing Organization Address [facility] Co de Phone Number [facility] [address] [email or web address] [address] * (ABNORMAL) POCT glucose (07/24/2024 8:58 AM CDT) Glucose, POC 334(H) 70 - 199 mg/dL Comment: For Glucose values <35 mg/dl when Hematocrit is >60 mg/dl,the test may not accurately detect significant hypoglycemia,and testing in the Laboratory should be considered if clinically indicated. POC Performer [id number] [facility] Blood 07/24/2024 8:58 AM CDT 07/24/2024 8:58 AM CDT Emmanuel Martinez DO LAB POCT ORDERABLES - D EVICE Final Result Performing Organization Address [facility] Co de Phone Number [facility] [address] [employer] [place], [place] [id number] * POCT glucose (07/24/2024 6:28 AM CDT) Glucose, POC 147 70 - 199 mg/dL Comment: For Glucose values <35 mg/dl when Hematocrit is >60 mg/dl,the test may not accurately detect significant hypoglycemia,and testing in the Laboratory should be considered if clinically indicated. POC Performer [id number] [facility] Blood 07/24/2024 6:28 AM CDT 07/24/2024 6:28 AM CDT Emmanuel Martinez DO LAB POCT ORDERABLES - D EVICE Final Result Performing Organization Address City/[facility]/ZIP Co de Phone Number [facility] Justin JessieMarisol Sindy Oliveros [facility] [place] [address] * POCT glucose (07/24/2024 2:43 AM CDT) Glucose, POC 133 70 - 199 mg/dL Comment: For Glucose values <35 mg/dl when Hematocrit is >60 mg/dl,the test may not accurately detect significant hypoglycemia,and testing in the Laboratory should be considered if clinically indicated. POC Performer [phone] [facility] Blood 07/24/2024 2:43 AM CDT 07/24/2024 2:43 AM CDT Emmanuel Martinez DO LAB POCT ORDERABLES - D EVICE Final Result Performing Organization Address [facility] Co de Phone Number [facility] [address] [facility] [place] [address] * POCT glucose (07/23/2024 9:11 PM CDT) Glucose, POC 139 70 - 199 mg/dL Comment: For Glucose values <35 mg/dl when Hematocrit is >60 mg/dl,the test may not accurately detect significant hypoglycemia,and testing in the Laboratory should be considered if clinically indicated. POC Performer [phone] [facility] Blood 07/23/2024 9:11 PM CDT 07/23/2024 9:11 PM CDT Emmanuel Martinez DO LAB POCT ORDERABLES - D EVICE Final Result Performing Organization Address City/[facility]/ZIP Co de Phone Number [facility] [address] [facility] [place] [address] * POCT glucose (07/23/2024 7:25 PM CDT) Glucose, POC 191 70 - 199 mg/dL Comment: For Glucose values <35 mg/dl when Hematocrit is >60 mg/dl,the test may not accurately detect significant hypoglycemia,and testing in the Laboratory should be considered if clinically indicated. POC Performer [id number] [facility] Blood 07/23/2024 7:25 PM CDT 07/23/2024 7:25 PM CDT Emmanuel Martinez DO LAB POCT ORDERABLES - D EVICE Final Result Performing Organization Address City/[facility] Co de Phone Number [facility] [address] [facility] [place] [address] * POCT glucose (07/23/2024 6:03 PM CDT) Glucose, POC 186 70 - 199 mg/dL Comment: For Glucose values <35 mg/dl when Hematocrit is >60 mg/dl,the test may not accurately detect significant hypoglycemia,and testing in the Laboratory should be considered if clinically indicated. POC Performer [phone] [facility] Blood 07/23/2024 6:03 PM CDT 07/23/2024 6:03 PM CDT Emmanuel Martinez DO LAB POCT ORDERABLES - D EVICE Final Result Performing Organization Address [facility] Co de Phone Number [facility] [address] [facility] [employer] [place], [place] [id number] * [place] ERCP Biliary Duct (07/23/2024 5:21 PM CDT) Narrative [facility] - 07/23/2024 5:33 PM CDT The images from this study are not interpreted by Radiology. Please refer to the physician's procedure / OR operative note. Mariusz March MD IMG FLUOROSCOPY PROCEDURES Final Result Performing Organization Address City/[facility]/ZIP Co de Phone Number [facility] * ERCP (07/23/2024 4:05 PM CDT) Anatomical Region Laterality Modality Other Narrative Procedure Note Torey Jiménez MD - 07/23/2024 4:05 PM CDT ENDOSCOPY LAB Patient Name: Zac Olsen Procedure Date: 07/23/2024 4:05 PM Admit Type: Inpatient Room: [facility] Date of : 1945 Instrument Name: [id number]-Q380,[id number] Gender: Female Note Status: Finalized Procedure: ERCP Indications: 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 Patient has opted foralternative medical therapy and now presents with rapid disease progression on imaging and florid cholangitis/sepsis/shock. Providers: Torey Jiménez M.D. Referring MD: Emmanuel Knight M.D., Abimael Radford M.D. Medicines: Monitored Anesthesia Care; Patient on IV broad spectrum antibiotics. Complications: No immediate complications. Estimated Blood Loss: Estimated blood loss: none. Procedure: Pre-Anesthesia Assessment: - The risks and benefits of the procedure and the sedation options and risks were discussed with the patient. All questions were answered and informed consent was obtained. - Immediately prior to administration ofmedications, the patient was re-assessed for adequacy to receive sedatives. - The anesthesia plan was to use monitoredanesthesia care (MAC). The benefits, risks, and alternatives to theprocedure and sedation were discussed and informed consentwas obtained. The TJF-Q380 was introduced through the mouth, and used to inject contrast into and used to inject contrast into the bile duct. The Endoscopewas introduced through the mouth, and used to inject contrast into and used to locate the major papilla. The Endoscope was introduced through the mouth, and used to inject contrast into and used to cannulatethe bile duct. The ERCP was accomplished without difficulty. The patient tolerated the procedurewell. Findings: A biliary stent was visible on the retail greeter film. The esophagus was successfully intubated under direct vision. There was a severe, malignant appearing stricture noted in the duodenal bulb that couldnot be readily traversed initially with a duodenoscope. A GIF gastroscope was advanced to the level of the stricture and was able to traversethe area into third portion of the duodenum. A wire was advanced into the proximal jejunum and under endoscopic and fluoroscopic guidance, over the wire, the duodenal stricture was dilated from 12mm to 15mm with partial response and no evidence of perforation. The gastroscope was removed and the TJF duodenoscope was again attempted to be passedwith the patient prone and L lateral without success. The duodenscope was removed and replaced with a 1T therapeutic gastroscope which could traverse the stricture. Attempts were made to do the ERCP with the gastroscope which was challenging due to the intradiverticularposition of the papillla/prior stent. A 0.025angled visiglide wire was successfully advanced through the indwelling stent, however itappeared to be completely occluded and the wire could not be deeply advancedinto the biliary tree. The 1T gastroscope was removed and the TJF duodenoscope was re-tried and successfully advanced to the ampulla.The previously placed biliary stent was completely occluded with sludge/debris. A 0.025 inch x 450 cm angled Visiglide wire was passed into the biliary tree through the indwelling biliary stent. The 8.5mm balloon was passed over the guidewire and the bile duct was thendeeply cannulated. Contrast was injected. I personally interpreted the bile duct images. There was brisk flow of contrast through the ducts.Image quality was excellent. Contrast extended to the main bile duct.Contrast extended to the hepatic ducts. Limited cholangiography was performeddue to active, severe cholangitis. Limited cholangiogram after clearanceof the biliary stent, demonstrate no obvious tissue/tumor ingrowth and moderate intrahepatic dilation of the visualized R anterior and L hepatic ducts. To discover objects, the biliary tree was swept withan 8.5 mm balloon starting at the bifurcation. Extensive sludge, stone debris, and pus was swept from the duct. A 10 Fr by 10 cm plasticstent with a full external pigtail and a full internal pigtail was placed coaxially through the indwelling covered biliary stent into the L hepatic duct with drainage of contrast, bile, and pus. The scope was removed from the patient. Impression: - Technically very challenging ERCP due to severe, malignant appearing stricture noted in the duodenal bulb that could not be readily traversed initially with a duodenoscope. - Succcessful dilation of the duodenal stricturefrom 12mm to 15mm over a wire withendoscopic/fluoroscopic guidance. - Unsuccessful attempts at ERCP with therapeutic gastroscope. Ultimately, successful passage of the duodenoscope through the strictured duodenum asnoted. - Completely occluded, previously placed fullycovered metal biliary stent. - Limited cholangiography was performed due toactive, severe cholangitis. Limited cholangiogram after clearance of the biliary stent, demonstrate noobvious tissue/tumor ingrowth and moderate intrahepatic dilation of the visualized R anterior and L hepatic ducts. - Successful clearance of occluded biliary stent of sludge, stone debris, and large volume of pus. - Successful placement of a 10Fr x 10cm plasticdouble pigtail stent, coaxially through the indwelling biliary stent into the L intrahepatic duct. Recommendation: - Observe patient's clinical course followingtoday's ERCP with therapeutic intervention. - Watch for pancreatitis, bleeding, perforation,and cholangitis. - Await blood cultures from this morning andconsult ID as appropriate if positive. Continue broad antibiotic coverage pending culture andspeciation. - Monitor LFTs after todays repeat ERCP. - Monitor closely for potential development ofgastric outlet obstruction. Currently there is no dilationof the stomach on CT and no significant symptoms attributable to the stricture on imaging. - Given the patient/family desire to avoid cancer directed therapy (chemo, radiation, surgery) would recommend a palliative care/hospice consultation to provide a framework for the continued disease progression seen on this admission. - Would repeat ERCP on an as needed basis given the significant technical challenges to performing the procedure today/risks associated and patient'soverall health care goals. - Return patient to [facility] for ongoingcare. - NPO for 2 hours, then advance to clear liquiddiet if patient stable and ok with primary team. - Aggressive IV hydration for next 6 hours. - Further recommendations per inpatient GI Consult Service. Attending Participation: I personally performed the entire procedure. Electronically Signed By: Torey Jiménez M.D. Torey Jiménez M.D. 07/23/2024 5:45:28 PM This document was signed electronically. Number of Addenda: 0 Note Initiated On: 07/23/2024 4:05 PM Scope In: Scope Out: Torey Jiménez MD ENDOSCOPY PROCEDURES Final Result * POCT glucose (07/23/2024 3:32 PM CDT) Glucose, POC 196 70 - 199 mg/dL Comment: For Glucose values <35 mg/dl when Hematocrit is >60 mg/dl,the test may not accurately detect significant hypoglycemia,and testing in the Laboratory should be considered if clinically indicated. POC Performer [phone] [facility] Blood 07/23/2024 3:32 PM CDT 07/23/2024 3:32 PM CDT us Emmanuel Martinez DO LAB POCT ORDERABLES - D EVICE Final Result [facility] [address] [place] [address] * POCT glucose (07/23/2024 12:09 PM CDT) Glucose, POC 193 70 - 199 mg/dL Comment: For Glucose values <35 mg/dl when Hematocrit is >60 mg/dl,the test may not accurately detect significant hypoglycemia,and testing in the Laboratory should be considered if clinically indicated. POC Performer [id number] [facility] Blood 07/23/2024 12:0 9 PM CDT 07/23/2024 12:09 PM CDT Emmanuel Martinez DO LAB POCT ORDERABLES - D EVICE Final Result [facility] [address] Department [place] [address] * Sepsis Lactate w/ Reflex (07/23/2024 8:56 AM CDT) [facility] Sepsis Lactate 1.1 0.7 - 2.0 mmol/L Blood 07/23/2024 8:56 AM CDT 07/23/2024 9:00 AM CDT Yoana Tatum MD LAB BLOOD ORDERABLES Final Re sult [facility] [address] [place] [address] * (ABNORMAL) POCT glucose (07/23/2024 7:57 AM CDT) Glucose, POC 238(H) 70 - 199 mg/dL Comment: For Glucose values <35 mg/dl when Hematocrit is >60 mg/dl,the test may not accurately detect significant hypoglycemia,and testing in the Laboratory should be considered if clinically indicated. POC Performer [id number] [facility] Blood 07/23/2024 7:57 AM CDT 07/23/2024 7:57 AM CDT us Emmanuel Martinez DO LAB POCT ORDERABLES - D EVICE Final Result [facility] [address] [place] [address] * Procalcitonin - Add on lab test (07/23/2024 7:22 AM CDT) Pathologist [facility] Acceptable Yes Blood 07/23/2024 7:22 AM CDT 07/23/2024 7:22 AM CDT Narrative [facility] - 07/23/2024 7:23 AM CDT Name of Test->Procalcitonin Ernesto Conrad PA LAB BLOOD ORDERABLES Final Result Performing Organization Address City/[facility]/ZIP Co de Phone Number [facility] [address] Department [place] [address] * (ABNORMAL) Differential, auto (07/23/2024 6:35 AM CDT) [facility] Neutrophil abs 4.46 1.50 - 6.50 K/cumm Imm gran abs 0.02 0.00 - 0.10 K/cumm [facility] Lymphocyte abs 0.13(L) 0.80 - 3.30 K/cumm [facility] Monocyte abs 0.07(L) 0.20 - 0.80 K/cumm [facility] Eosinophil abs 0.03 0.00 - 0.50 K/cumm [facility] Basophil abs 0.01 0.00 - 0.10 K/cumm [facility] Neutrophil pct 94.5 % [facility] Comment: Interpretive Data Percent cell count reference ranges are not reported, since discordance with absolute values may lead to misinterpretation of CBC data. Current Interpretive Data was last revised on 2017. Imm gran pct 0.4 % [facility] Comment: Interpretive Data Percent cell count reference ranges are not reported, since discordance with absolute values may lead to misinterpretation of CBC data. Current Interpretive Data was last revised on 2017. Lymphocyte pct 2.8 % [facility] Comment: Interpretive Data Percent cell count reference ranges are not reported, since discordance with absolute values may lead to misinterpretation of CBC data. Current Interpretive Data was last revised on 2017. Monocyte pct 1.5 % [facility] Comment: Interpretive Data Percent cell count reference ranges are not reported, since discordance with absolute values may lead to misinterpretation of CBC data. Current Interpretive Data was last revised on 2017. Eosinophil pct 0.6 % [facility] Comment: Interpretive Data Percent cell count reference ranges are not reported, since discordance with absolute values may lead to misinterpretation of CBC data. Current Interpretive Data was last revised on 2017. Basophil pct 0.2 % [facility] Comment: Interpretive Data Percent cell count reference ranges are not reported, since discordance with absolute values may lead to misinterpretation of CBC data. Current Interpretive Data was last revised on 2017. Blood 07/23/2024 6:35 AM CDT 07/23/2024 6:35 AM CDT us Yoana Tatum MD LAB BLOOD ORDERABLES Final Re sult [facility] [address] Department [place] [address] * (ABNORMAL) CBC with auto differential (07/23/2024 6:35 AM CDT) WBC 4.72 3.80 - 9.90 K/cumm Hgb 11.1(L) 11.9 - 15.5 g/dL [facility] Hct 33.0(L) 35.6 - 45.5 % [facility] Plt 115(L) 150 - 400 K/cumm [facility] MPV 11.1 9.1 - 12.3 fL [facility] RBC 3.64(L) 3.90 - 5.20 M/cumm [facility] MCV 90.7 81.3 - 96.4 fL [facility] MCH 30.5 27.1 - 33.3 pg [facility] MCHC 33.6 32.3 - 35.7 g/dL [facility] RDW CV 13.9 11.1 - 14.9 % [facility] RDW SD 46.2 35.7 - 48.1 fL [facility] NRBC abs 0.00 0.00 - 0.01 K/cumm [facility] Blood 07/23/2024 6:35 AM CDT 07/23/2024 6:42 AM CDT Yoana Tatum MD LAB BLOOD ORDERABLES Final Re sult Performing Organization Address City/[facility] Co de Phone Number [facility] [address] [facility] [place] [address] * (ABNORMAL) Procalcitonin (07/23/2024 6:12 AM CDT) Procalcitonin 1.27(H) <=0.25 ng/mL Blood 07/23/2024 6:12 AM CDT 07/23/2024 6:12 AM CDT Emmanuel Martinez DO LAB BLOOD ORDERABLES Fi nal Result Performing Organization Address [facility] Co de Phone Number [facility] [address] Department [employer] [facility] [place], [place] [id number] * (ABNORMAL) CRP (acute phase) (07/23/2024 6:12 AM CDT) CRP 92.9(H) <=10.0 mg/L Blood 07/23/2024 6:12 AM CDT 07/23/2024 6:12 AM CDT Yoana Tatum MD LAB BLOOD ORDERABLES Final Re sult Performing Organization Address [facility] Co de Phone Number [facility] [address] [facility] [place], [place] [id number] * eGFR (07/23/2024 6:12 AM CDT) eGFR >90 >=60 mL/min/1. 73 m2 Comment: [...] of the [employer]F-ASK Task Force on Reassessing the Inclusion of Race in Diagnosing Kidney Disease, JASN 2020). The CKD-EPI equation should not be used for patients with unstable renal function and has not been validated in children and those over 70. Current interpretive data was last reviewed 2021. Blood 07/23/2024 6:12 AM CDT 07/23/2024 6:12 AM CDT us Yoana Tatum MD LAB BLOOD ORDERABLES Final Re sult [facility] [address] Department [place] [address] * (ABNORMAL) Comprehensive metabolic panel (07/23/2024 6:12 AM CDT) Pathologist [facility] Sodium 135 135 - 145 mmol/L Potassium, pl 3.8 3.3 - 4.9 mmol/L [facility] Chloride 101 97 - 110 mmol/L [facility] CO2 20(L) 22 - 32 mmol/L [facility] Anion gap 14 2 - 15 mmol/L [facility] BUN 10 6 - 25 mg/dL [facility] Creatinine 0.44(L) 0.60 - 1.10 mg/dL [facility] Glucose 226(H) 70 - 199 mg/dL [facility] Comment: Interpretive Data Fasting glucose >/= 126 mg/dl is diagnostic for diabetes. Fasting is defined as no caloric intake for at least 8 hours. Fasting glucose between 100 mg/dl to 125 mg/dl is diagnostic of prediabetes. In a patient with classic symptoms of hyperglycemia or hyperglycemic crisis, a random glucose >/= 200 mg/dl is diagnostic for diabetes. In the absence of unequivocal hyperglycemia, results should be confirmed by repeat testing. The classification and Diagnosis of Diabetes Diabetes Care 2021; 46: S19-S40. Current interpretive data was last revised 2022. Calcium 8.9 8.5 - 10.3 mg/dL [facility] Bilirubin, total 7.0(H) 0.1 - 1.2 mg/dL [facility] Protein, pl 6.2(L) 6.5 - 8.5 g/dL [facility] Albumin 3.1(L) 3.5 - 5.0 g/dL [facility] Alk phos 301(H) 40 - 130 Units/L [facility] ALT 248(H) 7 - 45 Units/L [facility] AST 221(H) 10 - 45 Units/L [facility] Blood Venous blood specimen / Unknown 07/23/2024 6:12 AM CDT 07/23/2024 6:12 AM CDT Yoana Tatum MD LAB BLOOD ORDERABLES Final Re sult Performing Organization Address City/[facility]/ZIP Co de Phone Number [place] [id number] [place] [address] * Lipase (07/23/2024 6:12 AM CDT) [facility] Lipase 26 10 - 99 Units/L Blood 07/23/2024 6:12 AM CDT 07/23/2024 6:12 AM CDT Yoana Tatum MD LAB BLOOD ORDERABLES Final Re sult Performing Organization Address City/[facility]/ZIP Co de Phone Number [facility] [address] Department [place] [address] * (ABNORMAL) Phosphorus (07/23/2024 6:12 AM CDT) [facility] Phosphorus, pl 2.0(L) 2.3 - 4.5 mg/dL Blood 07/23/2024 6:12 AM CDT 07/23/2024 6:12 AM CDT Yoana Tatum MD LAB BLOOD ORDERABLES Final Re sult Performing Organization Address City/[facility]/ZIP Co de Phone Number [facility] [address] [facility] [place], [place] [phone] * Magnesium (07/23/2024 6:12 AM CDT) [facility] Magnesium 1.8 1.4 - 2.5 mg/dL Blood 07/23/2024 6:12 AM CDT 07/23/2024 6:12 AM CDT Yoana Tatum MD LAB BLOOD ORDERABLES Final Re sult Performing Organization Address [facility] Co de Phone Number [facility] [address] Department [employer] [facility] [place], [place] [phone] * (ABNORMAL) POCT glucose (07/23/2024 5:55 AM CDT) [facility] Glucose, POC 245(H) 70 - 199 mg/dL Comment: For Glucose values <35 mg/dl when Hematocrit is >60 mg/dl,the test may not accurately detect significant hypoglycemia,and testing in the Laboratory should be considered if clinically indicated. POC Performer [phone] [facility] Blood 07/23/2024 5:55 AM CDT 07/23/2024 5:55 AM CDT Yoana Tatum MD LAB POCT ORDERABLES - DEVICE Final Result Performing Organization Address City/[facility]/ZIP Co de Phone Number [facility] [address] Department [employer] [facility] [place], [place] [phone] * (ABNORMAL) Blood culture Blood (07/23/2024 5:54 AM CDT) Direct Specimen Exam Stain: Gram Negative Bacilli Test result called to and read back by Arnaldo Louise on 07/23/2024 18:37:34 by [id number] Report Final Report: Klebsiella pneumoniae This susceptibility pattern indicates the possible production of an extended spectrum beta lactamase (ESBL). Inpatients infected with ESBL-producing organisms require contact isolation precautions. Susceptibility reported on this organism on previous culture [id number] (.) [facility] Organism KLEBSIELLA PNEUMONIAE [facility] Blood 07/23/2024 5:54 AM CDT 07/23/2024 6:10 AM CDT Narrative [facility] - 07/27/2024 7:03 AM CDT Collection->Peripheral Interpretive Data 1. Blood cultures are incubated and monitored continuously for 5 days (120 hours). The first negative report is issued within 24 hours of receipt in the laboratory. 2. All positive cultures are resulted and called to physicians/care providers as soon as they are detected. 3. A rapid molecular test for organism identification may be performed using the [employer] Blood Culture Identification panel. This assay detects microbial DNA in a blood culture broth. This assay has been cleared by the [place] Food and Drug Administration and its performance characteristics have been verified by the [facility]. Interpretive data was last revised on April 04, 2022. Yoana Tatum MD LAB MICROBIOLOGY - GENERAL OR DERABLES Final Result [facility] [address] Department [place] [address] * (ABNORMAL) Sepsis Lactate w/ Reflex (07/23/2024 5:54 AM CDT) Pathologist [facility] Sepsis Lactate 3.6(H) 0.7 - 2.0 mmol/L Blood 07/23/2024 5:54 AM CDT 07/23/2024 6:12 AM CDT Yoana Tatum MD LAB BLOOD ORDERABLES Final Re sult [facility] [address] Department [place] [address] * (ABNORMAL) Blood culture Blood (07/23/2024 5:52 AM CDT) Direct Specimen Exam Molecular Analysis: Klebsiella pneumoniae group detected by the [employer] Blood Culture Identification Panel. This test does not exclude the possibility of a mixed bacterial infection. CTX-M (ESBL) gene detected by the [employer] Blood Culture Identification Panel. This test does not exclude the possibility of a mixed bacterial infection. This is a multi-drug resistant organism. Inpatients require contact isolation. Test result called to and read back by ALVAREZ GARNER RN on 07/23/2024 18:37:34 by [id number] Direct Specimen Exam Stain: Gram Negative Bacilli [facility] Report Final Report: Klebsiella pneumoniae This susceptibility pattern indicates the possible production of an extended spectrum beta lactamase (ESBL). Inpatients infected with ESBL-producing organisms require contact isolation precautions. (.) [facility] Organism KLEBSIELLA PNEUMONIAE [facility] Blood 07/23/2024 5:52 AM CDT 07/23/2024 5:52 AM CDT Narrative [facility] - 07/27/2024 7:02 AM CDT From a different site than #1. Collection->Peripheral Interpretive Data 1. Blood cultures are incubated and monitored continuously for 5 days (120 hours). The first negative report is issued within 24 hours of receipt in the laboratory. 2. All positive cultures are resulted and called to physicians/care providers as soon as they are detected. 3. A rapid molecular test for organism identification may be performed using the [employer] Blood Culture Identification panel. This assay detects microbial DNA in a blood culture broth. This assay has been cleared by the [place] Food and Drug Administration and its performance characteristics have been verified by the [facility]. Interpretive data was last revised on April 04, 2022. Organism Antibiotic Method Susceptibility Klebsiella pneumoniae Ampicillin with Sulbactam (ANA PAULA) INTERPRETATION Intermediate Klebsiella pneumoniae Cefazolin (ANA PAULA) INTERPRETATIO N Resistant Klebsiella pneumoniae Ceftriaxone (ANA PAULA) INTERPRETATIO N Resistant Klebsiella pneumoniae Ciprofloxacin (ANA PAULA) INTERPRETATI ON Susceptible Klebsiella pneumoniae Gentamicin (ANA PAULA) INTERPRETATIO N Susceptible Klebsiella pneumoniae Levofloxacin (ANA PAULA) INTERPRETATIO N Susceptible Klebsiella pneumoniae Meropenem (ANA PAULA) INTERPRETATIO N Susceptible Klebsiella pneumoniae Trimethoprim with Sulfamethoxazole (ANA PAULA) INTERPRETATION Susceptible Klebsiella pneumoniae Ampicillin (ANA PAULA) INTERPRETATIO N Resistant Klebsiella pneumoniae Cefuroxime (ANA PAULA) INTERPRETATIO N Resistant Klebsiella pneumoniae Doxycycline (ANA PAULA) INTERPRETATIO N Susceptible Klebsiella pneumoniae Tobramycin (ANA PAULA) INTERPRETATIO N Susceptible Yoana Tatum MD LAB MICROBIOLOGY - GENERAL OR DERABLES Final Result Performing Organization Address [facility] Co de Phone Number [facility] [address] Department of Laboratories [place], [place] [id number] * (ABNORMAL) POCT glucose (07/23/2024 5:01 AM CDT) [facility] Glucose, POC 231(H) 70 - 199 mg/dL Comment: For Glucose values <35 mg/dl when Hematocrit is >60 mg/dl,the test may not accurately detect significant hypoglycemia,and testing in the Laboratory should be considered if clinically indicated. POC Performer [phone] [facility] Blood 07/23/2024 5:01 AM CDT 07/23/2024 5:01 AM CDT Yoana Tatum MD LAB POCT ORDERABLES - DEVICE Final Result Performing Organization Address [facility] de Phone Number [facility] [address] [place] [address] * Neuro CT Outside Reference (07/22/2024 12:05 AM CDT) Narrative RAD_PACS_OUTSIDE_FILM_[facility] - 07/23/2024 9:36 AM CDT This order has been auto-finalized and does not contain a result. Provider Transcribed Order IMG CT PROCEDURES Fin al Result Performing Organization Address [facility] Co de Phone Number [email or web address]_OUTSIDE_FILM_[facility] * XR Outside Reference (07/22/2024 12:00 AM CDT) Narrative RAD_PACS_OUTSIDE_FILM_[facility] - 07/23/2024 9:36 AM CDT This order has been auto-finalized and does not contain a result. us Provider Transcribed Order IMG XR PROCEDURES Fin al Result Performing Organization Address [facility] de Phone Number [email or web address] * US Outside Reference (07/22/2024 12:00 AM CDT) Narrative RAD_PACS_OUTSIDE_FILM_[facility] - 07/23/2024 9:36 AM CDT This order has been auto-finalized and does not contain a result. us Provider Transcribed Order IMG US PROCEDURES Fin al Result Performing Organization Address [facility] de Phone Number RAD_[email or web address]_[email or web address] * CT Body Outside Reference (07/22/2024 12:00 AM CDT) Narrative RAD_PACS_OUTSIDE_FILM_[facility] - 07/23/2024 9:36 AM CDT This order has been auto-finalized and does not contain a result. us Provider Transcribed Order IMG CT PROCEDURES Fin al Result Performing Organization Address [facility] de Phone Number [email or web address]_FILM_[facility] documented in this encounter Visit Diagnoses Diagnosis Pancreatic adenocarcinoma (HCC)- Primary Malignant neoplasm of pancreas, part unspecified Cholangitis (HCC) Cholangitis Malignant neoplasm of head of pancreas (HCC) Malignant neoplasm of head of pancreas Type 2 diabetes mellitus without complication, with long-term current use of insulin (HCC) Sepsis with encephalopathy without septic shock (HCC) Metabolic encephalopathy Pancreatic cancer (HCC) Malignant neoplasm of pancreas, part unspecified Cholangitis (HCC) Cholangitis Moderate protein-calorie malnutrition documented in this encounter Admitting Diagnoses Diagnosis Pancreatic cancer (HCC) Malignant neoplasm of pancreas, part unspecified Cholangitis (HCC) Cholangitis documented in this encounter Administered Medications Inactive Administered Medications - up to 3 most recent administrations Medication Order MAR Action Action Date Dose Rate Site acetaminophen (TYLENOL) tablet 650 mg 650 mg, oral, Every 6 hours PRN, fever, Starting on Fri07/23/24 at 0557 Given 07/26/2024 9:38 PM CDT 650 mg Given 07/23/2024 6:01 AM CDT 650 mg bisacodyL (DULCOLAX) suppository 10 mg 10 mg, rectal, Daily PRN, constipation, if no results 24 hours after polyethylene glycol administration, Starting on Fri07/23/24 at 0440, Administer if not tolerating PO., Indications: constipationIndications:constipat ion bisacodyl EC (DULCOLAX EC) tablet 10 mg 10 mg, oral, Daily PRN, constipation, if no results 24 hours after polyethylene glycol administration, Starting on Fri07/23/24 at 0440, Administer if tolerating PO. Do not crush, chew, cut, dissolve, open or otherwise manipulate tablet/capsule., Indications: constipationIndications:constipat ion Carrier Fluids for Secondary Infusion - 0.9% Sodium Chloride 30 mL, intravenous, As needed, For priming tubing and/or flushing, Starting on Fri07/23/24 at 0440, 0-250 ml/hr to flush line after IV infusions when no maintenance IV ordered. Infuse 30mL at the same rate as the secondary infusion. Run as primary IV, not intended for KVO. cefepime (MAXIPIME) 2,000 mg in sodium chloride 0.9% 100 mL IVPB 2,000 mg, intravenous, at 200 mL/hr, Administer over 30 Minutes, Once, On Fri07/23/24 at 0700, For 1 dose, Mini-Bag Plus bag, Indications: Abdominal/Pelvic InfectionIndications:Abdominal/Pe lvic Infection New Bag 07/23/2024 6:28 AM CDT 2,000 mg 200 mL/hr cefepime (MAXIPIME) 2,000 mg in sodium chloride 0.9% 100 mL IVPB 2,000 mg, intravenous, at 200 mL/hr, Administer over 30 Minutes, Every 12 hours, First dose (after last modification) on Fri07/23/24 at 1800, Mini-Bag Plus bag, Indications: SepsisIndications:Sepsis New Bag 07/27/2024 6:33 AM CDT 2,000 mg 200 mL /hr New Bag 07/26/2024 5:28 PM CDT 2,000 mg 200 mL/hr New Bag 07/26/2024 6:48 AM CDT 2,000 mg 200 mL/hr ciprofloxacin (CIPRO) tablet 500 mg 500 mg, oral, 2 times daily (for quinolones,etc), First dose on Fri07/27/24 at 0845, For 3 days, Indications: Abdominal/Pelvic InfectionIndications:Abdominal/Pelvic Infection Given 07/27/2024 9:34 AM CDT 500 mg dextrose (D10W) 10% bolus 250 mL 250 mL, intravenous, at 1,000 mL/hr, Administer over 15 Minutes, Every 15 min PRN, blood glucose less than 70 mg/dL and UNABLE to swallow/take PO glucose/juice., Starting on Fri07/23/24 at 0659, After treatment for hypoglycemia, recheck BG followed by treatment every 15 minutes until the BG is greater than 100 mg/dL. Then check BG 1 hour post treatment. If BG is less than 100 mg/dL, repeat Q15 minute BG checks and treatment. Call MD for each episode of hypoglycemia., Indications: hypoglycemic disorderIndications:hypoglycemic disorder dextrose (GLUTOSE) 40 % gel 15 g 15 g, oral, Every 15 min PRN, low blood sugar, blood glucose less than 70 mg/dL, Starting on Fri07/23/24 at 0659, If patient is alert and able to eat/drink, give 15 gm glucose or one juice (4 fluid ounces) NOT ORANGE JUICE. After treatment for hypoglycemia, recheck BG followed by treatment every 15 minutes until the BG is greater than 100 mg/dL. Then check BG 1 hour post-treatment. If BG is less than 100 mg/dL, repeat Q15 minute BG checks and treatment. Call MD for each episode of hypoglycemia. CONSUMER SAFETY INSPECTOR STATES GLUTOSE-15 CONTAINS GLUCOSE 40% W/W (50% W/V), Indications: hypoglycemic disorderIndications:hypoglycemic disorder DULoxetine DR (CYMBALTA) extended release capsule 60 mg 60 mg, oral, Daily, First dose on Fri07/24/24 at 0900, Capsule may be opened and contents mixed with applesauce or apple juice ONLY. Do not crush or chew capsule Given 07/27/2024 8:09 AM CDT 60 mg Given 07/26/2024 8:40 AM CDT 60 mg Given 07/25/2024 8:15 AM CDT 60 mg enalapril (VASOTEC) tablet 10 mg 10 mg, oral, Daily, First dose on Fri07/24/24 at 0900 Given 07/27/2024 8:08 AM CDT 10 mg Given 07/26/2024 8:39 AM CDT 10 mg Given 07/25/2024 8:15 AM CDT 10 mg enoxaparin (LOVENOX) syringe 40 mg 40 mg, subcutaneous, Daily (for enoxaparin), First dose on Fri07/27/24 at 2100, Indications: VTE ProphylaxisIndications:VTE Prophylaxis eszopiclone (LUNESTA) tablet 1 mg 1 mg, oral, Nightly, First dose on Fri07/23/24 at 2100, Indications: InsomniaIndications:Insomnia Given 07/26/2024 9:38 PM CDT 1 mg Given 07/25/2024 10:58 PM CDT 1 mg Given 07/24/2024 9:53 PM CDT 1 mg glucagon injection 1 mg 1 mg, intramuscular, Every 30 min PRN, low blood sugar, blood glucose less than 70 mg/dL AND no IV access AND unable to take PO glucose/juice., Starting on Fri07/23/24 at 0659, After Glucagon is administered, position patient on side if possible to avoid aspiration. Obtain IV access. Follow glucagon treatment with glucose treatment or IV dextrose. After treatment for hypoglycemia, recheck BG followed by treatment every 15 minutes until the BG is greater than 100 mg/dL. Then check BG 1 hour post treatment. If BG is less than 100 mg/dL, repeat Q15 minute BG checks and treatment. Call MD for each episode of hypoglycemia. Reconstitute 1 mg vial with 1 mL SWFI. Use immediately following reconstitution. Given 07/23/2024 5:01 PM CDT 0.5 mg heparin 5,000 unit/mL injection 5,000 Units 5,000 Units, subcutaneous, Every 8 hours scheduled, First dose on Fri07/23/24 at 0600, Indications: Deep Vein Thrombosis PreventionIndications:Deep Vein Thrombosis Prevention Given 07/27/2024 6:33 AM CDT 5,000 Units Right Lower Abdomen Given 07/26/2024 9:37 PM CDT 5,000 Units L eft Lower Abdomen Given 07/26/2024 1:51 PM CDT 5,000 Units R ight Lower Abdomen hydroCHLOROthiazide tablet 12.5 mg 12.5 mg, oral, Daily, First dose on 07/24/24 at 0900 Given 07/27/2024 8:09 AM CDT 12.5 mg Given 07/26/2024 8:40 AM CDT 12.5 mg Given 07/25/2024 8:16 AM CDT 12.5 mg insulin glargine (LANTUS, SEMGLEE) 100 unit/mL injection 10 Units 10 Units, subcutaneous, Nightly, First dose on 07/25/24 at 2100, Do not mix with other insulins Given 07/26/2024 9:34 PM CDT 10 Units Left Upper Arm Given 07/25/2024 11:35 PM CDT 10 Units L eft Upper Arm insulin lispro (HumaLOG, ADMELOG) 100 unit/mL injection 0-10 Units 0-10 Units, subcutaneous, Every 4 hours scheduled, First dose on Fri07/23/24 at 0800, Blood glucose mg/dL: 149 or less: No insulin 150-199: give 2 unit 200-249: give 4 units 250-299: give 6 units 300-349: give 8 units and notify physician for adjustment of insulin orders. 350-399: give 10 units and notify physician for adjustment of insulin orders. Over 400: Notify physician for adjustment of insulin orders. Do NOT hold for NPO Status, Indications: Diabetes MellitusIndications:Diabetes Mellitus Given 07/24/2024 5:26 PM CDT 2 Units Right Upper Arm Given 07/24/2024 12:50 PM CDT 6 Units R ight Upper Arm Given 07/23/2024 7:41 PM CDT 2 Units Ri ght Upper Arm insulin lispro (HumaLOG, ADMELOG) 100 unit/mL injection 0-10 Units 0-10 Units, subcutaneous, 3 times daily with meals, First dose on 07/25/24 at 0800, Blood glucose mg/dL: 149 or less: No insulin 150-199: give 2 unit 200-249: give 4 units 250-299: give 6 units 300-349: give 8 units and notify physician for adjustment of insulin orders. 350-399: give 10 units and notify physician for adjustment of insulin orders. Over 400: Notify physician for adjustment of insulin orders. Do NOT hold for NPO Status, Indications: Diabetes MellitusIndications:Diabetes Mellitus Given 07/27/2024 12:19 PM CDT 8 Units Righ t Upper Arm Given 07/26/2024 5:29 PM CDT 6 Units Le ft Lower Abdomen Given 07/26/2024 12:26 PM CDT 2 Units L eft Upper Abdomen insulin lispro (HumaLOG, ADMELOG) 100 unit/mL injection 0-5 Units 0-5 Units, subcutaneous, Nightly, First dose on 07/24/24 at 2230, Blood glucose mg/dL: 149 or less: No insulin 150-199: give 1 unit 200-249: give 2 units 250-299: give 3 units 300-349: give 4 units and notify physician for adjustment of insulin orders. 350-399: give 5 units and notify physician for adjustment of insulin orders. Over 400: Notify physician for adjustment of insulin orders. Do NOT hold for NPO Status, Indications: Diabetes MellitusIndications:Diabetes Mellitus Given 07/26/2024 9:50 PM CDT 2 Units Left Upper Arm Given 07/25/2024 11:34 PM CDT 1 Units L eft Upper Arm Given 07/24/2024 10:12 PM CDT 2 Units L eft Upper Arm insulin lispro (HumaLOG, ADMELOG) 100 unit/mL injection 4 Units 4 Units, subcutaneous, 3 times daily before meals, First dose on 07/24/24 at 1130, Administer pre-meal doses when pts food tray arrives in room. Do not administer pre-meal doses to NPO patients. Given 07/27/2024 12:18 PM CDT 4 Units Right Upper Arm Given 07/27/2024 8:09 AM CDT 4 Units Le ft Upper Arm Given 07/26/2024 5:28 PM CDT 4 Units Le ft Upper Abdomen ioversoL (OPTIRAY 350) injection 0.01-500 mL 0.01-500 mL, intraductal, Once in imaging, contrast, Starting on Fri07/23/24 at 1731, For 1 dose Contrast Given 07/23/2024 4:30 PM CDT 23 mL metroNIDAZOLE (FLAGYL) tablet 500 mg 500 mg, oral, 3 times daily, First dose on Fri07/23/24 at 1030, Indications: Abdominal/Pelvic InfectionIndications:Abdominal/Pelvi c Infection Given 07/27/2024 8:08 AM CDT 500 mg Given 07/26/2024 9:38 PM CDT 500 mg Given 07/26/2024 4:24 PM CDT 500 mg morphine injection 2 mg 2 mg, intravenous, Administer over 4 Minutes, Every 3 hours PRN, 1st line for pain, Starting on Fri07/23/24 at 0440, May repeat in 30 minutes if pain is uncontrolled or increasing. Max 2 doses within 1 dosing interval., Indications: PainIndications:Pain ondansetron (ZOFRAN) injection 4 mg 4 mg, intravenous, Administer over 2 Minutes, Every 6 hours PRN, nausea, vomiting, Starting on Fri07/23/24 at 0440, Proceed to prochlorperazine if no relief within 30 minutes. pantoprazole (PROTONIX) 40 mg in sodium chloride 0.9% 10 mL IV Syringe 40 mg, intravenous, at 300 mL/hr, Administer over 2 Minutes, Daily, First dose on Fri07/23/24 at 0900, For IV administration, reconstitute 40 mg vial with 10 mL sodium chloride 0.9% for injection for a final concentration of 4 mg/mL, Indications: Non-Bleeding Gastric DisorderIndications:Non-Bleeding Gastric Disorder Given 07/26/2024 8:40 AM CDT 40 mg 300 mL/hr Given 07/25/2024 8:16 AM CDT 40 mg 300 mL/hr Given 07/24/2024 9:07 AM CDT 40 mg 300 mL/hr pantoprazole DR (PROTONIX) extended release tablet 40 mg 40 mg, oral, Daily, First dose on Fri07/27/24 at 0900, Do not crush, chew, cut, dissolve, open or otherwise manipulate tablet/capsule., Indications: Treatment of Non-Bleeding Gastric DisorderIndications:Treatment of Non-Bleeding Gastric Disorder Given 07/27/2024 8:09 AM CDT 40 mg polyethylene glycol (MIRALAX) packet 17 g 17 g, oral, Daily PRN, constipation, Starting on Fri07/23/24 at 0440, Indications: constipationIndications:constipa tion potassium chloride ER (KLOR-CON) extended release tablet 40 mEq 40 mEq, oral, Once, On Fri07/26/24 at 1100, For 1 dose, Do not crush, chew, cut, dissolve, open or otherwise manipulate tablet/capsule. Given 07/26/2024 11:46 AM CDT 40 mEq prochlorperazine (COMPAZINE) injection 5 mg 5 mg, intravenous, Administer over 2 Minutes, Every 6 hours PRN, nausea, vomiting, Starting on Fri07/23/24 at 0440, If not relieved by ondansetron within 30 minutes. sodium chloride 0.9% bolus 1,000 mL 1,000 mL, intravenous, at 1,000 mL/hr, Administer over 1 Hours, Once, On Fri07/23/24 at 0630, For 1 dose New Bag 07/23/2024 6:03 AM CDT 1,000 mL 1000 mL/hr sodium chloride 0.9% bolus 1,000 mL 1,000 mL, intravenous, at 1,000 mL/hr, Administer over 1 Hours, Once, On Fri07/23/24 at 0645, For 1 dose New Bag 07/23/2024 7:10 AM CDT 1,000 mL 1000 mL/hr sodium chloride 0.9% bolus 500 mL 500 mL, intravenous, Once, On Fri07/23/24 at 1830, For 1 dose, Recovery (GI) New Bag 07/23/2024 5:40 PM CDT 500 mL sodium chloride 0.9% flush 0.5-20 mL 0.5-20 mL, intra-catheter, Every 8 hours scheduled (alternate), First dose on Fri07/23/24 at 0800, Flush volume based on line type and size. Given 07/27/2024 8:09 AM CDT 10 mL Given 07/26/2024 4:24 PM CDT 10 mL Given 07/26/2024 8:41 AM CDT 10 mL sodium chloride 0.9% flush 0.5-20 mL 0.5-20 mL, intra-catheter, As needed, line care, Starting on Fri07/23/24 at 0440, Flush volume based on line type and size. Flush before and after each use. Given 07/27/2024 6:34 AM CDT 10 mL Given 07/24/2024 6:28 AM CDT 10 mL sodium chloride 0.9% infusion 30 mL/hr, intravenous, Continuous, Starting on Fri07/23/24 at 1530, For 4 hours, Pre-Procedure (GI) Restarted 07/23/2024 5:02 PM CDT Rate/Dose Verify 07/23/2024 4:15 PM CDT 30 mL/h r New Bag 07/23/2024 3:29 PM CDT 30 mL/hr 30 mL/hr vancomycin 1,000 mg/200 mL in dextrose 5% (premix) 1,000 mg 1,000 mg (rounded from 946.5 mg = 15 mg/kg 63.1 kg), intravenous, at 200 mL/hr, Administer over 60 Minutes, Every 12 hours, First dose on Fri07/23/24 at 0800, Indications: SepsisIndications:Sepsis New Bag 07/23/2024 7:56 AM CDT 1,000 mg 200 mL /hr vancomycin 1,000 mg/200 mL in dextrose 5% (premix) 1,000 mg 1,000 mg (rounded from 946.5 mg = 15 mg/kg 63.1 kg), intravenous, at 200 mL/hr, Administer over 60 Minutes, Every 24 hours, First dose (after last modification) on Fri07/24/24 at 0800, Indications: SepsisIndications:Sepsis New Bag 07/25/2024 8:16 AM CDT 1,000 mg 200 mL /hr New Bag 07/24/2024 9:02 AM CDT 1,000 mg 200 mL/hr vancomycin 750 mg/250 mL in sodium chloride 0.9% (premix) 750 mg 750 mg, intravenous, at 250 mL/hr, Administer over 60 Minutes, Every 12 hours, First dose (after last modification) on Fri07/26/24 at 1000, Indications: SepsisIndications:Sepsis New Bag 07/26/2024 9:39 PM CDT 750 mg 250 mL /hr New Bag 07/26/2024 10:11 AM CDT 750 mg 250 mL/hr documented in this encounter Discontinued Medications Medication Sig Discontinue Reason Start Date End Da te pen needle, diabetic (Pen Needle) 32 gauge x 5/32 needle Use as directed once a day. 04/21/2024 07/23/2024 pen needle, diabetic 32 gauge x 5/32 needle Use as directed 3 times a day. 04/21/2024 07/23/2024 alcohol swabs (Alcohol Wipes) pads, medicated Use as directed. 04/21/2024 07/24/19 25 blood glucose diagnostic (glucose blood) strip Use as directed up to four times a day. 04/21/2024 07/23/2024 blood-glucose meter kit Use as directed. 04/21/2024 025 lancets misc Use as directed up to 4 times a day. 04/21/2024 07/23/2024 enalapriL-hydrochloroth iazide (VASERETIC) 10-25 mg per tablet Take 1 tablet by mouth daily 07/23/2024 insulin glargine (LANTUS) 100 unit/mL (3 mL) pen for injection Inject 10 Units under the skin daily 04/21/2024 07/23/2024 insulin lispro (ADMELOG) 100 unit/mL pen for [...] Visit Summary for Sliding Scale Insulin Instructions. 04/21/2024 07/23/2024 cholecalciferol (VITAMIN D-3) 50,000 unit capsule Take 1 capsule (50,000 Units total) by mouth once a week Friday07/23/2024 documented as of this encounter Historical Medications * This list may reflect changes made after this encounter. ergocalciferol (VITAMIN D) 50,000 unit capsule Take 1 capsule (50,000 Units total) by mouth once a week Friday eszopiclone (LUNESTA) 1 mg tabletIndication s:Insomnia Take 1 tablet (1 mg total) by mouth nightly Take immediately before bedtime insulin lispro (HumaLOG, ADMELOG) 100 unit/mL vial for injection Inject under the skin 3 (three) times a day before meals 4 Units, subcutaneous, 3 times daily with meals, (plus blood glucose mg/dL 150-199: 1 unit, 200-249: 2 units, 250-299: 3 units, 300-349: 4 units, 350 or greater: 5 units. Notify provider for blood glucose greater than 299 mg/dL. Max daily dose ) Refer to After Visit Summary for Sliding Scale Insulin Instructions. insulin glargine 100 unit/mL vial for injection Inject 12-22 Units under the skin 2 (two) times a day BS Less than or equal to 150 takes 12 units BS 151-200 takes 14 units BS 201-250 takes 16 units BS 251-300 takes 18 units BS 301-350 takes 20 units BS 351 or higher takes 22 units and call provider hydroCHLOROthiaz magaly (MICROZIDE) 12.5 mg capsule Take 1 capsule (12.5 mg total) by mouth daily enalapril (VASOTEC) 10 mg tablet Take 1 tablet (10 mg total) by mouth daily added in this encounter Active and Recently Administered Medications Times are shown in CDT. Scheduled Medication Order 07/25/2024 07/26/2024 07/27/2024 cefepime (MAXIPIME) 2,000 mg in sodium chloride 0.9% 100 mL IVPB (CANCELED) 2,000 mg, intravenous, at 200 mL/hr, Administer over 30 Minutes, Every 12 hours, First dose (after last modification) on Fri07/23/24 at 1800, Mini-Bag Plus bag, Indications: Sepsis 0628 (New Bag - Provider: Marita Bojorquez, MIRYAM)1714 (New Bag - Provider: Catrina Donis RN) 0648 (New Bag - Provider: Marita Bojorquez, RN)1728 (New Bag - Provider: Michaela Paulino, MIRYAM) 0633 (New Bag - Provider: Marita Bojorquez, RN) ciprofloxacin (CIPRO) tablet 500 mg 500 mg, oral, 2 times daily (for quinolones,etc), First dose on Fri07/27/24 at 0845, For 3 days, Indications: Abdominal/Pelvic Infection 0934 (Given - Provider: Michaela Paulino, MIRYAM) DULoxetine DR (CYMBALTA) extended release capsule 60 mg 60 mg, oral, Daily, First dose on Fri07/24/24 at 0900, Capsule may be opened and contents mixed with applesauce or apple juice ONLY. Do not crush or chew capsule 0815 (Given - Provider: Catrina Donis RN) 0840 (Given - Provider: Michaela Canatoy, RN) 0809 (Given - Provider: Michaela Paulino RN) enalapril (VASOTEC) tablet 10 mg 10 mg, oral, Daily, First dose on Fri07/24/24 at 0900 0815 (Given - Provider: Catrina Donis RN) 0839 (Given - Provider: Michaela Paulino RN) 0808 (Given - Provider: Michaela Paulino, RN) enoxaparin (LOVENOX) syringe 40 mg 40 mg, subcutaneous, Daily (for enoxaparin), First dose on Fri07/27/24 at 2100, Indications: VTE Prophylaxis eszopiclone (LUNESTA) tablet 1 mg 1 mg, oral, Nightly, First dose on Fri07/23/24 at 2100, Indications: Insomnia 2258 (Given - Provider: Marita Bojorquez RN) 2138 (Given - Provider: Marita Bojorquez RN) heparin 5,000 unit/mL injection 5,000 Units (CANCELED) 5,000 Units, subcutaneous, Every 8 hours scheduled, First dose on Fri07/23/24 at 0600, Indications: Deep Vein Thrombosis Prevention 0628 (Given - Provider: Marita Bojorquez RN)1453 (Given - Provider: Catrina Donis RN)2301 (Given - Provider: Marita Bojorquez RN) 0649 (Given - Provider: Marita Bojorquez RN)1351 (Given - Provider: Michaela Paulino RN)2137 (Given - Provider: Marita Bojorquez RN) 0633 (Given - Provider: Marita Bojorquez, MIRYAM) hydroCHLOROthiazide tablet 12.5 mg 12.5 mg, oral, Daily, First dose on Fri07/24/24 at 0900 0816 (Given - Provider: Catrina Donis RN) 0840 (Given - Provider: Michaela Paulino, MIRYAM) 0809 (Given - Provider: Michaela Paulino, MIRYAM) insulin glargine (LANTUS, SEMGLEE) 100 unit/mL injection 10 Units 10 Units, subcutaneous, Nightly, First dose on Fri07/25/24 at 2100, Do not mix with other insulins 2335 (Given - Provider: Marita Bojorquez RN) 2134 (Given - Provider: Marita Bojorquez, RN) insulin lispro (HumaLOG, ADMELOG) 100 unit/mL injection 0-10 Units 0-10 Units, subcutaneous, 3 times daily with meals, First dose on 07/25/24 at 0800, Blood glucose mg/dL: 149 or less: No insulin 150-199: give 2 unit 200-249: give 4 units 250-299: give 6 units 300-349: give 8 units and notify physician for adjustment of insulin orders. 350-399: give 10 units and notify physician for adjustment of insulin orders. Over 400: Notify physician for adjustment of insulin orders. Do NOT hold for NPO Status, Indications: Diabetes Mellitus 0818 (Given - Provider: Catrina Donis RN - Comment: bg [phone])[phone] (Given - Provider: Catrina Donis RN - Comment: bg 164)1714 (Given - Provider: Catrina Donis RN - Comment: bg 245) 0841 (Given - Provider: Michaela Paulino RN)1226 (Given - Provider: Michaela Paulino RN)1729 (Given - Provider: Michaela Paulino RN) 0803 (Not Given - Provider: Michaela Paulino RN - Reason: Order parameters not met)1219 (Given - Provider: Michaela Paulino RN) insulin lispro (HumaLOG, ADMELOG) 100 unit/mL injection 0-5 Units 0-5 Units, subcutaneous, Nightly, First dose on 07/24/24 at 2230, Blood glucose mg/dL: 149 or less: No insulin 150-199: give 1 unit 200-249: give 2 units 250-299: give 3 units 300-349: give 4 units and notify physician for adjustment of insulin orders. 350-399: give 5 units and notify physician for adjustment of insulin orders. Over 400: Notify physician for adjustment of insulin orders. Do NOT hold for NPO Status, Indications: Diabetes Mellitus 2334 (Given - Provider: Marita Bojorquez, MIRYAM) 0 (Given - Provider: Marita Bojorquez, RN) insulin lispro (HumaLOG, ADMELOG) 100 unit/mL injection 4 Units 4 Units, subcutaneous, 3 times daily before meals, First dose on 07/24/24 at 1130, Administer pre-meal doses when pts food tray arrives in room. Do not administer pre-meal doses to NPO patients. 0817 (Given - Provider: Catrina Donis RN - Comment: bg [id number])1249 (Given - Provider: Catrina Donis RN - Comment: bg 164)1713 (Given - Provider: Catrina Donis RN) 0840 (Given - Provider: Michaela Paulino RN)1223 (Not Given - Provider: Michaela Paulino RN - Reason: Contraindicated - Comment: Patient didn't want to eat her Lunch.)1728 (Given - Provider: Michaela Paulino RN) 0809 (Given - Provider: Michaela Paulino RN)1218 (Given - Provider: Michaela Paulino RN) metroNIDAZOLE (FLAGYL) tablet 500 mg (CANCELED) 500 mg, oral, 3 times daily, First dose on Fri07/23/24 at 1030, Indications: Abdominal/Pelvic Infection 0816 (Given - Provider: Catrina Donis RN)1608 (Given - Provider: Catrina Donis RN)2258 (Given - Provider: Marita Bojorquez, MIRYAM) 0840 (Given - Provider: Michaela Paulino, MIRYAM)1624 (Given - Provider: Michaela Paulino RN)2138 (Given - Provider: Marita Bojorquez, MIRYAM) 0808 (Given - Provider: Michaela Paulino, MIRYAM) pantoprazole (PROTONIX) 40 mg in sodium chloride 0.9% 10 mL IV Syringe (CANCELED) 40 mg, intravenous, at 300 mL/hr, Administer over 2 Minutes, Daily, First dose on Fri07/23/24 at 0900, For IV administration, reconstitute 40 mg vial with 10 mL sodium chloride 0.9% for injection for a final concentration of 4 mg/mL, Indications: Non-Bleeding Gastric Disorder 0816 (Given - Provider: Catrina Donis RN) 0840 (Given - Provider: Michaela Paulino RN) pantoprazole DR (PROTONIX) extended release tablet 40 mg 40 mg, oral, Daily, First dose on Fri07/27/24 at 0900, Do not crush, chew, cut, dissolve, open or otherwise manipulate tablet/capsule., Indications: Treatment of Non-Bleeding Gastric Disorder 0809 (Given - Provider: Michaela Paulino RN) potassium chloride ER (KLOR-CON) extended release tablet 40 mEq (COMPLETED) 40 mEq, oral, Once, On Fri07/26/24 at 1100, For 1 dose, Do not crush, chew, cut, dissolve, open or otherwise manipulate tablet/capsule. 1146 (Given - Provider: Michaela Paulino RN) sodium chloride 0.9% flush 0.5-20 mL 0.5-20 mL, intra-catheter, Every 8 hours scheduled (alternate), First dose on Fri07/23/24 at 0800, Flush volume based on line type and size. 0819 (Given - Provider: Catrina Donis RN)1650 (Given - Provider: Catrina Donis RN)2335 (Given - Provider: Marita Bojorquez, RN) 0841 (Given - Provider: Michaela Paulino RN)1624 (Given - Provider: Michaela Paulino RN) 0501 (Not Given - Provider: Marita Bojorquez RN - Reason: Other - Comment: IV was flushed when the vanc was hung at 21:39)0809 (Given - Provider: Michaela Paulino RN)1600 (Due) vancomycin 1,000 mg/200 mL in dextrose 5% (premix) 1,000 mg (CANCELED) 1,000 mg (rounded from 946.5 mg = 15 mg/kg 63.1 kg), intravenous, at 200 mL/hr, Administer over 60 Minutes, Every 24 hours, First dose (after last modification) on Fri07/24/24 at 0800, Indications: Sepsis 0816 (New Bag - Provider: Catrina Donis RN) 0700 (Lab Draw - Provider: Saym Underwood [facility] - Comment: trough)0954 (Not Given - Provider: Michaela Paulino RN - Reason: Order Discontinued) vancomycin 750 mg/250 mL in sodium chloride 0.9% (premix) 750 mg (CANCELED) 750 mg, intravenous, at 250 mL/hr, Administer over 60 Minutes, Every 12 hours, First dose (after last modification) on Fri07/26/24 at 1000, Indications: Sepsis 1011 (New Bag - Provider: Michaela Paulino RN)9 (New Bag - Provider: Marita Bojorquez, RN) PRN Medication Order 07/25/2024 07/26/2024 07/27/2024 acetaminophen (TYLENOL) tablet 650 mg 650 mg, oral, Every 6 hours PRN, fever, Starting on Fri07/23/24 at 0557 2138 (Given - Provider: Marita Bojorquez, RN) bisacodyL (DULCOLAX) suppository 10 mg(Linked Group 1) 10 mg, rectal, Daily PRN, constipation, if no results 24 hours after polyethylene glycol administration, Starting on Fri07/23/24 at 0440, Administer if not tolerating PO., Indications: constipation bisacodyl EC (DULCOLAX EC) tablet 10 mg(Linked Group 1) 10 mg, oral, Daily PRN, constipation, if no results 24 hours after polyethylene glycol administration, Starting on Fri07/23/24 at 0440, Administer if tolerating PO. Do not crush, chew, cut, dissolve, open or otherwise manipulate tablet/capsule., Indications: constipation Carrier Fluids for Secondary Infusion - 0.9% Sodium Chloride 30 mL, intravenous, As needed, For priming tubing and/or flushing, Starting on Fri07/23/24 at 0440, 0-250 ml/hr to flush line after IV infusions when no maintenance IV ordered. Infuse 30mL at the same rate as the secondary infusion. Run as primary IV, not intended for KVO. dextrose (D10W) 10% bolus 250 mL(Linked Group 2) 250 mL, intravenous, at 1,000 mL/hr, Administer over 15 Minutes, Every 15 min PRN, blood glucose less than 70 mg/dL and UNABLE to swallow/take PO glucose/juice., Starting on Fri07/23/24 at 0659, After treatment for hypoglycemia, recheck BG followed by treatment every 15 minutes until the BG is greater than 100 mg/dL. Then check BG 1 hour post treatment. If BG is less than 100 mg/dL, repeat Q15 minute BG checks and treatment. Call MD for each episode of hypoglycemia., Indications: hypoglycemic disorder dextrose (GLUTOSE) 40 % gel 15 g(Linked Group 2) 15 g, oral, Every 15 min PRN, low blood sugar, blood glucose less than 70 mg/dL, Starting on Fri07/23/24 at 0659, If patient is alert and able to eat/drink, give 15 gm glucose or one juice (4 fluid ounces) NOT ORANGE JUICE. After treatment for hypoglycemia, recheck BG followed by treatment every 15 minutes until the BG is greater than 100 mg/dL. Then check BG 1 hour post-treatment. If BG is less than 100 mg/dL, repeat Q15 minute BG checks and treatment. Call MD for each episode of hypoglycemia. CONSUMER SAFETY INSPECTOR STATES GLUTOSE-15 CONTAINS GLUCOSE 40% W/W (50% W/V), Indications: hypoglycemic disorder glucagon injection 1 mg 1 mg, intramuscular, Every 30 min PRN, low blood sugar, blood glucose less than 70 mg/dL AND no IV access AND unable to take PO glucose/juice., Starting on Fri07/23/24 at 0659, After Glucagon is administered, position patient on side if possible to avoid aspiration. Obtain IV access. Follow glucagon treatment with glucose treatment or IV dextrose. After treatment for hypoglycemia, recheck BG followed by treatment every 15 minutes until the BG is greater than 100 mg/dL. Then check BG 1 hour post treatment. If BG is less than 100 mg/dL, repeat Q15 minute BG checks and treatment. Call MD for each episode of hypoglycemia. Reconstitute 1 mg vial with 1 mL SWFI. Use immediately following reconstitution. morphine injection 2 mg 2 mg, intravenous, Administer over 4 Minutes, Every 3 hours PRN, 1st line for pain, Starting on Fri07/23/24 at 0440, May repeat in 30 minutes if pain is uncontrolled or increasing. Max 2 doses within 1 dosing interval., Indications: Pain ondansetron (ZOFRAN) injection 4 mg 4 mg, intravenous, Administer over 2 Minutes, Every 6 hours PRN, nausea, vomiting, Starting on Fri07/23/24 at 0440, Proceed to prochlorperazine if no relief within 30 minutes. polyethylene glycol (MIRALAX) packet 17 g 17 g, oral, Daily PRN, constipation, Starting on Fri07/23/24 at 0440, Indications: constipation prochlorperazine (COMPAZINE) injection 5 mg 5 mg, intravenous, Administer over 2 Minutes, Every 6 hours PRN, nausea, vomiting, Starting on Fri07/23/24 at 0440, If not relieved by ondansetron within 30 minutes. sodium chloride 0.9% flush 0.5-20 mL 0.5-20 mL, intra-catheter, As needed, line care, Starting on Fri07/23/24 at 0440, Flush volume based on line type and size. Flush before and after each use. 0634 (Given - Provider: Marita Bojorquez RN) Linked Groups Order Group 1: bisacodyl EC (DULCOLAX EC) tablet 10 mgJump to med 10 mg, oral, Daily PRN, constipation, if no results 24 hours after polyethylene glycol administration, Starting on Fri07/23/24 at 0440, Administer if tolerating PO. Do not crush, chew, cut, dissolve, open or otherwise manipulate tablet/capsule., Indications: constipation Or bisacodyL (DULCOLAX) suppository 10 mgJump to med 10 mg, rectal, Daily PRN, constipation, if no results 24 hours after polyethylene glycol administration, Starting on Fri07/23/24 at 0440, Administer if not tolerating PO., Indications: constipation Group 2: dextrose (GLUTOSE) 40 % gel 15 gJump to med 15 g, oral, Every 15 min PRN, low blood sugar, blood glucose less than 70 mg/dL, Starting on Fri07/23/24 at 0659, If patient is alert and able to eat/drink, give 15 gm glucose or one juice (4 fluid ounces) NOT ORANGE JUICE. After treatment for hypoglycemia, recheck BG followed by treatment every 15 minutes until the BG is greater than 100 mg/dL. Then check BG 1 hour post-treatment. If BG is less than 100 mg/dL, repeat Q15 minute BG checks and treatment. Call MD for each episode of hypoglycemia. CONSUMER SAFETY INSPECTOR STATES GLUTOSE-15 CONTAINS GLUCOSE 40% W/W (50% W/V), Indications: hypoglycemic disorder Or dextrose (D10W) 10% bolus 250 mLJump to med 250 mL, intravenous, at 1,000 mL/hr, Administer over 15 Minutes, Every 15 min PRN, blood glucose less than 70 mg/dL and UNABLE to swallow/take PO glucose/juice., Starting on Fri07/23/24 at 0659, After treatment for hypoglycemia, recheck BG followed by treatment every 15 minutes until the BG is greater than 100 mg/dL. Then check BG 1 hour post treatment. If BG is less than 100 mg/dL, repeat Q15 minute BG checks and treatment. Call MD for each episode of hypoglycemia., Indications: hypoglycemic disorder documented in this encounter Orders Medications Ordered That Kyle ht Not Have Been Administered Count Last Ordered Date First Ordered Date enoxaparin (LOVENOX) syringe 40 mg 1 2024 traZODone (DESYREL) tablet 100 mg 1 025 bisacodyL (DULCOLAX) suppository 10 mg 1 bisacodyl EC (DULCOLAX EC) tablet 10 mg 1 0 07/23/2024 Carrier Fluids for Secondary Infusion - 0.9% Sodium Chloride 1 07/23/2024 cefepime (MAXIPIME) 2,000 mg in sodium chloride 0.9% 100 mL IVPB 3 07/23/2024 dextrose (D10W) 10% bolus 250 mL 07/24/19 dextrose (GLUTOSE) 40 % gel 15 g 1 07/24/19 glucagon injection 1 mg 1 07/23/2024 morphine injection 2 mg 1 07/23/2024 ondansetron (ZOFRAN) injection 4 mg 1 07/23 polyethylene glycol (MIRALAX) packet 17 g 07/23/2024 prochlorperazine (COMPAZINE) injection 5 mg 1 07/23/2024 sodium chloride 0.9% bolus 1,893 mL 1 07/23 vancomycin 1,000 mg/200 mL i n dextrose 5% (premix) 1,000 mg 1 07/23/2024 vancomycin 1500 mg/250 mL in sodium chloride 0.9% (premix) 1,500 mg 1 07/23/2024 Lab Orders Without Results Count Last Ordered D ate First Ordered Date POCT GLUCOSE DEVICE 07/27/2024 07/24/19 Diet Count Last Ordered Date First Orde red Date ADULT DISCHARGE DIET 1 07/27/2024 Nursing Count Last Ordered Date First Orde red Date DISCHARGE ACTIVITY 1 07/27/2024 DISCHARGE INSTRUCTIONS 1 07/27/2024 SEPSIS CARE PROTOCOL 1 07/23/2024 Consult Count Last Ordered Date First Orde red Date IP CONSULT TO GASTROENTEROLOGY 1 07/23/2024 Admission Count Last Ordered Date First Orde red Date ADMIT TO INPATIENT 1 07/23/2024 Discharge Count Last Ordered Date First Orde red Date DISCHARGE PATIENT 1 07/27/2024 Case Request Count Last Ordered Date First Orde red Date CASE REQUEST GI 1 07/23/2024 documented in this encounter Additional Health Concerns Infection Onset Date Last Indicated Resolved Time MDR gram neg/ESBL 07/23/2024 07/23/2024 documented as of this encounter Care Teams Mercantile Agent Relationship Specialty Start Date End Date Brittni Guardado DO [facility] [place] [address] PCP - General Family Medicine 07/23/24 Mohan Heller MD [address] [place] [address] Endocrinology Diabetes & Metabolism 04/21/24 Kourtney Park PA [id number] [place] [address] Physician Stone Paver Hepatobiliary Surgery 04/21/24 No, Physician 04/21/24 Abimael Radford MD [address] [facility] [place] [address] Consulting Physician Hematology 04/21/24 documented as of this encounter
--- OUTSIDE RECORDS SUMMARY | 2024-07-28 10:35 | XMS_ITS | Clinical Summary ---
Author Organization [facility] Address [address] [place] [address] Care Team Providers Care Renal Technician Name Role Phone Mohan Heller MD Unavailable [phone] [place] Unavailable No, Physician Unavailable Abimael Radford MD Unavailable [phone] Brittni Guardado DO Primary Care Provider [phone] Allergies No known active allergies Medications atorvastatin (LIPITOR) 20 mg tablet Take 1 tablet (20 mg total) by mouth nightly at bedtime. 02/17/[address] (CYMBALTA) 60 mg capsule Take 1 capsule (60 mg total) by mouth daily 01/31/20 24 Active aspirin 81 mg enteric coated tablet Take 1 tablet (81 mg total) by mouth daily Active zinc acetate 25 mg (zinc) capsule Take 50 mg by mouth daily Active ferrous sulfate 325 mg (65 mg of elemental iron) tablet Take 1 tablet (65 mg of elemental iron total) by mouth 2 (two) times a day Active glucagon 1 mg kit Inject 1 mg into the muscle once as directed by provider for low blood sugar. 1 kit 04/21/19 25 Active enalapril (VASOTEC) 10 mg tablet Take 1 tablet (10 mg total) by mouth daily Active hydroCHLOROthi azide (MICROZIDE) 12.5 mg capsule Take 1 capsule (12.5 mg total) by mouth daily Active insulin glargine 100 unit/mL vial for injection Inject 12-22 Units under the skin 2 (two) times a day BS Less than or equal to 150 takes 12 units BS 151-200 takes 14 units BS 201-250 takes 16 units BS 251-300 takes 18 units BS 301-350 takes 20 units BS 351 or higher takes 22 units and call provider Active insulin lispro (HumaLOG, ADMELOG) 100 unit/mL vial [...] Visit Summary for Sliding Scale Insulin Instructions. Active eszopiclone (LUNESTA) 1 mg tabletIndicati ons:Insomnia Take 1 tablet (1 mg total) by mouth nightly Take immediately before bedtime Active ergocalciferol (VITAMIN D) 50,000 unit capsule Take 1 capsule (50,000 Units total) by mouth once a week Friday Active ciprofloxacin (CIPRO) 500 mg tabletIndicati ons:Abdominal/ Pelvic Infection Take 1 tablet (500 mg total) by mouth 2 (two) times a day for 6 doses 6 tablet 07/28/19 025 Active enalapriL-hydr ochlorothiazid e (VASERETIC) 10-25 mg per tablet Take 1 tablet by mouth daily 025 Discontinued cholecalcifero l (VITAMIN D-3) 50,000 unit capsule Take 1 capsule (50,000 Units total) by mouth once a week Friday 025 Discontinued insulin lispro (ADMELOG) 100 unit/mL pen for [...] Sliding Scale Insulin Instructions. 15 mL 1 04/21/19 025 Discontinued pen needle, diabetic 32 gauge x 5/32 needle Use as directed 3 times a day. 100 each 04/21/19 25 025 Discontinued blood-glucose meter kit Use as directed. 1 kit 04/21/19 25 025 Discontinued blood glucose diagnostic (glucose blood) strip Use as directed up to four times a day. 100 each 1 04/21/19 25 025 Discontinued lancets misc Use as directed up to 4 times a day. 100 each 1 04/21/19 25 025 Discontinued alcohol swabs (Alcohol Wipes) pads, medicated Use as directed. 100 each 04/21/19 025 Discontinued insulin glargine (LANTUS) 100 unit/mL (3 mL) pen for injection Inject 10 Units under the skin daily 15 mL 1 04/21/19 025 Discontinued pen needle, diabetic (Pen Needle) 32 gauge x 5/32 needle Use as directed once a day. 100 each 04/21/19 025 Discontinued Active Problems Problem Noted Date Diagnosed Date Pancreatic cancer 07/23/2024 Type 2 diabetes mellitus wit hout complication, with long-term current use of insulin 07/23/2024 Sepsis with encephalopathy without septic shock 07/23/2024 Metabolic encephalopathy 07/23/2024 Cholangitis 07/23/2024 Pancreatic adenocarcinoma 04/29/2024 Pancreatic mass 04/15/2024 Moderate protein-calorie malnutrition 04/15/2024 Encounters Date Type Department Care Team Description 07/23/2024 4:15 PM CDT Anesthesia Event [facility] [address] [place] [phone] Marisel Coello MD Patel, Falin, MD 07/23/2024 3:13 PM CDT - 07/23/2024 3:43 PM CDT Surgery [facility] [address] [place] [phone] Torey Jiménez MD ENDO ENDOSCOPIC RETROGRADE CHOLANGIOPANCREATOGRAPHY WITH STENT PLACEMENT [[id number]] 07/23/2024 4:39 AM CDT - 07/27/2024 4:22 PM CDT Hospital Encounter [address] [phone] Yoana Tatum MD Fishman, Brian Michael, DO Li, Alex, MD Cholangitis (HCC) (Primary Dx); Malignant neoplasm of head of pancreas (HCC) Discharge Disposition: Discharge to home or self care 07/23/2024 Orders Only [facility] Hospitalists [address] [place] [phone] Yoana Tatum MD 07/14/2024 Telephone [facility] [address] [place] [phone] Liya Woody, RN 06/29/2024 Telephone [facility] Surgery [address] [facility] [address] [place] [phone] Ana Lilia Aguilera RN 06/29/2024 Telephone [facility] Surgery [address] [facility] Floor 5 [place] [phone] Misty Chaney MD Medical Question/Miscellaneous 05/20/2024 Telephone [facility] [address] [place] [phone] Liya oWody RN 05/10/2024 Telephone [facility] Radiation Oncology [address] [facility] [place] [address] No, Physician 05/10/2024 Telephone [facility] Radiation Oncology [address] [facility] [place] [address] No, Physician 05/07/2024 Telephone [facility] Department [address] [place] [phone] Shahla Edmond 05/07/2024 Telephone [facility] Department [address] [place] [phone] Shahla Edmond 05/06/2024 8:47 AM FACILITIES OFFICER - 05/06/2024 11:59 PM FACILITIES OFFICER Hospital Encounter [facility] [address] [place] [address] [facility] Pet Pancreatic adenocarcinoma (HCC) Discharge Disposition: Discharge to home or self care 04/30/2024 Telephone [facility] Radiation Oncology [address] [place] [address] [place] [address] Ray Billy MD PhD 04/30/2024 Orders Only [facility] [place] [address] Abimael Radford MD Pancreatic adenocarcinoma (HCC) (Primary Dx) from Last 3 Months Social History Tobacco Use Types Packs/Day Years Used Date Smoking Tobacco: Former Cigarettes Q uit: 1975 Smokeless Tobacco: Never Tobacco Cessation:Counseling Given: Not Answered [facility] Utilities Answer Date Recorded In the past 12 months has [employer], gas, oil, or water [employer] threatened to shut off services in your [...] week 07/23/2024 How often do you attend [facility] or christianity services? More than 4 times per year 07/23/2024 Do you belong to any clubs o r organizations such as anabaptist groups, unions, fraternal or athletic groups, or [...] any time in the past 12 [facility], were you homeless or living in a custodial (including now)? No 07/23/2024 Personal Safety Answer Date Recorded Have you ever been in or are you currently in a harmful physical or emotional relationship or is someone making you feel afraid or unsafe? Denies 07/23/2024 Comments Unknown Sex and Gender Information Value Date Recorded Sex Assigned at Not on file Legal Sex Female 9:44 PM FACILITIES OFFICER Gender Identity Not on file Sexual Orientation [...] Mass Index 24.56 07/23/2024 3:27 PM CDT Plan of Treatment Health Maintenance Due Date Last Done Comments Albumin Creatinine Ratio, Urine 1945 Depression Screening 1945 Hepatitis C Screening 1945 Osteoporosis Screening-Bone Density Scan 1945 Dilated Eye Exam 1946 Foot Exam 1946 Lipid Panel 1946 Hepatitis B Screening 1964 Well Visit 65+ 10/19/2011 Pneumococcal vaccine 65+ (2 of 2 - PCV) 10/22/2014 10/22/2013, 12/20/2012 DTaP/Tdap/Td Vaccine (2 - Tdap) 03/19/2020 1 Hemoglobin A1C 10/14/2024 04/16/2024 Influenza Vaccine (Season Ended) 2024 12/18/2018, 11/16/2017, 12/11/2016, Additional history exists Fall Risk Assessment 07/27/2025 07/27/2024 eGFR 07/27/2025 07/27/2024, 07/02, 07/25/2024, Additional history exists Zoster Vaccine Completed 12/17/2018, 080 10/2018, 02/02/2013, Additional history exists Medical Devices Implanted Type Area Fur Stylist Device Identifier Shelf Expiration Date Model / Serial / Lot Conmed Holley Stent Biliary Rapid Exchange Self Expanding Viabil [id number] Nitinol [id number] - [id number] - [id number] Implanted:Qty: 1 on 04/15/2024 by Chente Decker MD at [facility] Stent N/A: Bile Duct Conmed Holley 07/21/2026 [id number] / [id number] / [employer] Holley 10cm 3.3mm Double Pigtail Stent [id number] - [id number] Implanted:Qty: 1 on 07/23/2024 by Torey Jiménez MD at [facility] N/A: Bile Duct [employer] Holley 06/15/2026 [id number] / / [id number] Procedures Procedure Name Priority Date/Time Associated Diagnosis Comments POCT GLUCOSE DEVICE Routine 07/27/2024 11:34 AM CDT POCT GLUCOSE DEVICE Routine 07/27/2024 7 :18 AM CDT EGFR Routine 07/27/2024 7:09 AM CDT DIFFERENTIAL AUTO Routine 07/27/2024 7:0 9 AM CDT COMPREHENSIVE METABOLIC PANEL Routine 07/27/2024 7:09 AM CDT CBC WITH AUTO DIFFERENTIAL Routine 07/27/2024 7:09 AM CDT POCT GLUCOSE DEVICE Routine 07/26/2024 9 :33 PM CDT POCT GLUCOSE DEVICE Routine 07/26/2024 4 :23 PM CDT POCT GLUCOSE DEVICE Routine 07/26/2024 11:45 AM CDT POCT GLUCOSE DEVICE Routine 07/26/2024 7 :24 AM CDT URINALYSIS AND REFLEX TO MICROSCOPIC AND CULTURE STAT 07/26/2024 7:24 AM CDT EGFR Routine 07/26/2024 6:01 AM CDT DIFFERENTIAL AUTO Routine 07/26/2024 6:0 1 AM CDT VANCOMYCIN LEVEL TROUGH Timed 07/26/2024 6:01 AM CDT COMPREHENSIVE METABOLIC PANEL Routine 07/26/2024 6:01 AM CDT CBC WITH AUTO DIFFERENTIAL Routine 07/26/2024 6:01 AM CDT POCT GLUCOSE DEVICE Routine 07/25/2024 10:49 PM CDT POCT GLUCOSE DEVICE Routine 07/25/2024 5 :01 PM CDT POCT GLUCOSE DEVICE Routine 07/25/2024 11:54 AM CDT POCT GLUCOSE DEVICE Routine 07/25/2024 7 :52 AM CDT EGFR Routine 07/25/2024 7:07 AM CDT DIFFERENTIAL AUTO Routine 07/25/2024 7:0 7 AM CDT COMPREHENSIVE METABOLIC PANEL Routine 07/25/2024 7:07 AM CDT CBC WITH AUTO DIFFERENTIAL Routine 07/25/2024 7:07 AM CDT POCT GLUCOSE DEVICE Routine 07/25/2024 6 :42 AM CDT POCT GLUCOSE DEVICE Routine 07/24/2024 9 :49 PM CDT POCT GLUCOSE DEVICE Routine 07/24/2024 4 :44 PM CDT EGFR Routine 07/24/2024 3:06 PM CDT DIFFERENTIAL AUTO Routine 07/24/2024 3:06 PM CDT COMPREHENSIVE METABOLIC PANEL Routine 07/24/2024 3:06 PM CDT CBC WITH AUTO DIFFERENTIAL Routine 07/24/2024 3:06 PM CDT BLOOD CULTURE Routine 07/24/2024 3:06 PM CDT POCT GLUCOSE DEVICE Routine 07/24/2024 12:21 PM CDT BLOOD CULTURE Routine 07/24/2024 12:17 [...] PM CDT POCT GLUCOSE DEVICE Routine 07/23/2024 12:09 PM CDT SEPSIS LACTATE WITH REFLEX Timed 07/23/2024 8:56 AM CDT POCT GLUCOSE DEVICE Routine 07/23/2024 7 :57 AM CDT ADD ON LAB TEST Add-On 07/23/2024 7:22 AM CDT DIFFERENTIAL AUTO STAT 07/23/2024 6:3 5 AM CDT CBC WITH AUTO DIFFERENTIAL STAT 07/23/2024 6:35 AM CDT PROCALCITONIN Routine 07/23/2024 6:12 AM CDT CRP (ACUTE PHASE) Routine 07/23/2024 6:1 2 AM CDT EGFR STAT 07/23/2024 6:12 AM CDT COMPREHENSIVE METABOLIC PANEL STAT 07/23/2024 6:12 AM CDT LIPASE Routine 07/23/2024 6:12 AM CDT PHOSPHORUS Routine 07/23/2024 6:12 AM CDT MAGNESIUM Routine 07/23/2024 6:12 AM CDT POCT GLUCOSE DEVICE Routine 07/23/2024 5 :55 AM CDT SEPSIS LACTATE WITH REFLEX STAT 07/23/2024 5:54 AM CDT BLOOD CULTURE STAT 07/23/2024 5:54 AM CDT BLOOD CULTURE STAT 07/23/2024 5:52 AM CDT POCT GLUCOSE DEVICE Routine 07/23/2024 5 :[address] OUTSIDE REFERENCE Routine 07/22/2024 12:05 AM CDT XR TRANSFER OF OUTSIDE FILMS Routine 07/22/2024 12:00 AM CDT US TRANSFER OF OUTSIDE FILMS Routine 07/22/2024 12:[address] BODY OUTSIDE REFERENCE Routine 07/22/2024 12:00 AM CDT PET/CT FDG SKULL TO THIGH Schedule Routine, Read Routine (OP Routine) 05/06/2024 10:59 AM FACILITIES OFFICER Pancreatic adenocarcinoma (HCC) POCT GLUCOSE DEVICE Routine 05/06/2024 9 :21 AM FACILITIES OFFICER HEMOGLOBIN A1C Routine 04/16/2024 5:58 AM FACILITIES OFFICER from Last 3 Months or Most Recently Relevant to Health Maintenance Results * (ABNORMAL) POCT glucose (07/27/2024 11:34 AM CDT) Glucose, POC 300(H) 70 - 199 mg/dL Comment: For Glucose values <35 mg/dl when Hematocrit is >60 mg/dl,the test may not accurately detect significant hypoglycemia,and testing in the Laboratory should be considered if clinically indicated. POC Performer [id number] [facility] Glucose comment 1 RN/MD Notified [facility] Blood 07/27/2024 11:3 4 AM CDT 07/27/2024 11:34 AM CDT Wojciech Carrasco MD LAB POCT ORDERABLES - DEVICE Fin al Result Performing Organization Address City/[facility]/ZIP Co de Phone Number [facility] [address] [place] [place] [address] * POCT glucose (07/27/2024 7:18 AM CDT) Glucose, POC 144 70 - 199 mg/dL Comment: For Glucose values <35 mg/dl when Hematocrit is >60 mg/dl,the test may not accurately detect significant hypoglycemia,and testing in the Laboratory should be considered if clinically indicated. POC Performer [id number] [facility] Blood 07/27/2024 7:18 AM CDT 07/27/2024 7:18 AM CDT Wojciech Carrasco MD LAB POCT ORDERABLES - DEVICE Fin al Result Performing Organization Address City/[facility]/ZIP Co de Phone Number [facility] [address] [employer] [place], [place] [phone] * eGFR (07/27/2024 7:09 AM CDT) [facility] eGFR >90 >=60 mL/min/1. 73 m2 [...] DO LAB BLOOD ORDERABLES Fi nal Result [facility] [address] Department [place] [address] * Differential, auto (07/27/2024 7:09 AM CDT) [facility] Neutrophil abs 2.48 1.50 - 6.50 K/cumm Imm gran abs 0.01 0.00 - 0.10 K/cumm [facility] Lymphocyte abs 0.96 0.80 - 3.30 K/cumm [facility] Monocyte abs 0.43 0.20 - 0.80 K/cumm [facility] Eosinophil abs 0.21 0.00 - 0.50 K/cumm [facility] Basophil abs 0.03 0.00 - 0.10 K/cumm [facility] Neutrophil pct 60.3 % [facility] Comment: Interpretive Data Percent cell count reference ranges are not reported, since discordance with absolute values may lead to misinterpretation of CBC data. Current Interpretive Data was last revised on 2017. Imm gran pct 0.2 % [facility] Comment: Interpretive Data Percent cell count reference ranges are not reported, since discordance with absolute values may lead to misinterpretation of CBC data. Current Interpretive Data was last revised on 2017. Lymphocyte pct 23.3 % [facility] Comment: Interpretive Data Percent cell count reference ranges are not reported, since discordance with absolute values may lead to misinterpretation of CBC data. Current Interpretive Data was last revised on 2017. Monocyte pct 10.4 % [facility] Comment: Interpretive Data Percent cell count reference ranges are not reported, since discordance with absolute values may lead to misinterpretation of CBC data. Current Interpretive Data was last revised on 2017. Eosinophil pct 5.1 % [facility] Comment: Interpretive Data Percent cell count reference ranges are not reported, since discordance with absolute values may lead to misinterpretation of CBC data. Current Interpretive Data was last revised on 2017. Basophil pct 0.7 % [facility] Comment: Interpretive Data Percent cell count reference ranges are not reported, since discordance with absolute values may lead to misinterpretation of CBC data. Current Interpretive Data was last revised on 2017. Blood 07/27/2024 7:09 AM CDT 07/27/2024 7:43 AM CDT Emmanuel Martinez DO LAB BLOOD ORDERABLES Fi nal Result [facility] [address] Department [place] [address] * (ABNORMAL) CBC with auto differential (07/27/2024 7:09 AM CDT) WBC 4.12 3.80 - 9.90 K/cumm Hgb 8.9(L) 11.9 - 15.5 g/dL [facility] Hct 27.5(L) 35.6 - 45.5 % [facility] Plt 121(L) 150 - 400 K/cumm [facility] Comment:Consistent with prev ious result. MPV 11.7 9.1 - 12.3 fL [facility] RBC 3.01(L) 3.90 - 5.20 M/cumm [facility] MCV 91.4 81.3 - 96.4 fL [facility] MCH 29.6 27.1 - 33.3 pg [facility] MCHC 32.4 32.3 - 35.7 g/dL [facility] RDW CV 14.5 11.1 - 14.9 % [facility] RDW SD 48.0 35.7 - 48.1 fL [facility] NRBC abs 0.00 0.00 - 0.01 K/cumm [facility] Blood 07/27/2024 7:09 AM CDT 07/27/2024 7:43 AM CDT Emmanuel Martinez DO LAB BLOOD ORDERABLES nal Result [facility] [address] Department [place] [address] * (ABNORMAL) Comprehensive metabolic panel (07/27/2024 7:09 AM CDT) Sodium 143 135 - 145 mmol/L Potassium, pl 3.0(L) 3.3 - 4.9 mmol/L [facility] Chloride 121(H) 97 - 110 mmol/L [facility] CO2 21(L) 22 - 32 mmol/L [facility] Anion gap 1(L) 2 - 15 mmol/L [facility] BUN 5(L) 6 - 25 mg/dL [facility] Creatinine 0.30(L) 0.60 - 1.10 mg/dL [facility] Glucose 132 70 - 199 mg/dL [facility] Comment: Interpretive Data Fasting glucose >/= 126 [...] 2022. Calcium 7.4(L) 8.5 - 10.3 mg/dL [facility] Bilirubin, total 1.3(H) 0.1 - 1.2 mg/dL [facility] Protein, pl 5.5(L) 6.5 - 8.5 g/dL [facility] Albumin 2.3(L) 3.5 - 5.0 g/dL [facility] Alk phos 177(H) 40 - 130 Units/L [facility] ALT 59(H) 7 - 45 Units/L [facility] AST 26 10 - 45 Units/L [facility] Blood 07/27/2024 7:09 AM CDT 07/27/2024 7:43 AM CDT Emmanuel Martinez LAB BLOOD ORDERABLES Fi nal Result Performing Organization Address City/[facility]/ZIP Co de Phone Number [facility] [address] [place] [place] [address] * (ABNORMAL) POCT glucose (07/26/2024 9:33 PM CDT) [facility] Glucose, POC 204(H) 70 - 199 mg/dL Comment: For Glucose values <35 mg/dl when Hematocrit is >60 mg/dl,the test may not accurately detect significant hypoglycemia,and testing in the Laboratory should be considered if clinically indicated. POC Performer [id number] [facility] Blood 07/26/2024 9:33 PM CDT 07/26/2024 9:33 PM CDT Emmanuel Martinez DO LAB POCT ORDERABLES - D EVICE Final Result Performing Organization Address City/[facility]/ZIP Co de Phone Number [facility] [address] Department [employer] [place], [place] [phone] * (ABNORMAL) POCT glucose (07/26/2024 4:23 PM CDT) Glucose, POC 250(H) 70 - 199 mg/dL Comment: For Glucose values <35 mg/dl when Hematocrit is >60 mg/dl,the test may not accurately detect significant hypoglycemia,and testing in the Laboratory should be considered if clinically indicated. POC Performer [id number] [facility] Blood 07/26/2024 4:23 PM CDT 07/26/2024 4:23 PM CDT Emmanuel Martinez DO LAB POCT ORDERABLES - D EVICE Final Result Performing Organization Address [facility] de Phone Number [facility] [address] [place] [place] [address] * POCT glucose (07/26/2024 11:45 AM CDT) Glucose, POC 184 70 - 199 mg/dL Comment: For Glucose values <35 mg/dl when Hematocrit is >60 mg/dl,the test may not accurately detect significant hypoglycemia,and testing in the Laboratory should be considered if clinically indicated. POC Performer [id number] [facility] Blood 07/26/2024 11:4 5 AM CDT 07/26/2024 11:45 AM CDT Emmanuel Martinez DO LAB POCT ORDERABLES - D EVICE Final Result Performing Organization Address [facility] [[email or web address]] Co de Phone Number [facility] [address] [facility] [place] [address] * Urinalysis reflex to microscopic and culture Urine (07/26/2024 7:24 AM CDT) Color, ur Yellow Yellow Clarity, ur Clear Clear [facility] Specific gravity, ur 1.010 1.003 - 1.030 [facility] pH, urine 6.5 [facility] Comment: Interpretive Data U rine pH is affected by diet, medications, systemic acid-base disturbances, and renal tubular function. pH may affect urinary stone formation. For example, urine pH below 6.0 may help reduce the tendency for calcium phosphate stones and pH greater than 6.0 may reduce the tendency for uric acid stone formation. Source: [facility] Current Interpretive Data was last revised on 2017 Protein, ur ql Negative Negative [facility] Glucose, ur ql Negative Negative [facility] Ketones, ur Negative Negative [facility] Bilirubin, ur Negative Negative [facility] Blood, ur Negative Negative [facility] Urobilinogen, ur <2.0 <2.0 mg/dL [facility] Nitrite, ur Negative Negative [facility] Leukocyte esterase, ur Negative Negative [facility] UA reflex comment Reflex conditions for microscopic UA and culture not met. [facility] Urine 07/26/2024 7:24 AM CDT 07/26/2024 7:31 AM CDT Torey Jiménez MD LAB MICROBIOLOGY - GENERAL ORDERABLES Final Result Performing Organization Address [facility] [[email or web address]] Co de Phone Number [facility] [address] [place] [address] * (ABNORMAL) POCT glucose (07/26/2024 7:24 AM CDT) [facility] Glucose, POC 204(H) 70 - 199 mg/dL Comment: For Glucose values <35 mg/dl when Hematocrit is >60 mg/dl,the test may not accurately detect significant hypoglycemia,and testing in the Laboratory should be considered if clinically indicated. POC Performer [id number] [facility] Blood 07/26/2024 7:24 AM CDT 07/26/2024 7:24 AM CDT Emmanuel Martinez DO LAB POCT ORDERABLES - D EVICE Final Result Performing Organization Address [facility] [[email or web address]] Co de Phone Number [facility] [address] Department [place] [address] * eGFR (07/26/2024 6:01 AM CDT) eGFR >90 >=60 mL/min/1. 73 [...] us Emmanuel Martinez DO LAB BLOOD ORDERABLES nal Result [facility] [address] Department [place] [address] * Differential, auto (07/26/2024 6:01 AM CDT) [facility] Neutrophil abs 2.27 1.50 - 6.50 K/cumm Imm gran abs 0.01 0.00 - 0.10 K/cumm [facility] Lymphocyte abs 0.80 0.80 - 3.30 K/cumm [facility] Monocyte abs 0.37 0.20 - 0.80 K/cumm [facility] Eosinophil abs 0.18 0.00 - 0.50 K/cumm [facility] Basophil abs 0.02 0.00 - 0.10 K/cumm [facility] Neutrophil pct 62.3 % [facility] Comment: Interpretive Data Percent cell count reference ranges are not reported, since discordance with absolute values may lead to misinterpretation of CBC data. Current Interpretive Data was last revised on 2017. Imm gran pct 0.3 % [facility] Comment: Interpretive Data Percent cell count reference ranges are not reported, since discordance with absolute values may lead to misinterpretation of CBC data. Current Interpretive Data was last revised on 2017. Lymphocyte pct 21.9 % [facility] Comment: Interpretive Data Percent cell count reference ranges are not reported, since discordance with absolute values may lead to misinterpretation of CBC data. Current Interpretive Data was last revised on 2017. Monocyte pct 10.1 % [facility] Comment: Interpretive Data Percent cell count reference ranges are not reported, since discordance with absolute values may lead to misinterpretation of CBC data. Current Interpretive Data was last revised on 2017. Eosinophil pct 4.9 % [facility] Comment: Interpretive Data Percent cell count reference ranges are not reported, since discordance with absolute values may lead to misinterpretation of CBC data. Current Interpretive Data was last revised on 2017. Basophil pct 0.5 % [facility] Comment: Interpretive Data Percent cell count reference ranges are not reported, since discordance with absolute values may lead to misinterpretation of CBC data. Current Interpretive Data was last revised on 2017. Blood 07/26/2024 6:01 AM CDT 07/26/2024 6:41 AM CDT us Emmanuel Martinez DO LAB BLOOD ORDERABLES Fi nal Result [facility] [address] Department [place] [address] * (ABNORMAL) CBC with auto differential (07/26/2024 6:01 AM CDT) WBC 3.65(L) 3.80 - 9.90 K/cumm Hgb 9.7(L) 11.9 - 15.5 g/dL [facility] Hct 29.3(L) 35.6 - 45.5 % [facility] Plt 118(L) 150 - 400 K/cumm [facility] Comment:Consistent with prev ious result. MPV 11.7 9.1 - 12.3 fL [facility] RBC 3.27(L) 3.90 - 5.20 M/cumm [facility] MCV 89.6 81.3 - 96.4 fL [facility] MCH 29.7 27.1 - 33.3 pg [facility] MCHC 33.1 32.3 - 35.7 g/dL [facility] RDW CV 14.1 11.1 - 14.9 % [facility] RDW SD 46.0 35.7 - 48.1 fL [facility] NRBC abs 0.00 0.00 - 0.01 K/cumm [facility] Blood 07/26/2024 6:01 AM CDT 07/26/2024 6:41 AM CDT Emmanuel Martinez DO LAB BLOOD ORDERABLES Fi nal Result Performing Organization Address City/[facility]/ZIP Co de Phone Number [facility] [address] [place] [address] * (ABNORMAL) Vancomycin level trough (07/26/2024 6:01 AM CDT) [facility] Vancomycin trough <4.0(L) 10.0 - 20.0 mcg/mL Blood 07/26/2024 6:01 AM CDT 07/26/2024 6:39 AM CDT Yoana Tatum MD LAB BLOOD ORDERABLES Edited R esult - Final [facility] [address] [place] [place] [address] * (ABNORMAL) Comprehensive metabolic panel (07/26/2024 6:01 AM CDT) [facility] Sodium 142 135 - 145 mmol/L Potassium, pl 3.2(L) 3.3 - 4.9 mmol/L [facility] Chloride 106 97 - 110 mmol/L [facility] CO2 21(L) 22 - 32 mmol/L [facility] Anion gap 15 2 - 15 mmol/L [facility] BUN 6 6 - 25 mg/dL [facility] Creatinine 0.34(L) 0.60 - 1.10 mg/dL [facility] Glucose 198 70 - 199 mg/dL [facility] Comment: Interpretive Data Fasting glucose >/= 126 [...] 2022. Calcium 8.6 8.5 - 10.3 mg/dL [facility] Bilirubin, total 2.1(H) 0.1 - 1.2 mg/dL [facility] Protein, pl 5.6(L) 6.5 - 8.5 g/dL [facility] Albumin 2.8(L) 3.5 - 5.0 g/dL [facility] Alk phos 232(H) 40 - 130 Units/L [facility] ALT 86(H) 7 - 45 Units/L [facility] AST 29 10 - 45 Units/L [facility] Blood 07/26/2024 6:01 AM CDT 07/26/2024 6:39 AM CDT Emmanuel Martinez DO LAB BLOOD ORDERABLES Fi nal Result [facility] [address] Department [place] [address] * POCT glucose (07/25/2024 10:49 PM CDT) [facility] Glucose, POC 170 70 - 199 mg/dL Comment: For Glucose values <35 mg/dl when Hematocrit is >60 mg/dl,the test may not accurately detect significant hypoglycemia,and testing in the Laboratory should be considered if clinically indicated. POC Performer [phone] [facility] Blood 07/25/2024 10:4 9 PM CDT 07/25/2024 10:49 PM CDT Emmanuel Martinez DO LAB POCT ORDERABLES - D EVICE Final Result Performing Organization Address [facility] [[email or web address]] Co de Phone Number [facility] [address] Department [place] [address] * (ABNORMAL) POCT glucose (07/25/2024 5:01 PM CDT) Glucose, POC 245(H) 70 - 199 mg/dL Comment: For Glucose values <35 mg/dl when Hematocrit is >60 mg/dl,the test may not accurately detect significant hypoglycemia,and testing in the Laboratory should be considered if clinically indicated. POC Performer [phone] [facility] Blood 07/25/2024 5:01 PM CDT 07/25/2024 5:01 PM CDT Emmanuel Martinez DO LAB POCT ORDERABLES - D EVICE Final Result Performing Organization Address [facility] [[email or web address]] Co de Phone Number [facility] [address] Department [place] [address] * POCT glucose (07/25/2024 11:54 AM CDT) Glucose, POC 164 70 - 199 mg/dL Comment: For Glucose values <35 mg/dl when Hematocrit is >60 mg/dl,the test may not accurately detect significant hypoglycemia,and testing in the Laboratory should be considered if clinically indicated. POC Performer [phone] [facility] Blood 07/25/2024 11:5 4 AM CDT 07/25/2024 11:54 AM CDT Emmanuel Martinez DO LAB POCT ORDERABLES - D EVICE Final Result Performing Organization Address [facility] [[email or web address]] Co de Phone Number [facility] [address] Department [place] [address] * (ABNORMAL) POCT glucose (07/25/2024 7:52 AM CDT) Glucose, POC 228(H) 70 - 199 mg/dL Comment: For Glucose values <35 mg/dl when Hematocrit is >60 mg/dl,the test may not accurately detect significant hypoglycemia,and testing in the Laboratory should be considered if clinically indicated. POC Performer [phone] [facility] Blood 07/25/2024 7:52 AM CDT 07/25/2024 7:52 AM CDT Emmanuel Martinez DO LAB POCT ORDERABLES - D EVICE Final Result Performing Organization Address [facility] [[email or web address]] Co de Phone Number [facility] [address] Department [place] [address] * eGFR (07/25/2024 7:07 AM CDT) [facility] eGFR >90 >=60 mL/min/1. 73 m2 [...] DO LAB BLOOD ORDERABLES Fi nal Result [facility] [address] Department [place] [address] * (ABNORMAL) Differential, auto (07/25/2024 7:07 AM CDT) Neutrophil abs 2.43 1.50 - 6.50 K/cumm Imm gran abs 0.01 0.00 - 0.10 K/cumm [facility] Lymphocyte abs 0.55(L) 0.80 - 3.30 K/cumm [facility] Monocyte abs 0.33 0.20 - 0.80 K/cumm [facility] Eosinophil abs 0.17 0.00 - 0.50 K/cumm [facility] Basophil abs 0.02 0.00 - 0.10 K/cumm [facility] Neutrophil pct 69.2 % [facility] Comment: Interpretive Data Percent cell count reference ranges are not reported, since discordance with absolute values may lead to misinterpretation of CBC data. Current Interpretive Data was last revised on 2017. Imm gran pct 0.3 % [facility] Comment: Interpretive Data Percent cell count reference ranges are not reported, since discordance with absolute values may lead to misinterpretation of CBC data. Current Interpretive Data was last revised on 2017. Lymphocyte pct 15.7 % [facility] Comment: Interpretive Data Percent cell count reference ranges are not reported, since discordance with absolute values may lead to misinterpretation of CBC data. Current Interpretive Data was last revised on 2017. Monocyte pct 9.4 % [facility] Comment: Interpretive Data Percent cell count reference ranges are not reported, since discordance with absolute values may lead to misinterpretation of CBC data. Current Interpretive Data was last revised on 2017. Eosinophil pct 4.8 % [facility] Comment: Interpretive Data Percent cell count reference ranges are not reported, since discordance with absolute values may lead to misinterpretation of CBC data. Current Interpretive Data was last revised on 2017. Basophil pct 0.6 % [facility] Comment: Interpretive Data Percent cell count reference ranges are not reported, since discordance with absolute values may lead to misinterpretation of CBC data. Current Interpretive Data was last revised on 2017. Blood 07/25/2024 7:07 AM CDT 07/25/2024 7:32 AM CDT Emmanuel Martinez DO LAB BLOOD ORDERABLES Fi nal Result Performing Organization Address City/[facility]/ZIP Co de Phone Number [facility] [address] [place] [address] * (ABNORMAL) CBC with auto differential (07/25/2024 7:07 AM CDT) WBC 3.51(L) 3.80 - 9.90 K/cumm Hgb 10.3(L) 11.9 - 15.5 g/dL [facility] Hct 30.5(L) 35.6 - 45.5 % [facility] Plt 111(L) 150 - 400 K/cumm [facility] MPV 11.9 9.1 - 12.3 fL [facility] RBC 3.41(L) 3.90 - 5.20 M/cumm [facility] MCV 89.4 81.3 - 96.4 fL [facility] MCH 30.2 27.1 - 33.3 pg [facility] MCHC 33.8 32.3 - 35.7 g/dL [facility] RDW CV 14.2 11.1 - 14.9 % [facility] RDW SD 45.7 35.7 - 48.1 fL [facility] NRBC abs 0.00 0.00 - 0.01 K/cumm [facility] Blood 07/25/2024 7:07 AM CDT 07/25/2024 7:32 AM CDT Emmanuel Martinez DO LAB BLOOD ORDERABLES Fi nal Result Performing Organization Address City/[facility]/ZIP Co de Phone Number [facility] [address] Department [place] [address] * (ABNORMAL) Comprehensive metabolic panel (07/25/2024 7:07 AM CDT) Sodium 142 135 - 145 mmol/L Potassium, pl 3.2(L) 3.3 - 4.9 mmol/L [facility] Chloride 108 97 - 110 mmol/L [facility] CO2 20(L) 22 - 32 mmol/L [facility] Anion gap 14 2 - 15 mmol/L [facility] BUN 7 6 - 25 mg/dL [facility] Creatinine 0.38(L) 0.60 - 1.10 mg/dL [facility] Glucose 213(H) 70 - 199 mg/dL [facility] Comment: Interpretive Data Fasting glucose >/= 126 [...] 2022. Calcium 8.6 8.5 - 10.3 mg/dL [facility] Bilirubin, total 2.7(H) 0.1 - 1.2 mg/dL [facility] Protein, pl 5.7(L) 6.5 - 8.5 g/dL [facility] Albumin 2.7(L) 3.5 - 5.0 g/dL [facility] Alk phos 253(H) 40 - 130 Units/L [facility] ALT 112(H) 7 - 45 Units/L [facility] AST 45 10 - 45 Units/L [facility] Blood 07/25/2024 7:0 7 AM CDT 07/25/2024 7:32 AM CDT us Emmanuel Martinez DO LAB BLOOD ORDERABLES Fi nal Result [facility] [address] [place] [address] * (ABNORMAL) POCT glucose (07/25/2024 6:42 AM CDT) Glucose, POC 215(H) 70 - 199 mg/dL Comment: For Glucose values <35 mg/dl when Hematocrit is >60 mg/dl,the test may not accurately detect significant hypoglycemia,and testing in the Laboratory should be considered if clinically indicated. POC Performer [id number] [facility] Blood 07/25/2024 6:42 AM CDT 07/25/2024 6:42 AM CDT Emmanuel Martinez DO LAB POCT ORDERABLES - D EVICE Final Result Performing Organization Address [facility] [[email or web address]] Co de Phone Number [facility] [address] [facility] [place] [address] * (ABNORMAL) POCT glucose (07/24/2024 9:49 PM CDT) Glucose, POC 242(H) 70 - 199 mg/dL Comment: For Glucose values <35 mg/dl when Hematocrit is >60 mg/dl,the test may not accurately detect significant hypoglycemia,and testing in the Laboratory should be considered if clinically indicated. POC Performer [id number] [facility] Blood 07/24/2024 9:49 PM CDT 07/24/2024 9:49 PM CDT Emmanuel Martinez DO LAB POCT ORDERABLES - D EVICE Final Result [facility] [address] [facility] [place] [address] * POCT glucose (07/24/2024 4:44 PM CDT) Glucose, POC 196 70 - 199 mg/dL Comment: For Glucose values <35 mg/dl when Hematocrit is >60 mg/dl,the test may not accurately detect significant hypoglycemia,and testing in the Laboratory should be considered if clinically indicated. POC Performer [id number] [facility] Blood 07/24/2024 4:44 PM CDT 07/24/2024 4:44 PM CDT Emmanuel Martinez DO LAB POCT ORDERABLES - D EVICE Final Result Performing Organization Address [facility]/ZIP Co de Phone Number [facility] [address] [place] [address] * eGFR (07/24/2024 3:06 PM CDT) eGFR >90 >=60 mL/min/1. 73 m2 [...] ORDERABLES Fi nal Result Performing Organization Address [facility]/ZIP Co de Phone Number [facility] [address] Department of Laboratories [place], [place] [id number] * (ABNORMAL) Differential, auto (07/24/2024 3:06 PM CDT) Neutrophil abs 3.85 1.50 - 6.50 K/cumm Imm gran abs 0.01 0.00 - 0.10 K/cumm [facility] Lymphocyte abs 0.51(L) 0.80 - 3.30 K/cumm [facility] Monocyte abs 0.37 0.20 - 0.80 K/cumm [facility] Eosinophil abs 0.18 0.00 - 0.50 K/cumm [facility] Basophil abs 0.02 0.00 - 0.10 K/cumm [facility] Neutrophil pct 78.0 % [facility] Comment: Interpretive Data Percent cell count reference ranges are not reported, since discordance with absolute values may lead to misinterpretation of CBC data. Current Interpretive Data was last revised on 2017. Imm gran pct 0.2 % [facility] Comment: Interpretive Data Percent cell count reference ranges are not reported, since discordance with absolute values may lead to misinterpretation of CBC data. Current Interpretive Data was last revised on 2017. Lymphocyte pct 10.3 % [facility] Comment: Interpretive Data Percent cell count reference ranges are not reported, since discordance with absolute values may lead to misinterpretation of CBC data. Current Interpretive Data was last revised on 2017. Monocyte pct 7.5 % [facility] Comment: Interpretive Data Percent cell count reference ranges are not reported, since discordance with absolute values may lead to misinterpretation of CBC data. Current Interpretive Data was last revised on 2017. Eosinophil pct 3.6 % [facility] Comment: Interpretive Data Percent cell count reference ranges are not reported, since discordance with absolute values may lead to misinterpretation of CBC data. Current Interpretive Data was last revised on 2017. Basophil pct 0.4 % [facility] Comment: Interpretive Data Percent cell count reference ranges are not reported, since discordance with absolute values may lead to misinterpretation of CBC data. Current Interpretive Data was last revised on 2017. Blood 07/24/2024 3:06 PM CDT 07/24/2024 3:12 PM CDT Emmanuel Martinez DO LAB BLOOD ORDERABLES Fi nal Result Performing Organization Address [facility] [[email or web address]] Co de Phone Number [facility] [address] [place] [address] * (ABNORMAL) CBC with auto differential (07/24/2024 3:06 PM CDT) [facility] WBC 4.94 3.80 - 9.90 K/cumm Hgb 10.0(L) 11.9 - 15.5 g/dL [facility] Hct 30.4(L) 35.6 - 45.5 % [facility] Plt 119(L) 150 - 400 K/cumm [facility] MPV 11.4 9.1 - 12.3 fL [facility] RBC 3.39(L) 3.90 - 5.20 M/cumm [facility] MCV 89.7 81.3 - 96.4 fL [facility] MCH 29.5 27.1 - 33.3 pg [facility] MCHC 32.9 32.3 - 35.7 g/dL [facility] RDW CV 13.9 11.1 - 14.9 % [facility] RDW SD 45.9 35.7 - 48.1 fL [facility] NRBC abs 0.00 0.00 - 0.01 K/cumm [facility] Blood 07/24/2024 3:06 PM CDT 07/24/2024 3:12 PM CDT Emmanuel Martinez LAB BLOOD ORDERABLES Fi nal Result Performing Organization Address [facility] [[email or web address]] Co de Phone Number [facility] [address] [place] [address] * (ABNORMAL) Comprehensive metabolic panel (07/24/2024 3:06 PM CDT) [facility] Sodium 137 135 - 145 mmol/L Potassium, pl 3.2(L) 3.3 - 4.9 mmol/L [facility] Chloride 105 97 - 110 mmol/L [facility] CO2 18(L) 22 - 32 mmol/L [facility] Anion gap 14 2 - 15 mmol/L [facility] BUN 12 6 - 25 mg/dL [facility] Creatinine 0.41(L) 0.60 - 1.10 mg/dL [facility] Glucose 196 70 - 199 mg/dL [facility] Comment: Interpretive Data Fasting glucose >/= 126 [...] 2022. Calcium 8.4(L) 8.5 - 10.3 mg/dL [facility] Bilirubin, total 3.3(H) 0.1 - 1.2 mg/dL [facility] Protein, pl 5.8(L) 6.5 - 8.5 g/dL [facility] Albumin 2.8(L) 3.5 - 5.0 g/dL [facility] Alk phos 264(H) 40 - 130 Units/L [facility] ALT 141(H) 7 - 45 Units/L [facility] AST 68(H) 10 - 45 Units/L [facility] Blood 07/24/2024 3:06 PM CDT 07/24/2024 3:12 PM CDT Emmanuel Martinez DO LAB BLOOD ORDERABLES Fi nal Result [facility] [address] Department [place] [address] * (ABNORMAL) POCT glucose (07/24/2024 12:21 PM CDT) [facility] Glucose, POC 277(H) 70 - 199 mg/dL Comment: For Glucose values <35 mg/dl when Hematocrit is >60 mg/dl,the test may not accurately detect significant hypoglycemia,and testing in the Laboratory should be considered if clinically indicated. POC Performer [id number] [facility] Blood 07/24/2024 12:2 1 PM CDT 07/24/2024 12:21 PM CDT Emmanuel Martinez DO LAB POCT ORDERABLES - D EVICE Final Result Performing Organization Address [facility] [[email or web address]] Co de Phone Number [facility] [address] [facility] [place] [address] * (ABNORMAL) POCT glucose (07/24/2024 9:00 AM CDT) Glucose, POC 355(H) 70 - 199 mg/dL Comment: For Glucose values <35 mg/dl when Hematocrit is >60 mg/dl,the test may not accurately detect significant hypoglycemia,and testing in the Laboratory should be considered if clinically indicated. POC Performer [phone] [facility] Blood 07/24/2024 9:00 AM CDT 07/24/2024 9:00 AM CDT Emmanuel Martinez DO LAB POCT ORDERABLES - D EVICE Final Result Performing Organization Address [facility] de Phone Number [facility] [address] [facility] [place] [address] * (ABNORMAL) POCT glucose (07/24/2024 8:58 AM CDT) Glucose, POC 334(H) 70 - 199 mg/dL Comment: For Glucose values <35 mg/dl when Hematocrit is >60 mg/dl,the test may not accurately detect significant hypoglycemia,and testing in the Laboratory should be considered if clinically indicated. POC Performer [id number] [facility] Blood 07/24/2024 8:58 AM CDT 07/24/2024 8:58 AM CDT Emmanuel Martinez DO LAB POCT ORDERABLES - D EVICE Final Result Performing Organization Address City/[facility]/ZIP Co de Phone Number [facility] [address] [facility] [place] [address] * POCT glucose (07/24/2024 6:28 AM CDT) Glucose, POC 147 70 - 199 mg/dL Comment: For Glucose values <35 mg/dl when Hematocrit is >60 mg/dl,the test may not accurately detect significant hypoglycemia,and testing in the Laboratory should be considered if clinically indicated. POC Performer [id number] [facility] Blood 07/24/2024 6:28 AM CDT 07/24/2024 6:28 AM CDT Emmanuel Martinez DO LAB POCT ORDERABLES - D EVICE Final Result Performing Organization Address [facility] de Phone Number [facility] [address] [facility] [place] [address] * POCT glucose (07/24/2024 2:43 AM CDT) Glucose, POC 133 70 - 199 mg/dL Comment: For Glucose values <35 mg/dl when Hematocrit is >60 mg/dl,the test may not accurately detect significant hypoglycemia,and testing in the Laboratory should be considered if clinically indicated. POC Performer [phone] [facility] Blood 07/24/2024 2:43 AM CDT 07/24/2024 2:43 AM CDT Emmanuel Martinez DO LAB POCT ORDERABLES - D EVICE Final Result Performing Organization Address [facility] de Phone Number [facility] [address] [facility] [place] [address] * POCT glucose (07/23/2024 9:11 PM CDT) Glucose, POC 139 70 - 199 mg/dL Comment: For Glucose values <35 mg/dl when Hematocrit is >60 mg/dl,the test may not accurately detect significant hypoglycemia,and testing in the Laboratory should be considered if clinically indicated. POC Performer [id number] [facility] Blood 07/23/2024 9:11 PM CDT 07/23/2024 9:11 PM CDT Emmanuel Martinez DO LAB POCT ORDERABLES - D EVICE Final Result Performing Organization Address [facility] [[email or web address]] Co de Phone Number [facility] [address] [facility] [place] [address] * POCT glucose (07/23/2024 7:25 PM CDT) Glucose, POC 191 70 - 199 mg/dL Comment: For Glucose values <35 mg/dl when Hematocrit is >60 mg/dl,the test may not accurately detect significant hypoglycemia,and testing in the Laboratory should be considered if clinically indicated. POC Performer [phone] [facility] Blood 07/23/2024 7:25 PM CDT 07/23/2024 7:25 PM CDT Emmanuel Martinez DO LAB POCT ORDERABLES - D EVICE Final Result Performing Organization Address [facility] [[email or web address]] Co de Phone Number [facility] [address] [facility] [place] [address] * POCT glucose (07/23/2024 6:03 PM CDT) Glucose, POC 186 70 - 199 mg/dL Comment: For Glucose values <35 mg/dl when Hematocrit is >60 mg/dl,the test may not accurately detect significant hypoglycemia,and testing in the Laboratory should be considered if clinically indicated. POC Performer [id number] [facility] Blood 07/23/2024 6:03 PM CDT 07/23/2024 6:03 PM CDT Emmanuel Martinez DO LAB POCT ORDERABLES - D EVICE Final Result Performing Organization Address [facility]/ZIP Co de Phone Number [facility] [address] Department [place] [address] * [place] ERCP Biliary Duct (07/23/2024 5:21 PM CDT) Narrative [facility] - 07/23/2024 5:33 PM CDT The images from this study are not interpreted by Radiology. Please refer to the physician's procedure / OR operative note. us Mariusz March MD IMG FLUOROSCOPY PROCEDURES Final Result [facility] * ERCP (07/23/2024 4:05 PM CDT) Anatomical Region Laterality Modality Other Narrative Procedure Note Torey Jiménez MD - 07/23/2024 4:05 PM CDT ENDOSCOPY LAB Patient Name: Zac Chambers Procedure Date: 07/23/2024 4:05 PM Admit Type: Inpatient Room: [facility] Date of : 1945 Instrument Name: [id number] Gender: Female Note Status: Finalized Procedure: ERCP [...] A biliary stent was visible on the market editor film. The esophagus was successfully intubated under [...] 07/23/2024 4:05 PM Scope In: Scope Out: us Torey Jiménez MD ENDOSCOPY PROCEDURES Final Result * POCT glucose (07/23/2024 3:32 PM CDT) Glucose, POC 196 70 - 199 mg/dL Comment: For Glucose values <35 mg/dl when Hematocrit is >60 mg/dl,the test may not accurately detect significant hypoglycemia,and testing in the Laboratory should be considered if clinically indicated. POC Performer [id number] [facility] Blood 07/23/2024 3:32 PM CDT 07/23/2024 3:32 PM CDT Emmanuel Martinez DO LAB POCT ORDERABLES - D EVICE Final Result Performing Organization Address [facility] [[email or web address]] Co de Phone Number [facility] [address] [facility] [place], [place] [id number] * POCT glucose (07/23/2024 12:09 PM CDT) Glucose, POC 193 70 - 199 mg/dL Comment: For Glucose values <35 mg/dl when Hematocrit is >60 mg/dl,the test may not accurately detect significant hypoglycemia,and testing in the Laboratory should be considered if clinically indicated. POC Performer [id number] [facility] Blood 07/23/2024 12:0 9 PM CDT 07/23/2024 12:09 PM CDT Emmanuel Martinez DO LAB POCT ORDERABLES - D EVICE Final Result Performing Organization Address [facility] [[email or web address]] Co de Phone Number [facility] [address] [facility] [place] [address] * Sepsis Lactate w/ Reflex (07/23/2024 8:56 AM CDT) Pathologist [facility] Sepsis Lactate 1.1 0.7 - 2.0 mmol/L Blood 07/23/2024 8:56 AM CDT 07/23/2024 9:00 AM CDT Yoana Tatum MD LAB BLOOD ORDERABLES Final Re sult Performing Organization Address City/[facility]/ZIP Co de Phone Number [facility] [address] Department [place], [place] [id number] * (ABNORMAL) POCT glucose (07/23/2024 7:57 AM CDT) [facility] Glucose, POC 238(H) 70 - 199 mg/dL Comment: For Glucose values <35 mg/dl when Hematocrit is >60 mg/dl,the test may not accurately detect significant hypoglycemia,and testing in the Laboratory should be considered if clinically indicated. POC Performer [id number] [facility] Blood 07/23/2024 7:57 AM CDT 07/23/2024 7:57 AM CDT Emmanuel Martinez DO LAB POCT ORDERABLES - D EVICE Final Result [facility] [address] [place] [address] * Procalcitonin - Add on lab test (07/23/2024 7:22 AM CDT) [facility] Acceptable Yes Blood 07/23/2024 7:22 AM CDT 07/23/2024 7:22 AM CDT Narrative [facility] - 07/23/2024 7:23 AM CDT Name of Test->Procalcitonin Ernesto HOLLEY LAB BLOOD ORDERABLES Final Result [facility] [address] [place] [address] * (ABNORMAL) Differential, auto (07/23/2024 6:35 AM CDT) [facility] Neutrophil abs 4.46 1.50 - 6.50 K/cumm Imm gran abs 0.02 0.00 - 0.10 K/cumm [facility] Lymphocyte abs 0.13(L) 0.80 - 3.30 K/cumm [facility] Monocyte abs 0.07(L) 0.20 - 0.80 K/cumm [facility] Eosinophil abs 0.03 0.00 - 0.50 K/cumm [facility] Basophil abs 0.01 0.00 - 0.10 K/cumm [facility] Neutrophil pct 94.5 % [facility] Comment: Interpretive Data Percent cell count reference ranges are not reported, since discordance with absolute values may lead to misinterpretation of CBC data. Current Interpretive Data was last revised on 2017. Imm gran pct 0.4 % [facility] Comment: Interpretive Data Percent cell count reference ranges are not reported, since discordance with absolute values may lead to misinterpretation of CBC data. Current Interpretive Data was last revised on 2017. Lymphocyte pct 2.8 % [facility] Comment: Interpretive Data Percent cell count reference ranges are not reported, since discordance with absolute values may lead to misinterpretation of CBC data. Current Interpretive Data was last revised on 2017. Monocyte pct 1.5 % [facility] Comment: Interpretive Data Percent cell count reference ranges are not reported, since discordance with absolute values may lead to misinterpretation of CBC data. Current Interpretive Data was last revised on 2017. Eosinophil pct 0.6 % [facility] Comment: Interpretive Data Percent cell count reference ranges are not reported, since discordance with absolute values may lead to misinterpretation of CBC data. Current Interpretive Data was last revised on 2017. Basophil pct 0.2 % [facility] Comment: Interpretive Data Percent cell count reference ranges are not reported, since discordance with absolute values may lead to misinterpretation of CBC data. Current Interpretive Data was last revised on 2017. Blood 07/23/2024 6:35 AM CDT 07/23/2024 6:35 AM CDT us Yoana Tatum MD LAB BLOOD ORDERABLES Final Re sult [facility] [address] Department [place] [address] * (ABNORMAL) CBC with auto differential (07/23/2024 6:35 AM CDT) WBC 4.72 3.80 - 9.90 K/cumm Hgb 11.1(L) 11.9 - 15.5 g/dL [facility] Hct 33.0(L) 35.6 - 45.5 % [facility] Plt 115(L) 150 - 400 K/cumm [facility] MPV 11.1 9.1 - 12.3 fL [facility] RBC 3.64(L) 3.90 - 5.20 M/cumm [facility] MCV 90.7 81.3 - 96.4 fL [facility] MCH 30.5 27.1 - 33.3 pg [facility] MCHC 33.6 32.3 - 35.7 g/dL [facility] RDW CV 13.9 11.1 - 14.9 % [facility] RDW SD 46.2 35.7 - 48.1 fL [facility] NRBC abs 0.00 0.00 - 0.01 K/cumm [facility] Blood 07/23/2024 6:35 AM CDT 07/23/2024 6:42 AM CDT us Yoana Tatum MD LAB BLOOD ORDERABLES Final Re sult [facility] [address] Department [place] [address] * eGFR (07/23/2024 6:12 AM CDT) eGFR [...] ORDERABLES Final Re sult Performing Organization Address [facility]/ZIP Co de Phone Number [facility] [address] [facility] [place] [address] * (ABNORMAL) Procalcitonin (07/23/2024 6:12 AM CDT) Procalcitonin 1.27(H) <=0.25 ng/mL Blood 07/23/2024 6:12 AM CDT 07/23/2024 6:12 AM CDT Emmanuel Martinez DO LAB BLOOD ORDERABLES Fi nal Result Performing Organization Address [facility] [[email or web address]] Co de Phone Number [facility] [address] [facility] [place] [place] [address] * (ABNORMAL) CRP (acute phase) (07/23/2024 6:12 AM CDT) CRP 92.9(H) <=10.0 mg/L Blood 07/23/2024 6:12 AM CDT 07/23/2024 6:12 AM CDT Yoana Tatum MD LAB BLOOD ORDERABLES Final Re sult Performing Organization Address [facility] [[email or web address]] Co de Phone Number [facility] [address] [facility] [place] [place] [address] * (ABNORMAL) Phosphorus (07/23/2024 6:12 AM CDT) Phosphorus, pl 2.0(L) 2.3 - 4.5 mg/dL Blood 07/23/2024 6:12 AM CDT 07/23/2024 6:12 AM CDT Yoana Tatum MD LAB BLOOD ORDERABLES Final Re sult Performing Organization Address [facility] de Phone Number [facility] [address] [facility] [place], [place] [id number] * Magnesium (07/23/2024 6:12 AM CDT) [facility] Magnesium 1.8 1.4 - 2.5 mg/dL Blood 07/23/2024 6:12 AM CDT 07/23/2024 6:12 AM CDT Yoana Tatum MD LAB BLOOD ORDERABLES Final Re sult Performing Organization Address [facility] de Phone Number [facility] [address] [place] [address] * Lipase (07/23/2024 6:12 AM CDT) [facility] Lipase 26 10 - 99 Units/L Blood 07/23/2024 6:12 AM CDT 07/23/2024 6:12 AM CDT Yoana Tatum MD LAB BLOOD ORDERABLES Final Re sult Performing Organization Address [facility] de Phone Number [facility] [address] [facility] [place] [address] * (ABNORMAL) Comprehensive metabolic panel (07/23/2024 6:12 AM CDT) [facility] Sodium 135 135 - 145 mmol/L Potassium, pl 3.8 3.3 - 4.9 mmol/L [facility] Chloride 101 97 - 110 mmol/L [facility] CO2 20(L) 22 - 32 mmol/L [facility] Anion gap 14 2 - 15 mmol/L [facility] BUN 10 6 - 25 mg/dL [facility] Creatinine 0.44(L) 0.60 - 1.10 mg/dL [facility] Glucose 226(H) 70 - 199 mg/dL [facility] Comment: Interpretive Data Fasting glucose >/= 126 [...] 2022. Calcium 8.9 8.5 - 10.3 mg/dL [facility] Bilirubin, total 7.0(H) 0.1 - 1.2 mg/dL [facility] Protein, pl 6.2(L) 6.5 - 8.5 g/dL [facility] Albumin 3.1(L) 3.5 - 5.0 g/dL [facility] Alk phos 301(H) 40 - 130 Units/L [facility] ALT 248(H) 7 - 45 Units/L [facility] AST 221(H) 10 - 45 Units/L [facility] Blood Venous blood specimen / Unknown 07/23/2024 6:12 AM CDT 07/23/2024 6:12 AM CDT us Yoana Tatum MD LAB BLOOD ORDERABLES Final Re sult [facility] [address] Department [place] [address] * (ABNORMAL) POCT glucose (07/23/2024 5:55 AM CDT) [facility] Glucose, POC 245(H) 70 - 199 mg/dL Comment: For Glucose values <35 mg/dl when Hematocrit is >60 mg/dl,the test may not accurately detect significant hypoglycemia,and testing in the Laboratory should be considered if clinically indicated. POC Performer [id number] [facility] Blood 07/23/2024 5:55 AM CDT 07/23/2024 5:55 AM CDT Yoana Tatum MD LAB POCT ORDERABLES - DEVICE Final Result Performing Organization Address [facility]/ZIP Co de Phone Number [facility] [address] [facility] [place] [address] * (ABNORMAL) Sepsis Lactate w/ Reflex (07/23/2024 5:54 AM CDT) Sepsis Lactate 3.6(H) 0.7 - 2.0 mmol/L Blood 07/23/2024 5:54 AM CDT 07/23/2024 6:12 AM CDT Yoana Tatum MD LAB BLOOD ORDERABLES Final Re sult Performing Organization Address [facility] [[email or web address]] Co de Phone Number [facility] [address] [place] [address] * (ABNORMAL) Blood culture Blood (07/23/2024 5:54 AM CDT) Pathologist [facility] Direct Specimen Exam Stain: Gram Negative Bacilli Test result called to and read back by Arnaldo Louise on 07/23/2024 18:37:34 by [id number] Report Final Report: Klebsiella pneumoniae This susceptibility pattern indicates the possible production of an extended spectrum beta lactamase (ESBL). Inpatients infected with ESBL-producing organisms require contact isolation precautions. Susceptibility reported on this organism on previous culture [phone] (.) [facility] Organism KLEBSIELLA PNEUMONIAE [facility] Blood 07/23/2024 5:54 AM CDT 07/23/2024 6:10 AM CDT N[address] [facility] - 07/27/2024 7:03 AM CDT Collection->Peripheral Interpretive [...] organism identification may be performed using the [employer] Blood Culture Identification panel. This assay detects microbial DNA in a blood culture broth. This assay has been cleared by the [place] Food and Drug Administration and its performance characteristics have been verified by the [facility]. Interpretive data was last revised on April 04, 2022. Yoana Tatum MD LAB MICROBIOLOGY - GENERAL OR DERABLES Final Result [facility] [address] Department [place] [address] * (ABNORMAL) Blood culture Blood (07/23/2024 5:52 AM CDT) Pathologist [facility] Direct Specimen Exam Molecular Analysis: Klebsiella pneumoniae group detected by the [employer] Blood Culture Identification Panel. This test does not exclude the possibility of a mixed bacterial infection. CTX-M (ESBL) gene detected by the [employer] Blood Culture Identification Panel. This test does not exclude the possibility of a mixed bacterial infection. This is a multi-drug resistant organism. Inpatients require contact isolation. Test result called to and read back by ALVAREZ GARNER RN on 07/23/2024 18:37:34 by [id number] Direct Specimen Exam Stain: Gram Negative Bacilli [facility] Report Final Report: Klebsiella pneumoniae This susceptibility pattern indicates the possible production of an extended spectrum beta lactamase (ESBL). Inpatients infected with ESBL-producing organisms require contact isolation precautions. (.) [facility] Organism KLEBSIELLA PNEUMONIAE [facility] Blood 07/23/2024 5:52 AM CDT 07/23/2024 5:52 AM CDT Narrative [facility] - 07/27/2024 7:02 AM CDT From a [...] organism identification may be performed using the [employer] Blood Culture Identification panel. This assay detects microbial DNA in a blood culture broth. This assay has been cleared by the [place] Food and Drug Administration and its performance characteristics have been verified by the [facility]. Interpretive data was last revised [...] MICROBIOLOGY - GENERAL OR DERABLES Final Result [facility] [address] [place] [address] * (ABNORMAL) POCT glucose (07/23/2024 5:01 AM CDT) [facility] Glucose, POC 231(H) 70 - 199 mg/dL Comment: For Glucose values <35 mg/dl when Hematocrit is >60 mg/dl,the test may not accurately detect significant hypoglycemia,and testing in the Laboratory should be considered if clinically indicated. POC Performer [id number] [facility] Blood 07/23/2024 5:01 AM CDT 07/23/2024 5:01 AM CDT Yoana Tatum MD LAB POCT ORDERABLES - DEVICE Final Result Performing Organization Address [facility]/ZIP Co de Phone Number [facility] [address] [place] [address] * Neuro CT Outside Reference (07/22/2024 12:05 AM CDT) Narrative [email or web address] - 07/23/2024 9:36 AM CDT This order has been auto-finalized and does not contain a result. us Provider Transcribed Order IMG CT PROCEDURES Fin al Result Performing Organization Address [facility] de Phone Number [email or web address] * CT Body Outside Reference (07/22/2024 12:00 AM CDT) Narrative [email or web address][facility] - 07/23/2024 9:36 AM CDT This order has been auto-finalized and does not contain a result. us Provider Transcribed Order IMG CT PROCEDURES Fin al Result Performing Organization Address [facility] de Phone Number [email or web address] * XR Outside Reference (07/22/2024 12:00 AM CDT) Narrative [facility]OUTSIDE[facility][email or web address] - 07/23/2024 9:36 AM CDT This order has been auto-finalized and does not contain a result. us Provider Transcribed Order IMG XR PROCEDURES Fin al Result Performing Organization Address [facility] de Phone Number [email or web address] * US Outside Reference (07/22/2024 12:00 AM CDT) Narrative [facility]PACS[facility][email or web address] - 07/23/2024 9:36 AM CDT This order has been auto-finalized and does not contain a result. us Provider Transcribed Order IMG US PROCEDURES Fin al Result Performing Organization Address [facility] de Phone Number [email or web address] * PET/CT FDG Skull to Thigh (05/06/2024 10:59 AM FACILITIES OFFICER) Anatomical Region Laterality Modality N/A Positron Emissio n Tomography (PET) 05/06/2024 2:56 PM FACILITIES OFFICER Impressions 05/06/2024 4:58 PM FACILITIES OFFICER 1. Faint uptake in the region of [...] by: DO Jaimie Neal 05/06/2024 4:58 PM FACILITIES OFFICER EXAMINATION: TUMOR FDG-PET/CT IMAGING DATE OF STUDY: 05/06/2024 SCANNER: [facility] RADIOPHARMACEUTICAL: 16.02 mCi F-18 Fluorodeoxyglucose (FDG) [...] obtained. The study was interpreted on the [employer] workstation. The mean liver SUV (reported for director of quality improvement purposes) is 2.2. The total scanned area [...] atelectasis. Multilevel spinal spondylosis Procedure Note Branden Hicks, - 05/06/2024 EXAMINATION: TUMOR FDG-PET/CT IMAGING DATE OF STUDY: 05/06/2024 SCANNER: [facility] RADIOPHARMACEUTICAL: 16.02 mCi F-18 Fluorodeoxyglucose (FDG) [...] obtained. The study was interpreted on the [employer] workstation. The mean liver SUV (reported for director of quality improvement purposes) is 2.2. The total scanned area [...] Electronically signed by: Branden Hicks DO Result [facility] Abimael Radford MD IMG PET PROCEDURES Final Result * POCT glucose (05/06/2024 9:21 AM FACILITIES OFFICER) Glucose, POC 164 70 - 199 mg/dL Comment: For Glucose values <35 mg/dl when Hematocrit is >60 mg/dl,the test may not accurately detect significant hypoglycemia,and testing in the Laboratory should be considered if clinically indicated. Blood 05/06/2024 9:21 AM FACILITIES OFFICER 05/06/2024 9:21 AM FACILITIES OFFICER Result [facility] Abimael Radford MD LAB POCT ORDERABLES - DEVICE Fi nal Result Performing Organization Address [facility] de Phone Number [facility] [address] [place] [address] * (ABNORMAL) Hemoglobin A1c (04/16/2024 5:58 AM FACILITIES OFFICER) Pathologist [facility] Hgb A1C 6.7(H) 4.0 - 5.6 % Estimated Average Glucose 146 mg/dL [facility] Comment: The ADA recommends reporting an estimated Average Glucose (eAG) with all Hemoglobin A1c results using the equation derived from a study of 507 normal and diabetic adults. Minority populations were underrepresented and children were not included. (Diabetes Care 31:8906-2293, 2008). The eAG is not equivalent to a fasting glucose. Blood 04/16/2024 5:58 AM FACILITIES OFFICER 04/16/2024 6:32 AM FACILITIES OFFICER Chente Decker MD LAB BLOOD ORDERABL ES Final Result Performing Organization Address [facility] [[email or web address]] Co de Phone Number [facility] [address] [facility] [place] [address] from Last 3 Months or Most Recently Relevant to Health Maintenance Additional Health Concerns Infection Onset Date Last Indicated MDR gram neg/ESBL 07/23/2024 07/23/2024 Insurance T MEDICARE T MEDICARE Advance Directives For more information, please contact: [phone] * Full Code (Latest Code Status on File) Date Activated Date Inactivated Comments 07/23/2024 4:40 AM 07/27/2024 8:27 PM * Full Code Date Activated Date Inactivated Comments 04/14/2024 9:44 PM 04/21/2024 5:36 PM Care Teams Renal Technician Relationship Specialty Start Date End Date Brittni Guardado DO [facility] [address] [address] PCP - General Family Medicine 07/23/24 Mohan Heller MD [address] [place] [address] Endocrinology Diabetes & Metabolism 04/21/24 Kourtney Park PA [id number] [place] [address] Physician Insole Tape Stitcher [employer] Hepatobiliary Surgery 04/21/24 No, Physician 04/21/24 Abimael Radford MD [address] [facility] [place] [address] Consulting Physician Hematology 04/21/24
--- OUTSIDE RECORDS SUMMARY | 2024-07-28 10:35 | XMS_ITS | Referral Summary ---
Author Organization [facility] Address [address] [place] [address] Care Team Providers Care Bore Mill Operator [employer] Name Role Phone Mohan Heller MD Unavailable [place] Unavailable No, Physician Unavailable Abimael Radford MD Unavailable [phone] Brittni Guardado DO Primary Care Provider [phone] Encounters Date Type Department Care Team Description 07/23/2024 4:39 AM CDT - 07/27/2024 4:22 PM CDT Hospital Encounter [address] [phone] Yoana Tatum MD Fishman, Brian Michael, DO Li, Alex, MD Cholangitis (HCC) (Primary Dx); Malignant neoplasm of head of pancreas (HCC) Discharge Disposition: Discharge to home or self care 07/23/2024 4:15 PM CDT Anesthesia Event [address] [phone] Marisel Coello MD Patel, Falin, MD 07/23/2024 3:13 PM CDT - 07/23/2024 3:43 PM CDT Surgery [address] [place] [address] Torey Jiménez MD ENDO ENDOSCOPIC RETROGRADE CHOLANGIOPANCREATOGRAPHY WITH STENT PLACEMENT [GI509] 07/23/2024 Orders Only [facility] Hospitalists [address] [place] [phone] Yoana Tatum MD 07/14/2024 Telephone [facility] [address] [place] [phone] Liya Woody, RN 06/29/2024 Telephone [facility] Surgery [address] [place] [phone] Ana Lilia Aguilera RN 06/29/2024 Telephone [facility] Surgery [address] [facility] Floor [address] [place] [phone] Misty Chaney MD Medical Question/Miscellaneous 05/20/2024 Telephone [facility] [address] [place] [phone] Liya Woody, RN 05/10/2024 Telephone [facility] Radiation Oncology [address] [facility] [place] [address] No, Physician 05/10/2024 Telephone [facility] Radiation Oncology [address] [place] [address] No, Physician 05/07/2024 Telephone [facility] Genetics Department [address] [place] [phone] Shahla Edmond 05/07/2024 Telephone [facility] Genetics Department [address] [place] [phone] Shahla Edmond 05/06/2024 8:47 AM CORNER BEAD OPERATOR - 05/06/2024 11:59 PM CORNER BEAD OPERATOR Hospital Encounter [facility] - Imaging [address] [place] [phone] Formerly [facility] Pet Pancreatic adenocarcinoma (HCC) Discharge Disposition: Discharge to home or self care 04/30/2024 Telephone [facility] Radiation Oncology [address] [facility] [place] [address] aRy Billy MD PhD 04/30/2024 Orders Only [facility] [address] [facility] [place] [address] Abimael Radford MD Pancreatic adenocarcinoma [...] 3 times a day. 100 each 04/21/19 025 Discontinued blood-glucose meter kit Use as directed. 1 kit 04/21/19 025 Discontinued blood glucose diagnostic (glucose blood) strip Use as directed up to four times a day. 100 each 04/21/19 025 Discontinued lancets misc Use as directed up to 4 times a day. 100 each 04/21/19 025 Discontinued alcohol swabs (Alcohol Wipes) pads, medicated Use as directed. 100 each 04/21/19 25 025 Discontinued insulin glargine (LANTUS) 100 unit/mL (3 mL) pen for injection Inject 10 Units under the skin daily 15 mL 1 04/21/19 25 025 Discontinued pen needle, diabetic (Pen Needle) 32 gauge x 5/32 needle Use as directed once a day. 100 each 04/21/19 25 025 Discontinued Active Problems Problem Noted Date Diagnosed Date Pancreatic cancer 07/23/2024 Type 2 diabetes mellitus wit hout complication, with long-term current use of insulin 07/23/2024 Sepsis with encephalopathy without septic shock 07/23/2024 Metabolic encephalopathy 07/23/2024 Cholangitis 07/23/2024 Pancreatic adenocarcinoma 04/29/2024 Pancreatic mass 04/15/2024 Moderate protein-calorie malnutrition 04/15/2024 Social History Tobacco Use Types Packs/Day Years Used Date Smoking Tobacco: Former Cigarettes Q uit: 1975 Smokeless Tobacco: Never Tobacco Cessation:Counseling Given: Not Answered [facility] [email or web address] Answer Date Recorded In the past 12 months has [employer], [employer], oil, or water Apptive threatened to shut off services in your [...] week 07/23/2024 How often do you attend [facility] or mosque services? 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 Gender Identity Not on file Sexual [...] 07/23/2024 3:27 PM CDT Plan of Treatment Not on file Medical Devices Implanted Type Area C Programmer Device Identifier Shelf Expiration Date Model / Serial / Lot Conmed Holley Stent Biliary Rapid Exchange Self Expanding Viabil [id number] Nitinol [id number] - [id number] - [id number] Implanted:Qty: 1 on 04/15/2024 by Chente Decker MD at [facility] Stent N/A: Bile Duct Conmed Holley 07/21/2026 [id number] / [id number] / [employer] Holley 10cm 3.3mm Double Pigtail Stent [id number] - [id number] Implanted:Qty: 1 on 07/23/2024 by Torey Jiménez MD at [facility] N/A: Bile Duct [employer] Holley 06/15/2026 [id number] / / [id number] Procedures Procedure Name Priority Date/Time Associated Diagnosis [...] AUTO Routine 07/24/2024 3:0 6 PM CDT COMPREHENSIVE METABOLIC PANEL Routine 07/24/2024 [...] Read Routine (OP Routine) 05/06/2024 10:59 AM CORNER BEAD OPERATOR Pancreatic adenocarcinoma (HCC) POCT GLUCOSE DEVICE Routine 05/06/2024 9 :21 AM CORNER BEAD OPERATOR HEMOGLOBIN A1C Routine 04/16/2024 5:58 AM CORNER BEAD OPERATOR from Last 3 Months or Most Recently Relevant to Health Maintenance Results * (ABNORMAL) POCT glucose (07/27/2024 11:34 AM CDT) Glucose, POC 300(H) 70 - 199 mg/dL Comment: For Glucose values <35 mg/dl when Hematocrit is >60 mg/dl,the test may not accurately detect significant hypoglycemia,and testing in the Laboratory should be considered if clinically indicated. POC Performer [id number] [facility] Glucose comment 1 RN/MD Notified [facility] Blood 07/27/2024 11:3 4 AM CDT 07/27/2024 11:34 AM CDT us Wojciech Carrasco MD LAB POCT ORDERABLES - DEVICE Fin al Result Performing Organization Address [facility]/ZIP Co de Phone Number [facility] [address] [place] [address] * POCT glucose (07/27/2024 7:18 AM CDT) Glucose, POC 144 70 - 199 mg/dL Comment: For Glucose values <35 mg/dl when Hematocrit is >60 mg/dl,the test may not accurately detect significant hypoglycemia,and testing in the Laboratory should be considered if clinically indicated. POC Performer [id number] [facility] Blood 07/27/2024 7:18 AM CDT 07/27/2024 7:18 AM CDT Wojciech Carrasco MD LAB POCT ORDERABLES - DEVICE Fin al Result Performing Organization Address [facility] Co de Phone Number [facility] [address] [place] [address] * eGFR (07/27/2024 7:09 AM CDT) eGFR [...] DO LAB BLOOD ORDERABLES Fi nal Result [facility] [address] Department [place] [address] * Differential, auto (07/27/2024 7:09 AM CDT) Neutrophil abs 2.48 1.50 - 6.50 K/cumm Imm gran abs 0.01 0.00 - 0.10 K/cumm [facility] Lymphocyte abs 0.96 0.80 - 3.30 K/cumm [facility] Monocyte abs 0.43 0.20 - 0.80 K/cumm [facility] Eosinophil abs 0.21 0.00 - 0.50 K/cumm [facility] Basophil abs 0.03 0.00 - 0.10 K/cumm [facility] Neutrophil pct 60.3 % [facility] Comment: Interpretive Data Percent cell count reference ranges are not reported, since discordance with absolute values may lead to misinterpretation of CBC data. Current Interpretive Data was last revised on 2017. Imm gran pct 0.2 % [facility] Comment: Interpretive Data Percent cell count reference ranges are not reported, since discordance with absolute values may lead to misinterpretation of CBC data. Current Interpretive Data was last revised on 2017. Lymphocyte pct 23.3 % [facility] Comment: Interpretive Data Percent cell count reference ranges are not reported, since discordance with absolute values may lead to misinterpretation of CBC data. Current Interpretive Data was last revised on 2017. Monocyte pct 10.4 % [facility] Comment: Interpretive Data Percent cell count reference ranges are not reported, since discordance with absolute values may lead to misinterpretation of CBC data. Current Interpretive Data was last revised on 2017. Eosinophil pct 5.1 % [facility] Comment: Interpretive Data Percent cell count reference ranges are not reported, since discordance with absolute values may lead to misinterpretation of CBC data. Current Interpretive Data was last revised on 2017. Basophil pct 0.7 % [facility] Comment: Interpretive Data Percent cell count reference ranges are not reported, since discordance with absolute values may lead to misinterpretation of CBC data. Current Interpretive Data was last revised on 2017. Blood 07/27/2024 7:09 AM CDT 07/27/2024 7:43 AM CDT Emmanuel Martinez DO LAB BLOOD ORDERABLES Fi nal Result Performing Organization Address [facility]/ZIP Co de Phone Number [facility] [address] [place] [address] * (ABNORMAL) CBC with auto differential (07/27/2024 7:09 AM CDT) WBC 4.12 3.80 - 9.90 K/cumm Hgb 8.9(L) 11.9 - 15.5 g/dL [facility] Hct 27.5(L) 35.6 - 45.5 % [facility] Plt 121(L) 150 - 400 K/cumm [facility] Comment:Consistent with prev ious result. MPV 11.7 9.1 - 12.3 fL [facility] RBC 3.01(L) 3.90 - 5.20 M/cumm [facility] MCV 91.4 81.3 - 96.4 fL [facility] MCH 29.6 27.1 - 33.3 pg [facility] MCHC 32.4 32.3 - 35.7 g/dL [facility] RDW CV 14.5 11.1 - 14.9 % [facility] RDW SD 48.0 35.7 - 48.1 fL [facility] NRBC abs 0.00 0.00 - 0.01 K/cumm [facility] Blood 07/27/2024 7:09 AM CDT 07/27/2024 7:43 AM CDT Emmanuel Martinez DO LAB BLOOD ORDERABLES Fi nal Result Performing Organization Address [facility]/ZIP Co de Phone Number [facility] [address] Department [place] [address] * (ABNORMAL) Comprehensive metabolic panel (07/27/2024 7:09 AM CDT) Sodium 143 135 - 145 mmol/L Potassium, pl 3.0(L) 3.3 - 4.9 mmol/L [facility] Chloride 121(H) 97 - 110 mmol/L [facility] CO2 21(L) 22 - 32 mmol/L [facility] Anion gap 1(L) 2 - 15 mmol/L [facility] BUN 5(L) 6 - 25 mg/dL [facility] Creatinine 0.30(L) 0.60 - 1.10 mg/dL [facility] Glucose 132 70 - 199 mg/dL [facility] Comment: Interpretive Data Fasting glucose [...] 2022. Calcium 7.4(L) 8.5 - 10.3 mg/dL [facility] Bilirubin, total 1.3(H) 0.1 - 1.2 mg/dL [facility] Protein, pl 5.5(L) 6.5 - 8.5 g/dL [facility] Albumin 2.3(L) 3.5 - 5.0 g/dL [facility] Alk phos 177(H) 40 - 130 Units/L [facility] ALT 59(H) 7 - 45 Units/L [facility] AST 26 10 - 45 Units/L [facility] Blood 07/27/2024 7:09 AM CDT 07/27/2024 7:43 AM CDT Emmanuel Martinez DO LAB BLOOD ORDERABLES Fi nal Result [facility] [address] Department [place], [place] [id number] * (ABNORMAL) POCT glucose (07/26/2024 9:33 PM CDT) Glucose, POC 204(H) 70 - 199 mg/dL Comment: For Glucose values <35 mg/dl when Hematocrit is >60 mg/dl,the test may not accurately detect significant hypoglycemia,and testing in the Laboratory should be considered if clinically indicated. POC Performer [id number] [facility] Blood 07/26/2024 9:33 PM CDT 07/26/2024 9:33 PM CDT Emmanuel Martinez DO LAB POCT ORDERABLES - D EVICE Final Result Performing Organization Address [facility] de Phone Number [facility] [address] [place] [address] * (ABNORMAL) POCT glucose (07/26/2024 4:23 PM CDT) Glucose, POC 250(H) 70 - 199 mg/dL Comment: For Glucose values <35 mg/dl when Hematocrit is >60 mg/dl,the test may not accurately detect significant hypoglycemia,and testing in the Laboratory should be considered if clinically indicated. POC Performer [phone] [facility] Blood 07/26/2024 4:23 PM CDT 07/26/2024 4:23 PM CDT Emmanuel Martinez DO LAB POCT ORDERABLES - D EVICE Final Result Performing Organization Address [facility] Co de Phone Number [facility] [address] [place] [address] * POCT glucose (07/26/2024 11:45 AM CDT) Glucose, POC 184 70 - 199 mg/dL Comment: For Glucose values <35 mg/dl when Hematocrit is >60 mg/dl,the test may not accurately detect significant hypoglycemia,and testing in the Laboratory should be considered if clinically indicated. POC Performer [id number] [facility] Blood 07/26/2024 11:4 5 AM CDT 07/26/2024 11:45 AM CDT Emmanuel Martinez DO LAB POCT ORDERABLES - D EVICE Final Result Performing Organization Address [facility] Co de Phone Number [facility] [address] Department [place] [address] * Urinalysis reflex to microscopic and culture Urine (07/26/2024 7:24 AM CDT) Color, ur Yellow Yellow Clarity, ur Clear Clear [facility] Specific gravity, ur 1.010 1.003 - 1.030 [facility] pH, urine 6.5 [facility] Comment: Interpretive Data U rine pH is affected by diet, medications, systemic acid-base disturbances, and renal tubular function. pH may affect urinary stone formation. For example, urine pH below 6.0 may help reduce the tendency for calcium phosphate stones and pH greater than 6.0 may reduce the tendency for uric acid stone formation. Source: [facility] Current Interpretive Data was last revised on 2017 Protein, ur ql Negative Negative [facility] Glucose, ur ql Negative Negative [facility] Ketones, ur Negative Negative [facility] Bilirubin, ur Negative Negative [facility] Blood, ur Negative Negative [facility] Urobilinogen, ur <2.0 <2.0 mg/dL [facility] Nitrite, ur Negative Negative [facility] Leukocyte esterase, ur Negative Negative [facility] UA reflex comment Reflex conditions for microscopic UA and culture not met. [facility] Urine 07/26/2024 7:24 AM CDT 07/26/2024 7:31 AM CDT Torey Jiménez MD LAB MICROBIOLOGY - GENERAL ORDERABLES Final Result Performing Organization Address City/[facility]/ZIP Co de Phone Number [facility] [address] Department [place] [address] * (ABNORMAL) POCT glucose (07/26/2024 7:24 AM CDT) [facility] Glucose, POC 204(H) 70 - 199 mg/dL Comment: For Glucose values <35 mg/dl when Hematocrit is >60 mg/dl,the test may not accurately detect significant hypoglycemia,and testing in the Laboratory should be considered if clinically indicated. POC Performer [id number] [facility] Blood 07/26/2024 7:24 AM CDT 07/26/2024 7:24 AM CDT Emmanuel Martinez DO LAB POCT ORDERABLES - Gloria MCHUGH Final Result [facility] [address] Department [place] [address] * eGFR (07/26/2024 6:01 AM CDT) [facility] eGFR >90 >=60 mL/min/1. 73 m2 Comment: [...] CDT 07/26/2024 6:39 AM CDT us Emmanuel Andersonman DO LAB BLOOD ORDERABLES Fi nal Result [facility] [address] Department [place] [address] * Differential, auto (07/26/2024 6:01 AM CDT) Neutrophil abs 2.27 1.50 - 6.50 K/cumm Imm gran abs 0.01 0.00 - 0.10 K/cumm [facility] Lymphocyte abs 0.80 0.80 - 3.30 K/cumm [facility] Monocyte abs 0.37 0.20 - 0.80 K/cumm [facility] Eosinophil abs 0.18 0.00 - 0.50 K/cumm [facility] Basophil abs 0.02 0.00 - 0.10 K/cumm [facility] Neutrophil pct 62.3 % [facility] Comment: Interpretive Data Percent cell count reference ranges are not reported, since discordance with absolute values may lead to misinterpretation of CBC data. Current Interpretive Data was last revised on 2017. Imm gran pct 0.3 % [facility] Comment: Interpretive Data Percent cell count reference ranges are not reported, since discordance with absolute values may lead to misinterpretation of CBC data. Current Interpretive Data was last revised on 2017. Lymphocyte pct 21.9 % [facility] Comment: Interpretive Data Percent cell count reference ranges are not reported, since discordance with absolute values may lead to misinterpretation of CBC data. Current Interpretive Data was last revised on 2017. Monocyte pct 10.1 % [facility] Comment: Interpretive Data Percent cell count reference ranges are not reported, since discordance with absolute values may lead to misinterpretation of CBC data. Current Interpretive Data was last revised on 2017. Eosinophil pct 4.9 % [facility] Comment: Interpretive Data Percent cell count reference ranges are not reported, since discordance with absolute values may lead to misinterpretation of CBC data. Current Interpretive Data was last revised on 2017. Basophil pct 0.5 % [facility] Comment: Interpretive Data Percent cell count reference ranges are not reported, since discordance with absolute values may lead to misinterpretation of CBC data. Current Interpretive Data was last revised on 2017. Blood 07/26/2024 6:01 AM CDT 07/26/2024 6:41 AM CDT Emmanuel Martinez DO LAB BLOOD ORDERABLES Fi nal Result Performing Organization Address City/[facility]/ZIP Co de Phone Number [facility] [address] [place] [address] * (ABNORMAL) CBC with auto differential (07/26/2024 6:01 AM CDT) WBC 3.65(L) 3.80 - 9.90 K/cumm Hgb 9.7(L) 11.9 - 15.5 g/dL [facility] Hct 29.3(L) 35.6 - 45.5 % [facility] Plt 118(L) 150 - 400 K/cumm [facility] Comment:Consistent with prev ious result. MPV 11.7 9.1 - 12.3 fL [facility] RBC 3.27(L) 3.90 - 5.20 M/cumm [facility] MCV 89.6 81.3 - 96.4 fL [facility] MCH 29.7 27.1 - 33.3 pg [facility] MCHC 33.1 32.3 - 35.7 g/dL [facility] RDW CV 14.1 11.1 - 14.9 % [facility] RDW SD 46.0 35.7 - 48.1 fL [facility] NRBC abs 0.00 0.00 - 0.01 K/cumm [facility] Blood 07/26/2024 6:01 AM CDT 07/26/2024 6:41 AM CDT Emmanuel Martinez DO LAB BLOOD ORDERABLES Fi nal Result Performing Organization Address City/[facility]/ZIP Co de Phone Number [facility] [address] [place], [place] [id number] * (ABNORMAL) Vancomycin level trough (07/26/2024 6:01 AM CDT) Vancomycin trough <4.0(L) 10.0 - 20.0 mcg/mL Blood 07/26/2024 6:01 AM CDT 07/26/2024 6:39 AM CDT Yoaan Tatum MD LAB BLOOD ORDERABLES Edited R esult - Final [facility] [address] Department [place] [address] * (ABNORMAL) Comprehensive metabolic panel (07/26/2024 6:01 AM CDT) Pathologist [facility] Sodium 142 135 - 145 mmol/L Potassium, pl 3.2(L) 3.3 - 4.9 mmol/L [facility] Chloride 106 97 - 110 mmol/L [facility] CO2 21(L) 22 - 32 mmol/L [facility] Anion gap 15 2 - 15 mmol/L [facility] BUN 6 6 - 25 mg/dL [facility] Creatinine 0.34(L) 0.60 - 1.10 mg/dL [facility] Glucose 198 70 - 199 mg/dL [facility] Comment: Interpretive Data Fasting glucose [...] 2022. Calcium 8.6 8.5 - 10.3 mg/dL [facility] Bilirubin, total 2.1(H) 0.1 - 1.2 mg/dL [facility] Protein, pl 5.6(L) 6.5 - 8.5 g/dL [facility] Albumin 2.8(L) 3.5 - 5.0 g/dL [facility] Alk phos 232(H) 40 - 130 Units/L [facility] ALT 86(H) 7 - 45 Units/L [facility] AST 29 10 - 45 Units/L [facility] Blood 07/26/2024 6:01 AM CDT 07/26/2024 6:39 AM CDT Emmanuel Martinez DO LAB BLOOD ORDERABLES Fi nal Result Performing Organization Address City/[facility]/ZIP Co de Phone Number [facility] [address] [facility] [place], [place] [id number] * POCT glucose (07/25/2024 10:49 PM CDT) Glucose, POC 170 70 - 199 mg/dL Comment: For Glucose values <35 mg/dl when Hematocrit is >60 mg/dl,the test may not accurately detect significant hypoglycemia,and testing in the Laboratory should be considered if clinically indicated. POC Performer [id number] [facility] Blood 07/25/2024 10:4 9 PM CDT 07/25/2024 10:49 PM CDT Emmanuel Martinez DO LAB POCT ORDERABLES - D EVICE Final Result Performing Organization Address [facility]/ZIP Co de Phone Number [facility] [address] [place] [address] * (ABNORMAL) POCT glucose (07/25/2024 5:01 PM CDT) Glucose, POC 245(H) 70 - 199 mg/dL Comment: For Glucose values <35 mg/dl when Hematocrit is >60 mg/dl,the test may not accurately detect significant hypoglycemia,and testing in the Laboratory should be considered if clinically indicated. POC Performer [id number] [facility] Blood 07/25/2024 5:01 PM CDT 07/25/2024 5:01 PM CDT Emmanuel Martinez LAB POCT ORDERABLES - D EVICE Final Result Performing Organization Address [facility] Co de Phone Number [facility] [address] [place] [address] * POCT glucose (07/25/2024 11:54 AM CDT) Glucose, POC 164 70 - 199 mg/dL Comment: For Glucose values <35 mg/dl when Hematocrit is >60 mg/dl,the test may not accurately detect significant hypoglycemia,and testing in the Laboratory should be considered if clinically indicated. POC Performer [phone] [facility] Blood 07/25/2024 11:5 4 AM CDT 07/25/2024 11:54 AM CDT Emmanuel Martinez [facility] POCT ORDERABLES - D EVICE Final Result Performing Organization Address [facility] de Phone Number [facility] [address] [place] [address] * (ABNORMAL) POCT glucose (07/25/2024 7:52 AM CDT) Glucose, POC 228(H) 70 - 199 mg/dL Comment: For Glucose values <35 mg/dl when Hematocrit is >60 mg/dl,the test may not accurately detect significant hypoglycemia,and testing in the Laboratory should be considered if clinically indicated. POC Performer [id number] [facility] Blood 07/25/2024 7:52 AM CDT 07/25/2024 7:52 AM CDT Emmanuel Martinez LAB POCT ORDERABLES - D EVICE Final Result Performing Organization Address [facility] Co de Phone Number [facility] [address] [place] [address] * eGFR (07/25/2024 7:07 AM CDT) [facility] eGFR >90 >=60 mL/min/1. 73 m2 Comment: [...] DO LAB BLOOD ORDERABLES Fi nal Result [facility] [address] Department [place] [address] * (ABNORMAL) Differential, auto (07/25/2024 7:07 AM CDT) [facility] Neutrophil abs 2.43 1.50 - 6.50 K/cumm Imm gran abs 0.01 0.00 - 0.10 K/cumm [facility] Lymphocyte abs 0.55(L) 0.80 - 3.30 K/cumm [facility] Monocyte abs 0.33 0.20 - 0.80 K/cumm [facility] Eosinophil abs 0.17 0.00 - 0.50 K/cumm [facility] Basophil abs 0.02 0.00 - 0.10 K/cumm [facility] Neutrophil pct 69.2 % [facility] Comment: Interpretive Data Percent cell count reference ranges are not reported, since discordance with absolute values may lead to misinterpretation of CBC data. Current Interpretive Data was last revised on 2017. Imm gran pct 0.3 % [facility] Comment: Interpretive Data Percent cell count reference ranges are not reported, since discordance with absolute values may lead to misinterpretation of CBC data. Current Interpretive Data was last revised on 2017. Lymphocyte pct 15.7 % [facility] Comment: Interpretive Data Percent cell count reference ranges are not reported, since discordance with absolute values may lead to misinterpretation of CBC data. Current Interpretive Data was last revised on 2017. Monocyte pct 9.4 % [facility] Comment: Interpretive Data Percent cell count reference ranges are not reported, since discordance with absolute values may lead to misinterpretation of CBC data. Current Interpretive Data was last revised on 2017. Eosinophil pct 4.8 % [facility] Comment: Interpretive Data Percent cell count reference ranges are not reported, since discordance with absolute values may lead to misinterpretation of CBC data. Current Interpretive Data was last revised on 2017. Basophil pct 0.6 % [facility] Comment: Interpretive Data Percent cell count reference ranges are not reported, since discordance with absolute values may lead to misinterpretation of CBC data. Current Interpretive Data was last revised on 2017. Blood 07/25/2024 7:07 AM CDT 07/25/2024 7:32 AM CDT us Emmanuel Martinez DO LAB BLOOD ORDERABLES Fi nal Result [facility] [address] Department [place] [address] * (ABNORMAL) CBC with auto differential (07/25/2024 7:07 AM CDT) WBC 3.51(L) 3.80 - 9.90 K/cumm Hgb 10.3(L) 11.9 - 15.5 g/dL [facility] Hct 30.5(L) 35.6 - 45.5 % [facility] Plt 111(L) 150 - 400 K/cumm [facility] MPV 11.9 9.1 - 12.3 fL [facility] RBC 3.41(L) 3.90 - 5.20 M/cumm [facility] MCV 89.4 81.3 - 96.4 fL [facility] MCH 30.2 27.1 - 33.3 pg [facility] MCHC 33.8 32.3 - 35.7 g/dL [facility] RDW CV 14.2 11.1 - 14.9 % [facility] RDW SD 45.7 35.7 - 48.1 fL [facility] NRBC abs 0.00 0.00 - 0.01 K/cumm [facility] Blood 07/25/2024 7:07 AM CDT 07/25/2024 7:32 AM CDT Emmanuel Martinez DO LAB BLOOD ORDERABLES Fi nal Result [facility] [address] Department [place] [address] * (ABNORMAL) Comprehensive metabolic panel (07/25/2024 7:07 AM CDT) Sodium 142 135 - 145 mmol/L Potassium, pl 3.2(L) 3.3 - 4.9 mmol/L [facility] Chloride 108 97 - 110 mmol/L [facility] CO2 20(L) 22 - 32 mmol/L [facility] Anion gap 14 2 - 15 mmol/L [facility] BUN 7 6 - 25 mg/dL [facility] Creatinine 0.38(L) 0.60 - 1.10 mg/dL [facility] Glucose 213(H) 70 - 199 mg/dL [facility] Comment: Interpretive Data Fasting glucose [...] 2022. Calcium 8.6 8.5 - 10.3 mg/dL [facility] Bilirubin, total 2.7(H) 0.1 - 1.2 mg/dL [facility] Protein, pl 5.7(L) 6.5 - 8.5 g/dL [facility] Albumin 2.7(L) 3.5 - 5.0 g/dL [facility] Alk phos 253(H) 40 - 130 Units/L [facility] ALT 112(H) 7 - 45 Units/L [facility] AST 45 10 - 45 Units/L [facility] Blood 07/25/2024 7:07 AM CDT 07/25/2024 7:32 AM CDT Emmanuel Martinez DO LAB BLOOD ORDERABLES Fi nal Result Performing Organization Address [facility]/ZIP Co de Phone Number [facility] [address] [employer] [place], [place] [id number] * (ABNORMAL) POCT glucose (07/25/2024 6:42 AM CDT) [facility] Glucose, POC 215(H) 70 - 199 mg/dL Comment: For Glucose values <35 mg/dl when Hematocrit is >60 mg/dl,the test may not accurately detect significant hypoglycemia,and testing in the Laboratory should be considered if clinically indicated. POC Performer [phone] [facility] Blood 07/25/2024 6:42 AM CDT 07/25/2024 6:42 AM CDT Emmanuel Martinez DO LAB POCT ORDERABLES - D EVICE Final Result Performing Organization Address City/[facility]/ZIP Co de Phone Number [facility] [address] Department of [employer] [place], [place] [id number] * (ABNORMAL) POCT glucose (07/24/2024 9:49 PM CDT) Glucose, POC 242(H) 70 - 199 mg/dL Comment: For Glucose values <35 mg/dl when Hematocrit is >60 mg/dl,the test may not accurately detect significant hypoglycemia,and testing in the Laboratory should be considered if clinically indicated. POC Performer [phone] [facility] Blood 07/24/2024 9:49 PM CDT 07/24/2024 9:49 PM CDT Emmanuel Martinez DO LAB POCT ORDERABLES - D EVICE Final Result Performing Organization Address [facility] Co de Phone Number [facility] [address] [place] [address] * POCT glucose (07/24/2024 4:44 PM CDT) [employer] Signature Glucose, POC 196 70 - 199 mg/dL Comment: For Glucose values <35 mg/dl when Hematocrit is >60 mg/dl,the test may not accurately detect significant hypoglycemia,and testing in the Laboratory should be considered if clinically indicated. POC Performer [phone] [facility] Blood 07/24/2024 4:44 PM CDT 07/24/2024 4:44 PM CDT Emmanuel Martinez DO LAB POCT ORDERABLES - D EVICE Final Result Performing Organization Address [facility] Co de Phone Number [facility] [address] [place] [address] * eGFR (07/24/2024 3:06 PM CDT) [facility] eGFR >90 >=60 mL/min/1. 73 m2 Comment: [...] DO LAB BLOOD ORDERABLES Fi nal Result [facility] [address] Department [place] [address] * (ABNORMAL) Differential, auto (07/24/2024 3:06 PM CDT) Neutrophil abs 3.85 1.50 - 6.50 K/cumm Imm gran abs 0.01 0.00 - 0.10 K/cumm [facility] Lymphocyte abs 0.51(L) 0.80 - 3.30 K/cumm [facility] Monocyte abs 0.37 0.20 - 0.80 K/cumm [facility] Eosinophil abs 0.18 0.00 - 0.50 K/cumm [facility] Basophil abs 0.02 0.00 - 0.10 K/cumm [facility] Neutrophil pct 78.0 % [facility] Comment: Interpretive Data Percent cell count reference ranges are not reported, since discordance with absolute values may lead to misinterpretation of CBC data. Current Interpretive Data was last revised on 2017. Imm gran pct 0.2 % [facility] Comment: Interpretive Data Percent cell count reference ranges are not reported, since discordance with absolute values may lead to misinterpretation of CBC data. Current Interpretive Data was last revised on 2017. Lymphocyte pct 10.3 % [facility] Comment: Interpretive Data Percent cell count reference ranges are not reported, since discordance with absolute values may lead to misinterpretation of CBC data. Current Interpretive Data was last revised on 2017. Monocyte pct 7.5 % [facility] Comment: Interpretive Data Percent cell count reference ranges are not reported, since discordance with absolute values may lead to misinterpretation of CBC data. Current Interpretive Data was last revised on 2017. Eosinophil pct 3.6 % [facility] Comment: Interpretive Data Percent cell count reference ranges are not reported, since discordance with absolute values may lead to misinterpretation of CBC data. Current Interpretive Data was last revised on 2017. Basophil pct 0.4 % [facility] Comment: Interpretive Data Percent cell count reference ranges are not reported, since discordance with absolute values may lead to misinterpretation of CBC data. Current Interpretive Data was last revised on 2017. Blood 07/24/2024 3:06 PM CDT 07/24/2024 3:12 PM CDT Emmanuel Martinez DO LAB BLOOD ORDERABLES Fi nal Result [facility] [address] Department [place] [address] * (ABNORMAL) CBC with auto differential (07/24/2024 3:06 PM CDT) WBC 4.94 3.80 - 9.90 K/cumm Hgb 10.0(L) 11.9 - 15.5 g/dL [facility] Hct 30.4(L) 35.6 - 45.5 % [facility] Plt 119(L) 150 - 400 K/cumm [facility] MPV 11.4 9.1 - 12.3 fL [facility] RBC 3.39(L) 3.90 - 5.20 M/cumm [facility] MCV 89.7 81.3 - 96.4 fL [facility] MCH 29.5 27.1 - 33.3 pg [facility] MCHC 32.9 32.3 - 35.7 g/dL [facility] RDW CV 13.9 11.1 - 14.9 % [facility] RDW SD 45.9 35.7 - 48.1 fL [facility] NRBC abs 0.00 0.00 - 0.01 K/cumm [facility] Blood 07/24/2024 3:06 PM CDT 07/24/2024 3:12 PM CDT us Emmanuel Martinez DO LAB BLOOD ORDERABLES Fi nal Result [facility] [address] Department [place] [address] * (ABNORMAL) Comprehensive metabolic panel (07/24/2024 3:06 PM CDT) Sodium 137 135 - 145 mmol/L Potassium, pl 3.2(L) 3.3 - 4.9 mmol/L [facility] Chloride 105 97 - 110 mmol/L [facility] CO2 18(L) 22 - 32 mmol/L [facility] Anion gap 14 2 - 15 mmol/L [facility] BUN 12 6 - 25 mg/dL [facility] Creatinine 0.41(L) 0.60 - 1.10 mg/dL [facility] Glucose 196 70 - 199 mg/dL [facility] Comment: Interpretive Data Fasting glucose [...] 2022. Calcium 8.4(L) 8.5 - 10.3 mg/dL [facility] Bilirubin, total 3.3(H) 0.1 - 1.2 mg/dL [facility] Protein, pl 5.8(L) 6.5 - 8.5 g/dL [facility] Albumin 2.8(L) 3.5 - 5.0 g/dL [facility] Alk phos 264(H) 40 - 130 Units/L [facility] ALT 141(H) 7 - 45 Units/L [facility] AST 68(H) 10 - 45 Units/L [facility] Blood 07/24/2024 3:06 PM CDT 07/24/2024 3:12 PM CDT Emmanuel Martinez DO LAB BLOOD ORDERABLES Fi nal Result Performing Organization Address [facility] Co de Phone Number [facility] [address] [place] [address] * (ABNORMAL) POCT glucose (07/24/2024 12:21 PM CDT) Glucose, POC 277(H) 70 - 199 mg/dL Comment: For Glucose values <35 mg/dl when Hematocrit is >60 mg/dl,the test may not accurately detect significant hypoglycemia,and testing in the Laboratory should be considered if clinically indicated. POC Performer [phone] [facility] Blood 07/24/2024 12:2 1 PM CDT 07/24/2024 12:21 PM CDT Emmanuel Martinez DO LAB POCT ORDERABLES - D EVICE Final Result Performing Organization Address [facility] de Phone Number [facility] [address] [place] [address] * (ABNORMAL) POCT glucose (07/24/2024 9:00 AM CDT) Glucose, POC 355(H) 70 - 199 mg/dL Comment: For Glucose values <35 mg/dl when Hematocrit is >60 mg/dl,the test may not accurately detect significant hypoglycemia,and testing in the Laboratory should be considered if clinically indicated. POC Performer [phone] [facility] Blood 07/24/2024 9:00 AM CDT 07/24/2024 9:00 AM CDT Emmanuel Martinez DO LAB POCT ORDERABLES - D EVICE Final Result Performing Organization Address City/[facility] Co de Phone Number [facility] [address] [place] [address] * (ABNORMAL) POCT glucose (07/24/2024 8:58 AM CDT) Glucose, POC 334(H) 70 - 199 mg/dL Comment: For Glucose values <35 mg/dl when Hematocrit is >60 mg/dl,the test may not accurately detect significant hypoglycemia,and testing in the Laboratory should be considered if clinically indicated. POC Performer [phone] [facility] Blood 07/24/2024 8:58 AM CDT 07/24/2024 8:58 AM CDT Emmanuel Martinez LAB POCT ORDERABLES - D EVICE Final Result Performing Organization Address [facility] Co de Phone Number [facility] [address] Department [place] [address] * POCT glucose (07/24/2024 6:28 AM CDT) Glucose, POC 147 70 - 199 mg/dL Comment: For Glucose values <35 mg/dl when Hematocrit is >60 mg/dl,the test may not accurately detect significant hypoglycemia,and testing in the Laboratory should be considered if clinically indicated. POC Performer [phone] [facility] Blood 07/24/2024 6:28 AM CDT 07/24/2024 6:28 AM CDT Emmanuel Martinez LAB POCT ORDERABLES - D EVICE Final Result Performing Organization Address [facility] Co de Phone Number [facility] [address] Department [place] [address] * POCT glucose (07/24/2024 2:43 AM CDT) Glucose, POC 133 70 - 199 mg/dL Comment: For Glucose values <35 mg/dl when Hematocrit is >60 mg/dl,the test may not accurately detect significant hypoglycemia,and testing in the Laboratory should be considered if clinically indicated. POC Performer [phone] [facility] Blood 07/24/2024 2:43 AM CDT 07/24/2024 2:43 AM CDT Emmanuel Martinez DO LAB POCT ORDERABLES - D EVICE Final Result Performing Organization Address [facility] Co de Phone Number [facility] [address] [facility] [place] [address] * POCT glucose (07/23/2024 9:11 PM CDT) Glucose, POC 139 70 - 199 mg/dL Comment: For Glucose values <35 mg/dl when Hematocrit is >60 mg/dl,the test may not accurately detect significant hypoglycemia,and testing in the Laboratory should be considered if clinically indicated. POC Performer [phone] [facility] Blood 07/23/2024 9:11 PM CDT 07/23/2024 9:11 PM CDT Emmanuel Martinez DO LAB POCT ORDERABLES - D EVICE Final Result Performing Organization Address [facility] Co de Phone Number [facility] [address] [facility] [place] [address] * POCT glucose (07/23/2024 7:25 PM CDT) Glucose, POC 191 70 - 199 mg/dL Comment: For Glucose values <35 mg/dl when Hematocrit is >60 mg/dl,the test may not accurately detect significant hypoglycemia,and testing in the Laboratory should be considered if clinically indicated. POC Performer [phone] [facility] Blood 07/23/2024 7:25 PM CDT 07/23/2024 7:25 PM CDT Emmanuel Martinez DO LAB POCT ORDERABLES - D EVICE Final Result Performing Organization Address [facility] de Phone Number [facility] [address] [facility] [place] [address] * POCT glucose (07/23/2024 6:03 PM CDT) [employer] Signature Glucose, POC 186 70 - 199 mg/dL Comment: For Glucose values <35 mg/dl when Hematocrit is >60 mg/dl,the test may not accurately detect significant hypoglycemia,and testing in the Laboratory should be considered if clinically indicated. POC Performer [phone] [facility] Blood 07/23/2024 6:03 PM CDT 07/23/2024 6:03 PM CDT Emmanuel Martinez DO LAB POCT ORDERABLES - D EVICE Final Result Performing Organization Address [facility] de Phone Number [facility] [address] [place] [address] * [place] ERCP Biliary Duct (07/23/2024 5:21 PM CDT) Narrative [facility] - 07/23/2024 5:33 PM CDT The images from this study are not interpreted by Radiology. Please refer to the physician's procedure / OR operative note. us Mariusz March MD IMG FLUOROSCOPY PROCEDURES Final Result Performing Organization Address [facility] Co de Phone Number [facility] * ERCP (07/23/2024 4:05 PM CDT) Anatomical Region Laterality Modality Other Narrative Procedure Note Torey Jiménez MD - 07/23/2024 4:05 PM CDT ENDOSCOPY LAB Patient Name: Zac Chambers Procedure Date: 07/23/2024 4:05 PM Admit Type: Inpatient Room: [facility] Date of : 1945 Instrument Name: [id number] Gender: Female Note Status: Finalized Procedure: ERCP [...] A biliary stent was visible on the food preparation supervisor film. The esophagus was successfully intubated under [...] the entire procedure. Electronically Signed By: Torey Jmiénez M.D. Torey Jiménez M.D. 07/23/2024 5:45:28 PM [...] be considered if clinically indicated. POC Performer [id number] [facility] Blood 07/23/2024 3:32 PM CDT 07/23/2024 3:32 PM CDT Emmanuel Martinez DO LAB POCT ORDERABLES - D EVICE Final Result [facility] [address] Department [place] [address] * POCT glucose (07/23/2024 12:09 PM CDT) Glucose, POC 193 70 - 199 mg/dL Comment: For Glucose values <35 mg/dl when Hematocrit is >60 mg/dl,the test may not accurately detect significant hypoglycemia,and testing in the Laboratory should be considered if clinically indicated. POC Performer [phone] [facility] Blood 07/23/2024 12:0 9 PM CDT 07/23/2024 12:09 PM CDT Emmanuel Martinez DO LAB POCT ORDERABLES - D EVICE Final Result Performing Organization Address [facility] Co de Phone Number [facility] [address] Department [employer] [place], [place] [id number] * Sepsis Lactate w/ Reflex (07/23/2024 8:56 AM CDT) Pathologist [facility] Sepsis Lactate 1.1 0.7 - 2.0 mmol/L Blood 07/23/2024 8:56 AM CDT 07/23/2024 9:00 AM CDT Yoana Tatum MD LAB BLOOD ORDERABLES Final Re sult Performing Organization Address [facility] Co de Phone Number [facility] [address] [place] [address] * (ABNORMAL) POCT glucose (07/23/2024 7:57 AM CDT) [facility] Glucose, POC 238(H) 70 - 199 mg/dL Comment: For Glucose values <35 mg/dl when Hematocrit is >60 mg/dl,the test may not accurately detect significant hypoglycemia,and testing in the Laboratory should be considered if clinically indicated. POC Performer [phone] [facility] Blood 07/23/2024 7:57 AM CDT 07/23/2024 7:57 AM CDT Emmanuel Martinez DO LAB POCT ORDERABLES - D EVICE Final Result Performing Organization Address [facility] Co de Phone Number [facility] [address] [facility] [place], [place] [id number] * Procalcitonin - Add on lab test (07/23/2024 7:22 AM CDT) [facility] Acceptable Yes Blood 07/23/2024 7:22 AM CDT 07/23/2024 7:22 AM CDT Narrative [facility] - 07/23/2024 7:23 AM CDT Name of Test->Procalcitonin Ernesto HOLLEY LAB BLOOD ORDERABLES Final Result [facility] [address] Department [place] [address] * (ABNORMAL) Differential, auto (07/23/2024 6:35 AM CDT) Pathologist [facility] Neutrophil abs 4.46 1.50 - 6.50 K/cumm Imm gran abs 0.02 0.00 - 0.10 K/cumm [facility] Lymphocyte abs 0.13(L) 0.80 - 3.30 K/cumm [facility] Monocyte abs 0.07(L) 0.20 - 0.80 K/cumm [facility] Eosinophil abs 0.03 0.00 - 0.50 K/cumm [facility] Basophil abs 0.01 0.00 - 0.10 K/cumm [facility] Neutrophil pct 94.5 % [facility] Comment: Interpretive Data Percent cell count reference ranges are not reported, since discordance with absolute values may lead to misinterpretation of CBC data. Current Interpretive Data was last revised on 2017. Imm gran pct 0.4 % [facility] Comment: Interpretive Data Percent cell count reference ranges are not reported, since discordance with absolute values may lead to misinterpretation of CBC data. Current Interpretive Data was last revised on 2017. Lymphocyte pct 2.8 % [facility] Comment: Interpretive Data Percent cell count reference ranges are not reported, since discordance with absolute values may lead to misinterpretation of CBC data. Current Interpretive Data was last revised on 2017. Monocyte pct 1.5 % [facility] Comment: Interpretive Data Percent cell count reference ranges are not reported, since discordance with absolute values may lead to misinterpretation of CBC data. Current Interpretive Data was last revised on 2017. Eosinophil pct 0.6 % [facility] Comment: Interpretive Data Percent cell count reference ranges are not reported, since discordance with absolute values may lead to misinterpretation of CBC data. Current Interpretive Data was last revised on 2017. Basophil pct 0.2 % [facility] Comment: Interpretive Data Percent cell count reference ranges are not reported, since discordance with absolute values may lead to misinterpretation of CBC data. Current Interpretive Data was last revised on 2017. Blood 07/23/2024 6:35 AM CDT 07/23/2024 6:35 AM CDT Yoana Tatum MD LAB BLOOD ORDERABLES Final Re sult [facility] [address] Department of Laboratories [place], [place] [id number] * (ABNORMAL) CBC with auto differential (07/23/2024 6:35 AM CDT) WBC 4.72 3.80 - 9.90 K/cumm Hgb 11.1(L) 11.9 - 15.5 g/dL [facility] Hct 33.0(L) 35.6 - 45.5 % [facility] Plt 115(L) 150 - 400 K/cumm [facility] MPV 11.1 9.1 - 12.3 fL [facility] [facility] RBC 3.64(L) 3.90 - 5.20 M/cumm [facility] MCV 90.7 81.3 - 96.4 fL [facility] MCH 30.5 27.1 - 33.3 pg [facility] MCHC 33.6 32.3 - 35.7 g/dL [facility] RDW CV 13.9 11.1 - 14.9 % [facility] RDW SD 46.2 35.7 - 48.1 fL [facility] NRBC abs 0.00 0.00 - 0.01 K/cumm [facility] Blood 07/23/2024 6:35 AM CDT 07/23/2024 6:42 AM CDT Yoana Tatum MD LAB BLOOD ORDERABLES Final Re sult Performing Organization Address [facility] Co de Phone Number [facility] [address] [place] [address] * eGFR (07/23/2024 6:12 AM [...] ORDERABLES Final Re sult Performing Organization Address [facility] Co de Phone Number [facility] [address] Department of [place], [place] [id number] * (ABNORMAL) Procalcitonin (07/23/2024 6:12 AM CDT) Procalcitonin 1.27(H) <=0.25 ng/mL Blood 07/23/2024 6:12 AM CDT 07/23/2024 6:12 AM CDT us Emmanuel Martinez DO LAB BLOOD ORDERABLES Fi nal Result Performing Organization Address [facility]/ZIP Co de Phone Number [facility] [address] [place] [address] * (ABNORMAL) CRP (acute phase) (07/23/2024 6:12 AM CDT) CRP 92.9(H) <=10.0 mg/L Blood 07/23/2024 6:12 AM CDT 07/23/2024 6:12 AM CDT Yoana Tatum MD LAB BLOOD ORDERABLES Final Re sult Performing Organization Address [facility] Co de Phone Number [facility] [address] [place] [address] * (ABNORMAL) Phosphorus (07/23/2024 6:12 AM CDT) Phosphorus, pl 2.0(L) 2.3 - 4.5 mg/dL Blood 07/23/2024 6:12 AM CDT 07/23/2024 6:12 AM CDT Yoana Tatum MD LAB BLOOD ORDERABLES Final Re sult Performing Organization Address [facility] Co de Phone Number [place] [address] [place] [address] * Magnesium (07/23/2024 6:12 AM CDT) Magnesium 1.8 1.4 - 2.5 mg/dL Blood 07/23/2024 6:12 AM CDT 07/23/2024 6:12 AM CDT Yoana Tatum MD LAB BLOOD ORDERABLES Final Re sult Performing Organization Address [facility] Co de Phone Number [facility] [address] [place] [address] * Lipase (07/23/2024 6:12 AM CDT) Lipase 26 10 - 99 Units/L Blood 07/23/2024 6:12 AM CDT 07/23/2024 6:12 AM CDT Yoana Tatum MD LAB BLOOD ORDERABLES Final Re sult [facility] [address] Department [place] [address] * (ABNORMAL) Comprehensive metabolic panel (07/23/2024 6:12 AM CDT) Pathologist [facility] Sodium 135 135 - 145 mmol/L Potassium, pl 3.8 3.3 - 4.9 mmol/L [facility] Chloride 101 97 - 110 mmol/L [facility] CO2 20(L) 22 - 32 mmol/L [facility] Anion gap 14 2 - 15 mmol/L [facility] BUN 10 6 - 25 mg/dL [facility] Creatinine 0.44(L) 0.60 - 1.10 mg/dL [facility] Glucose 226(H) 70 - 199 mg/dL [facility] Comment: Interpretive Data Fasting glucose [...] 2022. Calcium 8.9 8.5 - 10.3 mg/dL [facility] Bilirubin, total 7.0(H) 0.1 - 1.2 mg/dL [facility] Protein, pl 6.2(L) 6.5 - 8.5 g/dL [facility] Albumin 3.1(L) 3.5 - 5.0 g/dL [facility] Alk phos 301(H) 40 - 130 Units/L [facility] ALT 248(H) 7 - 45 Units/L [facility] AST 221(H) 10 - 45 Units/L [facility] Blood Venous blood specimen / Unknown 07/23/2024 6:12 AM CDT 07/23/2024 6:12 AM CDT Yoana Tatum MD LAB BLOOD ORDERABLES Final Re sult Performing Organization Address [facility] Co de Phone Number [facility] [address] [place] [address] * (ABNORMAL) POCT glucose (07/23/2024 5:55 AM CDT) Glucose, POC 245(H) 70 - 199 mg/dL Comment: For Glucose values <35 mg/dl when Hematocrit is >60 mg/dl,the test may not accurately detect significant hypoglycemia,and testing in the Laboratory should be considered if clinically indicated. POC Performer [id number] [facility] Blood 07/23/2024 5:55 AM CDT 07/23/2024 5:55 AM CDT Yoana Tatum MD LAB POCT ORDERABLES - DEVICE Final Result Performing Organization Address [facility] de Phone Number [facility] [address] [place] [address] * (ABNORMAL) Sepsis Lactate w/ Reflex (07/23/2024 5:54 AM CDT) Pathologist [facility] Sepsis Lactate 3.6(H) 0.7 - 2.0 mmol/L Blood 07/23/2024 5:54 AM CDT 07/23/2024 6:12 AM CDT Yoana Tatum MD LAB BLOOD ORDERABLES Final Re sult Performing Organization Address [facility] Co de Phone Number [facility] [address] Department [place] [address] * (ABNORMAL) Blood culture Blood (07/23/2024 5:54 AM CDT) Direct Specimen Exam Stain: Gram Negative Bacilli Test result called to and read back by Arnaldo Louise on 07/23/2024 18:37:34 by [id number] Report Final Report: Klebsiella pneumoniae This susceptibility pattern indicates the possible production of an extended spectrum beta lactamase (ESBL). Inpatients infected with ESBL-producing organisms require contact isolation precautions. Susceptibility reported on this organism on previous culture [id number] (.) [facility] Organism KLEBSIELLA PNEUMONIAE [facility] Blood 07/23/2024 5:54 AM CDT 07/23/2024 6:10 AM CDT Narrative [facility] - 07/27/2024 7:03 AM CDT [...] organism identification may be performed using the Hithru Blood Culture Identification panel. This assay detects microbial DNA in a blood culture broth. This assay has been cleared by the [place] Food and Drug Administration and its performance characteristics have been verified by the [facility]. Interpretive data was last revised on April 04, 2022. Yoana Tatum MD LAB MICROBIOLOGY - GENERAL OR DERABLES Final Result [facility] [address] Department [place] [address] * (ABNORMAL) Blood culture Blood (07/23/2024 5:52 AM CDT) Direct Specimen Exam Molecular Analysis: Klebsiella pneumoniae group detected by the PlainlegalArray Blood Culture Identification Panel. This test does not exclude the possibility of a mixed bacterial infection. CTX-M (ESBL) gene detected by the Transave Blood Culture Identification Panel. This test does not exclude the possibility of a mixed bacterial infection. This is a multi-drug resistant organism. Inpatients require contact isolation. Test result called to and read back by ALVAREZ GARNER RN on 07/23/2024 18:37:34 by [id number] Direct Specimen Exam Stain: Gram Negative Bacilli [facility] Report Final Report: Klebsiella pneumoniae This susceptibility pattern indicates the possible production of an extended spectrum beta lactamase (ESBL). Inpatients infected with ESBL-producing organisms require contact isolation precautions. (.) [facility] Organism KLEBSIELLA PNEUMONIAE [facility] Blood 07/23/2024 5:52 AM CDT 07/23/2024 5:52 AM CDT Narrative [facility] - 07/27/2024 7:02 AM CDT From a [...] organism identification may be performed using the Hithru Blood Culture Identification panel. This assay detects microbial DNA in a blood culture broth. This assay has been cleared by the [place] Food and Drug Administration and its performance characteristics have been verified by the [facility]. Interpretive data was last [...] pneumoniae Tobramycin (ANA PAULA) INTERPRETATIO N Susceptible us Yoana Tatum MD LAB MICROBIOLOGY - GENERAL OR DERABLES Final Result [facility] [address] Department [place] [address] * (ABNORMAL) POCT glucose (07/23/2024 5:01 AM CDT) Glucose, POC 231(H) 70 - 199 mg/dL Comment: For Glucose values <35 mg/dl when Hematocrit is >60 mg/dl,the test may not accurately detect significant hypoglycemia,and testing in the Laboratory should be considered if clinically indicated. POC Performer [id number] [facility] Blood 07/23/2024 5:01 AM CDT 07/23/2024 5:01 AM CDT Result [facility] Yoana Tatum MD LAB POCT ORDERABLES - DEVICE Final Result Performing Organization Address [facility] de Phone Number [facility] [address] Department [place] [address] * Neuro CT Outside Reference (07/22/2024 12:05 AM CDT) Narrative [email or web address] - 07/23/2024 9:36 AM CDT This order has been auto-finalized and does not contain a result. Provider Transcribed Order IMG CT PROCEDURES Fin al Result Performing Organization Address [facility] de Phone Number [email or web address] * CT Body Outside Reference (07/22/2024 12:00 AM CDT) Narrative [email or web address]_MB - 07/23/2024 9:36 AM CDT This order has been auto-finalized and does not contain a result. us Provider Transcribed Order IMG CT PROCEDURES Fin al Result Performing Organization Address [facility] de Phone Number [email or web address]_FILM_[facility] * XR Outside Reference (07/22/2024 12:00 AM CDT) Narrative RAD_PACS_OUTSIDE_FILM_MB - 07/23/2024 9:36 AM CDT This order has been auto-finalized and does not contain a result. us Provider Transcribed Order IMG XR PROCEDURES Fin al Result Performing Organization Address City/[facility] Co de Phone Number [email or web address]_[email or web address] * US Outside Reference (07/22/2024 12:00 AM CDT) Narrative [email or web address]_MB - 07/23/2024 9:36 AM CDT This order has been auto-finalized and does not contain a result. us Provider Transcribed Order IMG US PROCEDURES Fin al Result Performing Organization Address [facility] Co de Phone Number [email or web address] * PET/CT FDG Skull to Thigh (05/06/2024 10:59 AM CORNER BEAD OPERATOR) Anatomical Region Laterality Modality N/A Positron Emissio n Tomography (PET) 05/06/2024 2:56 PM CORNER BEAD OPERATOR Impressions 05/06/2024 4:58 PM CORNER BEAD OPERATOR 1. Faint uptake in the region [...] it. Electronically signed by: Branden Hicks DO Narrative 05/06/2024 4:58 PM CORNER BEAD OPERATOR EXAMINATION: TUMOR FDG-PET/CT IMAGING DATE OF STUDY: 05/06/2024 SCANNER: [facility] RADIOPHARMACEUTICAL: 16.02 mCi F-18 Fluorodeoxyglucose (FDG) [...] obtained. The study was interpreted on the [employer] workstation. The mean liver SUV (reported for quality assurance supervisor body purposes) is 2.2. The total scanned area [...] FDG-PET/CT IMAGING DATE OF STUDY: 05/06/2024 SCANNER: [facility] RADIOPHARMACEUTICAL: 16.02 mCi F-18 Fluorodeoxyglucose (FDG) [...] obtained. The study was interpreted on the [employer] workstation. The mean liver SUV (reported for quality assurance supervisor body purposes) is 2.2. The total scanned area [...] Result * POCT glucose (05/06/2024 9:21 AM CORNER BEAD OPERATOR) [facility] Glucose, POC 164 70 - 199 mg/dL Comment: For Glucose values <35 mg/dl when Hematocrit is >60 mg/dl,the test may not accurately detect significant hypoglycemia,and testing in the Laboratory should be considered if clinically indicated. Blood 05/06/2024 9:21 AM CORNER BEAD OPERATOR 05/06/2024 9:21 AM CORNER BEAD OPERATOR Abimael Radford MD LAB POCT ORDERABLES - DEVICE Fi nal Result [facility] [address] Department [place] [address] * (ABNORMAL) Hemoglobin A1c (04/16/2024 5:58 AM CORNER BEAD OPERATOR) [facility] Hgb A1C 6.7(H) 4.0 - 5.6 % Estimated Average Glucose 146 mg/dL [facility] Comment: The ADA recommends reporting an estimated Average Glucose (eAG) with all Hemoglobin A1c results using the equation derived from a study of 507 normal and diabetic adults. Minority populations were underrepresented and children were not included. (Diabetes Care 31:1960-2497, 2008). The eAG is not equivalent to a fasting glucose. Blood 04/16/2024 5:58 AM CORNER BEAD OPERATOR 04/16/2024 6:32 AM CORNER BEAD OPERATOR us Chente Decker MD LAB BLOOD ORDERABL ES Final Result [facility] [address] Department [place] [address] from Last 3 Months or Most Recently Relevant to Health Maintenance Additional Health Concerns Infection Onset Date Last Indicated MDR gram neg/ESBL 07/23/2024 07/23/2024 Insurance [employer] MEDICARE [facility] MEDICARE Advance Directives For more information, please contact: [phone] * Full Code (Latest Code Status on File) Date Activated Date Inactivated Comments 07/23/2024 4:40 AM 07/27/2024 8:27 PM * Full Code Date Activated Date Inactivated Comments 04/14/2024 9:44 PM 04/21/2024 5:36 PM Care Teams Bore Mill Operator For Plastic Relationship Specialty Start Date End Date Brittni Guardado DO [facility] [place] [address] PCP - General Family Medicine 07/23/24 Mohan Heller MD [facility] [place] [address] Endocrinology Diabetes & Metabolism 04/21/24 Kourtney Park PA [address] [place] [address] Physician Soil Checker Hepatobiliary Surgery 04/21/24 No, Physician 04/21/24 Abimael Radford MD [address] [facility] [address] Consulting Physician Hematology 04/21/24
--- OUTSIDE RECORDS SUMMARY | 2024-07-28 10:36 | XMS_ITS | Encounter Summary ---
Author Organization [facility] Healthcare Address [address] [place] [address] Care Team Providers Care Staff Sonographer Name Role Phone Mohan Heller MD Unavailable [phone] Kourtney Park Unavailable No, Physician Unavailable Abimael Radford MD Unavailable [phone] Brittni Guardado DO Primary Care Provider [phone] Encounter Details Date Type Department Care Team (Late st Contact Info) Description 07/23/2024 Orders Only [facility] [address] [place] [address] Yoana Tatum MD [facility] [place] [address] Social History Tobacco Use Types Packs/Day Years Used Date Smoking Tobacco: Former Cigarettes Q uit: 1975 Smokeless Tobacco: Never [facility] Utilities Answer Date Recorded In the past 12 months has [employer], gas, oil, or water company threatened [...] often do you attend chur ch or pentecostal services? More than 4 times per year 07/23/2024 Do you belong to any clubs o r organizations such as druze groups, unions, fraternal or athletic groups, or [...] any time in the past 12 m [facility], were you homeless or living in a care home (including now)? No 07/23/2024 Personal Safety Answer Date Recorded Have you ever been in or are you currently in a harmful physical or emotional relationship or is someone making you feel afraid or unsafe? 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 Never 07/23/2024 3:25 PM Ignacia Clark RN Q2: How many drinks containing alcohol do you have on a typical day when you are drinking? Patient does not drink 07/23/2024 3:25 PM Ignacia Clark RN Q3: How often do you have six or more drinks on one occasion? Never 07/23/2024 3:25 PM Ignacia Clark RN documented as of this encounter Plan of Treatment Not on file documented as of this encounter Visit Diagnoses Not on filedocumented in this encounter Additional Health Concerns Infection Onset Date Last Indicated Resolved Time MDR gram neg/ESBL 07/23/2024 07/23/2024 documented as of this encounter Care Teams Staff Sonographer Relationship Specialty Start Date End Date Brittni Guardado DO [facility] [place] [address] PCP - General Family Medicine 07/23/24 Mohan Heller MD [address] [place] [address] Endocrinology Diabetes & Metabolism 04/21/24 Kourtney Park PA [address] [place] [address] Physician Bag Machine Operator Hepatobiliary Surgery 04/21/24 No, Physician 04/21/24 Abimael Radford MD [address] [facility] [place] [address] Consulting Physician Hematology 04/21/24 documented as of this encounter
--- OUTSIDE RECORDS SUMMARY | 2024-07-28 10:36 | XMS_ITS | Clinical Summary ---
Author Organization [facility] Address [address] [place] [address] Care Team Providers Care Freight Loader Name Role Phone Unavailable Primary Care Provider Unavailabl e Source Comments [facility],non-owned Affiliates and Associated Physician Practices is amultiple site organization consisting of ambulatory clinics and hospital sitesin [place], [place], [place] and [place]. This disclosure is being madepursuant to the Care Everywhere program and may not contain all information available regarding this patient. Last updated 17.[facility] [employer] Active Problems Problem Noted Date Diagnosed Date [...]
[2024-07-28 16:16] LABS: Kit Draw Collected
== END 2024-07-28 10:29 | disposition home or self-care (01) ==
LOC: ANHGOSHLAB 10:32
PROVIDERS: PCP Family Medicine; Visit Provider Nurse Practitioner
DX: D64.9 Anemia, unspecified (principal); E87.6 Hypokalemia
CPT/HCPCS: 36415

== ENCOUNTER 2024-07-30 13:30 | Emergency (ER) | payer MEDICARE, SELFPAY ==
[2024-07-30 13:42] VITALS: BP 106/66; PULSE 86; RESP 16; TEMP 36.9; O2SAT 100
--- NOTE | 2024-07-30 13:54 | ED_ITS ---
HPI - Female Genitourinary General Chief complaint: Urogenital-Female Stated complaint: Uti Symptoms Source: patient Mode of arrival: ambulatory Limitations: no limitations History of Present Illness HPI Narrative: Patient is a 78-year-old female who presents to clinic with complaints of vaginal itching x 1 day. She states that she was just hospitalized for sepsis for 10 days over at [facility] and just got home 2 days ago. Denies any body aches, chills, fevers, urgency, frequency, burning with urination, nausea, or vomiting. Related Data Home Medications ?Medication ?Instructions ?Recorded ?Confirmed ?Last Taken ?Type aspirin 81 mg tablet,delayed 81 mg PO DAILY 05/24/22 07/28/24 04/12/24 History release (Adult Aspirin Regimen) zinc acetate 50 mg (zinc) capsule 50 mg PO DAILY 05/24/22 07/28/24 04/14/24 History ferrous sulfate 325 mg (65 mg 325 mg PO DAILY 03/19/23 07/28/24 04/14/24 History iron) tablet (Feosol) insulin glargine 100 unit/mL (3 10 unit subcut DAILY 05/04/24 07/28/24 Unknown History mL) subcutaneous pen (Lantus Solostar U-100 Insulin) insulin lispro 100 unit/mL 1 sliding scale dose subcut 05/04/24 07/28/24 Unknown History subcutaneous cartridge (Humalog USEASDIRECTD U-100 Insulin) Allergies Allergy/AdvReac Type Severity Reaction Status Date / Time No Known Allergies Allergy Verified 07/30/24 13:44 Review of Systems Review of Systems: CONSTITUTIONAL: Denies body aches, fever, chills, or sweats. CARDIOVASCULAR: Denies chest pain, palpitations, or edema. RESPIRATORY: Denies cough or dyspnea. GASTROINTESTINAL: Denies abdominal pain, nausea, vomiting, or diarrhea. GENITOURINARY: Denies dysuria, frequency, urgency, hematuria, flank pain, discharge. Reports vaginal itching. SKIN: Denies rash, itching, or wounds. MUSCULOSKELETAL: Denies back pain or myalgia. All systems reviewed & are unremarkable except as noted in HPI and below PMFSH Past Medical History Medical History T2DM (type 2 diabetes mellitus) Pancreatic cancer (~05/2024) Surgical History Surgical History (Updated 07/28/24 @ 09:38 by SARAH Keith) Hx of endoscopic retrograde cholangiopancreatography Family History Family History Father Hypertension Heart disease Mother Diabetes mellitus Heart disease Depression Hypertension Thyroid disease Sibling Diabetes mellitus Grandparent Diabetes mellitus Hypertension Depression Heart disease Thyroid disease Social History Social History Social History: , has dementia Smoking status: Former smoker Substance use: never Substance use type: does not use Lack of Transportation: No Lack of Food: Never True Current Housing: I Have Housing Concerned About Future Housing: No Difficulty Paying Gas/Electric Bills: No Difficulty Paying for Meds: No Currently Unemployed: No Education: High School Diploma/GED Difficulty w/ Childcare or Family Care: No Living arrangements: with family Occupation/Education: retired Gender identity (if verbalized by the patient): Female Sexual Orientation (if Verbalized by the Patient): Straight or Heterosexual Agree to blood products: Yes Comments At time of signature, I have reviewed and agree with nursing past medical, surgical, social and family history unless otherwise noted. Please see nursing chart for further information. There is no relevant family history pertinent to the presenting complaint. Exam Narrative: GENERAL: Well-appearing and in no acute distress. ENT: Mucous membranes pink and moist. NECK: Normal AROM. ?Supple. ? CHEST: ?No respiratory distress. Clear to auscultation. HEART: Regular rate and rhythm. ABDOMEN: Soft, nontender, nondistended, normal active bowel sounds. ?No CVA tenderness. SKIN: Warm, dry, no rash. : Patient deferred exam. NEURO: No focal deficits. Alert and oriented x3. Gait steady. PSYCH: ?Normal affect. ? Course Course Level of Care: Express Care Visit Vital Signs Vital signs: Vital Signs Temperature 98.4 F 07/30/24 13:42 Pulse Rate 86 07/30/24 13:42 Respiratory Rate 16 07/30/24 13:42 Blood Pressure 106/66 07/30/24 13:42 Pulse Oximetry 100 07/30/24 13:42 Temperature 98.4 F 07/30/24 13:42 Pulse Rate 86 07/30/24 13:42 Respiratory Rate 16 07/30/24 13:42 Blood Pressure 106/66 07/30/24 13:42 Pulse Oximetry 100 07/30/24 13:42 Reviewed. MDM - Female Genitourinary MDM Narrative Medical decision making narrative: Discussed physical exam findings. Fluconazole for yeast infection. Antibiotic for UTI. Advised supportive measures and signs/symptoms to go to the ER. Pt is appropriate for outpatient treatment and follow up. Differential Diagnosis Differential diagnosis: Likely urinary tract infection and other (yeast infection. ) Critical Care Time Critical Care Time Critical Care Time: No Discharge Plan Discharge Clinical Impression: Itching of vagina, Acute UTI Patient Disposition: Home Condition: Stable Instructions: Antibiotic Form, Yeast Infection (ED) Patient Language: Amharic Prescriptions: New fluconazole 150 mg tablet 150 mg PO ONCE Qty: 2 0RF Rx Instructions: Take first dose today, only take second dose if symptoms are still present in 72 hours. cephalexin 500 mg capsule 500 mg PO Q12H 7 Days Qty: 14 0RF No Action aspirin [Adult Aspirin Regimen] 81 mg tablet,delayed release (DR/EC) 81 mg PO DAILY zinc acetate 50 mg (zinc) capsule 50 mg PO DAILY (DME) Dexcom G6 Ob Tech Misc See Rx Instructions .Route Qty: 1 3RF Rx Instructions: As directed (DME) Dexcom G6 Sensor Device See Rx Instructions .Route Qty: 9 11RF Rx Instructions: As directed (DME) Dexcom G6 Transmitter Device See Rx Instructions .Route Qty: 1 3RF Rx Instructions: As directed ferrous sulfate [Feosol] 325 mg (65 mg iron) tablet 325 mg PO DAILY polyethylene glycol 3350 [Miralax] 17 gram/dose powder 17 g PO DAILY Qty: 238 3RF insulin glargine [Lantus Solostar U-100 Insulin] 100 unit/mL (3 mL) insulin pen 10 unit subcut DAILY Humalog U-100 Insulin 100 unit/mL cartridge 1 sliding scale dose subcut USEASDIRECTD Patient Comments: Take 4 units with each meal (only if you are eating breakfast, lunch, and dinner) Sliding scale: to correct high blood sugar: Below 150: take 0 units 150-199: take 1 unit 200-249: take 2 units 250-299: take 3 units 300-349: take 4 units Over 350: take 5 units and call the doctor (DME) Monoject Safety Syringes 3 mL 25 gauge x 5/8 syringe See Rx Instructions .Route Qty: 500 0RF Rx Instructions: As directed nystatin 100,000 unit/gram cream 1 applic topical BID Qty: 30 1RF cyanocobalamin (vitamin B-12) [Dodex] 1,000 mcg/mL solution 1,000 mcg IM MONTHLY Qty: 3 1RF enalapril maleate 10 mg tablet 10 mg PO DAILY Qty: 90 1RF (DME) OneTouch Verio test strips Strip See Rx Instructions .Route Qty: 100 1RF Rx Instructions: As directed (DME) lancets 33 gauge misc See Rx Instructions .Route Qty: 100 1RF Rx Instructions: As directed atorvastatin 20 mg tablet 20 mg PO QHS Qty: 90 1RF ergocalciferol (vitamin D2) 1,250 mcg (50,000 unit) capsule See Rx Instructions .ROUTE .COMPLEX Qty: 12 1RF Dose Instruction: TAKE 1 CAPSULE BY MOUTH WEEKLY Rx Instructions: TAKE 1 CAPSULE BY MOUTH WEEKLY duloxetine 60 mg capsule,delayed release(DR/EC) See Rx Instructions .ROUTE .COMPLEX Qty: 90 1RF Dose Instruction: TAKE 1 CAPSULE DAILY Rx Instructions: TAKE 1 CAPSULE DAILY hydrochlorothiazide 25 mg tablet 12.5 mg PO DAILY Qty: 90 1RF Follow-up/Referrals: PHYSICIAN,RECREATION PROGRAM COORDINATOR [Primary Care Provider] - Time of Disposition: 13:57
[2024-07-30 14:26] LABS: EDUAAPPEAR Cloudy; EDUABILI Negative (Negative); EDUABLOOD 3+ (Negative); EDUACOLOR1 Dark; EDUAGLUCOSE Negative (Negative); EDUAKETONE Negative (Negative); EDUALEUKO 1+ (Negative); EDUANITRATE Negative (Negative); EDUAPROTEIN Trace (Negative); EDUAUROBILI 0.2
[2024-07-30 14:33] VITALS: TEMP 36.4
== END 2024-07-30 14:34 | disposition home or self-care (01) ==
DX: N89.8 Other specified noninflammatory disorders of vagina (principal); N39.0 Urinary tract infection, site not specified; Z87.891 Personal history of nicotine dependence; E11.9 Type 2 diabetes mellitus without complications; Z79.4 Long term (current) use of insulin; Z85.07 Personal history of malignant neoplasm of pancreas; Z79.82 Long term (current) use of aspirin
CPT/HCPCS: 81003; 87086; 99213; G0463